=== PATIENT | male | born 1950 | race Caucasian/White ===

== ENCOUNTER 2017-03-21 07:56 | Outpatient (CLI) | payer MEDICARE ==
--- NOTE | 2017-03-21 09:34 | CT ---
CT THORAX WITH IV CONTRAST CT ABDOMEN AND PELVIS WITH IV CONTRAST: DATE: 03/21/17. HISTORY: Followup Hodgkin's lymphoma. The patient has had chemotherapy 26 years ago. COMPARISON: 02/28/16. FINDINGS: CT THORAX: Again noted is evidence of gynecomastia bilaterally. Dense vascular calcifications are seen in the coronary arteries and to a much lesser extent involving the thoracic aorta. There are calcified mediastinal and hilar lymph nodes with a few scattered calcified granulomata with in the lungs bilaterally. There are a few minimal pleural-based densities, some of which have a nodu lar appearance with associated calcifications and were also present on the prior study and are most c ompatible with chronic lung changes. No discrete noncalcified pulmonary nodular mass is seen and the re is no pleural effusion. There are no enlarged lymph nodes seen by CT size criteria and the mediastinal lymph nodes seen on e current study are stable from prior exam. CT ABDOMEN AND PELVIS: Again noted is evidence of cholelithiasis. A right renal cyst is again present. There is a subcentimeter too small to characterize hypodense le eli again present in the inferior pole left kidney. The liver, pancreas, and bilateral adrenal glands have a normal CT appearance. There are subcentimeter peripherally located low-density foci seen within the lateral aspect body of the spleen, and these low-density foci were also seen on prior study on 07/26/13 and are stable in size and appearance. No enlarged lymph nodes were seen by CT size criteria. There is stable haziness in the central mesen isaac, stable when compared to the recent study in 2016 as well as study in 2013. There is colonic diverticulosis. Opacified has a normal CT appearance. Surgical clips are seen near the cecal apex. Bilateral total hip prostheses are present. Degenerative changes are noted in the spine. IMPRESSION: 1. Stable mediastinal lymphadenopathy, the majority of which demonstrates calcifications likely attr ibutable to treated lymphoma or prior granulomatous disease. No new enlarged mediastinal or hilar ly mph nodes are seen. There is no evidence of lymphadenopathy within the abdomen or pelvis. 2. Stable pleural-based nodular densities and areas of pleural thickening with associated calcificat ion which were also present on the study of 2013 and are related to chronic findings. No new noncalc ified pulmonary nodule or mass is seen. 3. The remainder of incidental findings are as described above. POS: MASHA
== END 2017-03-21 07:57 | disposition home or self-care (01) ==
LOC: CT 07:56
PROVIDERS: ATTEND Internal Medicine Medical Oncology
DX: C81.92 Hodgkin lymphoma, unspecified, intrathoracic lymph nodes (principal); R59.0 Localized enlarged lymph nodes; J98.4 Other disorders of lung
CPT/HCPCS: 71260; 74177

== ENCOUNTER 2017-09-04 08:08 | Outpatient (CLI) | payer MEDICARE ==
[2017-09-04 08:56] LABS: Estimated GFR-MDRD - POC Greater than 90
[2017-09-04] MEDS ORDERED: ISOVUE-370 76%-LOCM 1 ML ONE (12:12)
== END 2017-09-04 08:09 | disposition home or self-care (01) ==
LOC: BICCT 08:08
PROVIDERS: ATTEND Internal Medicine Medical Oncology
DX: C81.90 Hodgkin lymphoma, unspecified, unspecified site (principal); M25.851 Other specified joint disorders, right hip; M25.852 Other specified joint disorders, left hip; Z96.643 Presence of artificial hip joint, bilateral
CPT/HCPCS: 71260; 74177; 82565

== ENCOUNTER 2019-01-19 11:17 | Outpatient (CLI) | payer MEDICARE ==
--- NOTE | 2019-01-19 11:30 | RAD ---
EXAM: 2 view chest: INDICATIONS: Chest pain. Lymphoma. COMPARISON: 12/12/2016 FINDINGS: Borderline cardiomegaly is stable. Vascular and interstitial markings upper normal and stab le. Scattered pulmonary nodular opacities are again seen and appear stable. No effusion. No infiltrate or acute interval change. Degenerative changes at both shoulders. IMPRESSION: Stable chest findings
== END 2019-01-19 11:18 | disposition home or self-care (01) ==
LOC: RAD-FRANK 11:17
PROVIDERS: ATTEND Nurse Practitioner Family
DX: C81.90 Hodgkin lymphoma, unspecified, unspecified site (principal); R07.89 Other chest pain; I25.10 Atherosclerotic heart disease of native coronary artery without angina pectoris
CPT/HCPCS: 71046

== ENCOUNTER 2019-09-10 20:10 | Inpatient (IN) | payer MEDICARE ==
[2019-09-11] MEDS ORDERED: traMADol HCl 50 MG TAB PO PRN ×2 (00:43→00:55)
--- NOTE | 2019-09-11 01:39 | CON ---
DATE OF CONSULTATION: 09/10/2019 REFERRING PHYSICIAN: Dr. Bhardwaj. REASON FOR CONSULTATION: Fever of unknown origin. This is a consult made via telemedicine with the assistance of the [facility] nurse, where Mr. Jacob is located. HISTORY OF PRESENT ILLNESS: Mr. Jacob is a 69-year-old gentleman who has a history of Hodgkin lymphoma treated in 1989, avascular necrosis, gout, hyperlipidemia, hypertension, and coronary artery disease with prior cardiac stents. On September 01, he was brought to the emergency room because he had been confused for about a week before September 01, had decreased oral intake and was lethargic, had not had any reported vomiting or dysuria. No respiratory symptoms reported either. Actually, he did have some dysuria reported by the ER physician. The initial findings included a BP 126/76, pulse 108, respirations 24, O2 saturation 94 on 2 L nasal cannula, his temp was 101.8. The exam in the emergency room showed the patient to be lethargic and the mucous membranes were dry and the lungs were sounded clear. The heart exam showed tachycardia, but no murmurs. The abdomen was soft and nontender. There was evidence of nonpitting edema in lower extremities. On neuro exam, he was oriented to person only. Talib scale was 15. He was given IV fluids and started on vancomycin and Zosyn. The impression was sepsis. He was admitted to [facility] and the patient had blood cultures which were negative and urine culture negative as well. The initial laboratory results showed white cell count of 6.1, hemoglobin of 9.2, MCV was 86, and platelets were 119. The neutrophil percentage was 81 and the chemistry demonstrated a sodium of 134, creatinine of 0.87, lactic acid was 2.4, uric acid was less than 2. The total bilirubin was 1.5, AST 31, ALT 18, and alkaline phosphatase 60. Troponin was 0.033, and albumin was 2.8. Vitamin B12 was not tested; the last one in June was within normal limits. Urinalysis demonstrated 0-3 wbc's, urobilinogen was 4, moderate blood, specific gravity 5.5. The patient had COVID rule-out test x2 and both times, 4 days apart were negative. Imaging studies on 09/01 was a chest x-ray, which showed borderline heart size, a few scattered nodular densities, focal pleural thickening along the right lateral hemithorax. He had a chest, abdomen, and pelvis CT the next day on 09/02, there were areas of pleural thickening in the lateral right hemithorax chest wall, subsegmental atelectasis within the lateral segment of the right middle lobe and areas of peribronchial ground-glass opacity seen peripherally within the anterior-posterior segments of the right upper lobe as well as within the apical posterior segment of left upper lobe. No madison airspace consolidation noted. There was a stable calcified granuloma in the right middle lobe, lingula. The lymph nodes in the mediastinum were stable if not slightly smaller. Abdomen and pelvis, there was motion artifact, which limited the specificity of the image and there were some layered gallstones within the gallbladder. No focal hepatic lesion. There was some mild amount of retained stool within the rectum. The visualized bladder was felt to be of normal appearance. The patient had bilateral total hip replacements, which appeared okay. Currently, the patient has developed the recurrence of the previously noted obtundation. He had been afebrile for a few days. Antimicrobials were stopped the day before yesterday and repeat blood work was fairly unremarkable. Now through the imaging in the video, he is apathetic and he only once answered yes to a question and his name , but then he stopped answering or following commands. He does not establish eye contact with the nurse or the examiner. The oral cavity was somewhat dry. He has not been drinking since breakfast this morning. He did drink a couple of Ensure after that though. His lungs were sounded clear according to the nurse. The heart exam was not particularly remarkable. Abdomen was felt soft. The bladder, postvoid residual was 200 mL. He did not have edema in lower extremities. He was not moving and had good muscle tone though. The latest lab values from 09/08 that was yesterday, WBC 4.7, hemoglobin 10.2, platelets 201 with 73% neutrophils, which is improved from previous. Chemistry with sodium 139, creatinine 0.74, glucose was 130, bilirubin normal, uric acid less than 2, it was not repeated. A C-reactive protein was elevated at 5.81; this is the first C-reactive protein. The last urinalysis was from 09/01. The chest x-ray showed improvement in the previously noted areas of atelectasis and there was one possible early infiltrate in the right middle lobe. ASSESSMENT: Hodgkin lymphoma, in remission, presumably since the . Hypertension. New onset of altered mental status associated with mild urinary retention and some nonspecific chest x-ray changes, now with improvement and then recrudescence of the same findings with fever and altered mental state. DISCUSSION: The differential diagnosis includes recurrence of lymphoma or an alternate type of malignancy associated with previous Hodgkin disease treatment, possible [employer] inflammatory process, for example, encephalitis. Aspiration is another possibility or recurrence due to urinary retention with bacteremia and early sepsis. We will go ahead and submit blood cultures and urine culture, urinalysis. Dr. Bhardwaj has ordered the other labs to be repeated today. We will restart Zosyn and I would advise transfer to the main hospital. He may need a fluoroscopy-guided CSF evaluation. I would probably consider a repeat CT scan of the abdomen and pelvis since the previous one was fraught with artifact from motion abnormalities. He did have a brain CT, so I do not think we need to repeat that, but an MRI might be necessary depending on the above evaluations. Job ID: [id number] [facility]ITALK[facility]n
[2019-09-11 04:28] LABS: ALT (SGPT) 31 U/L (8-55); AST (SGOT) 47 U/L (5-34); Albumin 3.1 g/dL (3.4-4.8); Alkaline Phosphatase 70 U/L (40-110); Anion Gap 13 mmol/L (10-20); BUN (Urea Nitrogen) 12 mg/dL (8.4-25.7); Bilirubin, Total 0.8 mg/dL (0.2-1.2); Calc. Creatinine Clearance 144 mL/min (70-130); Calcium 8.7 mg/dL (7.8-10.44); Carbon Dioxide 25 mmol/L (23-31); Chloride 96 mmol/L (98-107); Estimated GFR-MDRD Greater than 90; Globulin 4.9 g/dL (2.4-3.5); Glucose 118 mg/dL (83-110); Potassium 4.1 mmol/L (3.5-5.1); Sodium 130 mmol/L (136-145)
[2019-09-11] MEDS: Acetaminophen 650 MG Suppository PR PRN ×2 (05:23→16:33)
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
[2019-09-11] MEDS ORDERED: Allopurinol 300 MG TAB PO SCH (09:00)
[2019-09-11] MEDS ORDERED: Metoprolol Tartrate 25 MG TAB PO SCH (09:00)
[2019-09-11] MEDS ORDERED: Isosorbide Mononitrate (ER) 30 MG TAB PO SCH (09:00)
--- NOTE | 2019-09-11 10:09 | RAD ---
Lumbar puncture fluoroscopic guided HISTORY: Altered mental status. Fever. FINDINGS: After informed consent was obtained, the lower back was prepped and draped in usual sterile fashion. Sterile technique, buffered local anesthesia, fluoroscopic guidance, and a right posterolateral L2-3 approach were used to carefully advance the tip of a 20-gauge spinal needle into the thecal sac. Opening pressure was not elevated. A total of 7 cc clear CSF was collected and submitted to laborator y for analysis. Needle was removed. Patient tolerated the procedure well and was returned in unchanged condition. Fluoroscopy time 0.1 minutes. IMPRESSION : Technically successful fluoroscopic guided lumbar puncture.
[2019-09-11] MEDS: Folic Acid 1 MG TAB PO SCH (10:19)
[2019-09-11 10:34] LABS: Unspun CSF Color COLORLESS (Colorless)
[2019-09-11 10:35] LABS: Color Of CSF Supernatant COLORLESS (Colorless)
[2019-09-11 10:36] LABS: Tube # 1
[2019-09-11 10:54] LABS: CSF, Glucose 58 mg/dl (40-70); CSF, Protein 75 mg/dL (15-40)
[2019-09-11] MEDS: Lisinopril 5 MG TAB PO SCH (12:15)
[2019-09-11 12:57] LABS: CSF Source CSF; Clarity Clear (Clear); Tube # 4
--- NOTE | 2019-09-11 14:58 | PRG ---
DATE OF SERVICE: 09/11/2019 SUBJECTIVE: Mr. Jacob is apathetic. He does not establish eye contact. He will answer very briefly questions only upon insistence. He will say things such as "I'm here," but does not elaborate further. He does not follow commands. I spoke with his and she stated that his baseline basically he is able to do everything and drive and normal conversation. He has been retired for a while. They have cows , animals, dogs, and cats in the house. He does not calderón and no travel history. 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 The deterioration in his cognitive function was very mild and mostly some issues with recollection, but nothing that she stated that they would be concerned with, so the deterioration that were seen now is a more acute one, which started about 5 to 8 days before the admission in [facility] on 09/03. So, there was quite precipitous deterioration in his mental state. He started having fever. He was not eating. She did state that there were some issues with pain in the abdominal area, but that was quite mild and they were not very concerned with. She also stated that he could not hold his urine and he would always be incontinent over the past few weeks to months. He was supposed to be in remission from his Hodgkin's disease for many years now. OBJECTIVE: VITAL SIGNS: Here, his vital signs show a T-max of 100.3, now it is 98.4, blood pressure 122/62, pulse is 96 to 102, respiratory rate 22, O2 saturation 95% on 2 L nasal cannula. SKIN: Nothing in the skin exam of significance. He has a peripheral IV access. : Voiding with an indwelling Sepulveda catheter. HEENT: His ocular movements are conjugate. Sclerae white. No nystagmus. LUNGS: With diminished breath sounds at bases, but no obvious crackles or wheezing. HEART: S1, S2. Regular rate. No S3 or S4. No murmurs. ABDOMEN: Soft, nondistended. There is tenderness in the right upper quadrant. No bladder distention noted. EXTREMITIES: No joint inflammatory activity. He has hyporeflexia. Plantar responses are somewhat indifferent, but no clonus. NEUROLOGIC: His cognitive function again is really poor. He opens his eyes spontaneously, does not establish eye contact, does not follow commands. He will answer very briefly to certain questions, but most of them he does not say anything. LABORATORY DATA: Labs showed sodium 130, creatinine 0.74, bilirubin 0.8, AST 47 , albumin 3.1, LDH 286, and the most recent CBCs from yesterday with a white cell count 7.0, hemoglobin 10, MCV 88, platelets 159, 82% neutrophils, and 17% lymphocytes. Urinalysis from yesterday showed 0 to 3 WBCs, 100 protein, so urine culture was not submitted. He had a CSF evaluation today with the first tube showed 7 WBCs with 75 protein with mild elevation of protein. Microbiology thus far has negative blood cultures. Negative urine culture as well 12 hours. Previous blood and urine cultures have been negative as well. Respiratory virus PCR panel was negative on the . IMAGING STUDIES: A chest x-ray from the showed congestive changes with improvement. A brain CT with no significant changes. Abdominal ultrasound with contracted gallbladder with cholelithiasis. The wall measured 3 mm in thickness. No fluid was seen around the wall. The common bile duct was 5 mm. Visualized pancreas appeared normal. He was retaining some urine of about 200 mL when I checked yesterday when he was in [place]. He had an abdomen and pelvis CT with chest as well on 09/02 and there was respiratory motion artifacts, which limited somewhat image detail. There was scattered artifact from the patient's upper extremities adjacent to the torso. There was some suspected calcified lymph nodes in the subdiaphragmatic region. There were layered gallstones within the gallbladder. Liver was okay. Renal cyst and spleen within normal limits. Mild amount of retained stool, visualized bladder was not remarkable. Bilateral total hip replacements. Scattered degenerative changes. There were some peribronchial ground-glass opacities seen within both upper lobes. He has had 2 COVID tests, which were negative recently. ASSESSMENT: 1. History of Hodgkin's disease in remission, following treatment many years ago. 2. Hypertension and new onset of fever, low-grade with altered mental state, mild urinary retention, nonspecific chest x-ray changes, mild abnormalities on liver panel, and some mild tenderness in the right upper quadrant. DISCUSSION: The CSF evaluation was fairly benign except for mild elevation in the CSF protein. He did have 7 WBCs noted. The urinary retention issue was one of the concerns, but his urinalysis was unremarkable. Urine culture is pending. Previous urine culture was negative. So, the differential diagnosis includes an intraabdominal inflammatory process that the initial CT was not able to identify due to motion artifact. For example, acute cholecystitis, recurrence of lymphoma, either Hodgkin's, or a different sort of malignant process as a possibility. Bacteremia from not yet disclosed primary site is considered possible. In view of the fact that he is exposed to various animals in the property is a possibility, particularly Bartonella species infection. Viral encephalitis is not completely ruled out and we will go ahead and check West Nile, herpes simplex, PCR, and we will check Bartonella, IgG, and IgM. Job ID: [id number] [facility]
[2019-09-11] MEDS: Sodium Chloride 0.9% 1,000 ML IV SCH (15:11)
--- NOTE | 2019-09-11 15:57 | PDOC.HOSPP ---
- Subjective Encounter Date: 09/11/19 non-verbal - Objective Vital Signs & Weight: Vital Signs (12 hours) Temp Pulse Resp BP Pulse Ox 09/11/19 15:05 102.6 F H 103 H 20 132/60 94 L 09/11/19 11:53 98.4 F 102 H 22 H 122/62 95 09/11/19 07:45 100.2 F H 96 20 120/57 L 92 L Weight Weight 245 lb 6.4 oz I&O: 09/10/19 09/11/19 09/12/19 06:59 06:59 06:59 Output Total 450 Balance -450 Result Diagrams: 09/11/19 03:59 Hospitalist ROS - Medication Medications: Active Medications Generic Name Dose Route Start Last Admin Trade Name Freq PRN Reason Stop Dose Admin Acetaminophen 650 mg 09/11/19 04:49 09/11/19 05:23 Tylenol [place] 650 mg Q6H PRN Administration Headache/Fever or Pain Folic Acid 1 mg 09/11/19 09:00 09/11/19 10:19 Folvite PO Not Given DAILY [facility] Sodium Chloride 1,000 mls @ 75 mls/hr 09/11/19 14:15 09/11/19 15:11 Normal Saline 0.9% IV 1,000 mls .[id number] TRISTAN Administration Lisinopril 5 mg 09/11/19 09:00 09/11/19 12:15 Zestril PO Not Given DAILY TRISTAN Metoprolol Tartrate 25 mg 09/11/19 09:00 09/11/19 12:15 Lopressor PO Not Given BID TRISTAN Pantoprazole Sodium 40 mg 09/11/19 09:00 09/11/19 10:19 Protonix PO Not Given DAILY TRISTAN - Exam General Appearance: NAD General - other findings: Attempts to shake my hand. Does not speak or make eye contact. Stares Heart: RRR, no murmur, no gallops, no rubs, normal peripheral pulses Respiratory: CTAB, no wheezes, no rales, no ronchi, normal chest expansion, no tachypnea, normal percussion Gastrointestinal: soft, non-distended, normal bowel sounds, no palpable masses, no hepatomegaly, no splenomegaly, no bruit Extremities: no cyanosis, no clubbing, no edema Skin: normal turgor Musculoskeletal: generalized weakness Psychiatric - other findings: Non-verbal. Encephalopathic. Hosp A/P (1) Acute metabolic encephalopathy Code(s): G93.41 - METABOLIC ENCEPHALOPATHY Status: Acute (2) Fever Code(s): R50.9 - FEVER, UNSPECIFIED Status: Acute (3) HTN (hypertension) Code(s): I10 - ESSENTIAL (PRIMARY) HYPERTENSION Status: Chronic (4) Hyperlipidemia Code(s): E78.5 - HYPERLIPIDEMIA, UNSPECIFIED Status: Chronic - Plan This patient was transferred from [place] for fever of unknown origin. He was seen by infectious disease there and the recommendations was for transfer here. Patient continues to be febrile and continues to have encephalopathy. There is no specific source of the infection as yet identified. Lumbar puncture was performed. There was a slight elevation of the protein and relatively low glucose. CT abdomen and pelvis and further serologies are pending. Given the patient's encephalopathy he will remain n.p.o. We will convert his medicines to IV and topical as possible.
[2019-09-11] MEDS: Metoprolol Tartrate 5 MG/5 ML VIAL IVP SCH (16:42)
--- NOTE | 2019-09-11 17:21 | MRI ---
MRI OF BRAIN WITH AND WITHOUT CONTRAST: 09/11/19 HISTORY: Confusion and fever. COMPARISON: CT of the brain 09/04/19. MRI of the brain 06/17/16. FINDINGS: On the diffusion weighted imaging sequence, there are no abnormal foci of diffusion restriction. This is confirmed on the ADC map. On the susceptibility weighted imaging sequence there are senile calcifications of the basal ganglia. No acute hemorrhage. Moderate-high grade atrophy. Extensive periventricular and deep white matter microangiopathic changes . No midline shift. No mass effect. No abnormal intra-axial or extra-axial enhancement. The dural venous sinuses are patent. IMPRESSION: 1. No acute hemorrhage or infarct. 2. No abnormal enhancing intra-axial or extra-axial mass. 3. Extensive periventricular and deep white matter microangiopathic changes and moderate-high gr aldair atrophy. POS: HOME
--- NOTE | 2019-09-11 17:57 | CT ---
ABDOMEN AND PELVIC CT SCAN WITH IV CONTRAST: 09/11/19 HISTORY: Altered mental status, fever, abdominal pain. FINDINGS: Small to moderate right pleural effusion. Patchy parenchymal changes in bot lung bases, more marked i n the right lower lobe concerning for bibasilar pneumonia and/or partial atelectasis. Three vessel co ronary artery calcific disease. Multiple gallstones are noted within the gallbladder without overt ga llbladder wall thickening. The liver appears unremarkable. Pancreas appears unremarkable. There is se veral peripheral low density foci involving the spleen, nonspecific, possibly small splenic cysts or changes related to old injury. Adrenal glands are unremarkable. Bilateral renal cysts up to 5.8 cm on the right side. Abnormal fat stranding in the central mesentery with a pseudocapsule evidence for mesenteric panniculitis. No CT evidence for acute appendicitis. Moderate solid fecal material in the colon with a minimally dilated rectum, evidence for obstipation. Bilateral total hip replacement sexton ges. IMPRESSION: Small to moderate right pleural effusion and minimal left sided pleural thickening. Bibasilar parench ymal changes more marked in the left base, evidence for bibasilar pneumonia and/or partial atelectasi s. Cholelithiasis without gallbladder wall thickening or gallbladder distention. Fat stranding in the central mesentery with a pseudocapsule evidence for mesenteric panniculitis. Fecal material in the c olon with dilated rectum, evidence for obstipation. No abscess, abnormal fluid collection or other ac [place] process. POS: [facility]
[2019-09-11] MEDS: Nitroglycerin 2% Ointment 1 INCH/1 GM Packet TOP SCH (20:27)
[2019-09-12] MEDS: Acetaminophen 650 MG Suppository PR PRN ×3 (03:44→13:23)
[2019-09-12] MEDS: Metoprolol Tartrate 5 MG/5 ML VIAL IVP SCH ×2 (03:44→16:08)
[2019-09-12] MEDS: Sodium Chloride 0.9% 1,000 ML IV SCH ×2 (05:43→16:47)
[2019-09-12 06:47] LABS: #Eosinphils 0.1 thou/uL (0.0-0.7); #Lymphocytes 0.7 thou/uL (1.20-3.40); #Monocytes 0.4 thou/uL (0.11-0.59); #Neutrophils 7.8 thou/uL (1.40-6.50); %Basophils 0.1 % (0.0-1.0); %Eosinophils 0.9 % (0.0-10.0); %Monocytes 3.9 % (0.0-10.0); %Neutrophils 87.1 % (42.0-75.0); Hemoglobin 10.3 g/dL (14.0-18.0); Mean Corpuscular HGB CONC 32.3 g/dL (32.0-36.0); Mean Corpuscular Hemoglobin 28.7 pg (27.0-31.0); Mean Corpuscular Volume 88.9 fL (78.0-98.0); Mean Platelet Volume 9.4 fL (7.4-10.4); Platelet Count 213 thou/uL (130-400); RBC Distribution Width 17.7 % (11.5-14.5); Red Blood Cell (RBC) Count 3.59 mill/uL (4.70-6.10)
[2019-09-12] MEDS: Piperacillin/Tazobactam 3.375 GM in Sodium Chloride 0.9% 100 ML IVPB SCH ×4 (07:00→23:56)
[2019-09-12] MEDS: Nitroglycerin 2% Ointment 1 INCH/1 GM Packet TOP SCH ×2 (08:09→22:04)
[2019-09-12] MEDS ORDERED: Vancomycin HCl 1 GM in Sodium Chloride 0.9% 250 ML 250 ML IVPB SCH (09:00)
[2019-09-12 09:09] LABS: Actual Bicarbonate (HCO3a) 21.1 mEq/L (22-28); Base Excess (BEa) -1.5 mEq/L (-2.0 to +3.0); CO2 Tension 28.8 mmHg (35.0-45.0); Calcium, Ionized 1.16 mmol/L (1.12-1.30); Carboxyhemoglobin (COHb) 1.3 gm% (0.0-3.0); Hemoglobin (Hb) 11.5 g/dL (14.0-18.0); Potassium - ABG Lab 4.44 mmol/L (3.70-5.30); pH, Arterial 7.48 (7.35-7.45)
[2019-09-12 09:10] LABS: O2 Tension (PaO2), arterial 53.2 mmHg (> 70.0); Puncture Site LRA
[2019-09-12] MEDS: Lisinopril 5 MG TAB PO SCH (09:13)
[2019-09-12] MEDS: Folic Acid 1 MG TAB PO SCH (09:13)
--- NOTE | 2019-09-12 09:33 | RAD ---
Chest one view HISTORY: Fever. COMPARISON: 09/09/2019. FINDINGS: Cardiac silhouette is magnified and upper limits of normal in size. Pulmonary vasculature r emains engorged. Ill-defined parenchymal opacity at the right lower lobe has progressed since the previous exam. Possi ble parenchymal opacity at the left lung base also. Mediastinum is midline. No evidence of pneumothorax. hall monitor leads overlie the chest. IMPRESSION : Increasing bibasilar infiltrates. Cardiomegaly and borderline pulmonary vascular engorgement appear stable.
[2019-09-12] MEDS: Pantoprazole 40 MG VIAL IVP SCH (09:37)
--- NOTE | 2019-09-12 09:40 | PDOC.HOSPP ---
- Subjective Encounter Date: 09/12/19 Subjective: All boothe was called on this patient this morning. Nurses noted the patient had a temperature of 103.5. He was tachycardic with a heart rate up to 150. He was tachypneic. He was having some rigors. He did receive rectal Tylenol this morning. On assessment the patient was tachypneic and having visible Rigors. EKG showed sinus tachycardia with a rate in the 130s. He had a left bundle branch block which was old. He had his baseline encephalopathy. - Objective Vital Signs & Weight: Vital Signs (12 hours) Temp Pulse Resp BP BP Pulse Ox 09/12/19 09:13 91 09/12/19 09:12 94 L 09/12/19 08:50 103.1 F H 09/12/19 06:56 99.4 F 91 20 128/59 L 92 L 09/12/19 03:51 100.6 F H 99 23 H 121/61 93 L Weight Weight 237 lb 12.8 oz Most Recent Monitor Data Heart Rate from ECG 115 NIBP 105/91 NIBP BP-Mean 95 Respiration from ECG 33 SpO2 96 I&O: 09/11/19 09/12/19 09/13/19 06:59 06:59 06:59 Intake Total 845 500 Output Total 450 1500 350 Balance -450 -655 150 Result Diagrams: 09/12/19 06:37 09/11/19 03:59 Additional Labs: Accuchecks 09/12/19 08:34 POC Glucose 127 H Hospitalist ROS - Medication Medications: Active Medications Generic Name Dose Route Start Last Admin Trade Name Freq PRN Reason Stop Dose Admin Acetaminophen 650 mg 09/11/19 04:49 09/12/19 09:13 Tylenol SC 650 mg Q6H PRN Administration Headache/Fever or Pain Folic Acid 1 mg 09/11/19 09:00 09/12/19 09:13 Folvite PO Not Given DAILY TRISTAN Sodium Chloride 1,000 mls @ 75 mls/hr 09/11/19 14:15 09/12/19 05:43 Normal Saline 0.9% IV 1,000 mls .[id number] TRISTAN Administration Piperacillin Sod/Tazobactam 100 mls @ 200 mls/hr 09/12/19 06:00 09/12/19 07: 00 Sod 3.375 gm/ Sodium Chloride IVPB 100 mls Q6HR TRISTAN Administration Vancomycin HCl 2 gm/ Sodium 500 mls @ 250 mls/hr 09/12/19 06:45 09/12/19 08: 08 Chloride IVPB 09/12/19 10:00 500 mls NOW TRISTAN Administration Lisinopril 5 mg 09/11/19 09:00 09/12/19 09:13 Zestril PO Not Given DAILY TRISTAN Metoprolol Tartrate 5 mg 09/11/19 16:00 09/12/19 03:44 Lopressor IVP 5 mg 0400,1600 TRISTAN Administration Nitroglycerin 1 inch 09/11/19 21:00 09/12/19 08:09 Nitro-Bid 2% Ointment TOP 1 inch BID TRISTAN Administration Pantoprazole Sodium 40 mg 09/12/19 09:00 09/12/19 09:37 Protonix IVP 40 mg DAILY TRISTAN Administration - Exam Heart: RRR, no murmur Respiratory: rales, rhonchi Gastrointestinal: soft, non-distended, normal bowel sounds, no palpable masses Extremities: no cyanosis, no clubbing, no edema Skin: normal turgor Neurological - other findings: Encephalopathic Musculoskeletal: generalized weakness Psychiatric - other findings: Encephalopathy. He will answer a few simple questions. Hosp A/P (1) Acute metabolic encephalopathy Code(s): G93.41 - METABOLIC ENCEPHALOPATHY Status: Acute (2) Fever Code(s): R50.9 - FEVER, UNSPECIFIED Status: Acute (3) HTN (hypertension) Code(s): I10 - ESSENTIAL (PRIMARY) HYPERTENSION Status: Chronic (4) Hyperlipidemia Code(s): E78.5 - HYPERLIPIDEMIA, UNSPECIFIED Status: Chronic (5) Tachycardia Code(s): R00.0 - TACHYCARDIA, UNSPECIFIED Status: Acute (6) Acute respiratory failure with hypoxia Code(s): J96.01 - ACUTE RESPIRATORY FAILURE WITH HYPOXIA Status: Acute - Plan This patient was transferred from [place] for fever of unknown origin. He was seen by infectious disease there and the recommendations was for transfer here. Patient continues to be febrile and continues to have encephalopathy. There is no specific source of the infection as yet identified. Lumbar puncture was performed. There was a slight elevation of the protein and relatively low glucose. Serologies are pending. CT abdomen and pelvis did not show any specific acute infectious etiology. There was some evidence of panniculitis. He did have stool with dilated rectum. He appeared to have an episode of significant fever with chills this morning. With that he had tachycardia and tachypnea. His blood pressure remained stable. His oxygen saturation was only seen to go as low as 88% based on O2 sat monitor. ABG was obtained which showed some mild hypoxia with hyperventilation and slightly diminished CO2. pH was alkalotic. Patient was transferred to the ICU as an IMCU overflow. By the time the patient arrived there his heart rate was already down to 117. His respiratory rate had come back to normal. Blood pressure and sats were stable. Chest x-ray was ordered. It does appear to show some increasing bibasilar infiltrates. He remains on broad-spectrum antibiotics. ID following. Case was discussed with pulmonary critical care. Patient was placed on high flow nasal cannula. Given the patient's encephalopathy he will remain n.p.o. as he was not able to follow commands with the evaluation by speech therapy.
[2019-09-12] MEDS ORDERED: Ibuprofen 100 MG/5 ML UDCUP PO PRN (13:36)
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
--- NOTE | 2019-09-12 17:30 | PRG ---
DATE OF SERVICE: 09/12/2019 SUBJECTIVE: Mr. Jacob continued to have fevers. This morning I found out that somehow his Zosyn had been stopped or maybe dropped from the pharmacy list, that was resumed. Has been getting vancomycin and Zosyn since this morning. He was transferred to the ICU because of the worsening mental state and concern with possible need for intubation, but looks like he is going to avoid that for the time being. He is more alert, a bit more responsive than when I saw him yesterday. He establishes eye contact this time. He failed a swallow study. OBJECTIVE: VITAL SIGNS: Last temperature was 99.7, before that 101.5, and BP is kind of lowish 83s over 57, respiratory rate 20 to 27, O2 saturations are 96%. HEENT: His ocular movements are conjugate. LUNGS: With diminished breath sounds at bases. CARDIAC: S1, S2. ABDOMEN: Soft, not distended. EXTREMITIES: He is able to move extremities better than what he was doing before. LABORATORY DATA: His white cell count is 9.0, hemoglobin 10.3, platelets 213, with 87% neutrophils and glucose 127. Serum protein 8, albumin 3.1, LDH 286, AST 47. CSF, again we reviewed before. The assays for the different viruses is still pending. The MRI which was done yesterday with contrast study and showed no acute infarct, no abnormal mass, no enhancement. There was evidence of microangiopathic changes, moderate high-grade atrophy. Chest x-ray from this morning with bibasilar infiltrates, cardiomegaly. Dr. Marie has seen the patient. Dr. Dunn has evaluated the patient today. At this point, the patient presents with recurrent fevers, possible aspiration based on the CT findings. He did have some constipation, but he had a big bowel movement today and so he is not impacted right now. There is a little bit of mesenteric changes there, but there are mild. So probably he has some underlying cognitive issues with worsening due to aspiration and recurrent pneumonias. It does not appear to be secondary to a CVA, encephalitis work up is proceeding, if negative, will have to consider rapidly progressive neurodegerative processes. We will keep him on Zosyn and vancomycin and follow up the assays from the CSF. Job ID: [id number] [facility]
[2019-09-12] MEDS ORDERED: Vancomycin 1.5 GRAM/300 ML BAG 1.5 GM in Premix Bag 1 BAG IVPB SCH (18:00)
[2019-09-12] MEDS: Vancomycin 1.5 GRAM/300 ML BAG 1.5 GM in Premix Bag 1 BAG IVPB SCH (20:53)
[2019-09-13] MEDS: Acetaminophen 325 MG TAB PO PRN (01:27)
[2019-09-13] MEDS: Chloraseptic Spray 180 ml Bottle PO PRN (02:00)
[2019-09-13] MEDS: Metoprolol Tartrate 5 MG/5 ML VIAL IVP SCH ×2 (04:41→16:15)
[2019-09-13] MEDS: Piperacillin/Tazobactam 3.375 GM in Sodium Chloride 0.9% 100 ML IVPB SCH ×3 (06:07→19:18)
[2019-09-13 08:05] LABS: ALT (SGPT) 27 U/L (8-55); AST (SGOT) 41 U/L (5-34); Albumin 2.5 g/dL (3.4-4.8); Alkaline Phosphatase 60 U/L (40-110); Anion Gap 14 mmol/L (10-20); BUN (Urea Nitrogen) 21 mg/dL (8.4-25.7); Bilirubin, Total 0.6 mg/dL (0.2-1.2); Calc. Creatinine Clearance 134 mL/min (70-130); Calcium 8.3 mg/dL (7.8-10.44); Carbon Dioxide 23 mmol/L (23-31); Chloride 105 mmol/L (98-107); Estimated GFR-MDRD Greater than 90; Globulin 4.6 g/dL (2.4-3.5); Glucose 101 mg/dL (83-110); Potassium 4.2 mmol/L (3.5-5.1); Protein, Total 7.1 g/dL (5.8-8.1); Sodium 138 mmol/L (136-145)
[2019-09-13 09:12] LABS: Hemoglobin 9.7 g/dL (14.0-18.0); Mean Corpuscular HGB CONC 31.8 g/dL (32.0-36.0); Mean Corpuscular Hemoglobin 28.7 pg (27.0-31.0); Mean Corpuscular Volume 90.2 fL (78.0-98.0); Mean Platelet Volume 10.3 fL (7.4-10.4); Platelet Count 180 thou/uL (130-400); RBC Distribution Width 17.9 % (11.5-14.5); Red Blood Cell (RBC) Count 3.39 mill/uL (4.70-6.10); White Blood Cell (WBC) Count 5.8 thou/uL (4.8-10.8)
[2019-09-13] MEDS: Sodium Chloride 0.9% 1,000 ML IV SCH ×3 (09:40→21:30)
[2019-09-13] MEDS: Lisinopril 5 MG TAB PO SCH (09:44)
[2019-09-13] MEDS: Folic Acid 1 MG TAB PO SCH (09:44)
[2019-09-13] MEDS: Pantoprazole 40 MG VIAL IVP SCH (09:45)
[2019-09-13] MEDS: Vancomycin 1.5 GRAM/300 ML BAG 1.5 GM in Premix Bag 1 BAG IVPB SCH ×2 (09:45→21:20)
[2019-09-13] MEDS: Nitroglycerin 2% Ointment 1 INCH/1 GM Packet TOP SCH ×2 (09:45→21:20)
[2019-09-13 09:47] LABS: Band 32 % (5-11); Lymphocytes 2 % (21-51); MDiff Complete? YES; Monocytes 1 % (0-10); Neutrophil 64 % (42-75); Platelet Morphology Comment Appears Adequate; Polychromasia SLIGHT = 2-3 cells (100X) (0-2/hpf); Reactive Lymphocytes 1 % (0-10); Reflex for Review?? NO; Rouleaux Formation SLIGHT = 1-5 cells (100X) (None Seen)
--- NOTE | 2019-09-13 10:27 | PRG ---
DATE OF SERVICE: 09/13/2019 SUBJECTIVE: The patient looks like he feels better. He is alert, able to answer questions for orientation without difficulty. OBJECTIVE: VITAL SIGNS: His temperature 97.5, pulse 80, blood pressure 108/59, O2 saturation 98%. GENERAL: He is awake, alert, pleasant. HEENT: Unremarkable. NECK: No adenopathy or JVD. LUNGS: Clear. CARDIAC: S1 and S2. Regular. ABDOMEN: Soft. EXTREMITIES: No edema. NEUROLOGIC: Moves all 4 extremities without difficulty. LABORATORY DATA: White blood cell count 5.8, hematocrit 30, platelet count 180, 64% neutrophils, 32% bands. Sodium 130, potassium 4.2, BUN 21, creatinine 0.7, glucose 101. ASSESSMENT: This gentleman is presenting with a febrile illness with metabolic encephalopathy. his mental status is grossly improved today. I would recommend getting up in a chair. Discontinuing his restraints. Continue the antibiotics. Try him on clear liquids and see if he tolerates. Job ID: [id number]
--- NOTE | 2019-09-13 14:30 | PRG ---
DATE OF SERVICE: 09/13/2019 SUBJECTIVE: The patient is much more alert. He answered most of the questions I asked him. He is little bit disoriented, but he recognized once I said he was in [place] and [facility]. He denied any headaches. He has an NG tube for feeding because of his swallowing dysfunction. He is coughing intermittently, but no abdominal pain. He has a Sepulveda catheter. OBJECTIVE: VITAL SIGNS: He had a T-max of 101.5 yesterday at 12 and he has been afebrile since, BP 115/87, pulse 97, respiratory rate 29, O2 sats 98% with high-flow nasal cannula. GENERAL: He is more alert. He establishes eye contact and follows commands. He shook my hand. HEENT: His ocular movements conjugate. No nystagmus. Pupils are equal. LUNGS: There is coarse crackles particularly on the right side. HEART: S1, S2, regular rate. ABDOMEN: Soft, not distended. EXTREMITIES: He moves all extremities equally. His plantar response are flexor. No clonus. NEUROLOGIC: He knows his name and he thought he was in [facility]. When I corrected him, he realized he was in [place]. LABORATORY DATA: His white cell count is 5.8, hemoglobin 9.7, platelets 180, 64% neutrophils, 32% bands. Creatinine 0.78. AST 41, albumin 2.5. The assays in the CSF are pending for various viruses. ASSESSMENT AND DISCUSSION: History of Hodgkin disease, in remission after treatment in the 90s; hypertension; new onset of fever; altered mental state, felt to be due to toxic metabolic encephalopathy; swallowing dysfunction with aspiration pneumonia, recurrent. We are ruling out of viral encephalitis. MRI did not show an acute CVA. Consider Neurology consultation. If the viral panel is negative, then we will have to explain why he is having this decline in his swallowing function. Job ID: [id number]
--- NOTE | 2019-09-13 15:49 | PDOC.HOSPP ---
- Subjective Encounter Date: 09/13/19 Subjective: Much more interactive today. He denies any specific problems. He does admit to some mild shortness of breath. He also reports a modest cough. - Objective Vital Signs & Weight: Vital Signs (12 hours) Pulse BP Pulse Ox 09/13/19 09:44 91 104/53 L 09/13/19 08:00 99 Weight Weight 241 lb 2.971 oz Most Recent Monitor Data Heart Rate from ECG 97 NIBP 106/55 NIBP BP-Mean 72 Respiration from ECG 25 SpO2 98 I&O: 09/12/19 09/13/19 09/14/19 06:59 06:59 06:59 Intake Total 845 2262 Output Total 1500 1525 Balance -655 737 Result Diagrams: 09/13/19 07:30 09/13/19 07:30 Additional Labs: Accuchecks 09/13/19 09/13/19 09/12/19 05:06 03:45 19:52 POC Glucose 114 H 116 H 141 H Hospitalist ROS - Medication Medications: Active Medications Generic Name Dose Route Start Last Admin Trade Name Freq PRN Reason Stop Dose Admin Acetaminophen 650 mg 09/11/19 00:38 09/13/19 01:27 Tylenol PO 650 mg Q4H PRN Administration Headache/Fever/Mild Pain (1-3) Acetaminophen 650 mg 09/11/19 04:49 09/12/19 13:23 Tylenol HI 650 mg Q6H PRN Administration Headache/Fever or Pain Folic Acid 1 mg 09/11/19 09:00 09/13/19 09:44 Folvite PO 1 mg DAILY TRISTAN Administration Sodium Chloride 1,000 mls @ 75 mls/hr 09/11/19 14:15 09/13/19 09:40 Normal Saline 0.9% IV 1,000 mls .[id number] TRISTAN Administration Piperacillin Sod/Tazobactam 100 mls @ 200 mls/hr 09/12/19 06:00 09/13/19 13: 48 Sod 3.375 gm/ Sodium Chloride IVPB 100 mls Q6HR TRISTAN Administration Vancomycin HCl 1.5 gm/ Device 300 mls @ 200 mls/hr 09/12/19 21:00 09/13/19 09 :45 IVPB 300 mls Q12HR TRISTAN Administration Ibuprofen 400 mg 09/12/19 13:36 09/12/19 14:06 Motrin PO 400 mg Q8H PRN Administration Fever > 101 Lisinopril 5 mg 09/11/19 09:00 09/13/19 09:44 Zestril PO 5 mg DAILY TRISTAN Administration Metoprolol Tartrate 5 mg 09/11/19 16:00 09/13/19 04:41 Lopressor IVP Not Given 0400,1600 TRISTAN Nitroglycerin 1 inch 09/11/19 21:00 09/13/19 09:45 Nitro-Bid 2% Ointment TOP 1 inch BID TRISTAN Administration Pantoprazole Sodium 40 mg 09/12/19 09:00 09/13/19 09:45 Protonix IVP 40 mg DAILY TRISTAN Administration Phenol 0 ml 09/13/19 00:19 09/13/19 02:00 Chloraseptic [place] 180 Ml Bot PO 1 spray BIDPRN PRN Administration Sore Throat - Exam General Appearance: NAD, awake alert Heart: RRR, no murmur, no gallops, no rubs, normal peripheral pulses Respiratory: CTAB, no wheezes, no rales, no ronchi, normal chest expansion, no tachypnea, normal percussion Gastrointestinal: soft, non-tender, non-distended, normal bowel sounds, no palpable masses, no hepatomegaly, no splenomegaly, no bruit Extremities: no cyanosis, no clubbing, no edema Skin: normal turgor, no lesions, no rashes Neurological: no focal deficits Musculoskeletal: generalized weakness Psychiatric - other findings: Encephalopathy substantially improved. Patient conversant. Hosp A/P (1) Acute metabolic encephalopathy Code(s): G93.41 - METABOLIC ENCEPHALOPATHY Status: Acute (2) Fever Code(s): R50.9 - FEVER, UNSPECIFIED Status: Acute (3) HTN (hypertension) Code(s): I10 - ESSENTIAL (PRIMARY) HYPERTENSION Status: Chronic (4) Hyperlipidemia Code(s): E78.5 - HYPERLIPIDEMIA, UNSPECIFIED Status: Chronic (5) Tachycardia Code(s): R00.0 - TACHYCARDIA, UNSPECIFIED Status: Acute (6) Acute respiratory failure with hypoxia Code(s): J96.01 - ACUTE RESPIRATORY FAILURE WITH HYPOXIA Status: Acute - Plan Acute metabolic encephalopathy: This patient was transferred from [place] for fever of unknown origin. He was seen by infectious disease there and the recommendations was for transfer here. Patient continues to be febrile and continues to have encephalopathy. MRI of the brain was unrevealing. Viral encephalitis work-up still pending. Encephalopathy appears to be related to underlying infection of some sort. Much improved today. Dysphagia: Patient has some dysphasia and aspiration on swallow evaluation. It appears that he may have some aspiration pneumonitis resulting in the febrile illness. Speech therapy recommendations followed. Febrile illness: There is no specific source of the infection as yet identified. Lumbar puncture was performed. There was a slight elevation of the protein and relatively low glucose. Serologies are pending. CT abdomen and pelvis did not show any specific acute infectious etiology. There was some evidence of panniculitis. He did have stool with dilated rectum. Has subsequently had a large bowel movement. It appears as though he is having some aspiration pneumonitis. Infectious disease consult appreciated. Continue with broad- spectrum antibiotics. Viral encephalitis panel still pending. Fever appears to be improving. Acute hypoxic respiratory failure: Patient remains in the ICU. Continue with supplemental oxygen. This is secondary to pneumonitis likely from aspiration.
[2019-09-13 20:18] LABS: Vancomycin, Trough 20.4 ug/mL
[2019-09-14] MEDS: Piperacillin/Tazobactam 3.375 GM in Sodium Chloride 0.9% 100 ML IVPB SCH ×5 (00:28→23:36)
[2019-09-14] MEDS: Metoprolol Tartrate 5 MG/5 ML VIAL IVP SCH ×2 (04:19→16:33)
[2019-09-14 04:30] LABS: ALT (SGPT) 25 U/L (8-55); AST (SGOT) 48 U/L (5-34); Albumin 2.5 g/dL (3.4-4.8); Alkaline Phosphatase 63 U/L (40-110); Anion Gap 12 mmol/L (10-20); BUN (Urea Nitrogen) 16 mg/dL (8.4-25.7); Bilirubin, Total 0.5 mg/dL (0.2-1.2); Calc. Creatinine Clearance 148 mL/min (70-130); Calcium 8.2 mg/dL (7.8-10.44); Carbon Dioxide 21 mmol/L (23-31); Chloride 107 mmol/L (98-107); Estimated GFR-MDRD Greater than 90; Globulin 4.1 g/dL (2.4-3.5); Glucose 100 mg/dL (83-110); Potassium 3.6 mmol/L (3.5-5.1); Protein, Total 6.6 g/dL (5.8-8.1); Sodium 136 mmol/L (136-145)
[2019-09-14 04:57] LABS: Band 21 % (5-11); Eosinophils 8 % (0-10); Hemoglobin 9.3 g/dL (14.0-18.0); Lymphocytes 10 % (21-51); MDiff Complete? YES; Mean Corpuscular HGB CONC 31.5 g/dL (32.0-36.0); Mean Corpuscular Hemoglobin 28.4 pg (27.0-31.0); Mean Corpuscular Volume 90.1 fL (78.0-98.0); Mean Platelet Volume 10.2 fL (7.4-10.4); Monocytes 1 % (0-10); Neutrophil 60 % (42-75); Platelet Count 179 thou/uL (130-400); RBC Distribution Width 17.8 % (11.5-14.5); Red Blood Cell (RBC) Count 3.28 mill/uL (4.70-6.10); White Blood Cell (WBC) Count 4.4 thou/uL (4.8-10.8)
[2019-09-14] MEDS: Sodium Chloride 0.9% 1,000 ML IV SCH ×2 (08:48→23:36)
[2019-09-14] MEDS: Vancomycin 1.5 GRAM/300 ML BAG 1.5 GM in Premix Bag 1 BAG IVPB SCH ×2 (08:50→20:31)
[2019-09-14] MEDS: Folic Acid 1 MG TAB PO SCH (08:51)
[2019-09-14] MEDS: Pantoprazole 40 MG VIAL IVP SCH (08:51)
[2019-09-14] MEDS: Nitroglycerin 2% Ointment 1 INCH/1 GM Packet TOP SCH ×2 (08:52→20:31)
[2019-09-14] MEDS: Lisinopril 5 MG TAB PO SCH (08:52)
--- NOTE | 2019-09-14 12:29 | CON ---
DATE OF CONSULTATION: 09/14/2019 REASON FOR CONSULTATION: Altered mental status. HISTORY OF PRESENT ILLNESS: Mr. Jacob is a 69-year-old male, who was transferred from the [facility] because of altered mental status and weakness. History is taken from the patient's . According to him, he has been feeling extremely weak and was bedridden for about 2 to 3 weeks and then a week before he came to the emergency room, he became extremely unresponsive and confused, so she brought him to the [facility]. There, he was found to have fever and chills. He was diagnosed with sepsis and a chest x-ray was negative. Started on antibiotics. ID is on board right now. The patient is almost back to his baseline today per and he is alert and oriented x3. He was tested for COVID-19 twice and it was negative. The patient denies any nausea, vomiting, headache, chest pain, abdominal pain, focal weakness, focal paresthesias, dizziness, vertigo, loss of vision associated with other complaint. The patient and the also confirm that he reported increased generalized weakness and problems with swallowing, which have worsened over the last week. PAST MEDICAL HISTORY: Coronary artery disease, status post stents; Hodgkin's lymphoma; gout; avascular necrosis of the hip; hypercholesteremia; and hypertension. SOCIAL HISTORY: He chews tobacco. Drinks alcohol occasionally. , lives with his . FAMILY HISTORY: No family history of stroke. REVIEW OF SYSTEMS: All other systems were reviewed and were negative except pertinent positives and negatives mentioned in the HPI. ALLERGIES: CEPHALEXIN. bjective Vital Signs & Weight: Vital Signs (12 hours) Pulse BP Pulse Ox 09/13/19 09:44 91 104/53 L 09/13/19 08:00 99 Weight Weight 241 lb 2.971 oz Most Recent Monitor Data Heart Rate from ECG 97 NIBP 106/55 NIBP BP-Mean 72 Respiration from ECG 25 SpO2 98 I&O: 09/12/19 09/13/19 09/14/19 06:59 06:59 06:59 Intake Total 845 2262 Output Total 1500 1525 Balance -655 737 Result Diagrams: 09/13/19 07:30 09/13/19 07:30 Additional Labs: Accuchecks 09/13/19 09/13/19 09/12/19 05:06 03:45 19:52 POC Glucose 114 H 116 H 141 H Hospitalist ROS - Medication Medications: Active Medications Generic Name Dose Route Start Last Admin Trade Name Freq PRN Reason Stop Dose Admin Acetaminophen 650 mg 09/11/19 00:38 09/13/19 01:27 Tylenol PO 650 mg Q4H PRN Administration Headache/Fever/Mild Pain (1-3) Acetaminophen 650 mg 09/11/19 04:49 09/12/19 13:23 Tylenol [place] 650 mg Q6H PRN Administration Headache/Fever or Pain Folic Acid 1 mg 09/11/19 09:00 09/13/19 09:44 Folvite PO 1 mg DAILY TRISTAN Administration Sodium Chloride 1,000 mls @ 75 mls/hr 09/11/19 14:15 09/13/19 09:40 Normal Saline 0.9% IV 1,000 mls .[id number] TRISTAN Administration Piperacillin Sod/Tazobactam 100 mls @ 200 mls/hr 09/12/19 06:00 09/13/19 13: 48 Sod 3.375 gm/ Sodium Chloride IVPB 100 mls Q6HR TRISTAN Administration Vancomycin HCl 1.5 gm/ Device 300 mls @ 200 mls/hr 09/12/19 21:00 09/13/19 09 :45 IVPB 300 mls Q12HR TRISTAN Administration Ibuprofen 400 mg 09/12/19 13:36 09/12/19 14:06 Motrin PO 400 mg Q8H PRN Administration Fever > 101 Lisinopril 5 mg 09/11/19 09:00 09/13/19 09:44 Zestril PO 5 mg DAILY TRISTAN Administration Metoprolol Tartrate 5 mg 09/11/19 16:00 09/13/19 04:41 Lopressor IVP Not Given 0400,1600 TRISTAN Nitroglycerin 1 inch 09/11/19 21:00 09/13/19 09:45 Nitro-Bid 2% Ointment TOP 1 inch BID TRISTAN Administration Pantoprazole Sodium 40 mg 09/12/19 09:00 09/13/19 09:45 Protonix IVP 40 mg DAILY TRISTAN Administration Phenol 0 ml 09/13/19 00:19 09/13/19 02:00 Chloraseptic [place] 180 Ml Bot PO 1 spray BIDPRN PRN Administration Sore Throat - Exam General Appearance: NAD, awake alert Heart: RRR, no murmur, no gallops, no rubs, normal peripheral pulses Respiratory: CTAB, no wheezes, no rales, no ronchi, normal chest expansion, no tachypnea, normal percussion Gastrointestinal: soft, non-tender, non-distended, normal bowel sounds, no palpable masses, no hepatomegaly, no splenomegaly, no bruit Extremities: no cyanosis, no clubbing, no edema Skin: normal turgor, no lesions, no rashes . NEUROLOGICAL: Mental status; the patient is alert and oriented to person, place , and time. Speech is clear. Follows commands appropriately. Cranial nerves II through XII intact. Motor; muscle tone and bulk are normal. Moving all 4 extremities equally and symmetrically. Sensory; withdraws to nailbed pressure bilaterally. Reflexes; symmetric bilaterally. Gait not tested, but deferred because of patient's safety reasons. Cerebellar; intact. DATA REVIEWED: I reviewed the CT scan of the abdomen, chest, and pelvis, which shows peribronchial ground glass opacities in the both upper lobes. Blood work is essentially unremarkable. I reviewed MRI of the brain, which was negative for acute intracranial pathology. ASSESSMENT AND PLAN: Mr. Jacob is a 69-year-old male with 2 to 3 weeks history of falls, difficulty with ambulation, and generalized weakness. He does have fever and has been treated in the hospital with broad-spectrum antibiotics. He has been ruled out for COVID twice. He also had confusion. Recommend EEG to rule out underlying seizure activity. If EEG is negative, then most likely secondary to infectious etiology, MRI of the brain reviewed, which did not reveal any acute intracranial pathology. Continue home medications. Continue medical management per Primary Team. In regard to swallowing dysfunction, appreciate speech and swallow team recommendations. Neuro checks every 4 hours. Check CPK, CRP, and if the weakness persists, consider Neurology consult as outpatient to rule out neuromuscular cause and follow up EMG. We will follow up on the results of the EEG testing. Thank you for the consult. Job ID: [id number] [facility]
[2019-09-14 13:13] LABS: West Nile Virus IgG Ab - CSF Negative (Negative); West Nile Virus IgM Ab - CSF Negative (Negative)
--- NOTE | 2019-09-14 14:00 | PDOC.HOSPP ---
- Subjective Encounter Date: 09/14/19 Subjective: Much more awake and alert today. He reports he is hungry. Otherwise he does not have any specific complaints. - Objective Vital Signs & Weight: Vital Signs (12 hours) Temp Pulse Resp BP BP Pulse Ox 09/14/19 11:14 96.7 F L 09/14/19 08:52 72 103/58 L 09/14/19 08:00 98 09/14/19 07:19 98.3 F 09/14/19 06:00 99.0 F 72 20 107/56 L 96 09/14/19 03:41 99.8 F H Weight Weight 242 lb 14.4 oz Most Recent Monitor Data Heart Rate from ECG 78 NIBP 116/63 NIBP BP-Mean 80 Respiration from ECG 26 SpO2 97 I&O: 09/13/19 09/14/19 09/15/19 06:59 06:59 06:59 Intake Total 2262 2268 Output Total 1525 1650 Balance 737 618 Result Diagrams: 09/14/19 03:29 09/14/19 03:29 Additional Labs: Accuchecks 09/14/19 00:57 POC Glucose 108 Hospitalist ROS - Medication Medications: Active Medications Generic Name Dose Route Start Last Admin Trade Name Freq PRN Reason Stop Dose Admin Acetaminophen 650 mg 09/11/19 00:38 09/13/19 01:27 Tylenol PO 650 mg Q4H PRN Administration Headache/Fever/Mild Pain (1-3) Acetaminophen 650 mg 09/11/19 04:49 09/12/19 13:23 Tylenol [place] 650 mg Q6H PRN Administration Headache/Fever or Pain Folic Acid 1 mg 09/11/19 09:00 09/14/19 08:51 Folvite PO 1 mg DAILY TRISTAN Administration Sodium Chloride 1,000 mls @ 75 mls/hr 09/11/19 14:15 09/14/19 08:48 Normal Saline 0.9% IV 1,000 mls .[id number] TRISTAN Administration Piperacillin Sod/Tazobactam 100 mls @ 200 mls/hr 09/12/19 06:00 09/14/19 12: 03 Sod 3.375 gm/ Sodium Chloride IVPB 100 mls Q6HR TRISTAN Administration Vancomycin HCl 1.5 gm/ Device 300 mls @ 200 mls/hr 09/12/19 21:00 09/14/19 08 :50 IVPB 300 mls Q12HR TRISTAN Administration Ibuprofen 400 mg 09/12/19 13:36 09/12/19 14:06 Motrin PO 400 mg Q8H PRN Administration Fever > 101 Lisinopril 5 mg 09/11/19 09:00 09/14/19 08:52 Zestril PO Not Given DAILY [facility] Metoprolol Tartrate 5 mg 09/11/19 16:00 09/14/19 04:19 Lopressor IVP Not Given 0400,1600 [facility] Nitroglycerin 1 inch 09/11/19 21:00 09/14/19 08:52 Nitro-Bid 2% Ointment TOP Not Given BID [facility] Pantoprazole Sodium 40 mg 09/12/19 09:00 09/14/19 08:51 Protonix IVP 40 mg DAILY TRISTAN Administration Phenol 0 ml 09/13/19 00:19 09/13/19 02:00 Chloraseptic [place] 180 Ml Bot PO 1 spray BIDPRN PRN Administration Sore Throat - Exam General Appearance: NAD, awake alert Heart: RRR, no murmur, no gallops, no rubs, normal peripheral pulses Respiratory: CTAB, no wheezes, no rales, no ronchi, normal chest expansion, no tachypnea, normal percussion Gastrointestinal: soft, non-tender, non-distended, normal bowel sounds, no palpable masses, no hepatomegaly, no splenomegaly, no bruit Extremities: no cyanosis, no clubbing, no edema Skin: normal turgor Neurological: no focal deficits Musculoskeletal: generalized weakness Psychiatric: normal affect, normal behavior Hosp A/P (1) Acute metabolic encephalopathy Code(s): G93.41 - METABOLIC ENCEPHALOPATHY Status: Acute (2) Fever Code(s): R50.9 - FEVER, UNSPECIFIED Status: Acute (3) HTN (hypertension) Code(s): I10 - ESSENTIAL (PRIMARY) HYPERTENSION Status: Chronic (4) Hyperlipidemia Code(s): E78.5 - HYPERLIPIDEMIA, UNSPECIFIED Status: Chronic (5) Tachycardia Code(s): R00.0 - TACHYCARDIA, UNSPECIFIED Status: Acute (6) Acute respiratory failure with hypoxia Code(s): J96.01 - ACUTE RESPIRATORY FAILURE WITH HYPOXIA Status: Acute - Plan Acute metabolic encephalopathy: This patient was transferred from [place] for fever of unknown origin. He was seen by infectious disease there and the recommendations was for transfer here. Patient continues to be febrile and continues to have encephalopathy. MRI of the brain was unrevealing. Viral encephalitis work-up still pending. Encephalopathy appears to be related to underlying infection of some sort. Much improved today. Dysphagia: Patient has some dysphasia and aspiration on swallow evaluation. It appears that he may have some aspiration pneumonitis resulting in the febrile illness. Speech therapy recommendations followed. He will have a modified barium swallow today. Pending the results of that we either need to give him some p.o. nutrition or consider something through the NG tube. Unclear how much of this was simply related to the encephalopathy versus true neurologic dysfunction. Febrile illness: There is no specific source of the infection as yet identified. Lumbar puncture was performed. There was a slight elevation of the protein and relatively low glucose. Serologies are pending. CT abdomen and pelvis did not show any specific acute infectious etiology. There was some evidence of panniculitis. It appears as though he is having some aspiration pneumonitis. Infectious disease consult appreciated. Continue with broad-spectrum antibiotics with Vanc and Zosyn. Viral encephalitis panel still pending. Fever appears to be improving. Acute hypoxic respiratory failure: Patient remains in the IMCU. Continue with supplemental oxygen. This is secondary to pneumonitis likely from aspiration. Improving. Disposition: Patient is receiving PPI for PUD prophylaxis. He has SCDs in place. We will add Lovenox.
--- NOTE | 2019-09-14 14:11 | RAD ---
Modified barium swallow HISTORY: Dysphagia. Feeding difficulties. FINDINGS: Exam was performed in conjunction with speech pathology. Multiple liquid consistencies used . Video review is available and demonstrates very poor oral control delayed retropulsion. Early spill of contrast with deep penetration. Small amount of silent aspiration was seen with large amount of residue in the valleculae. Poor clearance upon secondary swallows. Esophagus below the level of the hypopharynx was not evaluated. No evidence of esophageal obstruction . Please see separate detailed report from speech pathology.
[2019-09-14] MEDS ORDERED: Enoxaparin Sodium 40 MG/0.4 ML SYRINGE SC SCH (14:15)
[2019-09-14] MEDS: Chloraseptic Spray 180 ml Bottle PO PRN (14:49)
--- NOTE | 2019-09-14 15:01 | EEG ---
Referring Physician: Darron CUADRA EEG # [id number] TEST TYPE: EXTENDED CONTINUOS VIDEO EEG REPORT: This EEG was performed using 24 channel uControl[employer]EC video digital EEG with 24 disc electrodes. This was an extended 2 hour 5 minutes of inpatient video EEG recording. Digital analysis of the EEG was done with spike and seizure detection which revealed no abnormalities BACKGROUND: Posterior background rhythm was not observed HYPERVENTILATION: Not perform PHOTIC STIMULATION: Not perform SLEEP: drowsiness and sleep are observed EEG DIAGNOSIS: 1) Intermittent irregular theta activity seen throughout the recording with superimposed beta 2) Absence of posterior background rhythm CLINICAL INTERPRETATION: THIS EEG IS CONSISTENT WITH MODERATE GENERALIZED NONSPECIFIC CEREBRAL DYSFUNCTION. NO ICTAL OR INTERICTAL EPILEPTIFORM ABNORMALITIES SEE DURING THE RECORDING. Mantel Craftsman: MANI [employer] Operations Agent: RICARDO DORMAN
--- NOTE | 2019-09-14 16:55 | PRG ---
DATE OF SERVICE: 09/14/2019 SUBJECTIVE: Mr. Jacob is oriented, much more alert, and answers questions. He is a little bit upset about the NG tube, and I explained that was because of his swallowing dysfunction. He seems to existed before. Denies any respiratory symptoms or abdominal pain. No diarrhea. No genitourinary symptoms. OBJECTIVE: VITAL SIGNS: T-max is 99.2 to 99.8 earlier today, respiratory rate 20, and blood pressure 103/56. GENERAL: NG tube in place, somewhat disheveled. Awake, alert. LUNGS: With crackles, particularly in the right base. HEART: S1 and S2, regular rate. ABDOMEN: Soft, not distended or tender. No ascites. No bladder distention. Sepulveda catheter in place. I's and O's have been negative and positive over the past 2 days. LABORATORY DATA: White blood cell count 4.4, hemoglobin 9.3, platelets 179, 60% neutrophils, 21% bands, 10% lymphocytes. PH of 7.48, pCO2 of 28, pO2 of 53. Creatinine 0.71, AST 48. The ammonia was normal at 25, and histoplasma antigen was less than 0.5. VZV DNA PCR was negative. ASSESSMENT AND PLAN: Dr. Chin evaluated the patient. EEG showed moderate generalized nonspecific dysfunction, but no epileptiform activity seen. Dr. Chin's impression was that probably the patient had toxic-metabolic encephalopathy in the face of the EEG results. Continue to treat pneumonia and then continue assessing the swallowing function to see if he can resume swallowing. Otherwise, he will need a G-tube. The reason for the swallowing dysfunction is not clear at this point in time. Myasthenia gravis is something to be concerned about, but he does not have other signs that would suggest that at this point in time. A CVA was not obvious in the MRI obtained. A few elements of his viral encephalitis workup are still pending at this point in time. Job ID: [id number] [facility]
--- NOTE | 2019-09-14 17:56 | PRG ---
DATE OF SERVICE: 09/14/2019 SUBJECTIVE: Mr. Jacob has no complaints. OBJECTIVE: VITAL SIGNS: He is afebrile. Blood pressure 120/55, heart rate is 78, respiratory rate is in the 20s. LUNGS: Clear. HEART: Regular rhythm. ABDOMEN: Soft. EXTREMITIES: Without edema. He appears to be more lucid. His last fever recorded was 09/11 at noon when he was 101.5. ASSESSMENT AND PLAN: The etiology of his febrile illness and encephalopathy has never been completely defined, although he did have an elevated CSF protein, leading me to believe that he may have had something inflammatory going on in his central nervous system. We will continue to follow. He appears to be stable at this time, if not significantly improved. Job ID: [id number]
--- NOTE | 2019-09-14 18:28 | PQF ---
DATE: 09-14-19 ATTN: DR. CECIL BENEDICT Please exercise your independent, professional judgment in responding to the clarification form. Clinical indicators are provided on the bottom of this form for your review Please check appropriate box(es): [ ] Sepsis present on admission [ ] Sepsis NOT present on admission [ ] Unable to determine [ ] Severe sepsis present on admission [ ] Severe Sepsis NOT present on admission [ ] Unable to determine with acute organ dysfunction of: [ ] Localized infection without sepsis [ ] Other diagnosis [ ] Unable to determine For continuity of documentation, please document condition throughout progress notes and discharge summary. Thank You. CLINICAL INDICATORS - SIGNS / SYMPTOMS / LABS / RESULTS AND LOCATION IN MR: H&P 09-11-19: DURING HIS STAY AT [facility], HE WAS FOUND TO HAVE FEVER AND CHILLS. HE WAS DIAGNOSED WITH SEPSIS OF UNKNOWN SOURCE. HE WAS EMPIRICALLY STARTED ON ZOSYN AND VANCOMYCIN. HE RECEIVED APPROX SEVEN DAYS OF THAT AND YESTERDAY, THE ANTIBIOTICS WERE STOPPED. TODAY, HIS FEVER RECURRED AND HE APPEARED TO BE MORE LETHARGIC AND DISORIENTED WITH SLIGHT HYPOXIA. HIS LACTIC ACID WAS INITIALLY 2.5 AND IMPROVED TO AROUND 2. H&P 09-11-19: PT REMAINS CONFUSED, FEVERS TEMP: 09-09-: 100, 20: 100.3, 102.6, 101.2 --: 103.1 PULSE: 09-09-: 101, 09-11-19: 102, 103 RISK FACTORS / RESULTS AND LOCATION IN MR: PN DR. BENEDICT 09-12-19: ACUTE METABOLIC ENCEPHALOPATHY, FEVER, TACHYCARDIA, ACUTE RESPIRATORY FAILURE WITH HYPOXIA, CHILLS PN DR. BENEDICT 09-13-19: PNEUMONITIS LIKELY FROM ASPIRATION TREATMENTS / RESULTS AND LOCATION IN MR: MAR: VANCOMYCIN IV, NS IVF, ZOSYN IV (This form is maintained as a part of the permanent medical record) 2014 [employer]. All Rights Reserved GURJIT [email or web address] Cell [facility]
[2019-09-15] MEDS: Metoprolol Tartrate 5 MG/5 ML VIAL IVP SCH ×2 (06:15→16:47)
[2019-09-15] MEDS: Piperacillin/Tazobactam 3.375 GM in Sodium Chloride 0.9% 100 ML IVPB SCH ×3 (06:15→17:54)
[2019-09-15 08:19] LABS: Vancomycin, Trough 15.3 ug/mL
[2019-09-15] MEDS: Nitroglycerin 2% Ointment 1 INCH/1 GM Packet TOP SCH ×2 (09:27→20:21)
[2019-09-15] MEDS: Enoxaparin Sodium 40 MG/0.4 ML SYRINGE SC SCH (09:27)
[2019-09-15] MEDS: Folic Acid 1 MG TAB PO SCH (09:28)
[2019-09-15] MEDS: Vancomycin 1.5 GRAM/300 ML BAG 1.5 GM in Premix Bag 1 BAG IVPB SCH (09:28)
[2019-09-15] MEDS: Lisinopril 5 MG TAB PO SCH (09:28)
[2019-09-15] MEDS: Pantoprazole 40 MG VIAL IVP SCH (09:28)
--- NOTE | 2019-09-15 09:56 | PDOC.HOSPP ---
- Subjective Encounter Date: 09/15/19 Subjective: Patient reports he is doing okay. He very much wants to eat. Specifically he would like a Dr. Chan. - Objective Vital Signs & Weight: Vital Signs (12 hours) Temp Pulse BP Pulse Ox 09/15/19 09:28 72 120/64 09/15/19 07:51 98 09/15/19 07:17 97.9 F 09/15/19 03:55 97.3 F L 09/14/19 23:15 97.6 F Weight Weight 243 lb 12.8 oz Most Recent Monitor Data Heart Rate from ECG 74 NIBP 128/78 NIBP BP-Mean 94 Respiration from ECG 22 SpO2 100 I&O: 09/14/19 09/15/19 09/16/19 06:59 06:59 06:59 Intake Total 2268 2200 Output Total 1650 1430 Balance 618 770 Result Diagrams: 09/14/19 03:29 09/14/19 03:29 Additional Labs: Accuchecks 09/14/19 23:50 POC Glucose 98 Hospitalist ROS - Medication Medications: Active Medications Generic Name Dose Route Start Last Admin Trade Name Freq PRN Reason Stop Dose Admin Acetaminophen 650 mg 09/11/19 00:38 09/13/19 01:27 Tylenol PO 650 mg Q4H PRN Administration Headache/Fever/Mild Pain (1-3) Acetaminophen 650 mg 09/11/19 04:49 09/12/19 13:23 Tylenol [place] 650 mg Q6H PRN Administration Headache/Fever or Pain Enoxaparin Sodium 40 mg 09/15/19 09:00 09/15/19 09:27 Lovenox [place] 40 mg 0900 TRISTAN Administration Folic Acid 1 mg 09/11/19 09:00 09/15/19 09:28 Folvite PO 1 mg DAILY TRISTAN Administration Sodium Chloride 1,000 mls @ 75 mls/hr 09/11/19 14:15 09/14/19 23:36 Normal Saline 0.9% IV 1,000 mls .[id number] TRISTAN Administration Piperacillin Sod/Tazobactam 100 mls @ 200 mls/hr 09/12/19 06:00 09/15/19 06: 15 Sod 3.375 gm/ Sodium Chloride IVPB 100 mls Q6HR TRISTAN Administration Vancomycin HCl 1.5 gm/ Device 300 mls @ 200 mls/hr 09/12/19 21:00 09/15/19 09 :28 IVPB 300 mls Q12HR TRISTAN Administration Ibuprofen 400 mg 09/12/19 13:36 09/12/19 14:06 Motrin PO 400 mg Q8H PRN Administration Fever > 101 Lisinopril 5 mg 09/11/19 09:00 09/15/19 09:28 Zestril PO 5 mg DAILY TRISTAN Administration Metoprolol Tartrate 5 mg 09/11/19 16:00 09/15/19 06:15 Lopressor IVP Not Given 0400,1600 [facility] Nitroglycerin 1 inch 09/11/19 21:00 09/15/19 09:27 Nitro-Bid 2% Ointment TOP 1 inch BID TRISTAN Administration Pantoprazole Sodium 40 mg 09/12/19 09:00 09/15/19 09:28 Protonix IVP 40 mg DAILY TRISTAN Administration Phenol 0 ml 09/13/19 00:19 09/14/19 14:49 Chloraseptic [place] 180 Ml Bot PO 1 spray BIDPRN PRN Administration Sore Throat - Exam General Appearance: NAD, awake alert Heart: RRR, no murmur, no gallops, no rubs, normal peripheral pulses Respiratory: CTAB, no wheezes, no ronchi, rales (Mild bibasilar.) Gastrointestinal: soft, non-tender, non-distended, normal bowel sounds, no palpable masses, no hepatomegaly, no splenomegaly, no bruit Extremities: no cyanosis, no clubbing, no edema Neurological: no focal deficits Musculoskeletal: generalized weakness Psychiatric: normal affect, normal behavior, A&O x 3 Hosp A/P (1) Acute metabolic encephalopathy Code(s): G93.41 - METABOLIC ENCEPHALOPATHY Status: Acute (2) Fever Code(s): R50.9 - FEVER, UNSPECIFIED Status: Acute (3) HTN (hypertension) Code(s): I10 - ESSENTIAL (PRIMARY) HYPERTENSION Status: Chronic (4) Hyperlipidemia Code(s): E78.5 - HYPERLIPIDEMIA, UNSPECIFIED Status: Chronic (5) Tachycardia Code(s): R00.0 - TACHYCARDIA, UNSPECIFIED Status: Acute (6) Acute respiratory failure with hypoxia Code(s): J96.01 - ACUTE RESPIRATORY FAILURE WITH HYPOXIA Status: Acute (7) Dysphagia Code(s): R13.10 - DYSPHAGIA, UNSPECIFIED Status: Acute (8) Aspiration pneumonitis Code(s): J69.0 - PNEUMONITIS DUE TO INHALATION OF FOOD AND VOMIT Status: Acute (9) Sepsis Code(s): A41.9 - SEPSIS, UNSPECIFIED ORGANISM Status: Acute - Plan Acute metabolic encephalopathy: This patient was transferred from [place] for fever of unknown origin. He was seen by infectious disease there and the recommendations was for transfer here. Patient continues to be febrile and continues to have encephalopathy. MRI of the brain was unrevealing. Viral encephalitis work-up negative. Encephalopathy appears to be related to underlying infection. Much improved today. Actually appears to be close to baseline. Sepsis/aspiration pneumonia: Present on admission. Patient has bibasilar infiltrates consistent with an aspiration pneumonia. He is getting better with broad-spectrum antibiotic coverage and cessation of p.o. intake. He is now afebrile. Encephalopathy resolved. Dysphagia: Patient has some dysphasia and aspiration on swallow evaluation. It appears that he may have some aspiration pneumonitis resulting in the febrile illness. He failed his modified barium swallow. And a long discussion with the patient and then again with his regarding the situation. His options are to have a PEG tube placed or to have oral intake with risk. His indicated that she would come see him tomorrow and they would make a decision about the next steps at that time. Patient currently is requesting some p.o.'s and understands that he may have some risk with taking that. Etiology of the dysphagia is not clear at this time. Neurology consult was obtained. So far work-up is negative. He may need outpatient follow-up for neuromuscular testing. Acute hypoxic respiratory failure: Patient remains in the IMCU. Continue with supplemental oxygen. This is secondary to pneumonitis likely from aspiration. Improving. Disposition: Patient is receiving PPI for PUD prophylaxis. He has SCDs in place. We will add Lovenox.
--- NOTE | 2019-09-15 12:00 | PDOC.HOSPP ---
- Subjective Encounter Date: 09/15/19 Subjective: NEUROLOGY PROGRESS NOTE Patient alert, awake and follows commands appropriately. - Objective Vital Signs & Weight: Vital Signs (12 hours) Temp Pulse BP Pulse Ox 09/15/19 09:28 72 120/64 09/15/19 07:51 98 09/15/19 07:17 97.9 F 09/15/19 03:55 97.3 F L Weight Weight 243 lb 12.8 oz Most Recent Monitor Data Heart Rate from ECG 72 NIBP 106/61 NIBP BP-Mean 76 Respiration from ECG 21 SpO2 100 I&O: 09/14/19 09/15/19 09/16/19 06:59 06:59 06:59 Intake Total 2268 2200 Output Total 1650 1430 Balance 618 770 Result Diagrams: 09/14/19 03:29 09/14/19 03:29 Additional Labs: Accuchecks 09/14/19 23:50 POC Glucose 98 Radiology Reviewed by me: Yes EKG Reviewed by me: Yes Hospitalist ROS - Review of Systems Constitutional: reports: fever, weakness. denies: chills, sweats, malaise, other Eyes: denies: pain, vision change, conjunctivae inflammation, eyelid inflammation, redness, other ENT: denies: ear pain, ear discharge, nose pain, nose discharge, nose congestion , mouth pain, mouth swelling, throat pain, throat swelling, other Respiratory: reports: cough, shortness of breath. denies: dry, hemoptysis, SOB with excertion, pleuritic pain, sputum, wheezing, other Cardiovascular: denies: chest pain, palpitations, orthopnea, paroxysmal noc. dyspnea, edema, light headedness, other Gastrointestinal: denies: nausea, vomiting, abdominal pain, diarrhea, constipation, melena, hematochezia, other Musculoskeletal: reports: back pain. denies: neck pain, shoulder pain, arm pain , hand pain, leg pain, foot pain, other Skin: denies: rash, lesions, mayra, bruising, other Other: generalized weakness - Medication Medications: Active Medications Generic Name Dose Route Start Last Admin Trade Name Freq PRN Reason Stop Dose Admin Acetaminophen 650 mg 09/11/19 00:38 09/13/19 01:27 Tylenol PO 650 mg Q4H PRN Administration Headache/Fever/Mild Pain (1-3) Acetaminophen 650 mg 09/11/19 04:49 09/12/19 13:23 Tylenol [place] 650 mg Q6H PRN Administration Headache/Fever or Pain Enoxaparin Sodium 40 mg 09/15/19 09:00 09/15/19 09:27 Lovenox SC 40 mg 0900 TRISTAN Administration Folic Acid 1 mg 09/11/19 09:00 09/15/19 09:28 Folvite PO 1 mg DAILY TRIST[facility] Administration Sodium Chloride 1,000 mls @ 75 mls/hr 09/11/19 14:15 09/14/19 23:36 Normal Saline 0.9% IV 1,000 mls .[id number] TRISTAN Administration Piperacillin Sod/Tazobactam 100 mls @ 200 mls/hr 09/12/19 06:00 09/15/19 06: 15 Sod 3.375 gm/ Sodium Chloride IVPB 100 mls Q6HR [facility]STAN Administration Vancomycin HCl 1.5 gm/ Device 300 mls @ 200 mls/hr 09/12/19 21:00 09/15/19 09 :28 IVPB 300 mls Q12HR [facility]STAN Administration Ibuprofen 400 mg 09/12/19 13:36 09/12/19 14:06 Motrin PO 400 mg Q8H PRN Administration Fever > 101 Lisinopril 5 mg 09/11/19 09:00 09/15/19 09:28 Zestril PO 5 mg DAILY [facility] Administration Metoprolol Tartrate 5 mg 09/11/19 16:00 09/15/19 06:15 Lopressor IVP Not Given 0400,1600 [facility] Nitroglycerin 1 inch 09/11/19 21:00 09/15/19 09:27 Nitro-Bid 2% Ointment TOP 1 inch BID [facility] Administration Pantoprazole Sodium 40 mg 09/12/19 09:00 09/15/19 09:28 Protonix IVP 40 mg DAILY [facility] Administration Phenol 0 ml 09/13/19 00:19 09/14/19 14:49 Chloraseptic [place] 180 Ml Bot PO 1 spray BIDPRN PRN Administration Sore Throat - Exam General Appearance: awake alert Eye: PERRL, anicteric sclera ENT: normocephalic atraumatic Neck: supple Heart: RRR Respiratory: CTAB Gastrointestinal: soft Extremities: no cyanosis, no clubbing, no edema Skin: normal turgor, no lesions, no rashes Neurological: cranial nerve grossly intact, normal sensation to touch, no weakness, no focal deficits, no new deficit Musculoskeletal: normal tone Musculoskeletal - other findings: Moving all 4 extemities equally and symmetrically Psychiatric: normal affect, normal behavior, oriented to person, oriented to place Hosp A/P (1) Altered mental status Code(s): R41.82 - ALTERED MENTAL STATUS, UNSPECIFIED Status: Acute (2) Acute metabolic encephalopathy Code(s): G93.41 - METABOLIC ENCEPHALOPATHY Status: Acute (3) Acute respiratory failure with hypoxia Code(s): J96.01 - ACUTE RESPIRATORY FAILURE WITH HYPOXIA Status: Acute (4) Dysphagia Code(s): R13.10 - DYSPHAGIA, UNSPECIFIED Status: Acute (5) Fever Code(s): R50.9 - FEVER, UNSPECIFIED Status: Acute - Plan PT/OT, speech therapy 69 year old consulted for altered mental status and dysphagia. Altered mental status seemed to be multifactorial related to metabolic and infectious etiologies Intracranial etiology less likely in the setting of nefgative imaging and EEG. MRI brain reviewed which was negative for acute process. EEG reviewed which was negative for seizure activity. No clinical sigms evident on exam gor myasthenia and from history . Recommend outpatient neuromuscular work up once acute issues are resolved. Plan and results of the testing discussed with the patient and the nursing staff.
[2019-09-15 12:14] LABS: Bartonella henselae IgG Negative titer (Neg:<1:320); Bartonella henselae IgM Negative titer (Neg:<1:100); Bartonella quintana IgG Negative titer (Neg:<1:320); Bartonella quintana IgM Negative titer (Neg:<1:100)
[2019-09-15] MEDS: Sodium Chloride 0.9% 1,000 ML IV SCH (12:21)
--- NOTE | 2019-09-15 16:42 | PRG ---
DATE OF SERVICE: 09/15/2019 SUBJECTIVE: About the same as yesterday. He is alert and was able to answer questions. He knew he was in the hospital and his name and the year. Still upset about having the nasal tube in. No chest pain. No abdominal pain. No diarrhea. OBJECTIVE: VITAL SIGNS: He has been afebrile and BP 130/60, heart rate 69, and O2 saturations are 98 with 2 L NG tube. LUNGS: Symmetric air entry. Crackles on the right side, particularly at the bases. CARDIAC: S1 and S2, regular rate. ABDOMEN: Soft. Not distended. EXTREMITIES: Moves extremities equally. LABORATORY DATA: White cell count 4.4, hemoglobin 9.3, and platelets 179. Creatinine was 0.71 and albumin 2.5. The Bartonella, herpes simplex DNA PCR negative. Plasma antigen negative and West Nile was pending. The neurologist's opinion is the fact that probable multifactorial altered mental status changes and so I guess he will have a repeat swallowing study down the road and to see if we can remove this tube, in the meantime, continue antimicrobial therapy. I think we can discontinue the vancomycin since the blood cultures have returned negative. Job ID: [id number]
[2019-09-16] MEDS: Sodium Chloride 0.9% 1,000 ML IV SCH (01:10)
[2019-09-16] MEDS: Piperacillin/Tazobactam 3.375 GM in Sodium Chloride 0.9% 100 ML IVPB SCH ×5 (01:12→23:43)
[2019-09-16] MEDS: Metoprolol Tartrate 5 MG/5 ML VIAL IVP SCH ×2 (05:34→15:19)
[2019-09-16] MEDS ORDERED: Dextrose 5 % And 0.9 % NaCl 1,000 ML IV SCH (08:00)
[2019-09-16 09:11] LABS: #Eosinphils 0.1 thou/uL (0.0-0.7); #Lymphocytes 0.6 thou/uL (1.20-3.40); #Monocytes 0.2 thou/uL (0.11-0.59); %Basophils 0.6 % (0.0-1.0); %Eosinophils 3.7 % (0.0-10.0); %Lymphocytes 19.6 % (21.0-51.0); %Monocytes 6.8 % (0.0-10.0); %Neutrophils 69.2 % (42.0-75.0); Hemoglobin 9.8 g/dL (14.0-18.0); Mean Corpuscular HGB CONC 31.3 g/dL (32.0-36.0); Mean Corpuscular Hemoglobin 28.1 pg (27.0-31.0); Mean Corpuscular Volume 89.8 fL (78.0-98.0); Mean Platelet Volume 9.9 fL (7.4-10.4); Platelet Count 147 thou/uL (130-400); RBC Distribution Width 17.9 % (11.5-14.5); Red Blood Cell (RBC) Count 3.48 mill/uL (4.70-6.10); White Blood Cell (WBC) Count 2.8 thou/uL (4.8-10.8)
[2019-09-16 09:17] LABS: INR-International Normal Ratio 1.9; Prothrombin Time 21.9 sec (12.0-14.7)
[2019-09-16] MEDS: Nitroglycerin 2% Ointment 1 INCH/1 GM Packet TOP SCH ×2 (09:30→21:36)
[2019-09-16] MEDS: Pantoprazole 40 MG VIAL IVP SCH (09:30)
[2019-09-16] MEDS: Enoxaparin Sodium 40 MG/0.4 ML SYRINGE SC SCH (09:30)
[2019-09-16] MEDS: Folic Acid 1 MG TAB PO SCH (09:31)
[2019-09-16] MEDS: Lisinopril 5 MG TAB PO SCH (09:31)
[2019-09-16 09:43] LABS: Anion Gap 11 mmol/L (10-20); BUN (Urea Nitrogen) 11 mg/dL (8.4-25.7); Calc. Creatinine Clearance 173 mL/min (70-130); Calcium 8.3 mg/dL (7.8-10.44); Carbon Dioxide 23 mmol/L (23-31); Chloride 105 mmol/L (98-107); Estimated GFR-MDRD Greater than 90; Glucose 90 mg/dL (83-110); Potassium 3.5 mmol/L (3.5-5.1); Sodium 135 mmol/L (136-145)
[2019-09-16] MEDS ORDERED: Phytonadione 10 MG/ML AMP PO SCH (10:45)
--- NOTE | 2019-09-16 11:03 | PDOC.HOSPP ---
- Subjective Encounter Date: 09/16/19 Subjective: Patient reports he is doing mediocre today. He is unable to give me any specific problems. Says he is generally fatigued. - Objective Vital Signs & Weight: Vital Signs (12 hours) Temp Pulse BP 09/16/19 09:31 72 138/77 09/16/19 07:20 97.4 F L 09/16/19 03:39 99.2 F 09/15/19 23:21 97.1 F L Weight Admit Weight 245 lb 6.4 oz Weight 243 lb Most Recent Monitor Data Heart Rate from ECG 93 NIBP 142/73 NIBP BP-Mean 96 Respiration from ECG 27 SpO2 95 I&O: 09/15/19 09/16/19 09/17/19 06:59 06:59 06:59 Intake Total 2200 290 Output Total 1430 900 850 Balance 770 -900 -560 Result Diagrams: 09/16/19 09:02 09/16/19 09:02 Hospitalist ROS - Medication Medications: Active Medications Generic Name Dose Route Start Last Admin Trade Name Freq PRN Reason Stop Dose Admin Acetaminophen 650 mg 09/11/19 00:38 09/13/19 01:27 Tylenol PO 650 mg Q4H PRN Administration Headache/Fever/Mild Pain (1-3) Acetaminophen 650 mg 09/11/19 04:49 09/12/19 13:23 Tylenol [place] 650 mg Q6H PRN Administration Headache/Fever or Pain Folic Acid 1 mg 09/11/19 09:00 09/16/19 09:31 Folvite PO 1 mg DAILY [facility] Administration Piperacillin Sod/Tazobactam 100 mls @ 200 mls/hr 09/12/19 06:00 09/16/19 06: 45 Sod 3.375 gm/ Sodium Chloride IVPB 100 mls Q6HR [facility] Administration Dextrose/Sodium Chloride 1,000 mls @ 75 mls/hr 09/16/19 08:00 09/16/19 09:26 D5 0.9% Ns IV 1,000 mls .[id number] [facility]STAN Administration Lisinopril 5 mg 09/11/19 09:00 09/16/19 09:31 Zestril PO 5 mg DAILY [facility] Administration Metoprolol Tartrate 5 mg 09/11/19 16:00 09/16/19 05:34 Lopressor IVP Not Given 0400,1600 [facility] Nitroglycerin 1 inch 09/11/19 21:00 09/16/19 09:30 Nitro-Bid 2% Ointment TOP 1 inch BID [facility] Administration Pantoprazole Sodium 40 mg 09/12/19 09:00 09/16/19 09:30 Protonix IVP 40 mg DAILY [facility] Administration Phenol 0 ml 09/13/19 00:19 09/14/19 14:49 Chloraseptic [place] 180 Ml Bot PO 1 spray BIDPRN PRN Administration Sore Throat - Exam General Appearance: NAD, awake alert Heart: RRR, no murmur, no gallops, no rubs, normal peripheral pulses Respiratory: CTAB, no wheezes, no rales, no ronchi, normal chest expansion, no tachypnea, normal percussion Gastrointestinal: soft, non-tender, non-distended, normal bowel sounds, no palpable masses, no hepatomegaly, no splenomegaly, no bruit Extremities: no cyanosis, no clubbing, no edema Skin: normal turgor Musculoskeletal: generalized weakness Psychiatric: normal affect, normal behavior Hosp A/P (1) Acute metabolic encephalopathy Code(s): G93.41 - METABOLIC ENCEPHALOPATHY Status: Acute (2) Fever Code(s): R50.9 - FEVER, UNSPECIFIED Status: Acute (3) HTN (hypertension) Code(s): I10 - ESSENTIAL (PRIMARY) HYPERTENSION Status: Chronic (4) Hyperlipidemia Code(s): E78.5 - HYPERLIPIDEMIA, UNSPECIFIED Status: Chronic (5) Tachycardia Code(s): R00.0 - TACHYCARDIA, UNSPECIFIED Status: Acute (6) Acute respiratory failure with hypoxia Code(s): J96.01 - ACUTE RESPIRATORY FAILURE WITH HYPOXIA Status: Acute (7) Dysphagia Code(s): R13.10 - DYSPHAGIA, UNSPECIFIED Status: Acute (8) Aspiration pneumonitis Code(s): J69.0 - PNEUMONITIS DUE TO INHALATION OF FOOD AND VOMIT Status: Acute (9) Sepsis Code(s): A41.9 - SEPSIS, UNSPECIFIED ORGANISM Status: Acute (10) Pancytopenia Code(s): D61.818 - OTHER PANCYTOPENIA Status: Acute (11) Coagulopathy Status: Acute - Plan Acute metabolic encephalopathy: Likely multifactorial. Largely due to some underlying infection. Appears to be substantially better at this time. Sepsis/aspiration pneumonia: Present on admission. Patient has bibasilar infiltrates consistent with an aspiration pneumonia. He is getting better with broad-spectrum antibiotic coverage and cessation of p.o. intake. He is now afebrile. Antibiotic choices are being weaned. He is now currently on Zosyn. Dysphagia: Etiology unclear. Long discussion with the patient and his today. Ultimately he prefers not to have a PEG. He is preferring to have clear liquids with risk. We will also feed him through his NG tube for a couple of days and see if his strength will improve and his swallow may improve. If not we will readdress the situation at that time. I have asked the dietitians to help with a feeding regimen through the NG tube for now. Acute hypoxic respiratory failure: Patient remains in the IMCU. Continue with supplemental oxygen. This is secondary to pneumonitis likely from aspiration. Improving. Pancytopenia: Etiology of this is unclear as well. At this time it looks like it may be related to profound illness or antibiotics. Antibiotics are being weaned. We will continue to closely monitor. Coagulopathy: Etiology of this is not known at the moment. Does not appear to have significant liver disease. We will give him some vitamin K and monitor this along with the additional nutrition to see if it improves. Will be meaningful if the patient does go forward with a PEG placement. Hypertension: Patient is currently receiving IV beta-blockers. Seems to be working well. Will not make any changes. Could potentially switch him over to enteral meds through the NG tube. Disposition: Patient is receiving PPI for PUD prophylaxis. He has SCDs in place. We will add Lovenox.
[2019-09-16] MEDS: Acetaminophen 325 MG TAB PO PRN (23:51)
[2019-09-17 03:29] LABS: #Eosinphils 0.1 thou/uL (0.0-0.7); #Lymphocytes 0.5 thou/uL (1.20-3.40); #Monocytes 0.2 thou/uL (0.11-0.59); #Neutrophils 1.8 thou/uL (1.40-6.50); %Basophils 1.5 % (0.0-1.0); %Eosinophils 5.1 % (0.0-10.0); %Lymphocytes 17.9 % (21.0-51.0); %Monocytes 5.8 % (0.0-10.0); %Neutrophils 69.7 % (42.0-75.0); Hemoglobin 9.7 g/dL (14.0-18.0); Mean Corpuscular HGB CONC 30.6 g/dL (32.0-36.0); Mean Corpuscular Hemoglobin 27.1 pg (27.0-31.0); Mean Corpuscular Volume 88.8 fL (78.0-98.0); Mean Platelet Volume 10.2 fL (7.4-10.4); Platelet Count 140 thou/uL (130-400); RBC Distribution Width 17.8 % (11.5-14.5); Red Blood Cell (RBC) Count 3.56 mill/uL (4.70-6.10); White Blood Cell (WBC) Count 2.6 thou/uL (4.8-10.8)
[2019-09-17 03:49] LABS: Anion Gap 10 mmol/L (10-20); BUN (Urea Nitrogen) 11 mg/dL (8.4-25.7); Calc. Creatinine Clearance 170 mL/min (70-130); Calcium 7.9 mg/dL (7.8-10.44); Carbon Dioxide 24 mmol/L (23-31); Chloride 105 mmol/L (98-107); Estimated GFR-MDRD Greater than 90; Glucose 136 mg/dL (83-110); Potassium 3.2 mmol/L (3.5-5.1); Sodium 136 mmol/L (136-145)
[2019-09-17] MEDS: Metoprolol Tartrate 5 MG/5 ML VIAL IVP SCH ×2 (04:42→17:54)
[2019-09-17] MEDS: Piperacillin/Tazobactam 3.375 GM in Sodium Chloride 0.9% 100 ML IVPB SCH ×4 (06:32→23:37)
[2019-09-17] MEDS ORDERED: Potassium Chloride 20 MEQ TAB PER TUBE SCH (07:15)
[2019-09-17 08:39] LABS: INR-International Normal Ratio 1.3; PTT 31.3 sec (22.9-36.1); Prothrombin Time 15.8 sec (12.0-14.7)
[2019-09-17] MEDS: Lisinopril 5 MG TAB PO SCH (10:26)
[2019-09-17] MEDS: Folic Acid 1 MG TAB PO SCH (10:26)
[2019-09-17] MEDS: Pantoprazole 40 MG VIAL IVP SCH (10:26)
[2019-09-17] MEDS: Nitroglycerin 2% Ointment 1 INCH/1 GM Packet TOP SCH ×2 (10:26→21:19)
--- NOTE | 2019-09-17 11:58 | PDOC.HOSPP ---
- Subjective Encounter Date: 09/17/19 Subjective: Doing ok. Has tried taking in thin liquids with risk, but it has not gone well. Coughing routinely with attempts. Tolerating feeds. - Objective Vital Signs & Weight: Vital Signs (12 hours) Temp Pulse Resp BP Pulse Ox 09/17/19 11:12 98.5 F 09/17/19 10:26 72 09/17/19 07:24 97.7 F 09/17/19 06:00 98.4 F 09/17/19 04:00 98.8 F 72 16 106/60 97 Weight Admit Weight 245 lb 6.4 oz Weight 247 lb 1.6 oz Most Recent Monitor Data Heart Rate from ECG 84 NIBP 130/75 NIBP BP-Mean 93 Respiration from ECG 30 SpO2 94 I&O: 09/16/19 09/17/19 09/18/19 06:59 06:59 06:59 Intake Total 2534 Output Total 900 1750 Balance -900 784 Result Diagrams: 09/17/19 03:10 09/17/19 03:10 Hospitalist ROS - Medication Medications: Active Medications Generic Name Dose Route Start Last Admin Trade Name Freq PRN Reason Stop Dose Admin Acetaminophen 650 mg 09/11/19 00:38 09/16/19 23:51 Tylenol PO 650 mg Q4H PRN Administration Headache/Fever/Mild Pain (1-3) Acetaminophen 650 mg 09/11/19 04:49 09/12/19 13:23 Tylenol [place] 650 mg Q6H PRN Administration Headache/Fever or Pain Folic Acid 1 mg 09/11/19 09:00 09/17/19 10:26 Folvite PO 1 mg DAILY [facility] Administration Piperacillin Sod/Tazobactam 100 mls @ 200 mls/hr 09/12/19 06:00 09/17/19 06: 32 Sod 3.375 gm/ Sodium Chloride IVPB 100 mls Q6HR [facility]ST[facility] Administration Lisinopril 5 mg 09/11/19 09:00 09/17/19 10:26 Zestril PO 5 mg DAILY [facility] Administration Metoprolol Tartrate 5 mg 09/11/19 16:00 09/17/19 04:42 Lopressor IVP Not Given 0400,1600 [facility] Nitroglycerin 1 inch 09/11/19 21:00 09/17/19 10:26 Nitro-Bid 2% Ointment TOP 1 inch BID [facility]ST[facility] Administration Pantoprazole Sodium 40 mg 09/12/19 09:00 09/17/19 10:26 Protonix IVP 40 mg DAILY [facility] Administration Phenol 0 ml 09/13/19 00:19 09/14/19 14:49 Chloraseptic [place] 180 Ml Bot PO 1 spray BIDPRN PRN Administration Sore Throat - Exam General Appearance: NAD, awake alert Heart: RRR, no gallops, no rubs, normal peripheral pulses, murmur present Respiratory: CTAB, no wheezes, no rales, no ronchi, normal chest expansion, no tachypnea, normal percussion Respiratory - other findings: Diminished at bases. Gastrointestinal: soft, non-tender, non-distended, normal bowel sounds, no palpable masses, no hepatomegaly, no splenomegaly, no bruit Extremities: no cyanosis, no clubbing, no edema Skin: normal turgor Neurological: no focal deficits Musculoskeletal: generalized weakness Psychiatric: normal affect, normal behavior, A&O x 3 Hosp A/P (1) Acute metabolic encephalopathy Code(s): G93.41 - METABOLIC ENCEPHALOPATHY Status: Resolved (2) Fever Code(s): R50.9 - FEVER, UNSPECIFIED Status: Acute (3) HTN (hypertension) Code(s): I10 - ESSENTIAL (PRIMARY) HYPERTENSION Status: Chronic (4) Hyperlipidemia Code(s): E78.5 - HYPERLIPIDEMIA, UNSPECIFIED Status: Chronic (5) Tachycardia Code(s): R00.0 - TACHYCARDIA, UNSPECIFIED Status: Resolved (6) Acute respiratory failure with hypoxia Code(s): J96.01 - ACUTE RESPIRATORY FAILURE WITH HYPOXIA Status: Acute (7) Dysphagia Code(s): R13.10 - DYSPHAGIA, UNSPECIFIED Status: Acute (8) Aspiration pneumonitis Code(s): J69.0 - PNEUMONITIS DUE TO INHALATION OF FOOD AND VOMIT Status: Acute (9) Sepsis Code(s): A41.9 - SEPSIS, UNSPECIFIED ORGANISM Status: Resolved (10) Pancytopenia Code(s): D61.818 - OTHER PANCYTOPENIA Status: Acute (11) Coagulopathy Status: Acute (12) Hypokalemia Code(s): E87.6 - HYPOKALEMIA Status: Acute - Plan Acute metabolic encephalopathy: Likely multifactorial. Resolved. Sepsis/aspiration pneumonia: Improved, but he continues to attempt intake and aspirating. Continue IV abx. ID following. Dysphagia: Etiology unclear. Ultimately he prefers not to have a PEG, but seems more open to it today. He is preferring to have clear liquids with risk. We will also feed him through his NG tube for a couple of days and see if his strength will improve and his swallow may improve. If not we will readdress the situation at that time. Appreciate karate instructor recs. Tolerating feeds well. Acute hypoxic respiratory failure: Patient remains in the IMCU. Continue with supplemental oxygen. This is secondary to pneumonitis likely from aspiration. Improving. Pancytopenia: Etiology of this is unclear as well. At this time it looks like it may be marrow suppression related to profound illness or antibiotics. Antibiotics are being weaned. We will continue to closely monitor. If not improving with nutrition, may need Heme/Onc input. Coagulopathy: Etiology of this is not known at the moment. Does not appear to have significant liver disease. Improved with vit K. INR down to 1.3 today. Hypertension: Patient is currently receiving IV beta-blockers. Seems to be working well. Will not make any changes. Could potentially switch him over to enteral meds through the NG tube. Hypokalemia: Repletion. Disposition: Patient is receiving PPI for PUD prophylaxis. He has SCDs in place. Had lovenox held due to coagulopathy. Will resume it now.
--- NOTE | 2019-09-17 18:33 | PRG ---
DATE OF SERVICE: 09/17/2019 SUBJECTIVE: The patient is feeling about the same. Upset about the NG tube. No headaches. The patient had failed attempt at swallowing and he denies any abdominal pain, and indwelling Sepulveda catheter is still there. His I's and O's are variable, negative and positive, 900 and 700. OBJECTIVE: VITAL SIGNS: He has been afebrile for the past 24 hours, he was 100.8 on the 28th. BP 120/68, pulse 86, O2 saturations 91 to 96. GENERAL: NG tube in place. He is oriented. HEENT: Ocular movements are conjugate. LUNGS: With few crackles at the base, particularly in the right side. HEART: S1 and S2, regular rate. ABDOMEN: Soft. Not distended. EXTREMITIES: Moves extremities equally, except for the right hand, it is quite painful and maybe related to an IV access in the hand, ulnar aspect right side. LABORATORY DATA: His white cell count is 2.6, hemoglobin 9.7, and platelets 140 , with 69% neutrophils, 17% lymphocytes. Sodium 136, creatinine 0.62. He is currently receiving Zosyn. ASSESSMENT AND DISCUSSION: History of Hodgkin disease, in remission; hypertension; toxic metabolic encephalopathy associated with aspiration pneumonia. No evidence of viral encephalitis. MRI did not show acute cerebrovascular accident, but there were some chronic changes. The reason for the marked impairment of swallowing is not clear at this point in time. Previous studies have demonstrated that diffusion weighted MRI did not identify a relevant ischemic lesion in about 1/3 of patients with a nondisabling stroke, so I still think the more likely scenario is that he had a stroke without diffusion abnormalities on an MRI and that is the reason for the swallowing dysfunction. Most likely this occurred in the brainstem. Hopefully , he will have improvement in swallowing function going forward with speech therapy training. Job ID: [id number] MTDD
--- NOTE | 2019-09-17 23:31 | EKG ---
Test Reason : CODE GREEN Blood Pressure : / mmHG Vent. Rate : 136 BPM Atrial Rate : 136 BPM P-R Int : 000 ms QRS Dur : 144 ms QT Int : 308 ms P-R-T Axes : 000 -60 088 degrees QTc Int : 463 ms Sinus tachycardia Left axis deviation Left bundle branch block Abnormal ECG When compared with ECG of 25-APR-2011 12:28, Vent. rate has increased BY 74 BPM Confirmed by Greer ESQUIVEL ([id number]) on 09/17/2019 11:30:30 PM Referred By: RA Confirmed By:Greer ESQUIVEL
[2019-09-18 03:30] LABS: Anion Gap 12 mmol/L (10-20); BUN (Urea Nitrogen) 9 mg/dL (8.4-25.7); Calc. Creatinine Clearance 170 mL/min (70-130); Carbon Dioxide 24 mmol/L (23-31); Chloride 103 mmol/L (98-107); Estimated GFR-MDRD Greater than 90; Glucose 140 mg/dL (83-110); Potassium 3.7 mmol/L (3.5-5.1); Sodium 135 mmol/L (136-145)
[2019-09-18] MEDS: Metoprolol Tartrate 5 MG/5 ML VIAL IVP SCH ×2 (04:25→17:07)
[2019-09-18] MEDS: Piperacillin/Tazobactam 3.375 GM in Sodium Chloride 0.9% 100 ML IVPB SCH ×3 (05:33→18:35)
[2019-09-18] MEDS: Enoxaparin Sodium 40 MG/0.4 ML SYRINGE SC SCH (10:19)
[2019-09-18] MEDS: Lisinopril 5 MG TAB PO SCH (10:20)
[2019-09-18] MEDS: Pantoprazole 40 MG VIAL IVP SCH (10:20)
[2019-09-18] MEDS: Folic Acid 1 MG TAB PO SCH (10:20)
[2019-09-18] MEDS: Nitroglycerin 2% Ointment 1 INCH/1 GM Packet TOP SCH ×2 (10:20→20:07)
[2019-09-18] MEDS: Furosemide 20 MG TAB PO SCH (13:39)
--- NOTE | 2019-09-18 17:11 | PDOC.HOSPP ---
- Subjective Subjective: Seen and examined. Patient sleeping comfortably and resting this a.m. He has an NG tube in place for which he has been receiving nutrition and medications. Patient has been reluctant for PEG tube placement, he is hoping that he is able to swallow with time. Breathing well on room air, will downgrade to medical floor. - Objective Vital Signs & Weight: Vital Signs (12 hours) Temp Pulse Pulse Ox 09/18/19 15:38 98.4 F 09/18/19 11:13 97.0 F L 09/18/19 10:20 93 09/18/19 08:00 98 09/18/19 07:00 97.9 F Weight Admit Weight 245 lb 6.4 oz Weight 247 lb 14.4 oz Most Recent Monitor Data Heart Rate from ECG 93 NIBP 131/65 NIBP BP-Mean 87 Respiration from ECG 29 SpO2 97 I&O: 09/17/19 09/18/19 09/19/19 06:59 06:59 06:59 Intake Total 2534 1635 320 Output Total 2100 650 Balance 434 985 320 Result Diagrams: 09/17/19 03:10 09/18/19 02:52 Radiology Reviewed by me: Yes Hospitalist ROS - Review of Systems All other systems reviewed; all pertinent +/- noted in HPI/Subj - Medication Medications: Active Medications Generic Name Dose Route Start Last Admin Trade Name Freq PRN Reason Stop Dose Admin Acetaminophen 650 mg 09/11/19 00:38 09/16/19 23:51 Tylenol PO 650 mg Q4H PRN Administration Headache/Fever/Mild Pain (1-3) Acetaminophen 650 mg 09/11/19 04:49 09/12/19 13:[address] 650 mg Q6H PRN Administration Headache/Fever or Pain Enoxaparin Sodium 40 mg 09/18/19 09:00 09/18/19 10:19 Lovenox SC 40 mg 0900 TRISTAN Administration Folic Acid 1 mg 09/11/19 09:00 09/18/19 10:20 Folvite PO 1 mg DAILY [facility] Administration Furosemide 20 mg 09/18/19 14:00 09/18/19 13:39 Lasix PO 20 mg 0900,1400 [facility] Administration Piperacillin Sod/Tazobactam 100 mls @ 200 mls/hr 09/12/19 06:00 09/18/19 12: 39 Sod 3.375 gm/ Sodium Chloride IVPB 100 mls Q6HR [facility] Administration Lisinopril 5 mg 09/11/19 09:00 09/18/19 10:20 Zestril PO 5 mg DAILY [facility] Administration Metoprolol Tartrate 5 mg 09/11/19 16:00 09/18/19 17:07 Lopressor IVP Not Given 0400,1600 [facility] Nitroglycerin 1 inch 09/11/19 21:00 09/18/19 10:20 Nitro-Bid 2% Ointment TOP 1 inch BID [facility] Administration Pantoprazole Sodium 40 mg 09/12/19 09:00 09/18/19 10:20 Protonix IVP 40 mg DAILY [facility] Administration Phenol 0 ml 09/13/19 00:19 09/14/19 14:49 Chloraseptic [place] 180 Ml Bot PO 1 spray BIDPRN PRN Administration Sore Throat - Exam General Appearance: NAD, awake alert Eye: PERRL ENT: normocephalic atraumatic, moist mucosa Neck: supple, symmetric, no lymphadenopathy Heart: no murmur, no gallops, no rubs Respiratory: CTAB, no wheezes, no rales, no ronchi, normal chest expansion, no tachypnea Gastrointestinal: soft, non-tender, non-distended, no guarding, no rigidity Extremities: 1+ LE edema Skin: no lesions, no rashes Neurological: cranial nerve grossly intact, no focal deficits Musculoskeletal: generalized weakness Psychiatric: flat affect, somnolent Hosp A/P (1) Acute respiratory failure with hypoxia Code(s): J96.01 - ACUTE RESPIRATORY FAILURE WITH HYPOXIA Status: Acute (2) Aspiration pneumonitis Code(s): J69.0 - PNEUMONITIS DUE TO INHALATION OF FOOD AND VOMIT Status: Acute (3) Coagulopathy Status: Acute (4) Dysphagia Code(s): R13.10 - DYSPHAGIA, UNSPECIFIED Status: Acute (5) Fever Code(s): R50.9 - FEVER, UNSPECIFIED Status: Acute (6) Pancytopenia Code(s): D61.818 - OTHER PANCYTOPENIA Status: Acute (7) Acute metabolic encephalopathy Code(s): G93.41 - METABOLIC ENCEPHALOPATHY Status: Resolved (8) Tachycardia Code(s): R00.0 - TACHYCARDIA, UNSPECIFIED Status: Resolved (9) Altered mental status Code(s): R41.82 - ALTERED MENTAL STATUS, UNSPECIFIED Status: Acute (10) Hypoxia Code(s): R09.02 - HYPOXEMIA Status: Acute (11) Gout Code(s): M10.9 - GOUT, UNSPECIFIED Status: Chronic (12) HTN (hypertension) Code(s): I10 - ESSENTIAL (PRIMARY) HYPERTENSION Status: Chronic (13) Hyperlipidemia Code(s): E78.5 - HYPERLIPIDEMIA, UNSPECIFIED Status: Chronic (14) Obesity Code(s): E66.9 - OBESITY, UNSPECIFIED Status: Chronic (15) CVA (cerebral vascular accident) Code(s): I63.9 - CEREBRAL INFARCTION, UNSPECIFIED Status: Resolved (16) Sepsis Code(s): A41.9 - SEPSIS, UNSPECIFIED ORGANISM Status: Resolved - Plan Plan: intermediate medical care for, stable for downgraded to the medical unit infectious disease consultation, recommendations appreciated pulmonology consultation, recommendations appreciated gastroenterology consultation, recommendations appreciated patient with persistent dysphasia, he has been recommended a feeding tube for definitive management to avoid aspiration, he is currently thinking about this option and has an NG tube in place speech therapy eval and treat, recommendations appreciated patient with MRI the brain that did not demonstrate any obvious CVA, though CVA may be missed in a certain percentage of individuals altered mental status does not have a clear-cut etiology at this time, viral process versus metabolic process are possible continue other home medications is able blood pressure control blood sugar control G.I. prophylaxis DVT prophylaxis disposition: the patient has a do not resuscitate and do not intubate in place, we will honor patient's/ family's wishes.
[2019-09-18] MEDS: Acetaminophen 325 MG TAB PO PRN (20:06)
[2019-09-19] MEDS: Piperacillin/Tazobactam 3.375 GM in Sodium Chloride 0.9% 100 ML IVPB SCH ×5 (00:19→23:27)
[2019-09-19] MEDS: Metoprolol Tartrate 5 MG/5 ML VIAL IVP SCH ×3 (04:46→16:13)
[2019-09-19] MEDS: Lisinopril 5 MG TAB PO SCH (09:02)
[2019-09-19] MEDS: Folic Acid 1 MG TAB PO SCH (09:02)
[2019-09-19] MEDS: Furosemide 20 MG TAB PO SCH ×2 (09:02→15:59)
[2019-09-19] MEDS: Enoxaparin Sodium 40 MG/0.4 ML SYRINGE SC SCH (09:02)
[2019-09-19] MEDS: Nitroglycerin 2% Ointment 1 INCH/1 GM Packet TOP SCH ×2 (09:02→20:11)
[2019-09-19] MEDS: Pantoprazole 40 MG VIAL IVP SCH (09:02)
--- NOTE | 2019-09-19 14:23 | PDOC.HOSPP ---
- Subjective Subjective: Seen and examined. Breathing comfortably on room air. Has NG tube for feeding and medications. Patient states that he has not worked with speech therapy yet today. He has not made any decisions on if he is interested in feeding tube. He is stable for the medical floor and planning to get a room today, I ordered downgrade yesterday afternoon. - Objective Vital Signs & Weight: Vital Signs (12 hours) Temp Pulse Resp BP Pulse Ox 09/19/19 11:50 97.9 F 95 18 121/80 95 09/19/19 11:22 98.7 F 09/19/19 09:02 93 09/19/19 08:00 98 09/19/19 07:00 98.6 F 09/19/19 03:42 98.6 F Weight Admit Weight 245 lb 6.4 oz Weight 245 lb 15.163 oz Most Recent Monitor Data Heart Rate from ECG 93 NIBP 134/72 NIBP BP-Mean 92 Respiration from ECG 26 SpO2 99 I&O: 09/18/19 09/19/19 09/20/19 06:59 06:59 06:59 Intake Total 1635 1480 160 Output Total 650 1000 Balance 985 480 160 Result Diagrams: 09/17/19 03:10 09/18/19 02:52 Radiology Reviewed by me: Yes Hospitalist ROS - Review of Systems All other systems reviewed; all pertinent +/- noted in HPI/Subj - Medication Medications: Active Medications Generic Name Dose Route Start Last Admin Trade Name Freq PRN Reason Stop Dose Admin Acetaminophen 650 mg 09/11/19 00:38 09/18/19 20:06 Tylenol PO 650 mg Q4H PRN Administration Headache/Fever/Mild Pain (1-3) Acetaminophen 650 mg 09/11/19 04:49 09/12/19 13:23 Tylenol [place] 650 mg Q6H PRN Administration Headache/Fever or Pain Enoxaparin Sodium 40 mg 09/18/19 09:00 09/19/19 09:02 Lovenox SC 40 mg 0900 TRISTAN Administration Folic Acid 1 mg 09/11/19 09:00 09/19/19 09:02 Folvite PO 1 mg DAILY TRISTAN Administration Furosemide 20 mg 09/18/19 14:00 09/19/19 09:02 Lasix PO 20 mg 0900,1400 TRISTAN Administration Piperacillin Sod/Tazobactam 100 mls @ 200 mls/hr 09/12/19 06:00 09/19/19 12: 40 Sod 3.375 gm/ Sodium Chloride IVPB 100 mls Q6HR TRISTAN Administration Lisinopril 5 mg 09/11/19 09:00 09/19/19 09:02 Zestril PO 5 mg DAILY TRISTAN Administration Metoprolol Tartrate 5 mg 09/11/19 16:00 09/19/19 04:46 Lopressor IVP Not Given 0400,1600 [facility] Nitroglycerin 1 inch 09/11/19 21:00 09/19/19 09:02 Nitro-Bid 2% Ointment TOP 1 inch BID TRISTAN Administration Pantoprazole Sodium 40 mg 09/12/19 09:00 09/19/19 09:02 Protonix IVP 40 mg DAILY TRISTAN Administration Phenol 0 ml 09/13/19 00:19 09/14/19 14:49 Chloraseptic [place] 180 Ml Bot PO 1 spray BIDPRN PRN Administration Sore Throat - Exam General Appearance: NAD Eye: PERRL, anicteric sclera ENT: normocephalic atraumatic, moist mucosa ENT - other findings: NG tube in position Neck: supple, symmetric, no JVD Heart: no murmur, no gallops, no rubs Respiratory: CTAB, no wheezes, no rales, no ronchi, normal chest expansion, no tachypnea Gastrointestinal: soft, non-tender, no guarding, no rigidity Extremities: no clubbing, no edema Skin: no rashes Neurological: cranial nerve grossly intact, no focal deficits Musculoskeletal: generalized weakness Psychiatric: flat affect, somnolent Hosp A/P (1) Acute respiratory failure with hypoxia Code(s): J96.01 - ACUTE RESPIRATORY FAILURE WITH HYPOXIA Status: Acute (2) Aspiration pneumonitis Code(s): J69.0 - PNEUMONITIS DUE TO INHALATION OF FOOD AND VOMIT Status: Acute (3) Coagulopathy Status: Acute (4) Dysphagia Code(s): R13.10 - DYSPHAGIA, UNSPECIFIED Status: Acute (5) Fever Code(s): R50.9 - FEVER, UNSPECIFIED Status: Acute (6) Pancytopenia Code(s): D61.818 - OTHER PANCYTOPENIA Status: Acute (7) Acute metabolic encephalopathy Code(s): G93.41 - METABOLIC ENCEPHALOPATHY Status: Resolved (8) Tachycardia Code(s): R00.0 - TACHYCARDIA, UNSPECIFIED Status: Resolved (9) Altered mental status Code(s): R41.82 - ALTERED MENTAL STATUS, UNSPECIFIED Status: Acute (10) Hypoxia Code(s): R09.02 - HYPOXEMIA Status: Acute (11) Gout Code(s): M10.9 - GOUT, UNSPECIFIED Status: Chronic (12) HTN (hypertension) Code(s): I10 - ESSENTIAL (PRIMARY) HYPERTENSION Status: Chronic (13) Hyperlipidemia Code(s): E78.5 - HYPERLIPIDEMIA, UNSPECIFIED Status: Chronic (14) Obesity Code(s): E66.9 - OBESITY, UNSPECIFIED Status: Chronic (15) CVA (cerebral vascular accident) Code(s): I63.9 - CEREBRAL INFARCTION, UNSPECIFIED Status: Resolved (16) Sepsis Code(s): A41.9 - SEPSIS, UNSPECIFIED ORGANISM Status: Resolved - Plan Plan: intermediate medical care for, stable for downgraded to the medical unit infectious disease consultation, recommendations appreciated pulmonology consultation, recommendations appreciated gastroenterology consultation, recommendations appreciated patient with persistent dysphasia, he has been recommended a feeding tube for definitive management to avoid aspiration, he is currently thinking about this option and has an NG tube in place speech therapy eval and treat, recommendations appreciated patient with MRI the brain that did not demonstrate any obvious CVA, though CVA may be missed in a certain percentage of individuals altered mental status does not have a clear-cut etiology at this time, viral process versus metabolic process are possible continue other home medications is able blood pressure control blood sugar control G.I. prophylaxis DVT prophylaxis disposition: the patient has a do not resuscitate and do not intubate in place, we will honor patient's/ family's wishes.
[2019-09-20] MEDS: Metoprolol Tartrate 5 MG/5 ML VIAL IVP SCH (04:03)
[2019-09-20] MEDS: Piperacillin/Tazobactam 3.375 GM in Sodium Chloride 0.9% 100 ML IVPB SCH ×4 (05:41→23:51)
[2019-09-20 06:06] LABS: Anion Gap 12 mmol/L (10-20); BUN (Urea Nitrogen) 13 mg/dL (8.4-25.7); Calc. Creatinine Clearance 161 mL/min (70-130); Calcium 8.4 mg/dL (7.8-10.44); Carbon Dioxide 26 mmol/L (23-31); Chloride 97 mmol/L (98-107); Estimated GFR-MDRD Greater than 90; Glucose 129 mg/dL (83-110); Potassium 4.1 mmol/L (3.5-5.1); Sodium 131 mmol/L (136-145)
[2019-09-20] MEDS: Nitroglycerin 2% Ointment 1 INCH/1 GM Packet TOP SCH ×2 (08:03→20:21)
[2019-09-20] MEDS: Pantoprazole 40 MG VIAL IVP SCH (08:03)
[2019-09-20] MEDS: Folic Acid 1 MG TAB PO SCH (08:04)
[2019-09-20] MEDS: Enoxaparin Sodium 40 MG/0.4 ML SYRINGE SC SCH (08:04)
[2019-09-20] MEDS: Furosemide 20 MG TAB PO SCH ×2 (08:04→13:34)
[2019-09-20] MEDS: Lisinopril 5 MG TAB PO SCH (08:04)
[2019-09-20 12:13] LABS: A/G Ratio 0.5 (0.7-1.7); Alpha 1 0.3 g/dL (0.0-0.4); Alpha 2 1.2 g/dL (0.4-1.0); Beta 0.9 g/dL (0.7-1.3); Gamma 1.7 g/dL (0.4-1.8); Globulin, Total 4.1 g/dL (2.2-3.9); M-Spike Not Observed g/dL (Not Observed)
--- NOTE | 2019-09-20 15:02 | PDOC.HOSPP ---
- Subjective Encounter Date: 09/20/19 Encounter Time: 08:30 Subjective: no sob has weakness of right extremities - Objective Vital Signs & Weight: Vital Signs (12 hours) Temp Pulse Resp BP BP Pulse Ox 09/20/19 11:12 98.6 F 95 20 103/70 97 09/20/19 08:04 92 09/20/19 08:00 93 L 09/20/19 07:37 98.2 F 92 22 H 118/69 93 L Weight Admit Weight 245 lb 6.4 oz Weight 248 lb 10.903 oz Most Recent Monitor Data Heart Rate from ECG 93 NIBP 134/72 NIBP BP-Mean 92 Respiration from ECG 26 SpO2 99 I&O: 09/19/19 09/20/19 09/21/19 06:59 06:59 06:59 Intake Total 1480 1700 160 Output Total 1000 2450 Balance 480 -750 160 Result Diagrams: 09/17/19 03:10 09/20/19 05:19 Hospitalist ROS - Medication Medications: Active Medications Generic Name Dose Route Start Last Admin Trade Name Freq PRN Reason Stop Dose Admin Acetaminophen 650 mg 09/11/19 00:38 09/18/19 20:06 Tylenol PO 650 mg Q4H PRN Administration Headache/Fever/Mild Pain (1-3) Acetaminophen 650 mg 09/11/19 04:49 09/12/19 13:23 Tylenol [place] 650 mg Q6H PRN Administration Headache/Fever or Pain Enoxaparin Sodium 40 mg 09/18/19 09:00 09/20/19 08:04 Lovenox SC 40 mg 0900 TRISTAN Administration Folic Acid 1 mg 09/11/19 09:00 09/20/19 08:04 Folvite PO 1 mg DAILY TRISTAN Administration Furosemide 20 mg 09/18/19 14:00 09/20/19 13:34 Lasix PO 20 mg 0900,1400 TRISTAN Administration Piperacillin Sod/Tazobactam 100 mls @ 200 mls/hr 09/12/19 06:00 09/20/19 11: 40 Sod 3.375 gm/ Sodium Chloride IVPB 100 mls Q6HR TRISTAN Administration Lisinopril 5 mg 09/11/19 09:00 09/20/19 08:04 Zestril PO 5 mg DAILY TRISTAN Administration Nitroglycerin 1 inch 09/11/19 21:00 09/20/19 08:03 Nitro-Bid 2% Ointment TOP 1 inch BID TRISTAN Administration Pantoprazole Sodium 40 mg 09/12/19 09:00 09/20/19 08:03 Protonix IVP 40 mg DAILY TRISTAN Administration Phenol 0 ml 09/13/19 00:19 09/14/19 14:49 Chloraseptic [place] 180 Ml Bot PO 1 spray BIDPRN PRN Administration Sore Throat - Exam General Appearance: awake alert, ill appearing Eye: PERRL, anicteric sclera ENT: no oropharyngeal lesions, dry oral mucosa ENT - other findings: ng tube+ Neck: supple, no JVD Heart: RRR, no murmur Respiratory: no wheezes, no rales Gastrointestinal: soft, non-tender, non-distended, normal bowel sounds Extremities: no cyanosis, 1+ LE edema Neurological: cranial nerve grossly intact Neurological - other findings: right sided hemiparesis 3/5 strength? Hosp A/P (1) Aspiration pneumonitis Code(s): J69.0 - PNEUMONITIS DUE TO INHALATION OF FOOD AND VOMIT Status: Acute (2) Dysphagia Code(s): R13.10 - DYSPHAGIA, UNSPECIFIED Status: Acute Qualifiers: Dysphagia type: unspecified Qualified Code(s): R13.10 - Dysphagia, unspecified (3) Acute metabolic encephalopathy Code(s): G93.41 - METABOLIC ENCEPHALOPATHY Status: Resolved (4) Gout Code(s): M10.9 - GOUT, UNSPECIFIED Status: Chronic (5) HTN (hypertension) Code(s): I10 - ESSENTIAL (PRIMARY) HYPERTENSION Status: Chronic Qualifiers: Hypertension type: essential hypertension Qualified Code(s): I10 - Essential (primary) hypertension (6) Hyperlipidemia Code(s): E78.5 - HYPERLIPIDEMIA, UNSPECIFIED Status: Chronic (7) Obesity Code(s): E66.9 - OBESITY, UNSPECIFIED Status: Chronic (8) CVA (cerebral vascular accident) Code(s): I63.9 - CEREBRAL INFARCTION, UNSPECIFIED Status: Suspected - Plan repeat MRI to confirm if he has left sided cva/brainstem infarct is on lisinopril, lasix, nitropaste and protonix Is getting ng feeding, likely will need peg for dc plan if cant swallow hemostable has right UE edema
--- NOTE | 2019-09-20 16:39 | MRI ---
MRI brain noncontrast HISTORY: CVA. COMPARISON: 09/11/2019. FINDINGS: There is no evidence of acute intracranial hemorrhage or infarct. Diffuse cortical atrophy and chronic ischemic small vessel disease are again demonstrated. There is no mass effect or shift of midline structures. Mild mucosal thickening within the right maxillary sinus. IMPRESSION : No acute intracranial abnormalities are demonstrated. Chronic-type findings are stable
[2019-09-20 17:37] LABS: Albumin-Ur 28.7 % (.); Alpha 2 - Ur 12.9 % (.); Beta-Ur 17.4 % (.); M-Spike,% Not Observed % (Not Observed); Protein, Urine 85.3 mg/dL (Not Estab.)
[2019-09-20] MEDS: Acetaminophen 325 MG TAB PO PRN (20:22)
[2019-09-21] MEDS: Piperacillin/Tazobactam 3.375 GM in Sodium Chloride 0.9% 100 ML IVPB SCH ×4 (06:20→23:18)
[2019-09-21] MEDS: Enoxaparin Sodium 40 MG/0.4 ML SYRINGE SC SCH (08:23)
[2019-09-21] MEDS: Nitroglycerin 2% Ointment 1 INCH/1 GM Packet TOP SCH ×2 (08:23→21:00)
[2019-09-21] MEDS: Lisinopril 5 MG TAB PO SCH (08:24)
[2019-09-21] MEDS: Furosemide 20 MG TAB PO SCH ×2 (08:24→14:47)
[2019-09-21] MEDS: Folic Acid 1 MG TAB PO SCH (08:24)
[2019-09-21] MEDS: Pantoprazole 40 MG VIAL IVP SCH (08:24)
[2019-09-21] MEDS: Chloraseptic Spray 180 ml Bottle PO PRN ×2 (08:25→21:04)
--- NOTE | 2019-09-21 12:53 | PDOC.HOSPP ---
- Subjective Encounter Date: 09/21/19 Encounter Time: 08:25 Subjective: no new complaints brother at bedside - Objective Vital Signs & Weight: Vital Signs (12 hours) Temp Pulse Resp BP Pulse Ox 09/21/19 11:16 97.7 F 99 20 126/79 92 L 09/21/19 08:24 80 09/21/19 08:21 80 09/21/19 07:25 98.6 F 101 H 20 107/72 96 Weight Admit Weight 245 lb 6.4 oz Weight 248 lb 10.903 oz Most Recent Monitor Data Heart Rate from ECG 93 NIBP 134/72 NIBP BP-Mean 92 Respiration from ECG 26 SpO2 99 I&O: 09/20/19 09/21/19 09/22/19 06:59 06:59 06:59 Intake Total 1700 560 160 Output Total 2450 400 Balance -750 160 160 Result Diagrams: 09/17/19 03:10 09/20/19 05:19 Additional Labs: Accuchecks 09/20/19 16:44 POC Glucose 125 H Hospitalist ROS - Medication Medications: Active Medications Generic Name Dose Route Start Last Admin Trade Name Freq PRN Reason Stop Dose Admin Acetaminophen 650 mg 09/11/19 00:38 09/20/19 20:22 Tylenol PO 650 mg Q4H PRN Administration Headache/Fever/Mild Pain (1-3) Acetaminophen 650 mg 09/11/19 04:49 09/12/19 13:23 Tylenol [place] 650 mg Q6H PRN Administration Headache/Fever or Pain Enoxaparin Sodium 40 mg 09/18/19 09:00 09/21/19 08:23 Lovenox SC 40 mg 0900 TRISTAN Administration Folic Acid 1 mg 09/11/19 09:00 09/21/19 08:24 Folvite PO 1 mg DAILY TRISTAN Administration Furosemide 20 mg 09/18/19 14:00 09/21/19 08:24 Lasix PO 20 mg 0900,1400 TRISTAN Administration Piperacillin Sod/Tazobactam 100 mls @ 200 mls/hr 09/12/19 06:00 09/21/19 11: 23 Sod 3.375 gm/ Sodium Chloride IVPB 100 mls Q6HR TRISTAN Administration Lisinopril 5 mg 09/11/19 09:00 09/21/19 08:24 Zestril PO 5 mg DAILY TRISTAN Administration Nitroglycerin 1 inch 05/23/20 21:00 09/21/19 08:23 Nitro-Bid 2% Ointment TOP 1 inch BID TRISTAN Administration Pantoprazole Sodium 40 mg 09/12/19 09:00 09/21/19 08:24 Protonix IVP 40 mg DAILY TRISTAN Administration Phenol 0 ml 09/13/19 00:19 09/21/19 08:25 Chloraseptic [place] 180 Ml Bot PO 1 spray BIDPRN PRN Administration Sore Throat - Exam General Appearance: awake alert Eye: PERRL, anicteric sclera ENT: no oropharyngeal lesions, dry oral mucosa Neck: supple, no JVD Heart: RRR, no murmur Respiratory: no wheezes, no rales Gastrointestinal: soft, non-tender, non-distended, normal bowel sounds Extremities: no cyanosis, 1+ LE edema Neurological: cranial nerve grossly intact, no focal deficits Hosp A/P (1) Aspiration pneumonitis Code(s): J69.0 - PNEUMONITIS DUE TO INHALATION OF FOOD AND VOMIT Status: Acute (2) Dysphagia Code(s): R13.10 - DYSPHAGIA, UNSPECIFIED Status: Acute Qualifiers: Dysphagia type: unspecified Qualified Code(s): R13.10 - Dysphagia, unspecified (3) Acute metabolic encephalopathy Code(s): G93.41 - METABOLIC ENCEPHALOPATHY Status: Resolved (4) Gout Code(s): M10.9 - GOUT, UNSPECIFIED Status: Chronic (5) HTN (hypertension) Code(s): I10 - ESSENTIAL (PRIMARY) HYPERTENSION Status: Chronic Qualifiers: Hypertension type: essential hypertension Qualified Code(s): I10 - Essential (primary) hypertension (6) Hyperlipidemia Code(s): E78.5 - HYPERLIPIDEMIA, UNSPECIFIED Status: Chronic (7) Obesity Code(s): E66.9 - OBESITY, UNSPECIFIED Status: Chronic - Plan repeat MRI shows no evidence of cva dysphagia sec to severe deconditioning d/w patient, and brother regarding need for peg, they are all in agreement for the same, GI consult. is on lisinopril, lasix, nitropaste and protonix speech eval-ongoing hemostable has right UE edema
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
[2019-09-22] MEDS: Piperacillin/Tazobactam 3.375 GM in Sodium Chloride 0.9% 100 ML IVPB SCH ×2 (05:25→13:45)
[2019-09-22] MEDS: Nitroglycerin 2% Ointment 1 INCH/1 GM Packet TOP SCH ×2 (06:30→21:40)
--- NOTE | 2019-09-22 13:05 | PDOC.HOSPP ---
- Subjective Encounter Date: 09/22/19 Encounter Time: 11:00 Subjective: no sob or abd pain or nausea sister at bedside - Objective Vital Signs & Weight: Vital Signs (12 hours) Temp Pulse Resp BP Pulse Ox 09/22/19 06:30 98.1 F 88 16 141/89 H 94 L Weight Admit Weight 245 lb 6.4 oz Weight 245 lb 9.519 oz Most Recent Monitor Data Heart Rate from ECG 93 NIBP 134/72 NIBP BP-Mean 92 Respiration from ECG 26 SpO2 99 I&O: 09/21/19 09/22/19 09/23/19 06:59 06:59 06:59 Intake Total 560 1105 Output Total 400 1025 Balance 160 80 Result Diagrams: 09/17/19 03:10 09/20/19 05:19 Hospitalist ROS - Medication Medications: Active Medications Generic Name Dose Route Start Last Admin Trade Name Freq PRN Reason Stop Dose Admin Acetaminophen 650 mg 09/11/19 00:38 09/20/19 20:22 Tylenol PO 650 mg Q4H PRN Administration Headache/Fever/Mild Pain (1-3) Acetaminophen 650 mg 09/11/19 04:49 09/12/19 13:23 Tylenol [place] 650 mg Q6H PRN Administration Headache/Fever or Pain Enoxaparin Sodium 40 mg 09/18/19 09:00 09/21/19 08:23 Lovenox SC 40 mg 0900 TRISTAN Administration Folic Acid 1 mg 09/11/19 09:00 09/21/19 08:24 Folvite PO 1 mg DAILY TRISTAN Administration Furosemide 20 mg 09/18/19 14:00 09/21/19 14:47 Lasix PO 20 mg 0900,1400 TRISTAN Administration Piperacillin Sod/Tazobactam 100 mls @ 200 mls/hr 09/12/19 06:00 09/22/19 05: 25 Sod 3.375 gm/ Sodium Chloride IVPB 100 mls Q6HR TRISTAN Administration Lisinopril 5 mg 09/11/19 09:00 09/21/19 08:24 Zestril PO 5 mg DAILY TRISTAN Administration Nitroglycerin 1 inch 09/11/19 21:00 09/22/19 06:30 Nitro-Bid 2% Ointment TOP 1 inch BID TRISTAN Administration Pantoprazole Sodium 40 mg 09/12/19 09:00 09/21/19 08:24 Protonix IVP 40 mg DAILY TRISTAN Administration Phenol 0 ml 09/13/19 00:19 09/21/19 21:04 Chloraseptic [place] 180 Ml Bot PO 1 spray BIDPRN PRN Administration Sore Throat - Exam General Appearance: awake alert Eye: PERRL, anicteric sclera ENT: no oropharyngeal lesions, moist mucosa Neck: supple, no JVD Heart: RRR, no murmur Respiratory: no wheezes, no rales Gastrointestinal: soft, non-tender, non-distended, normal bowel sounds Extremities: no cyanosis, 1+ LE edema Neurological: cranial nerve grossly intact, no focal deficits Hosp A/P (1) Aspiration pneumonitis Code(s): J69.0 - PNEUMONITIS DUE TO INHALATION OF FOOD AND VOMIT Status: Acute (2) Dysphagia Code(s): R13.10 - DYSPHAGIA, UNSPECIFIED Status: Acute Qualifiers: Dysphagia type: unspecified Qualified Code(s): R13.10 - Dysphagia, unspecified (3) Acute metabolic encephalopathy Code(s): G93.41 - METABOLIC ENCEPHALOPATHY Status: Resolved (4) Gout Code(s): M10.9 - GOUT, UNSPECIFIED Status: Chronic (5) HTN (hypertension) Code(s): I10 - ESSENTIAL (PRIMARY) HYPERTENSION Status: Chronic Qualifiers: Hypertension type: essential hypertension Qualified Code(s): I10 - Essential (primary) hypertension (6) Hyperlipidemia Code(s): E78.5 - HYPERLIPIDEMIA, UNSPECIFIED Status: Chronic (7) Obesity Code(s): E66.9 - OBESITY, UNSPECIFIED Status: Chronic - Plan repeat MRI shows no evidence of cva dysphagia sec to severe deconditioning d/w patient, and brother regarding need for peg, they are all in agreement for the same in am on 09/21/2019 but then later in the evening wanted to have a face to face conversation with to decide on it, she plans on coming tomorrow per staff?. is on lisinopril, lasix, nitropaste and protonix speech eval-ongoing hemostable has right UE edema If patient declines peg, his options will be to go on Hospice to a facility or home with aspiration risk and oral intake
[2019-09-22] MEDS: Enoxaparin Sodium 40 MG/0.4 ML SYRINGE SC SCH (13:46)
[2019-09-22] MEDS: Pantoprazole 40 MG VIAL IVP SCH (13:47)
[2019-09-22] MEDS: Furosemide 20 MG TAB PO SCH ×2 (13:47→13:49)
[2019-09-22] MEDS: Folic Acid 1 MG TAB PO SCH (13:47)
[2019-09-22] MEDS: Lisinopril 5 MG TAB PO SCH (13:48)
--- NOTE | 2019-09-22 21:33 | PRG ---
DATE OF SERVICE: 09/22/2019 SUBJECTIVE: Mr. Jacob is much more alert. He is able to answer questions and ask questions. He denies any headaches. No cough. No chest pain or shortness of breath. No abdominal pain. OBJECTIVE: VITAL SIGNS: T-max 99.8 and about 2 days ago at 7 p.m. there was 100.6 on 09/17. BP 126/80, pulse is 81, respirations 16, and O2 saturation were 91 and now they are up to 94. LUNGS: Diminished breath sounds at bases, but no crackles. HEART: S1 and S2. Regular rate. ABDOMEN: Soft, not distended, not tender. There is an NG tube in place and has an indwelling Sepulveda catheter. EXTREMITIES: He is able to move all extremities. The right hand is moving better after the IV access was removed. LABORATORY DATA: The white cell count is at 2.6, hemoglobin 9.7, and platelets 140 with 69% neutrophils. INR 1.3. Creatinine is 0.67 and sodium 131. Microbiology not remarkable. Repeated brain MRI did not show any major changes. The patient is going to have a percutaneous endoscopic gastrostomy tube placed by Dr. Sebastian tomorrow. ASSESSMENT AND DISCUSSION: Hodgkin disease history in remission, hypertension, toxic metabolic encephalopathy or CVA associated with aspiration pneumonia. May have had a CVA that did not show in MRI. Viral encephalitis has been ruled out. Thus far, he has received more than a week of IV antimicrobial therapy. We will go ahead and discontinue them and then see if he remains in remission from his inflammatory process. Job ID: [id number]
[2019-09-23] MEDS: Enoxaparin Sodium 40 MG/0.4 ML SYRINGE SC SCH (08:25)
[2019-09-23] MEDS: Furosemide 20 MG TAB PO SCH ×2 (08:25→13:55)
[2019-09-23] MEDS: Lisinopril 5 MG TAB PO SCH (08:25)
[2019-09-23] MEDS: Folic Acid 1 MG TAB PO SCH (08:25)
[2019-09-23] MEDS: Nitroglycerin 2% Ointment 1 INCH/1 GM Packet TOP SCH (08:25)
[2019-09-23] MEDS: Pantoprazole 40 MG VIAL IVP SCH (08:25)
[2019-09-23 14:42] VITALS: BMI 38.0
--- NOTE | 2019-09-23 15:51 | PDOC.HOSPP ---
- Subjective Encounter Date: 09/23/19 Encounter Time: 07:15 Subjective: no sob, feels better is able to move all extremities - Objective Vital Signs & Weight: Vital Signs (12 hours) Temp Pulse Resp BP Pulse Ox 09/23/19 08:25 84 09/23/19 08:00 93 L 09/23/19 07:31 98.7 F 84 16 147/97 H 93 L Weight Admit Weight 245 lb 6.4 oz Weight 249 lb 12.54 oz Most Recent Monitor Data Heart Rate from ECG 93 NIBP 134/72 NIBP BP-Mean 92 Respiration from ECG 26 SpO2 99 I&O: 09/22/19 09/23/19 09/24/19 06:59 06:59 06:59 Intake Total 1105 400 120 Output Total 1025 Balance 80 400 120 Result Diagrams: 09/17/19 03:10 09/20/19 05:19 Hospitalist ROS - Medication Medications: Active Medications Generic Name Dose Route Start Last Admin Trade Name Freq PRN Reason Stop Dose Admin Acetaminophen 650 mg 09/11/19 00:38 09/20/19 20:22 Tylenol PO 650 mg Q4H PRN Administration Headache/Fever/Mild Pain (1-3) Acetaminophen 650 mg 09/11/19 04:49 09/12/19 13:23 Tylenol MA 650 mg Q6H PRN Administration Headache/Fever or Pain Enoxaparin Sodium 40 mg 09/18/19 09:00 09/23/19 08:25 Lovenox SC 40 mg 0900 TRISTAN Administration Folic Acid 1 mg 09/11/19 09:00 09/23/19 08:25 Folvite PO 1 mg DAILY TRISTAN Administration Furosemide 20 mg 09/18/19 14:00 09/23/19 13:55 Lasix PO 20 mg 0900,1400 TRISTAN Administration Lisinopril 5 mg 09/11/19 09:00 09/23/19 08:25 Zestril PO 5 mg DAILY TRISTAN Administration Nitroglycerin 1 inch 09/11/19 21:00 09/23/19 08:25 Nitro-Bid 2% Ointment TOP 1 inch BID TRISTAN Administration Phenol 0 ml 09/13/19 00:19 09/21/19 21:04 Chloraseptic Coello 180 Ml Bot PO 1 spray BIDPRN PRN Administration Sore Throat - Exam General Appearance: awake alert Eye: PERRL, anicteric sclera ENT: no oropharyngeal lesions, dry oral mucosa Neck: supple, no JVD Heart: RRR, no murmur Respiratory: no wheezes, no rales, rhonchi Gastrointestinal: soft, non-tender, non-distended, normal bowel sounds Extremities: no cyanosis, 1+ LE edema Neurological: cranial nerve grossly intact, no focal deficits Psychiatric: A&O x 3 Hosp A/P (1) Aspiration pneumonitis Code(s): J69.0 - PNEUMONITIS DUE TO INHALATION OF FOOD AND VOMIT Status: Acute (2) Dysphagia Code(s): R13.10 - DYSPHAGIA, UNSPECIFIED Status: Acute Qualifiers: Dysphagia type: unspecified Qualified Code(s): R13.10 - Dysphagia, unspecified (3) Acute metabolic encephalopathy Code(s): G93.41 - METABOLIC ENCEPHALOPATHY Status: Resolved (4) Gout Code(s): M10.9 - GOUT, UNSPECIFIED Status: Chronic (5) HTN (hypertension) Code(s): I10 - ESSENTIAL (PRIMARY) HYPERTENSION Status: Chronic Qualifiers: Hypertension type: essential hypertension Qualified Code(s): I10 - Essential (primary) hypertension (6) Hyperlipidemia Code(s): E78.5 - HYPERLIPIDEMIA, UNSPECIFIED Status: Chronic (7) Obesity Code(s): E66.9 - OBESITY, UNSPECIFIED Status: Chronic Qualifiers: Obesity classification: adult class 2 (BMI 35 - 39.9) Body mass index: BMI 38.0-38.9 - Plan repeat MRI shows no evidence of cva dysphagia sec to severe deconditioning/occult cva not seen on MRI. d/w patient and at bedside, has cleared swallow eval this am, is on thickened liq, agrees if he chokes they will get a peg. is on lisinopril, lasix and protonix speech eval-ongoing hemostable has right UE edema which is resolving well now dc plan to rehab if accepted needs to be upright while and after eating for an hour atleast to prevent aspiration, has weak cough but good throat reflexes now.
[2019-09-23 20:01] VITALS: BP 120/73; TEMP 98
[2019-09-23] MEDS ORDERED: Metoprolol Tartrate 25 MG TAB PO SCH (21:00)
[2019-09-24] MEDS ORDERED: Aspirin Chewable 81 MG TAB PO SCH (09:00)
--- NOTE | 2019-09-24 09:04 | DIS ---
DATE OF ADMISSION: 09/10/2019 DATE OF DISCHARGE: 09/23/2019 DISCHARGE DISPOSITION: To inpatient rehab. PRIMARY DISCHARGE DIAGNOSES: Severe deconditioning, dysphagia, likely multifactorial including severe deconditioning and possible occult cerebrovascular accident, which is not manifesting on MRI, aspiration pneumonia, gout, hypertension, dyslipidemia, and obesity. PROCEDURES DONE DURING HOSPITALIZATION: MRI brain done on 09/11/2019 showed no acute hemorrhage or infarct. No mass. There is extensive periventricular and deep white matter microangiopathic changes and moderate high-grade atrophy. This MRI was done with and without contrast. CT of the abdomen and pelvis done on 09/11/2019 showed small to moderate right pleural effusion with bibasilar pneumonia, cholelithiasis without gallbladder wall thickening or gallbladder distention. There is fecal material in the colon with dilated rectum. No abscess or abnormal fluid collection or other acute process was seen. He has had fluoroscopic lumbar puncture done on 09/11/2019 by Interventional Radiology. Opening pressure was not elevated. A total of 7 mL of clear CSF was collected for analysis. Modified barium swallow done on 09/14/2019 showed very poor oral control and delayed retropulsion, early spill of contrast with deep penetration was seen. Small amount of silent aspiration was seen with large amount of residue in the vallecula. Poor clearance upon secondary swallows. No evidence of esophageal obstruction was seen. EEG done on 09/14/2019 showed findings consistent with moderate generalized nonspecific cerebral dysfunction. No ictal or interictal epileptiform focus was seen. He has had a 2nd MRI done on 09/20/2019 of the brain without contrast which showed no acute intracranial abnormalities. Blood cultures x2, no growth. Spinal fluid cryptococcal antigen was negative. Urine culture, no growth. The patient has had a respiratory panel PCR done on 09/02/2019, which was negative. Discharge white count of 2.6, H and H 10 and 31, platelet count is 140, MCV is 88. Discharge BUN and creatinine are 13 and 0.6. Serum protein electrophoresis done showed no M spike. BNP 167 on the 01 of September. CRP was 5.81 on 09/09/2019. LDH was 286 on 2019. Urine protein electrophoresis done showed no M spike. CSF tube #4 was colorless and clear with 24 RBCs. Tube #1 showed 58 mg/dL of glucose and 75 mg/dL of total protein. CSF West Nile IgG and IgM antibodies were negative. CSF VDRL was negative. Serology for Bartonella henselae IgG, IgM were negative. Bartonella cruz IgG, IgM were negative. COVID-19 PCR was negative on 09/06/2019. HSV1 DNA PCR and 2 were negative. Urine histoplasma antigen was less than 0.5. VZV DNA PCR was negative. INPATIENT CONSULT: Dr. Stephens for Infectious Disease Dr. Chin for Neurology, Dr. Martin for Pulmonology. DISCHARGE MEDICATIONS: 1. Protonix 40 mg p.o. daily. 2. Lopressor 25 mg twice daily. 3. Lisinopril 5 mg p.o. daily. 4. Lasix 20 mg twice daily. 5. Folic acid 0.8 mg p.o. daily. 6. Aspirin 81 mg p.o. daily. 7. Allopurinol 300 mg p.o. daily. ALLERGIES: KEFLEX. DISCHARGE PLAN: The patient to follow up with his primary care physician in 1 week, Ms. Emy Bowers. BRIEF COURSE DURING HOSPITALIZATION: The patient initially got admitted on the 10 of September after he was transferred from [facility] swing bed for increasing weakness and confusion. He has been completely bedridden and was unresponsive. He has had mild temperature of 99 degrees. His initial septic workup was negative. He was empirically on vancomycin and Zosyn for most of his stay which was discontinued later on. He has had multiple workups done as mentioned above. The patient had aspiration pneumonia with dysphagia as well with severe deconditioning. He has had two MRIs for the brain, one was with and without contrast on admission, which was negative. A subsequent MRI also did not reveal any acute infarct. Per Dr. Stephens, the patient might have had occult CVA, which is not manifesting on MRI. Multiple infectious workup including virus PCR as mentioned above were negative. He was initially admitted to [facility] and later downgraded to medical floor. At the time of discharge, the patient is awake, oriented and moves all his extremities on bed with no focal deficits. He has also cleared speech evaluation for thickened liquids at the time of discharge. In view of severe deconditioning, he is being discharged to inpatient rehab for further recuperation. If were to develop symptoms of aspiration again he will need peg tube and I have discussed extensively with patient and about this. A total of 35 minutes was spent on discharge plan. Please see a [id number] documentation for the day of discharge on [employer]. Job ID: [id number] [facility]
== END 2019-09-23 20:30 | DRG 871 ==
LOC: 2NO 20:21 → CCU 09-12 08:42 → IMCU/EMU 09-13 20:07 → T4-B 09-19 12:15
PROVIDERS: ADMIT Internal Medicine; ATTEND Internal Medicine
PROC: 009U3ZX Drainage of Spinal Canal, Percutaneous Approach, Diagnostic (ICD-10-PCS; principal; 2019-09-11)
PROC: B01BYZZ Fluoroscopy of Spinal Cord using Other Contrast (ICD-10-PCS; 2019-09-11)
DX: A41.9 Sepsis, unspecified organism (principal); J69.0 Pneumonitis due to inhalation of food and vomit; G93.41 Metabolic encephalopathy; J96.01 Acute respiratory failure with hypoxia; I63.9 Cerebral infarction, unspecified; K81.0 Acute cholecystitis; D61.818 Other pancytopenia; D68.9 Coagulation defect, unspecified; J90 Pleural effusion, not elsewhere classified; Z96.643 Presence of artificial hip joint, bilateral; I25.10 Atherosclerotic heart disease of native coronary artery without angina pectoris; M10.9 Gout, unspecified; I10 Essential (primary) hypertension; E78.5 Hyperlipidemia, unspecified; R33.9 Retention of urine, unspecified; F17.220 Nicotine dependence, chewing tobacco, uncomplicated; M79.3 Panniculitis, unspecified; K59.00 Constipation, unspecified; E66.9 Obesity, unspecified; R60.0 Localized edema; R53.81 Other malaise; R13.12 Dysphagia, oropharyngeal phase; E87.6 Hypokalemia; Z85.71 Personal history of Hodgkin lymphoma; Z95.5 Presence of coronary angioplasty implant and graft; Z88.1 Allergy status to other antibiotic agents; Z68.38 Body mass index [BMI] 38.0-38.9, adult
CPT/HCPCS: 36415; 36416; 36600; 62270; 70551; 70553; 71045; 74177; 74230; 80048; 80053; 80202; 82140; 82805; 82945; 83615; 84157; 84165; 84166; 85025; 85610; 85730; 86592; 86611; 86788; 86789; 87040; 87255; 87385; 87529; 87798; 87899; 89051; 93005; 93010; 95712; 95816; 95819; 95957; C9113; J1650; J2543; J3370; J3430; J3490; J7030

== ENCOUNTER 2019-10-22 17:37 | Inpatient (IN) | payer MEDICARE, OTHER ==
[~2019-10-22 17:37] MED LIST: Heparin 1,000 UNITS/ML VIAL ONE; Iopamidol-370 76% 500 ML 1 ML ONE
[2019-10-22] MEDS ORDERED: EPINEPHrine 1 MG/10 ML Abboject SYRINGE ONE (17:41)
[2019-10-22] MEDS ORDERED: Norepinephrine 8 MG/0.9% NS 250 ML ONE (17:44)
[2019-10-22] MEDS ORDERED: Acetaminophen 650 MG Suppository ONE (17:56)
--- NOTE | 2019-10-22 18:17 | RAD ---
PORTABLE CHEST: 10/22/19 PROVIDED CLINICAL HISTORY: Unresponsive. FINDINGS: Comparison 09/28/19. The cardiac and mediastinal silhouette is unchanged in appearance. Prominence of the pulmonary vascul ature and pulmonary interstitium is redemonstrated. No pleural fluid or pneumothorax apparent. IMPRESSION: Persistent bilateral interstitial opacities. POS: ALICIA
[2019-10-22] MEDS ORDERED: cefTRIAXone\\ROCEPHIN 2 GM VIAL ONE (18:40)
[2019-10-22 18:51] LABS: #Lymphocytes 0.4 thou/uL (1.20-3.40); #Monocytes 0.1 thou/uL (0.11-0.59); #Neutrophils 3.3 thou/uL (1.40-6.50); %Basophils 0.5 % (0.0-1.0); %Eosinophils 0.2 % (0.0-10.0); %Lymphocytes 9.9 % (21.0-51.0); %Monocytes 1.5 % (0.0-10.0); Hemoglobin 11.1 g/dL (14.0-18.0); Mean Corpuscular HGB CONC 31.8 g/dL (32.0-36.0); Mean Platelet Volume 10.6 fL (7.4-10.4); Platelet Count 121 thou/uL (130-400); RBC Distribution Width 19.5 % (11.5-14.5); Red Blood Cell (RBC) Count 3.99 mill/uL (4.70-6.10); White Blood Cell (WBC) Count 3.8 thou/uL (4.8-10.8)
--- NOTE | 2019-10-22 18:52 | RAD ---
EXAM: CHEST ONE VIEW HISTORY: Central line placement. COMPARISON: 10/22/2019 at 1728 hours. FINDINGS: There has been interval placement of a right sided vascular catheter with tip overlying the expected location of the distal SVC. Cardiac silhouette and pulmonary vasculature are magnified by projection. The pulmonary vasculature does appear mildly increased. Mild perihilar interstitial opaci ties are present with patchy parenchymal densities at each lung base. Calcified granulomata lateral aspect right lung base and left midlung zone are again seen. Bilateral glenohumeral osteoarthropathy is again present. IMPRESSION: 1. Interval placement right-sided vascular catheter without evidence of pneumothorax. 2. Increased perihilar interstitial and patchy parenchymal densities which could be related to infect ious process delayed versus asymmetric pulmonary edema. Follow-up to resolution is recommended.
[2019-10-22] MEDS ORDERED: Vancomycin 1.5 GRAM/300 ML BAG 1.5 GM in Premix Bag 1 BAG IVPB SCH (19:00)
[2019-10-22 19:14] LABS: ALT (SGPT) 135 U/L (8-55); AST (SGOT) 220 U/L (5-34); Alkaline Phosphatase 373 U/L (40-110); Anion Gap 20 mmol/L (10-20); BUN (Urea Nitrogen) 19 mg/dL (8.4-25.7); Bilirubin, Total 1.8 mg/dL (0.2-1.2); Calc. Creatinine Clearance 0 mL/min (70-130); Calcium 8.3 mg/dL (7.8-10.44); Carbon Dioxide 17 mmol/L (23-31); Chloride 103 mmol/L (98-107); Estimated GFR-MDRD 60; Globulin 4.3 g/dL (2.4-3.5); Glucose 123 mg/dL (83-110); Magnesium 1.3 mg/dL (1.6-2.6); Potassium 3.7 mmol/L (3.5-5.1); Protein, Total 7.3 g/dL (5.8-8.1); Sodium 136 mmol/L (136-145)
[2019-10-22] MEDS ORDERED: Magnesium 2 GM/50 ML BAG (IN WATER) ONE (19:17)
[2019-10-22] MEDS ORDERED: Azithromycin 500 MG VIAL ONE (19:17)
[2019-10-22] MEDS ORDERED: Ketorolac Tromethamine 30 MG/ML VIAL ONE ×2 (19:18→19:28)
--- NOTE | 2019-10-22 19:27 | CT ---
CT HEAD WITHOUT IV CONTRAST COMPARISON: 09/04/2019 HISTORY: Altered mental status. TECHNIQUE: Axial CT imaging at 5 mm intervals from vertex through skull base without contrast FINDINGS: There is decreased attenuation in the periventricular white matter which is nonspecific but likely re flective of chronic small vessel ischemic changes which have not progressed when compared to prior exam.. There is mild cerebral volume loss. The ventricular system is normal in size, shape, and position for the degree of sulcal atrophy. There is no evidence of an acute infarction, hemorrhage, mass effect, or midline shift. Visualized paranasal sinuses are clear. Osseous structures appear intact. IMPRESSION: 1. No acute intracranial abnormality demonstrated. 2. Chronic small vessel ischemic changes and cerebral volume loss. CT of the head is stable compared to prior exam.
[2019-10-22 19:28] LABS: Lipase 2923 U/L (8-78)
[2019-10-22] MEDS ORDERED: Aspirin 300 MG Suppository ONE (19:28)
[2019-10-22 19:36] LABS: CKMB 1.3 ng/mL (0-6.6)
--- NOTE | 2019-10-22 19:39 | CT ---
CT ANGIOGRAM THORAX WITH IV CONTRAST AND 3-D RECONSTRUCTIONS CLINICAL INDICATION: Unresponsive. COMPARISON: None FINDINGS: Pulmonary arteries: There is significant respiratory motion artifact which limits adequate evaluation of the pulmonary arteries. There is a suggested filling defect within a left lower lobe subsegmental pulmonary artery which is worrisome for a filling defect related to pulmonary embolus, b ut sensitivity for evaluation of pulmonary emboli are limited due to motion artifact on this exam. No definitive additional findings are seen within the central or segmental pulmonary arteries. Aorta: Vascular calcifications are seen in the thoracic aorta. The thoracic aorta is normal in calibe r without evidence of an aortic dissection. Prominent vascular calcifications are seen in the coronary arteries. Lungs: Mild patchy densities are seen at medial aspect of each lung base which may be related to atel ectasis. Focal areas of pneumonitis cannot entirely excluded. Pulmonary vasculature is mildly prominent. There is linear area of increased density seen in the right middle lobe with associated ca lcifications likely due to an area of scarring. Calcified granuloma is present in the right middle lobe. Minimal calcified pleural-based plaques are seen in the lateral aspect left midlung zone. Mediastinum: There is increased number and mild enlargement of mediastinal lymph nodes. There is a le ft paratracheal lymph node seen measuring 1.5 cm in short axis dimension with an enlarged AP window lymph node seen measuring 1.6 cm in short axis dimension. Large subcarinal lymph node is seen with di fficult to delineate from the esophagus. Surgical clips are seen in the posterior lower mediastinum. Small amount of fluid is seen within the esophagus which could be related to gastroesoph ageal reflux. Thyroid gland: Questionable small subcentimeter hypodense nodule right lobe of thyroid gland Osseous structures: Multilevel degenerative changes are seen in the thoracic spine. Severe bilateral glenohumeral osteoarthropathy is present with suspicion of intra-articular loose bodies involving the right glenohumeral joint. There are remote anterior left-sided upper rib fractures present. Chest wall: A right internal jugular vein central venous catheter is noted in place with the tip in t he distal SVC. Upper abdomen: The gallbladder is incompletely imaged but does appear distended. Gallbladder calculi are visualized. IMPRESSION: 1. Suboptimal evaluation for pulmonary embolus due to significant respiratory motion artifact. There is a questionable filling defect involving a subsegmental left lower lobe pulmonary artery, and small pulmonary embolus left lower lobe subsegmental pulmonary artery is a possibility. 2. Linear patchy parenchymal densities medial aspect each lower lobe which could be related to atelec tasis, but areas of pneumonitis is a possibility. 3. Mediastinal lymphadenopathy which may be reactive in origin. 4. Gallbladder is incompletely imaged on this exam but does appear mildly distended when compared to a CT abdomen on 09/11/2019. Gallbladder calculi are visualized. If there is concern for gallbladder pathology, right upper quadrant ultrasound examination is recommended. 5. Suggestion of mild pulmonary vascular congestion. 6. Question of a subcentimeter hypodense nodule right lobe of the thyroid gland. Nonemergent thyroid ultrasound may be helpful for further evaluation.
[2019-10-22 20:09] LABS: Bilirubin 1+ (Negative); Blood, Urine 1+ (Negative); Clarity Turbid (Clear); Glucose, Urine (Dipstick) Normal (Negative); Ketone, Urine Negative (Negative); Leukocyte 75 Leu/uL (Negative); Nitrite Negative (Negative); Protein, Urine (Dipstick) 300 mg/dL (Neg-Trace); Specific Gravity, Urine 1.033 (1.002-1.036); Squamous Epithelial None Seen HPF (0-3); Urobilinogen Normal mg/dL (Less than 2); WBC/HPF 21-50 HPF (0-3)
[2019-10-22] MEDS ORDERED: Ondansetron ODT 4 MG TAB PO PRN (20:09)
[2019-10-22] MEDS ORDERED: Acetaminophen 650 MG Suppository PR PRN (20:09)
[2019-10-22 20:10] LABS: Bacteria/HPF 2+ HPF (None Seen)
[2019-10-22] MEDS ORDERED: Heparin 25,000 units/D5W 500 ML ONE (20:13)
[2019-10-22] MEDS ORDERED: metroNIDAZOLE 500 MG/100 ML BAG ONE ×2 (20:13→20:19)
--- NOTE | 2019-10-22 20:23 | PDOC.HHP ---
Hospitalist HPI - History of Present Illness brought unresponsive by ems History of Present Illness: most of the history was obtained from ems and emr records. patient arrived unresponsive, during my evaluation had improved but was still disoriented but could follow simple commands and was able to orient to person Case of an 69y/o male long-term resident with a pmhx of hodgkin lympohma, gout, hyperlipidemia hypertension and cad who was brought by ems due to fever and altered mental state. apparently patient was on his usual state until today when he started with sudden onset of fever and unresponsiveness was fernando to hospital for evaluation. patient was dx with severe sepsis pe and pancreatitis for which hospitalist was called for further evaluation and management. even though patient is generally disoriented did refered to me that yesterday he had some abdominal pain which was diffuse and that is not present today. was called at the ED states she spoke with patient yesterday and everything seemed to be fine. does states patient had a stroke abount 2monsht ago complicated with pneumonia and patient has been declining ever since. does states that patient has advance directives and is DNR DNI Hospitalist ROS - Review of Systems ROS unobtainable: due to mental status Hospitalist History - Past Medical History Source: patient, family, long-term record, old records Cardiac: reports: CAD, HTN Heme/Onc: reports: Cancer - Past Surgical History Other Surgical History: unable to asses due to pt mental status - Family History Other Family History: unable to asses due to patient mental stauts - Social History Living Situation: Longterm - Exam General Appearance: ill appearing Eye: PERRL, anicteric sclera ENT: normocephalic atraumatic, no oropharyngeal lesions Neck: supple, symmetric, no JVD, no thyromegaly Heart: no murmur, no gallops, no rubs Heart - other findings: tachycardic Respiratory: no wheezes, normal chest expansion, rhonchi Gastrointestinal: soft, non-distended, normal bowel sounds, tender to palpation Extremities: no cyanosis, no clubbing, 1+ LE edema Skin: normal turgor, no lesions, no rashes Neurological: cranial nerve grossly intact, normal sensation to touch, no focal deficits Musculoskeletal: normal tone, normal strength Psychiatric: oriented to person, not oriented, lethargic Hospitalist Results - Labs Result Diagrams: 10/22/19 20:30 10/22/19 18:03 Lab results: WBC 3.8 thou/uL (4.8-10.8) L 10/22/19 18:03 Hgb 11.1 g/dL (14.0-18.0) L 10/22/19 18:03 Hct 35.1 % (42.0-52.0) L 10/22/19 18:03 MCV 88.0 fL (78.0-98.0) 10/22/19 18:03 Plt Count 121 thou/uL (130-400) L 10/22/19 18:03 Neutrophils % 88.0 % (42.0-75.0) H 10/22/19 18:03 Sodium 136 mmol/L (136-145) 10/22/19 18:03 Potassium 3.7 mmol/L (3.5-5.1) 10/22/19 18:03 Chloride 103 mmol/L (98-107) 10/22/19 18:03 Carbon Dioxide 17 mmol/L (23-31) L 10/22/19 18:03 BUN 19 mg/dL (8.4-25.7) 10/22/19 18:03 Creatinine 1.19 mg/dL (0.7-1.3) 10/22/19 18:03 Glucose 123 mg/dL (83-110) H 10/22/19 18:03 Lactic Acid 6.2 mmol/L (0.5-2.2) H* 10/22/19 18:03 Calcium 8.3 mg/dL (7.8-10.44) 10/22/19 18:03 Total Bilirubin 1.8 mg/dL (0.2-1.2) H 10/22/19 18:03 AST 220 U/L (5-34) H 10/22/19 18:03 ALT 135 U/L (8-55) H 10/22/19 18:03 Alkaline Phosphatase 373 U/L (40-110) H 10/22/19 18:03 CK-MB (CK-2) 1.3 ng/mL (0-6.6) 10/22/19 18:03 Troponin I 0.333 ng/mL (< 0.028) H* 10/22/19 18:03 B-Natriuretic Peptide 222.0 pg/mL (0-100) H 10/22/19 18:03 Serum Total Protein 7.3 g/dL (5.8-8.1) 10/22/19 18:03 Albumin 3.0 g/dL (3.4-4.8) L 10/22/19 18:03 Lipase 2923 U/L (8-78) H 10/22/19 18:03 Urine Ketones Negative mg/dL (Negative) 10/22/19 19:58 Urine Blood 1+ (Negative) A 10/22/19 19:58 Urine Nitrite Negative (Negative) 10/22/19 19:58 Ur Leukocyte Esterase 75 Truong/uL (Negative) A 10/22/19 19:58 Urine RBC 4-6 HPF (0-3) A 10/22/19 19:58 Urine WBC 21-50 HPF (0-3) A 10/22/19 19:58 Ur Squamous Epith Cells None Seen HPF (0-3) 10/22/19 19:58 Urine Bacteria 2+ HPF (None Seen) A 10/22/19 19:58 - EKG Interpretation EKG: LBBB present in previous ekgs - Radiology Interpretation CT scan - chest Additional Comment: 1. Suboptimal evaluation for pulmonary embolus due to significant respiratory motion artifact. There is a questionable filling defect involving a subsegmental left lower lobe pulmonary artery, and small pulmonary embolus left lower lobe subsegmental pulmonary artery is a possibility. 2. Linear patchy parenchymal densities medial aspect each lower lobe which could be related to atelec tasis, but areas of pneumonitis is a possibility. 3. Mediastinal lymphadenopathy which may be reactive in origin. 4. Gallbladder is incompletely imaged on this exam but does appear mildly distended when compared to a CT abdomen on 09/11/2019. Gallbladder calculi are visualized. If there is concern for gallbladder pathology, right upper quadrant ultrasound examination is recommended. 5. Suggestion of mild pulmonary vascular congestion. 6. Question of a subcentimeter hypodense nodule right lobe of the thyroid gland. Nonemergent thyroid ultrasound may be helpful for further evaluation. Other Additional Comment: IMPRESSION: 1. No acute intracranial abnormality demonstrated. 2. Chronic small vessel ischemic changes and cerebral volume loss. CT of the head is stable compared to prior exam. Hospitalist H&P A/P - Problem (1) Septic shock Code(s): A41.9 - SEPSIS, UNSPECIFIED ORGANISM; R65.21 - SEVERE SEPSIS WITH SEPTIC SHOCK Status: Acute (2) Pneumonia Code(s): J18.9 - PNEUMONIA, UNSPECIFIED ORGANISM Status: Acute (3) Pulmonary emboli Code(s): I26.99 - OTHER PULMONARY EMBOLISM WITHOUT ACUTE COR PULMONALE Status : Acute (4) Pancreatitis Code(s): K85.90 - ACUTE PANCREATITIS WITHOUT NECROSIS OR INFECTION, UNSP Status: Acute (5) Pancytopenia Code(s): D61.818 - OTHER PANCYTOPENIA Status: Acute (6) Gout Code(s): M10.9 - GOUT, UNSPECIFIED Status: Chronic (7) HTN (hypertension) Code(s): I10 - ESSENTIAL (PRIMARY) HYPERTENSION Status: Chronic Qualifiers: Hypertension type: essential hypertension Qualified Code(s): I10 - Essential (primary) hypertension (8) Hodgkin lymphoma Code(s): C81.90 - HODGKIN LYMPHOMA, UNSPECIFIED, UNSPECIFIED SITE Status: Acute (9) Complicated UTI (urinary tract infection) Code(s): N39.0 - URINARY TRACT INFECTION, SITE NOT SPECIFIED Status: Acute (10) Elevated troponin Code(s): R79.89 - OTHER SPECIFIED ABNORMAL FINDINGS OF BLOOD CHEMISTRY Status : Acute - Plan Plan: septic shock / pneumonia / c uti - patient hypotensive, sepsis bundles started. patient did not improve, started on levophed - fever tachycardia cxr suggestive of pneumonia - LA 6.2 - starting merrem and vanc. allergic to cephalexin - icu admission -elevated procalcitonin - pulmo / crit consulted - 02 supplementaion - covid negative -f/u blood , sputum and urine cultures -contiue w sepsis bundles - u/a consistent with infection - previous admission with urine culture positive with e.coli and MRSA as well a few colonies of amadou. by bacterial sensitivity pt should be covered w current tx. PE - CTA subobtimal for PE evaluation but still suggestive of PE - will start heparin drip - pancytopenic will check hg every 8 hrs pancreatitis - lipase in the 2ks - pain management - ivfs - f/u us - elevated bili and lfts - consult surgery - ct with gallbladder inflammation, no duct dilatation -consult surgery elevated troponins - likely nonstemi type 2 in the setting of septic shock - sending serial troponins follow trend - no chest pain htn -holding medication in setting of septic shock
[2019-10-22] MEDS ORDERED: Sodium Chloride 0.9% 1,000 ML IV SCH (20:30)
[2019-10-22] MEDS ORDERED: Heparin 25,000 units/D5W 500 ML IVPB SCH (20:30)
[2019-10-22] MEDS ORDERED: Heparin 10,000 UNITS/ 10 ML VIAL SLOW IVP SCH (20:30)
[2019-10-22 20:34] LABS: INR-International Normal Ratio 1.4; PTT 29.7 sec (22.9-36.1)
[2019-10-22 20:42] LABS: Hemoglobin 10.7 g/dL (14.0-18.0); Platelet Count 150 thou/uL (130-400)
[2019-10-22 21:12] LABS: Troponin I 0.717 ng/mL (< 0.028)
--- NOTE | 2019-10-22 21:24 | CT ---
EXAM: CT Abdomen Pelvis WO Con PROVIDED CLINICAL HISTORY: Patient unresponsive. COMPARISON: 09/11/2019 FINDINGS: There is mild linear and patchy densities at each lung base which could be related to bibasilar atele ctasis, but pneumonitis at either lung base cannot be excluded. Calcified granulomata are seen at the right lung base. Surgical clips are seen in the most inferior posterior mediastinum. Small hiatal hernia is seen. Prominent vascular calcifications are seen in the coronary arteries with vascular calcifications in t he abdominal aorta and iliac arteries. Lack of intravenous contrast does limit sensitivity for evaluation of the parenchymal organs. There is residual contrast seen in the renal collecting systems bilaterally as well as in the urinary bladder related to a recent contrasted study. Again noted is a large exophytic right renal cyst again measuring approximately 5.7 cm. There is suggestion of a subtle subcentimeter hypodense lesion posterior aspect inferior pole left kidney. Hypodense lesion was also seen in the region on prior exam. This cannot be characterized as a simple cyst based on this exam. Nonspecific bilateral perinep hric stranding is seen. This was also present on the prior study but has increased. There is suggestion of slight thickening of the left renal pelvis which is nonspecific. Infection on the left could not be entirely excluded. A Sepulveda catheter is present in the urinary bladder. Increased density areas are seen within the gallbladder lumen. There were multiple gallbladder calcul i seen layering dependently within the gallbladder on prior CT exam, and these increased density foci are again likely due to multiple gallbladder calculi. There is suggestion of minimal perinephric inflammatory stranding on this examination. Cholecystitis in the correct clinical scenario is a possibility. Moderate to large amount retained fecal material is seen in the rectum. Small amount retained fecal m aterial seen throughout the remainder of the colon. Loops of small bowel are normal in caliber. Degenerative changes are again seen in the spine. Slight wedge-shaped deformities involving the T8 an d T9 vertebra based may related to minimal wedge-shaped compression fractures. This is stable compared to prior exam. Liver demonstrates diminished attenuation relative to the spleen suggesting fatty infiltration. The l iver is enlarged in craniocaudal dimensions measuring 20 cm. The spleen, pancreas, and bilateral adrenal glands demonstrate a grossly normal nonenhanced CT appear ance. Bilateral total hip prostheses are present resulting in artifact through the pelvis limiting evaluati on. IMPRESSION: 1. Linear and patchy parenchymal densities at each lung base which could be related to volume loss. H owever, pneumonitis cannot be excluded. 2. Cholelithiasis with suggestion of minimal adjacent pericholecystic inflammatory changes. Cholecyst itis is a possibility. 3. Right renal cyst with difficult to characterize subtle hypodense lesion in the inferior pole left kidney. This lesion cannot be accurately characterized. 4. Slight thickening of the mendez of the left renal pelvis. Infection on the left could not be exclud ed. 5. Fatty infiltration of the liver with enlargement of the liver in craniocaudal dimensions. 6. Evaluation of the parenchymal organs is limited due to the lack of intravenous contrast. Residual contrast in the renal collecting systems is related to a prior contrasted study. 8. Large amount retained fecal material in the rectum.
[2019-10-22] MEDS: Sodium Chloride 0.9% 1,000 ML IV SCH (21:30)
[2019-10-22] MEDS ORDERED: Meropenem 1 GM in Sodium Chloride 0.9% 100 ML IVPB SCH (22:00)
[2019-10-22 22:01] LABS: Hemoglobin 10.9 g/dL (14.0-18.0); Mean Corpuscular HGB CONC 30.4 g/dL (32.0-36.0); Mean Corpuscular Hemoglobin 26.7 pg (27.0-31.0); Mean Corpuscular Volume 87.7 fL (78.0-98.0); Mean Platelet Volume 10.7 fL (7.4-10.4); Platelet Count 159 thou/uL (130-400); RBC Distribution Width 19.5 % (11.5-14.5); Red Blood Cell (RBC) Count 4.09 mill/uL (4.70-6.10); White Blood Cell (WBC) Count 9.3 thou/uL (4.8-10.8)
[2019-10-22 22:18] LABS: Lactic Acid 4.7 mmol/L (0.5-2.2)
[2019-10-22] MEDS: Famotidine/PF 20 mg/2ml Vial SLOW IVP SCH (22:52)
[2019-10-22] MEDS: MEROPENEM 1 GM/50 ML 1 GM in Premix Bag 1 BAG IVPB SCH (22:52)
[2019-10-22] MEDS ORDERED: Sodium Chloride 0.9% 500 ML IV SCH (23:00)
[2019-10-22 23:58] LABS: Troponin I 0.815 ng/mL (< 0.028)
[2019-10-23] MEDS: Norepinephrine 8 MG/0.9% NS 250 ML IVPB SCH ×3 (00:04→21:46)
[2019-10-23 02:59] LABS: Band 45 % (5-11); Lymphocytes 8 % (21-51); MDiff Complete? YES; Mean Corpuscular HGB CONC 32.4 g/dL (32.0-36.0); Mean Corpuscular Hemoglobin 28.1 pg (27.0-31.0); Mean Corpuscular Volume 86.8 fL (78.0-98.0); Mean Platelet Volume 10.3 fL (7.4-10.4); Monocytes 3 % (0-10); Neutrophil 44 % (42-75); Platelet Count 155 thou/uL (130-400); Platelet Morphology Comment Appears Adequate; RBC Distribution Width 19.2 % (11.5-14.5); Red Blood Cell (RBC) Count 3.92 mill/uL (4.70-6.10); White Blood Cell (WBC) Count 12.5 thou/uL (4.8-10.8)
[2019-10-23 03:27] LABS: PTT Greater than 250.0 sec (22.9-36.1)
[2019-10-23 03:28] LABS: ALT (SGPT) 165 U/L (8-55); AST (SGOT) 194 U/L (5-34); Albumin 2.8 g/dL (3.4-4.8); Alkaline Phosphatase 342 U/L (40-110); Anion Gap 14 mmol/L (10-20); BUN (Urea Nitrogen) 21 mg/dL (8.4-25.7); Bilirubin, Total 2.9 mg/dL (0.2-1.2); Calc. Creatinine Clearance 90 mL/min (70-130); Carbon Dioxide 20 mmol/L (23-31); Chloride 104 mmol/L (98-107); Estimated GFR-MDRD 70; Glucose 196 mg/dL (83-110); Potassium 3.4 mmol/L (3.5-5.1); Protein, Total 6.8 g/dL (5.8-8.1); Sodium 135 mmol/L (136-145)
[2019-10-23] MEDS: MEROPENEM 1 GM/50 ML 1 GM in Premix Bag 1 BAG IVPB SCH ×3 (05:31→23:36)
[2019-10-23 05:59] LABS: PTT 146.6 sec (22.9-36.1)
[2019-10-23] MEDS: Sodium Chloride 0.9% 1,000 ML IV SCH (06:19)
[2019-10-23] MEDS ORDERED: Vancomycin 1 GM in Premix Bag 1 BAG IVPB SCH (09:00)
[2019-10-23] MEDS: Famotidine/PF 20 mg/2ml Vial SLOW IVP SCH ×2 (09:34→21:01)
[2019-10-23] MEDS: Vancomycin 1.5 GRAM/300 ML BAG 1.5 GM in Premix Bag 1 BAG IVPB SCH ×2 (09:35→20:27)
--- NOTE | 2019-10-23 10:04 | ULT ---
RIGHT UPPER QUADRANT ULTRASOUND: DTAE: 10/23/2019. PROVIDED CLINICAL HISTORY: Right upper quadrant pain. FINDINGS: The visualized pancreas and IVC appear normal. The liver appears echogenicity without evidence for m ass or intrahepatic biliary ductal dilatation. The common duct is not dilated. There are foci of increased echogenicity with shadowing involving the gallbladder wall, some of which involving the nondependent portions of the gallbladder wall. The gallbladder wall appears thickened , measuring about 5 mm. There is no pericholecystic fluid evident. The right kidney demonstrates no hydronephrosis or solid mass. There is a simple-appearing cyst delfino uring about 5.7 cm. IMPRESSION: 1. Gallbladder calcification which appears nonmobile and nondependent, which may reflect porcelain g allbladder. Adherent gallstones are felt less likely. Gallbladder wall thickening is demonstrated. 2. Fatty infiltration of the liver. POS: ALICIA
--- NOTE | 2019-10-23 10:37 | PDOC.HOSPP ---
- Subjective Encounter Date: 10/23/19 Encounter Time: 10:35 Subjective: Mr. Jacob was seen today in follow-up of sepsis, and acute pacreatitis.He believes he is in [place], he knows it is October. He is able to answer a few more questions, but is a bit confused. He complains of abdominal pain. - Objective Vital Signs & Weight: Vital Signs (12 hours) Temp Pulse Ox 10/23/19 08:00 99 10/23/19 07:00 97.6 F 10/23/19 04:00 97.9 F 10/23/19 01:57 93 L 10/23/19 00:00 98.3 F Weight Weight 217 lb 2.485 oz Most Recent Monitor Data Heart Rate from ECG 78 NIBP 126/77 NIBP BP-Mean 93 Respiration from ECG 21 SpO2 95 I&O: 10/22/19 10/23/19 10/24/19 06:59 06:59 06:59 Intake Total 2299 Output Total 610 180 Balance 1689 -180 Result Diagrams: 10/23/19 02:35 10/23/19 02:35 Additional Labs: Accuchecks 10/23/19 10/22/19 10/22/19 04:27 21:56 17:47 POC Glucose 175 H 129 H 162 H Hospitalist ROS - Medication Medications: Active Medications Generic Name Dose Route Start Last Admin Trade Name Freq PRN Reason Stop Dose Admin Famotidine 20 mg 10/22/19 21:00 10/23/19 09:34 Pepcid SLOW IVP 20 mg Q12HR TRISTAN Administration Norepinephrine Bitartrate 250 mls @ 0 mls/hr 10/22/19 20:15 10/23/19 04:45 Levophed IVPB 250 mls INF TRISTAN Administration Protocol Titrate Sodium Chloride 1,000 mls @ 100 mls/hr 10/22/19 20:15 10/23/19 06:19 Normal Saline 0.9% IV Not Given .Q10H TRISTAN Meropenem 1 gm/ Device 50 mls @ 100 mls/hr 10/22/19 22:00 10/23/19 05:31 IVPB 50 mls Q8HR TRISTAN Administration Vancomycin HCl 1.5 gm/ Device 300 mls @ 200 mls/hr 10/23/19 09:00 10/23/19 09 :35 IVPB 300 mls Q12HR TRISTAN Administration - Exam Eye: PERRL Heart: RRR, no gallops, no rubs, normal peripheral pulses, II/IV Respiratory: CTAB, no wheezes, no rales, no ronchi, normal chest expansion Gastrointestinal: soft (+ diffuse abdominal tenderness and + RUQ tenderness + Lindo's sign), no palpable masses, no hepatomegaly, no splenomegaly Extremities: no cyanosis, no edema Hosp A/P (1) Acute pancreatitis Code(s): K85.90 - ACUTE PANCREATITIS WITHOUT NECROSIS OR INFECTION, UNSP Status: Acute (2) Acute pulmonary embolus Code(s): I26.99 - OTHER PULMONARY EMBOLISM WITHOUT ACUTE COR PULMONALE Status : Acute (3) Septic shock Code(s): A41.9 - SEPSIS, UNSPECIFIED ORGANISM; R65.21 - SEVERE SEPSIS WITH SEPTIC SHOCK Status: Acute (4) Acute metabolic encephalopathy Code(s): G93.41 - METABOLIC ENCEPHALOPATHY Status: Resolved - Plan * Acute Gallstone pancreatitis- with impending ascending cholangitis with septic shock.- Continue Empiric antibiotics. Blood pressure support with pressors. * He is NPO, and IV fluids and transition to LR * General Surgery and GI have been consulted * Acute PE- continue Heparin drip
[2019-10-23] MEDS: Lactated Ringer's 1,000 ML IV SCH ×2 (11:03→21:45)
[2019-10-23] MEDS ORDERED: Protamine Sulfate 50 MG/5 ML VIAL SLOW IVP SCH (11:30)
--- NOTE | 2019-10-23 13:12 | ULT ---
BILATERAL LOWER EXTREMITY VENOUS DOPPLER: DATE: 10/23/2019. PROVIDED CLINICAL HISTORY: Possible pulmonary embolus. FINDINGS: Nowak scale and color Doppler sonography with spectral analysis was performed of the bilateral common femoral, femoral, popliteal, posterior tibial, greater saphenous, and profunda femoral veins. The di stal left femoral vein demonstrates noncompressibility. Flow is documented in this region. The kris melba of the interrogated deep venous structures of each lower extremity demonstrate a normal sonogra phic appearance. IMPRESSION: Findings compatible with nonocclusive thrombus formation within the left distal femoral vein. POS: ALICIA
[2019-10-23] MEDS ORDERED: Ondansetron PF 4 MG/2 ML Vial ONE (13:39)
[2019-10-23] MEDS ORDERED: Lidocaine 1% PF 5 ML VIAL ONE (13:39)
[2019-10-23] MEDS ORDERED: Rocuronium Bromide 10 MG/ML (10ML VIAL) ONE (13:39)
[2019-10-23 15:40] LABS: INR-International Normal Ratio 1.6; PTT 42.8 sec (22.9-36.1); Prothrombin Time 19.2 sec (12.0-14.7)
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
--- NOTE | 2019-10-23 21:25 | CON ---
DATE OF CONSULTATION: 10/23/2019 REQUESTING PHYSICIAN: Ismael Chen MD HISTORY OF PRESENT ILLNESS: This is a 69-year-old man, a resident of an extended care facility, who was admitted yesterday reportedly with altered mental status as well as fever and abdominal pain. According to the report, the patient was in his usual state of health 24 hours prior to presentation. Workup yesterday was significant for elevated LFTs and lipase. CT scan of the chest was obtained and did reveal a possible small left lower lobe pulmonary arterial embolus. Abdominal ultrasound obtained this morning is remarkable for cholelithiasis and possible porcelain gallbladder. Gallbladder wall is thickened at 4.8 mm. Common bile duct is normal in diameter for the patient's age at 5.6 mm in diameter. I was asked to evaluate the patient for surgical intervention. At the time of my evaluation, the patient is somewhat confused, but moves all extremities and occasionally follows commands. He otherwise appears to be in no acute distress at the time of my evaluation. PAST MEDICAL HISTORY: Pertinent for coronary artery disease, essential hypertension, avascular necrosis of the hip. Other pertinent medical history includes lymphoma. PAST SURGICAL HISTORY: Includes bilateral total hip arthroplasties. FAMILY HISTORY: Noncontributory for this patient's age. MEDICATIONS: Current medication includes heparin infusion, PE protocol. Pre-hospital medications include: 1. Atorvastatin 40 mg p.o. at bedtime. 2. Aspirin 81 mg p.o. daily. 3. Allopurinol 300 mg p.o. daily. 4. Acetaminophen 500 mg p.o. p.r.n. 5. Clonidine 0.1 mg p.o. q.6 hours p.r.n. 6. Lisinopril 5 mg p.o. daily. 7. Metoprolol 25 mg p.o. daily. 8. Pantoprazole 40 mg p.o. daily. ALLERGIES: TO CEPHALEXIN. REVIEW OF SYSTEMS: Could not be obtained due to patient's depressed mental status. PHYSICAL EXAMINATION: GENERAL: Reveals a 69-year-old man who is otherwise in no acute distress at the time of my evaluation. VITAL SIGNS: Today include blood pressure 121/65, pulse 74, respiratory rate is 25, maximum temperature in last 24 hours is 98.9 degrees Fahrenheit, oxygen saturation is 92% on room air. HEENT: Reveals normocephalic and atraumatic. The pupils are equal, round, reactive to light and accommodation. There is no scleral icterus present. HEART: Reveals regular rate and rhythm. The patient has a loud systolic murmur auscultated in the left sternal border. LUNGS: Clear to auscultation bilaterally. Breathing, regular and nonlabored. ABDOMEN: Soft, moderately distended with epigastric right upper quadrant tenderness to palpation. Liver and spleen otherwise nonpalpable below costal margin. LABORATORY FINDINGS AND DIAGNOSTIC IMAGING STUDIES: Include a CBC with 12,500 white blood cells. Hemoglobin and hematocrit 11.0 and 34.0 respectively. Platelet count is 155,000. Differential counts as follows: 44 segmented neutrophils, 45 bands, 8 lymphocytes, and 3 monocytes. Metabolic profile: Sodium 135, potassium 3.4, chloride is 104, bicarb is 20, BUN is 21, creatinine is 1.05, glucose is 196, total bilirubin is 2.9. AST and ALT are 194 and 165 respectively. Alkaline phosphatase is 342. Serum lipase is 411. These laboratory findings are in contrast to LFTs yesterday: Total bilirubin 1.8. AST and ALT 220 and 135 respectively. Alkaline phosphatase is 373. Serum lipase at the time was 2923. It must be noted that the troponin-I has been steadily rising at 0.3 to 0.7 to 0.8. Transthoracic echocardiogram which was obtained today reveals moderately dilated left atrium, mildly enlarged right ventricle, moderate to severe aortic stenosis with left ventricular ejection fraction estimated at 20% to 25%. IMPRESSIONS: 1. Acute cholecystitis with cholelithiasis and acute cholangitis. 2. Resolving gallstone pancreatitis. 3. Small inferior left lower lobe pulmonary embolus. 4. Probable vum-PV-beirlul elevation myocardial infarction. PLAN: 1. Gastroenterology evaluating the patient for possible emergent ERCP, which is warranted in the face of cholecystitis with cholangitis. 2. Post ERCP laparoscopic cholecystectomy is recommended. 3. I will discuss the patient's cardiac risk profile with Cardiology given the chronic systolic and diastolic cardiomyopathy established on the basis of the 2D echocardiogram. 4. Above findings and recommendations will be discussed with the patient's . Thank you for allowing me the opportunity to participate in the care of this patient. Job ID: [id number]
[2019-10-23] MEDS ORDERED: Iopamidol 20 ML ONE (21:50)
[2019-10-23] MEDS ORDERED: Indomethacin 50 MG SUPP ONE (22:14)
[2019-10-23] MEDS ORDERED: Phenylephrine 10 MG/ML VIAL ONE (22:29)
[2019-10-23] MEDS ORDERED: Ketamine 50 MG/ML (10ML VIAL) ONE (22:29)
[2019-10-23] MEDS ORDERED: Midazolam HCl 2 mg/2 ml Vial ONE (22:37)
[2019-10-23] MEDS ORDERED: SUGAMMADEX SODIUM 200 MG/2 ML VIAL ONE ×2 (23:04→23:06)
--- NOTE | 2019-10-23 23:31 | RAD ---
EXAM: XR ERCP PROVIDED CLINICAL HISTORY: Gallbladder ultrasound demonstrating nonmobile calcifications along the gallbladder wall. COMPARISON: None FINDINGS\IMPRESSION: 8 intraoperative fluoroscopic images from an ERCP are submitted for interpretation. Guidewire is seen within the common duct and overlying the right upper quadrant with opacification of the common duct as well as most proximal intrahepatic ducts. Subsequent imaging demonstrates a balloon catheter in the common duct. Images demonstrating free spill of contrast into the duodenum are not provided. Correlation with intraoperative findings is recommended.
[2019-10-23] MEDS ORDERED: Enoxaparin Sodium 40 MG/0.4 ML SYRINGE SC SCH (23:45)
--- NOTE | 2019-10-24 01:10 | OP ---
DATE OF PROCEDURE: 10/23/2019 PREPROCEDURE DIAGNOSES: 1. Sepsis. 2. Deep venous thrombosis with pulmonary embolus. 3. Fever, altered mental status, elevated LFTs and gallstones, all concerning for ascending cholangitis. 4. Gallstone pancreatitis, resolving. ANESTHESIA: General endotracheal anesthesia. Anesthesiology monitored pressors, antibiotics, and fluids. He was also given Indocin two suppositories 50 mg for post ERCP pancreatitis prophylaxis. POSTPROCEDURE DIAGNOSES: 1. Periampullary diverticula with small amount of cloudy bile emanating from the ampulla. 2. 7 mm common bile duct with no overt filling defects. 3. After sphincterotomy and sweeping the duct, cloudy bile was removed as was flecks of stone debris. No large stones were removed. 4. At the conclusion of the procedure, there was good filling of the intra and extrahepatic ducts documented endoscopically and fluoroscopically. RECOMMENDATIONS: 1. Resume care in the ICU for sepsis. 2. Continue broad spectrum antibiotics as cultures were not drawn on admission. 3. Would defer cholecystectomy until sepsis resolves. 4. We will resume anticoagulation as talked with Dr. Marie about this earlier today, in light of the positive findings on the Doppler ultrasound of the leg and the CT angiogram last night on admission. DESCRIPTION OF PROCEDURE: After the patient's was informed risks, benefits, and possible complications of endoscopy including perforation, risk of medication, and aspiration, informed consent was obtained. We discussed the risk of worsening of his pancreatitis, perforation, and bleeding. I also discussed the concern for ascending cholangitis and the likelihood of worsening sepsis and possible with only antibiotic treatment if he has an occluding stone or occluded bile duct. His agreed to proceed with an ERCP any code event will be treated only with chemicals and not CPR. She was okay with intubation for the procedure. The patient was brought to the fluoroscopy suite, where he was intubated by Anesthesia, placed in a prone position on fluoroscopy table blood pressure and respirations. Solids Control Technician films were obtained and the side-viewing duodenoscope was advanced through the bite block into the esophagus, stomach, and second and third portion of duodenum and the ampulla was brought into view. The ampulla rested inside of a periampullary diverticula on saddle. Cannulation was obtained with the guidewire. Guidewire was placed in the pancreatic duct twice, but no injections were performed there. We were ultimately able to cannulate with a guidewire into the common bile duct. Occlusion cholangiogram revealed no overt large stones and about a 7 mm duct and normal intrahepatic ducts with slight paucity. The sphincterotomy was performed over a guidewire with good hemostasis. Exchange was made over the guidewire for a 9 mm balloon. The duct was swept three times with slightly cloudy wisps of purulent bile with small stone fragments and sludge, but no overt large stones. The duct was swept three times, which was completely clear. Final occlusion cholangiogram was performed, which showed no filling defects. When the balloon was brought out through the ampulla, there was spontaneous contrast documented both fluoroscopically and radiographically very quickly. Bile was then noted to be free flowing as well. The stomach and duodenum were desufflated and the scope was carefully removed. The patient was extubated, brought back to the ICU in stable condition. There was no change in his pressors or change in his IV fluid rate given during the procedure. Job ID: [id number]
[2019-10-24 04:29] LABS: INR-International Normal Ratio 1.6; Prothrombin Time 19.1 sec (12.0-14.7)
[2019-10-24 04:46] LABS: ALT (SGPT) 94 U/L (8-55); AST (SGOT) 59 U/L (5-34); Albumin 2.6 g/dL (3.4-4.8); Alkaline Phosphatase 249 U/L (40-110); Anion Gap 11 mmol/L (10-20); BUN (Urea Nitrogen) 16 mg/dL (8.4-25.7); Bilirubin, Total 1.6 mg/dL (0.2-1.2); Calc. Creatinine Clearance 121 mL/min (70-130); Calcium 7.9 mg/dL (7.8-10.44); Carbon Dioxide 22 mmol/L (23-31); Chloride 107 mmol/L (98-107); Estimated GFR-MDRD Greater than 90; Globulin 3.8 g/dL (2.4-3.5); Glucose 130 mg/dL (83-110); Lipase 73 U/L (8-78); Magnesium 1.8 mg/dL (1.6-2.6); Phosphorus 2.2 mg/dL (2.3-4.7); Potassium 3.3 mmol/L (3.5-5.1); Protein, Total 6.4 g/dL (5.8-8.1); Sodium 137 mmol/L (136-145)
[2019-10-24 05:07] LABS: #Eosinphils 0.1 thou/uL (0.0-0.7); #Lymphocytes 0.9 thou/uL (1.20-3.40); #Monocytes 0.4 thou/uL (0.11-0.59); #Neutrophils 5.2 thou/uL (1.40-6.50); %Basophils 0.2 % (0.0-1.0); %Eosinophils 1.9 % (0.0-10.0); %Lymphocytes 13.1 % (21.0-51.0); %Monocytes 6.1 % (0.0-10.0); %Neutrophils 78.6 % (42.0-75.0); Anisocytosis SLIGHT = 6-15 cells (100X) (0-5/hpf); Burr Cells SLIGHT = 2-5 cells (100X) (0-1/hpf); Elliptocytes SLIGHT = 2-5 cells (100X) (0-1/hpf); Hemoglobin 9.6 g/dL (14.0-18.0); MDiff Complete? YES; Mean Corpuscular HGB CONC 31.9 g/dL (32.0-36.0); Mean Corpuscular Volume 87.7 fL (78.0-98.0); Mean Platelet Volume 10.7 fL (7.4-10.4); Platelet Count 115 thou/uL (130-400); Platelet Morphology Comment Appears Decreased; Poikilocytosis SLIGHT = 6-15 cells (100X) (0-5/hpf); Polychromasia SLIGHT = 2-3 cells (100X) (0-2/hpf); RBC Distribution Width 19.2 % (11.5-14.5); Red Blood Cell (RBC) Count 3.42 mill/uL (4.70-6.10); White Blood Cell (WBC) Count 6.6 thou/uL (4.8-10.8)
[2019-10-24] MEDS: MEROPENEM 1 GM/50 ML 1 GM in Premix Bag 1 BAG IVPB SCH ×3 (05:55→22:47)
[2019-10-24] MEDS: Lactated Ringer's 1,000 ML IV SCH ×3 (05:56→19:57)
[2019-10-24] MEDS ORDERED: Electrolyte Replacement Protoc 1 EACH EACH FS SCH (08:00)
--- NOTE | 2019-10-24 08:41 | PDOC.HOSPP ---
- Subjective Encounter Date: 10/24/19 Encounter Time: 08:37 Subjective: Ms. Jacob was seen today in follow-up of gallstone pancreatitis, and cholangitis. He is confused. He denies abdominal pain. He denies chest pain. - Objective Vital Signs & Weight: Vital Signs (12 hours) Temp Pulse Ox 10/24/19 04:00 97.8 F 10/24/19 00:21 94 L 10/24/19 00:00 98.0 F 95 Weight Admit Weight 217 lb Weight 220 lb 10.923 oz Most Recent Monitor Data Heart Rate from ECG 54 NIBP 124/74 NIBP BP-Mean 90 Respiration from ECG 18 SpO2 97 I&O: 10/23/19 10/24/19 10/25/19 06:59 06:59 06:59 Intake Total 2299 4142.4 Output Total 610 1765 Balance 1689 2377.4 Result Diagrams: 10/24/19 04:10 10/24/19 04:10 Additional Labs: Accuchecks 10/24/19 10/23/19 10/23/19 04:10 23:36 16:20 POC Glucose 127 H 109 126 H 10/23/19 10:39 POC Glucose 135 H Hospitalist ROS - Medication Medications: Active Medications Generic Name Dose Route Start Last Admin Trade Name Freq PRN Reason Stop Dose Admin Norepinephrine Bitartrate 250 mls @ 0 mls/hr 10/22/19 20:15 10/23/19 21:46 Levophed IVPB 250 mls INF TRISTAN Administration Protocol Titrate Meropenem 1 gm/ Device 50 mls @ 100 mls/hr 10/22/19 22:00 10/24/19 05:55 IVPB 50 mls Q8HR TRISTAN Administration Vancomycin HCl 1.5 gm/ Device 300 mls @ 200 mls/hr 10/23/19 09:00 10/23/19 20 :27 IVPB 300 mls Q12HR TRISTAN Administration Lactated Ringer's 1,000 mls @ 125 mls/hr 10/23/19 10:45 10/24/19 05:56 Lactated Ringer's IV 1,000 mls .Q8H TRISTAN Administration Sodium Chloride 10 ml 10/23/19 21:00 10/23/19 20:33 Flush - Normal Saline IVF 10 ml Q12HR TRISTAN Administration - Exam Eye: PERRL, anicteric sclera Heart: RRR, no murmur, no gallops, no rubs, normal peripheral pulses Respiratory: CTAB, no wheezes, no rales, no ronchi, normal chest expansion Gastrointestinal: soft (+ RUQ tenderness, no rebound or guarding), tender to palpation Extremities: no cyanosis, no edema Hosp A/P (1) Acute pancreatitis Code(s): K85.90 - ACUTE PANCREATITIS WITHOUT NECROSIS OR INFECTION, UNSP Status: Acute (2) Acute pulmonary embolus Code(s): I26.99 - OTHER PULMONARY EMBOLISM WITHOUT ACUTE COR PULMONALE Status : Acute (3) Septic shock Code(s): A41.9 - SEPSIS, UNSPECIFIED ORGANISM; R65.21 - SEVERE SEPSIS WITH SEPTIC SHOCK Status: Acute (4) Acute metabolic encephalopathy Code(s): G93.41 - METABOLIC ENCEPHALOPATHY Status: Resolved (5) Combined systolic and diastolic heart failure Code(s): I50.40 - UNSP COMBINED SYSTOLIC AND DIASTOLIC (CONGESTIVE) HRT FAIL Status: Chronic (6) Hodgkin lymphoma Code(s): C81.90 - HODGKIN LYMPHOMA, UNSPECIFIED, UNSPECIFIED SITE Status: Chronic - Plan * Acute Gallstone pancreatitis with cholangitis- he is s/p ERCP and Sphincterotomy. * Continue bowel rest, and fluid resuscitation * Continue IV antibiotics * Plan is for Cholecystectomy once he is more clinically stable * Sepsis- continue Antibiotics, and he continues to require pressor support * Acute PE- continue Heparin drip * Acute vs. Chronic systolic and diastolic heart failure- will consult Cardiology * Elevated troponin- likely demand ischemia - from sepsis- will defer to Cardiology * Confusion- ? baseline dementia - will monitor
[2019-10-24] MEDS ORDERED: Potassium Chloride 40 MEQ in Sodium Chloride 0.9% 250 ML 250 ML IVPB SCH (08:45)
[2019-10-24] MEDS ORDERED: Magnesium 2 GM/50 ML 2 GM in Premix Bag 1 BAG IVPB SCH (08:45)
[2019-10-24] MEDS: Enoxaparin Sodium 40 MG/0.4 ML SYRINGE SC SCH ×2 (10:09→19:58)
[2019-10-24] MEDS: Pantoprazole 40 MG VIAL IVP SCH (10:10)
[2019-10-24 11:00] LABS: Vancomycin, Trough 15.7 ug/mL
--- NOTE | 2019-10-24 11:01 | CON ---
DATE OF CONSULTATION: 10/23/2019 HISTORY OF PRESENT ILLNESS: Mr. Jacob is a 69-year-old. Dr. Mac has been consulted for possible cholangitis. He is tentatively on the schedule for an ERCP today. Because of a CT angiogram, questionable subsegmental filling . Recommended reversal of his anticoagulants until the procedure was complete. Since we reversed him, there has been some delay in going to the OR. His Doppler showed partially occlusive femoral vein clot out of his ERCP procedure. His INR yesterday was 1.4. He was on . PAST MEDICAL HISTORY: Remarkable for; 1. CVA with a pneumonia. 2. History of cholelithiasis. 3. History of fatty liver. 4. History of nodule. 5. . PHYSICAL EXAMINATION: LUNGS: Clear. HEART: Regular rhythm. anticoagulants were restarted. I will be happy to follow the other physicians caring for him. A 70-minute consult, 50% of the time was spent in coordinating care. Job ID: [id number] MTDD
[2019-10-24] MEDS: Vancomycin 1.5 GRAM/300 ML BAG 1.5 GM in Premix Bag 1 BAG IVPB SCH ×2 (11:28→19:59)
--- NOTE | 2019-10-24 14:29 | PRG ---
DATE OF SERVICE: 10/24/2019 SUBJECTIVE: Mr. Jacob is still encephalopathic. His hemodynamics are still requiring low-dose pressors. OBJECTIVE: LUNGS: Clear anteriorly. HEART: Regular rhythm. ABDOMEN: Tender in his right upper quadrant. He grimaces a little bit with deep palpation. LABORATORY DATA: White count 6.6, hemoglobin 9.6, platelets 115. Sodium 137, potassium 3.3, chloride 107, bicarb 22, BUN 16, creatinine 0.78. IMPRESSION: Cholangitis. No obstructing stones are identified, but he has Klebsiella growing out of his blood. Also has a gram-negative growing out of his urine. Surgeries on hold for now. Thromboembolic disease. We will continue to be treated with Lovenox. This can be held and partially reversed if surgery is needed, but for now we will treat him with Lovenox. Overall, he appears to be hemodynamically stable. Pressors weaning may be facilitated by giving him salt-poor albumin. We will continue to follow the other physicians caring for him. Obviously, he needs to remain in the critical care unit for now. Job ID: [id number]
[2019-10-24] MEDS: Albumin 25% 25 GM/100 ML BOT IVPB SCH ×2 (14:49→19:57)
--- NOTE | 2019-10-24 15:07 | CON ---
DATE OF CONSULTATION: HISTORY OF PRESENT ILLNESS: This is a 69-year-old gentleman, who presented several days ago with abdominal discomfort. The patient has a long history of coronary artery disease in 2009. He underwent PTCA and stent placement. The patient then underwent a followup catheterization in 2012, which revealed a patent stent and no evidence of significant progression of his coronary artery disease. The patient was apparently in his usual state of health when he presented with fever , abdominal discomfort, and altered mental status. The patient denies having any chest discomfort or dyspnea. The patient unable to give a coherent history. PAST MEDICAL HISTORY: 1. Coronary artery disease. 2. Cirrhosis. 3. Hypertension. PAST SURGICAL HISTORY: Hip surgery. MEDICATIONS: See nursing list. ALLERGIES: KEFLEX. PHYSICAL EXAMINATION: GENERAL: This is an ill-appearing gentleman, who is pale. VITAL SIGNS: Blood pressure 106/66, on Levophed. NECK: Full. LUNGS: Clear to auscultation. HEART: Regular rate and rhythm. Normal S1 and S2 with 2/6 systolic murmur. ABDOMEN: Distended. EXTREMITIES: Showed trace edema. VASCULAR: Radial pulses are 2+. LABORATORY RESULTS: Sodium 137, potassium 3.3, chloride 107, bicarbonate 22, BUN 16, creatinine 0.73, and glucose is 130. His white blood cell count is 6.6, hemoglobin 9.6, hematocrit 30.0, and his platelets are 115. Troponin of 0.81. IMAGING DATA: EKG normal sinus tachycardia with a left bundle-branch block. IMPRESSION: 1. Septic shock. 2. Pancreatitis. 3. Non-ST elevation myocardial infarction. 4. Aortic stenosis. 5. Cardiomyopathy. 6. Bradycardia. 7. Cirrhosis. PLAN: This unfortunate gentleman presents with sepsis. He has severe aortic stenosis as well as a marked decreased left ventricular systolic function. The patient's blood pressure has stabilized on Levophed. His prognosis is extremely guarded with severe aortic stenosis. We will follow this patient with you through his hospitalization. Critical care note,time 30 minutes. Job ID: [id number] [facility]
[2019-10-24 15:41] LABS: Potassium 3.7 mmol/L (3.5-5.1)
--- NOTE | 2019-10-24 17:54 | PRG ---
DATE OF SERVICE: 10/24/2019 SUBJECTIVE: Mr. Jacob is a 69-year-old man, admitted with multiple organ failure syndrome. Recently diagnosed with acute cholecystitis, cholelithiasis, and possible choledocholithiasis. The patient underwent an uneventful ERCP yesterday with common bile duct stone extraction. He was also recently diagnosed with left lower lobe pulmonary embolism and lower extremity DVT. He was initially to undergo post ERCP, laparoscopic cholecystectomy, however, became hemodynamically unstable with heart rate occasionally in the bradycardic range. The patient was returned to the intensive care unit and continued on anticoagulation. This morning, he remains on mechanical ventilator support. Overnight, heart rate has been quite unstable. Occasionally, the patient's heart rate is in the upper 30s. His blood pressure, however, has been essentially stable. Urinary output seems adequate. He has been afebrile over the last 48 hours. Abdomen is soft, nontender, nondistended. LABORATORY FINDINGS: Today include a CBC with 6600 white blood cells, hemoglobin and hematocrit 9.6 and 30.0 respectively. Platelet count is 115,000. Metabolic profile; sodium 137, potassium 3.3, chloride is 107, bicarb is 22, BUN 16, creatinine 0.78, glucose 130, total bilirubin is 1.6 down from 1.9 yesterday. AST and ALT are 59 and 94 respectively down from 194 and 165 yesterday. Alkaline phosphatase today is 249, down from 342. IMPRESSIONS: 1. Acute cholecystitis with cholelithiasis, status post endoscopic retrograde cholangiopancreatography and common bile duct stone extraction. 2. Resolving transaminitis. RECOMMENDATIONS: Continue current critical care management and conservative management for the patient's biliary disease. His significant comorbidities with respect to his cardiac function dictates that least invasive procedures be undertaken at this time. It is noteworthy that his physiology is improving. Therefore, it is prudent to defer laparoscopic cholecystectomy to a later date and when the patient is more stable with better risk profile for laparoscopic cholecystectomy on another general anesthesia. Cholecystectomy would certainly be considered if the patient's physiology worsens especially with recent Klebsiella pneumoniae bacteremia. We will definitely consider cholecystectomy if there is any recurrence physiologic derangement like fever, worsening LFTs, acute kidney injury, or any evidence of sepsis, which might indicate the presence of a gangrenous gallbladder. Above findings was discussed with Dr. Marie, the waste/materials exchange specialist on this case and he agrees with this recommendation. I will discuss the same with the patient's . Job ID: [id number]
[2019-10-24 20:25] LABS: Hemoglobin 8.4 g/dL (14.0-18.0); Platelet Count 96 thou/uL (130-400)
[2019-10-25] MEDS: Lactated Ringer's 1,000 ML IV SCH ×2 (03:21→10:04)
[2019-10-25] MEDS: Albumin 25% 25 GM/100 ML BOT IVPB SCH ×3 (03:21→15:03)
[2019-10-25 04:37] LABS: INR-International Normal Ratio 1.5; Prothrombin Time 18.1 sec (12.0-14.7)
[2019-10-25 05:02] LABS: #Eosinphils 0.2 thou/uL (0.0-0.7); #Lymphocytes 0.6 thou/uL (1.20-3.40); #Monocytes 0.2 thou/uL (0.11-0.59); #Neutrophils 1.6 thou/uL (1.40-6.50); %Basophils 1.4 % (0.0-1.0); %Eosinophils 6.9 % (0.0-10.0); %Neutrophils 61.7 % (42.0-75.0); Hemoglobin 7.8 g/dL (14.0-18.0); Mean Corpuscular HGB CONC 32.4 g/dL (32.0-36.0); Mean Corpuscular Hemoglobin 28.6 pg (27.0-31.0); Mean Corpuscular Volume 88.1 fL (78.0-98.0); Mean Platelet Volume 10.1 fL (7.4-10.4); Platelet Count 83 thou/uL (130-400); Red Blood Cell (RBC) Count 2.73 mill/uL (4.70-6.10); White Blood Cell (WBC) Count 2.6 thou/uL (4.8-10.8)
[2019-10-25 05:14] LABS: ALT (SGPT) 54 U/L (8-55); AST (SGOT) 26 U/L (5-34); Albumin 3.1 g/dL (3.4-4.8); Alkaline Phosphatase 179 U/L (40-110); Anion Gap 10 mmol/L (10-20); BUN (Urea Nitrogen) 14 mg/dL (8.4-25.7); Bilirubin, Total 0.8 mg/dL (0.2-1.2); Calc. Creatinine Clearance 145 mL/min (70-130); Calcium 8.1 mg/dL (7.8-10.44); Carbon Dioxide 23 mmol/L (23-31); Chloride 109 mmol/L (98-107); Estimated GFR-MDRD Greater than 90; Globulin 3.1 g/dL (2.4-3.5); Glucose 90 mg/dL (83-110); Lipase 56 U/L (8-78); Phosphorus 1.4 mg/dL (2.3-4.7); Potassium 3.6 mmol/L (3.5-5.1); Protein, Total 6.2 g/dL (5.8-8.1); Sodium 138 mmol/L (136-145)
[2019-10-25] MEDS: MEROPENEM 1 GM/50 ML 1 GM in Premix Bag 1 BAG IVPB SCH ×3 (05:45→22:24)
[2019-10-25] MEDS ORDERED: Magnesium 2 GM/50 ML 2 GM in Premix Bag 1 BAG IVPB SCH (06:45)
[2019-10-25] MEDS ORDERED: Potassium Phosphate 22 MMOL in Sodium Chloride 0.9% 250 ML 250 ML IVPB SCH (06:45)
[2019-10-25] MEDS: Pantoprazole 40 MG VIAL IVP SCH (08:27)
[2019-10-25] MEDS: Vancomycin 1.5 GRAM/300 ML BAG 1.5 GM in Premix Bag 1 BAG IVPB SCH ×2 (08:27→20:38)
--- NOTE | 2019-10-25 08:32 | PDOC.CPN ---
- Subjective Date: 10/25/19 Time: 17:00 Interval history: Pt doing fairrly well. nO current complaints. Still somewhat confused. NO pressors - Objective Allergies/Adverse Reactions: Allergies Allergy/AdvReac Type Severity Reaction Status Date / Time cephalexin monohydrate Allergy Hives Verified 09/10/19 22:23 [From Keflex] Visit Medications: Current Medications Acetaminophen (Tylenol) 650 mg PO Q4H PRN PRN Reason: Headache/Fever/Mild Pain (1-3) Acetaminophen (Tylenol) 650 mg MO Q4H PRN PRN Reason: Headache/Fever/Mild Pain (1-3) Albumin Human (Albumin 25%) 25 gm IVPB Q6H TRISTAN Stop: 10/25/19 14:01 Last Admin: 10/25/19 03:21 Dose: 25 gm Enoxaparin Sodium (Lovenox) 40 mg SC 0900,2100 [facility] Last Admin: 10/24/19 19:58 Dose: 40 mg Norepinephrine Bitartrate (Levophed) 250 mls @ 0 mls/hr IVPB INF TRISTAN; Protocol Last Admin: 10/23/19 21:46 Dose: 250 mls Meropenem 1 gm/ Device 50 mls @ 100 mls/hr IVPB Q8HR [facility] Last Admin: 10/25/19 05:45 Dose: 50 mls Vancomycin HCl 1.5 gm/ Device 300 mls @ 200 mls/hr IVPB Q12HR [facility] Last Admin: 10/24/19 19:59 Dose: 300 mls Lactated Ringer's (Lactated Ringer's) 1,000 mls @ 125 mls/hr IV .Q8H [facility] Last Admin: 10/25/19 03:21 Dose: 1,000 mls Magnesium Sulfate 2 gm/ Device 50 mls @ 50 mls/hr IVPB NOW TRISTAN Stop: 10/25/19 10:00 Potassium Phosphate 22 mmol/ (Sodium Chloride) 257.3333 mls @ 64.333 mls/hr IVPB NOW TRISTAN Stop: 10/25/19 12:00 Miscellaneous Medication (Pharmacy To Dose) 1 each IVPB PRN PRN PRN Reason: Pharmacy to dose Miscellaneous Medication (Electrolyte Replacement Protocol) 1 each FS ASDIR TRISTAN Ondansetron HCl (Zofran Odt) 4 mg PO Q6H PRN PRN Reason: Nausea/Vomiting Ondansetron HCl (Zofran) 4 mg IVP Q6H PRN PRN Reason: Nausea/Vomiting Pantoprazole Sodium (Protonix) 40 mg IVP DAILY [facility] Last Admin: 10/24/19 10:10 Dose: 40 mg Sodium Chloride (Flush - Normal Saline) 10 ml IVF Q12HR [facility] Last Admin: 10/24/19 19:59 Dose: 10 ml Sodium Chloride (Flush - Normal Saline) 10 ml IVF PRN PRN PRN Reason: Saline Flush Sodium Chloride (Flush - Normal Saline) 10 ml IVF PRN PRN PRN Reason: Saline Flush Vital Signs & Weight: Vital Signs Temp 10/25/19 03:00 98.4 F 10/24/19 23:00 98.4 F Admit Weight 217 lb Weight 220 lb 0.341 oz - Physical Exam General: no apparent distress Neck: no JVD/HJR, no masses, no bruit Cardiac: regular rate, regular rhythm Lungs: normal exam, no wheezes, no rales Neuro: grossly intact - Labs Result Diagrams: 10/26/19 04:23 10/26/19 04:23 Troponin/CKMB CK-MB (CK-2) 1.3 ng/mL (0-6.6) 10/22/19 18:03 Troponin I 0.815 ng/mL (< 0.028) H* 10/22/19 23:20 - Assessment/Plan Assessment/Plan: Sepsis Aortic stenosis Chronic LBBB CAD s/p stent REC 10/24 Pt off pressors Reviewed echo EF is decreased from previous echo in [facility] in 2018. AV also appears stenosed but difficult to assess. Continue with conservative treatment Given he is stable, surgery has opted for conservative treatment given no recurrent fever Ok to transfer to tele
--- NOTE | 2019-10-25 09:23 | PDOC.HOSPP ---
- Subjective Encounter Date: 10/25/19 Encounter Time: 09:22 Subjective: Mr. Jacob was seen today in follow-up of acute gallstone pancreatitis. He notes continued right upper abdominal pain. He denies chest pain or shortness of breath. - Objective Vital Signs & Weight: Vital Signs (12 hours) Temp 10/25/19 03:00 98.4 F 10/24/19 23:00 98.4 F Weight Admit Weight 217 lb Weight 220 lb 0.341 oz Most Recent Monitor Data Heart Rate from ECG 78 NIBP 115/72 NIBP BP-Mean 86 Respiration from ECG 28 SpO2 92 I&O: 10/24/19 10/25/19 10/26/19 06:59 06:59 06:59 Intake Total 4142.4 4030 Output Total 1765 1023 165 Balance 2377.4 3007 -165 Result Diagrams: 10/25/19 04:05 10/25/19 04:05 Additional Labs: Accuchecks 10/24/19 22:54 POC Glucose 108 Hospitalist ROS - Medication Medications: Active Medications Generic Name Dose Route Start Last Admin Trade Name Freq PRN Reason Stop Dose Admin Albumin Human 25 gm 10/24/19 14:00 10/25/19 08:27 Albumin 25% IVPB 10/25/19 14:01 25 gm Q6H TRISTAN Administration Enoxaparin Sodium 40 mg 10/24/19 09:00 10/24/19 19:58 Lovenox SC 40 mg 0900,2100 TRISTAN Administration Norepinephrine Bitartrate 250 mls @ 0 mls/hr 10/22/19 20:15 10/23/19 21:46 Levophed IVPB 250 mls INF TRISTAN Administration Protocol Titrate Meropenem 1 gm/ Device 50 mls @ 100 mls/hr 10/22/19 22:00 10/25/19 05:45 IVPB 50 mls Q8HR TRISTAN Administration Vancomycin HCl 1.5 gm/ Device 300 mls @ 200 mls/hr 10/23/19 09:00 10/25/19 08 :27 IVPB 300 mls Q12HR TRISTAN Administration Magnesium Sulfate 2 gm/ Device 50 mls @ 50 mls/hr 10/25/19 06:45 10/25/19 08: 25 IVPB 10/25/19 10:00 50 mls NOW TRISTAN Administration Potassium Phosphate 22 mmol/ 257.3333 mls @ 64.333 mls/hr 10/25/19 06:45 10/08 08:26 Sodium Chloride IVPB 10/25/19 12:00 257.3333 mls NOW TRISTAN Administration Pantoprazole Sodium 40 mg 10/24/19 09:00 10/25/19 08:27 Protonix IVP 40 mg DAILY TRISTAN Administration Sodium Chloride 10 ml 10/23/19 21:00 10/25/19 08:27 Flush - Normal Saline IVF Not Given Q12HR TRISTAN - Exam Eye: PERRL Heart: RRR, murmur present, II/IV Respiratory: rales (+ rales bilaterally, and occasional wheeze) Gastrointestinal: soft (+ RUQ tenderness, no rebound or guarding), normal bowel sounds, no rigidity Extremities: no cyanosis, 1+ LE edema Hosp A/P (1) Acute pancreatitis Code(s): K85.90 - ACUTE PANCREATITIS WITHOUT NECROSIS OR INFECTION, UNSP Status: Acute (2) Acute pulmonary embolus Code(s): I26.99 - OTHER PULMONARY EMBOLISM WITHOUT ACUTE COR PULMONALE Status : Acute (3) Septic shock Code(s): A41.9 - SEPSIS, UNSPECIFIED ORGANISM; R65.21 - SEVERE SEPSIS WITH SEPTIC SHOCK Status: Acute (4) Acute metabolic encephalopathy Code(s): G93.41 - METABOLIC ENCEPHALOPATHY Status: Resolved (5) Combined systolic and diastolic heart failure Code(s): I50.40 - UNSP COMBINED SYSTOLIC AND DIASTOLIC (CONGESTIVE) HRT FAIL Status: Chronic (6) Hodgkin lymphoma Code(s): C81.90 - HODGKIN LYMPHOMA, UNSPECIFIED, UNSPECIFIED SITE Status: Chronic - Plan * Acute Gallstone pancreatitis with cholangitis- he is s/p ERCP and Sphincterotomy. * Continue bowel rest, - will decrease his IV fluid rate to hopefully avoid volume overload * Continue IV antibiotics * Plan is for Cholecystectomy once he is more clinically stable * Sepsis- continue Antibiotics, he is now off Levophed * Acute PE- continue Heparin drip * Acute vs. Chronic systolic and diastolic heart failure-will reduce IV fluid rate * Elevated troponin- likely demand ischemia - * Nutritional support- ? if he is not going for surgery consider J-tube feeding - will defer to Surgery
--- NOTE | 2019-10-25 09:38 | PRG ---
DATE OF SERVICE: 10/24/2019 SUBJECTIVE: Mr. Jacob is a little more alert today. He denies pain. OBJECTIVE: His T-max is 97.9, blood pressure 130/70, pulse is 57. In's and out's 4142 and 1765. Levophed is down to 6. ABDOMEN: Soft and nontender, slightly protuberant. LABORATORY DATA: White count is down from 12 to 6.6, hemoglobin is 9.6, platelet count 115. INR 1.6, phosphorus 2.2, replaced. Bilirubin down from 2.9 to 1.6, AST from 220 on admission to 59, ALT from 135 to 94, blood cultures, Klebsiella pneumoniae, urine gram-negative rods. ASSESSMENT: 1. Ascending cholangitis status post endoscopic retrograde cholangiopancreatography last night with clearance of the bile duct. Minimal pus and debris present. 2. Gallstones present with inflamed gallbladder. 3. Gallstone pancreatitis, resolved. 4. Pulmonary embolus, equivocal DVT though present. 5. Moderate to severe aortic stenosis, cardiomyopathy, non-STEMI. RECOMMENDATION: 1. Continue broad spectrum antibiotics. Continue IV fluids. 2. Continue anticoagulation. 3. Hopefully, if he improves, we can get his gallbladder out at a later date. If not, he has had a sphincterotomy so he shouldn't get pancreatitis again, but he does have about a 20% to 30% chance of relapsing cholecystitis. We will follow from a distance at this point. If I can be of any further assistance in his care, please do not hesitate to contact me. Job ID: [id number]
[2019-10-25] MEDS: Enoxaparin Sodium 40 MG/0.4 ML SYRINGE SC SCH ×2 (10:05→20:39)
--- NOTE | 2019-10-25 12:09 | PRG ---
DATE OF SERVICE: 10/25/2019 SUBJECTIVE: Evelia Jacob is less encephalopathic. He knows he is in [place]. He knew he is in the hospital. OBJECTIVE: VITAL SIGNS: Heart rates in the 60s, blood pressure 100/66, respiratory rates in the teens. LUNGS: Clear. HEART: Regular rhythm. ABDOMEN: Minimally tender in his right upper quadrant. LABORATORY DATA: White count dropped to 2.6, hemoglobin 7.8, and platelets are 83,000. I suspect his fall in platelets is inflammatory process. Sodium 138, potassium 3.6, chloride 109, bicarb 23, BUN 14, and creatinine 0.66. IMPRESSION: 1. Cholangitis, improving. 2. Encephalopathy, improving. 3. Deep venous thrombosis with pulmonary embolism. 4. Aortic stenosis. 5. Coronary artery disease. Overall, he is stable. He could probably move out of Critical Care Unit. Job ID: [id number]
--- NOTE | 2019-10-25 12:32 | PQF ---
GALEN HENRY TONI MD [id number] CLINICAL DOCUMENTATION IMPROVEMENT CLARIFICATION FORM: ICD-10 Updated PLEASE DO AN ADDENDUM TO THE PROGRESS NOTE WITH ANY DOCUMENTATION UPDATES OR ADDITIONS AND CARRY THROUGH TO DC SUMMARY. THANK YOU. DATE: 10/25/2019 ,10/26/2019 ATTN: DR. Panda CORONA Please exercise your independent, professional judgment in responding to the clarification form. Clinical indicators are provided on the bottom of this form for your review. Please check appropriate box(s): [ X ] Acute Respiratory Failure: [ X ] with Hypoxia[ ] with Hypercapnia [ ] Acute On Chronic Respiratory Failure: [ ] with Hypoxia [ ] with Hypercapnia [ ] Acute Respiratory Failure due to: (etiology) [ ] Chronic Respiratory Failure only [ ] with Hypoxia [ ] with Hypercapnia [ ] Other diagnosis [ ] Unable to determine In addition, please specify: Present on Admission (POA): [ X ] Yes [ ] No [ ] Unable to determine For continuity of documentation, please document condition throughout progress notes and discharge summary. Thank You. CLINICAL INDICATORS - SIGNS / SYMPTOMS / LABS / RESULTS AND LOCATION IN MR 10/21 ED REPORT: RESP 32, PULSE 156, TEMP 1.2.4, 85% O2 SAT IN TRIAGE > 99% 2L/ NC//PT PRESENTS UNRESPONSIVE TO ED, REPORTED TO HAVE A SUDDEN ONSET OF AMS BY . HAD A HX OF PRIOR PNEUMONIA AND FEVER X 1 MONTH PRIOR. ED FINAL DX: SEVERE SEPSIS W SEPTIC SHOCK, PNA, PULMONARY EMBOLISM 10/21 H&P ( [facility]) STATES PATIENT HAD A STROKE ABOUT 2 MONTHS AGO COMPLICATED WITH PNEUMONIA AND PATIENT HAS BEEN DECLINING EVER SINCE. 10/23 PN (OHAJU) THIS MORNING , HE REMAIN ON MECHANICAL VENTILATOR SUPPORT RISK: SEPTIC SHOCK, PNEUMONIA ,PULMONARY EMBOLI ADVANCED AGE (69) ( H&P/CHANCE MEDINA) NSTEMI TYPE 2 (SCWARTZ /CONSULT) 10/23 TREATMENTS: PULMONOLOGY CONSULT (10/22/DONOVAN) SUPPLEMENTAL OXYGEN 10/23 Acute Respiratory Failure: ABG pH < 7.35 or > 7.45; Decreased oxygen saturation (<90% room air or < 95% on oxygen); PCO2 > 50 mm Hg; PO2 < 60 mm Hg; Labored or rapid respirations ARDS: Dx Criteria [[place] ARDS]: Respiratory symptoms within one week of a known clinical insult (e.g. shock, infection, surgery, trauma) Bilateral opacities in CXR/Chest CT not due to CHF or fluid THANK YOU! JOSE (This form is maintained as a part of the permanent medical record) 2014 [employer]. All Rights Reserved [email or web address]
--- NOTE | 2019-10-25 13:18 | PRG ---
DATE OF SERVICE: 10/25/2019 SUBJECTIVE: Mr. Jacob is much better today. OBJECTIVE: VITAL SIGNS: His pulse is 68, he is afebrile, his blood pressure is 115/48. GENERAL: He is alert and oriented to person, place, and time. He is afebrile. He is off pressors. ABDOMEN: Soft and nontender. LABORATORY DATA: White count 2.6, hemoglobin 7.8, and platelet count 83,000. INR 1.5. Sodium 138, potassium 3.6, BUN and creatinine 14 and 0.6, bilirubin is down to 1.4. AST and ALT are 26 and 54, alkaline phosphatase of 179. Lipase is . COVID was negative. Microbiology positive for Klebsiella, urine and blood. ASSESSMENT: 1. Septic shock, resolved. 2. Ascending cholangitis, resolved. 3. Gram-negative bacteremia, on antibiotics. We would adjust antibiotics based on sensitivities when available. We would defer that to Internal Medicine. 4. Aortic stenosis. He has low ejection fraction and he has possible pulmonary embolism, although the CT scan is equivocal, but he does have a deep venous thrombosis on ultrasound. RECOMMENDATIONS: Await Cardiology's input. This patient is recurrently coming back to the hospital with altered mental status and sepsis of unclear etiology, it is his gallbladder, I think we have figured that out this admission. Although he has had a sphincterotomy and his risks of cholangitis and pancreatitis have gone to zero, he has about a 30% to 40% risk of coming back in the next 9 months with infected gallbladder, if it is not removed this admission. My feeling is that if Cardiology thinks he is adequate risk, then it should happen this admission. He did fine during an ERCP with general anesthetic while laying on his stomach, while on pressors. I think that now he is off pressors and the sepsis is over, he probably would do okay with laparoscopic cholecystectomy. We will wait for Cardiology's opinion. We will discuss with General Surgery once that is back. Job ID: [id number]
--- NOTE | 2019-10-25 15:45 | PRG ---
DATE OF SERVICE: 10/25/2019 SUBJECTIVE: Mr. Jacob is a 69-year-old man with recent gallstone pancreatitis, status post ERCP with common bile duct stone extraction. The patient is more awake and alert today. He has significant comorbidities, although his hemodynamics have been stable. He is tolerating wean from a vasopressor support. Urinary output is adequate for the patient's age and weight. OBJECTIVE: VITAL SIGNS: Today included blood pressure of 115/72, pulse 78, respiratory rate is 28, maximum temperature in the last 24 hours is 98.6 degrees Fahrenheit, oxygen saturation is 92% on room air. HEENT: He has no scleral icterus present. NECK: There is no jugular venous distention noted. ABDOMEN: Soft with mild right upper quadrant tenderness to palpation. He has negative Lindo sign. Liver and spleen are otherwise nonpalpable below the costal margin clearly. No overt peritoneal signs on examination. NEUROLOGIC: Reveals no focal deficits present. LABORATORY FINDINGS: Today include a CBC with 2600 white blood cells, hemoglobin and hematocrit are 7.8 and 24.1 respectively. Platelet count is 83,000. Metabolic profile; sodium 138, potassium 3.6, chloride is 109, bicarb is 23, BUN is 14, creatinine 0.66, glucose is 90. AST and ALT are 26 and 54 respectively. Alkaline phosphatase is 179. Total bilirubin which was as high as 2.9 on 10/23/2019, is normal now at 0.8 mg/dL. Serum lipase which was as high as 2923 on 10/22/2019, is normal today at 56. IMPRESSION: 1. Gallstone pancreatitis, resolved. 2. Acute cholecystitis with cholelithiasis, improving. 3. Acute hypokalemia. 4. Acute blood loss anemia. 5. Severe cardiomyopathy. 6. Small left lower lobe pulmonary embolism. 7. Lower extremity deep venous thrombosis, currently on anticoagulation. PLAN: 1. Considering the patient is improving physiologically, continue with current medical management. Anticoagulation will need to be continued. 2. Given the patient's previous multiple ER visits for altered mental status associated with fever, it was recommended laparoscopic cholecystectomy when the patient is hemodynamically stable and able to tolerate not been anticoagulated at least for a few days postoperatively. 3. Above findings and plan discussed with the patient. I am not sure as to how much he understood. I did however discuss with the patient's on the telephone two days ago as far as the reason to pursue conservative management at this time. 4. I will lean on Cardiology input with regard to timing of the laparoscopic cholecystectomy. Job ID: [id number]
[2019-10-26 04:48] LABS: INR-International Normal Ratio 1.5; Prothrombin Time 17.6 sec (12.0-14.7)
[2019-10-26 05:06] LABS: #Eosinphils 0.2 thou/uL (0.0-0.7); #Lymphocytes 0.8 thou/uL (1.20-3.40); #Monocytes 0.2 thou/uL (0.11-0.59); #Neutrophils 1.4 thou/uL (1.40-6.50); %Basophils 0.3 % (0.0-1.0); %Eosinophils 5.9 % (0.0-10.0); %Lymphocytes 31.2 % (21.0-51.0); %Neutrophils 55.6 % (42.0-75.0); Hemoglobin 8.4 g/dL (14.0-18.0); Mean Corpuscular HGB CONC 31.6 g/dL (32.0-36.0); Mean Corpuscular Hemoglobin 27.9 pg (27.0-31.0); Mean Corpuscular Volume 88.3 fL (78.0-98.0); Platelet Count 95 thou/uL (130-400); RBC Distribution Width 19.2 % (11.5-14.5); White Blood Cell (WBC) Count 2.6 thou/uL (4.8-10.8)
[2019-10-26 05:14] LABS: ALT (SGPT) 39 U/L (8-55); AST (SGOT) 25 U/L (5-34); Albumin 3.3 g/dL (3.4-4.8); Alkaline Phosphatase 175 U/L (40-110); Anion Gap 12 mmol/L (10-20); BUN (Urea Nitrogen) 13 mg/dL (8.4-25.7); Bilirubin, Total 0.8 mg/dL (0.2-1.2); Calc. Creatinine Clearance 164 mL/min (70-130); Calcium 8.3 mg/dL (7.8-10.44); Carbon Dioxide 21 mmol/L (23-31); Chloride 110 mmol/L (98-107); Estimated GFR-MDRD Greater than 90; Globulin 3.2 g/dL (2.4-3.5); Glucose 75 mg/dL (83-110); Lipase 58 U/L (8-78); Potassium 3.8 mmol/L (3.5-5.1); Protein, Total 6.5 g/dL (5.8-8.1); Sodium 139 mmol/L (136-145)
[2019-10-26] MEDS: MEROPENEM 1 GM/50 ML 1 GM in Premix Bag 1 BAG IVPB SCH ×2 (06:07→13:16)
[2019-10-26] MEDS ORDERED: Magnesium 2 GM/50 ML 2 GM in Premix Bag 1 BAG IVPB SCH (06:30)
[2019-10-26] MEDS ORDERED: Potassium Phosphate 15 MMOL in Sodium Chloride 0.9% 100 ML IVPB SCH (06:45)
--- NOTE | 2019-10-26 07:19 | PDOC.CPN ---
- Subjective Date: 10/26/19 Time: 08:54 Interval history: Mainly complaining of SOB No other complaints - Objective Allergies/Adverse Reactions: Allergies Allergy/AdvReac Type Severity Reaction Status Date / Time cephalexin monohydrate Allergy Hives Verified 09/10/19 22:23 [From Keflex] Visit Medications: Current Medications Acetaminophen (Tylenol) 650 mg PO Q4H PRN PRN Reason: Headache/Fever/Mild Pain (1-3) Acetaminophen (Tylenol) 650 mg SC Q4H PRN PRN Reason: Headache/Fever/Mild Pain (1-3) Enoxaparin Sodium (Lovenox) 40 mg SC 0900,2100 [facility] Last Admin: 10/25/19 20:39 Dose: 40 mg Norepinephrine Bitartrate (Levophed) 250 mls @ 0 mls/hr IVPB INF [facility]; Protocol Last Admin: 10/23/19 21:46 Dose: 250 mls Meropenem 1 gm/ Device 50 mls @ 100 mls/hr IVPB Q8HR [facility] Last Admin: 10/26/19 06:07 Dose: 50 mls Vancomycin HCl 1.5 gm/ Device 300 mls @ 200 mls/hr IVPB Q12HR [facility] Last Admin: 10/25/19 20:38 Dose: 300 mls Lactated Ringer's (Lactated Ringer's) 1,000 mls @ 50 mls/hr IV .Q20H [facility] Last Admin: 10/25/19 10:04 Dose: Not Given Magnesium Sulfate 2 gm/ Device 50 mls @ 50 mls/hr IVPB NOW [facility] Stop: 10/26/19 10:00 Last Admin: 10/26/19 06:42 Dose: 50 mls Potassium Phosphate 15 mmol/ (Sodium Chloride) 105 mls @ 26.25 mls/hr IVPB NOW [facility] Stop: 10/26/19 12:00 Last Admin: 10/26/19 07:16 Dose: 105 mls Miscellaneous Medication (Pharmacy To Dose) 1 each IVPB PRN PRN PRN Reason: Pharmacy to dose Miscellaneous Medication (Electrolyte Replacement Protocol) 1 each FS ASDIR [facility] Ondansetron HCl (Zofran Odt) 4 mg PO Q6H PRN PRN Reason: Nausea/Vomiting Ondansetron HCl (Zofran) 4 mg IVP Q6H PRN PRN Reason: Nausea/Vomiting Pantoprazole Sodium (Protonix) 40 mg IVP DAILY [facility] Last Admin: 10/25/19 08:27 Dose: 40 mg Sodium Chloride (Flush - Normal Saline) 10 ml IVF Q12HR [facility] Last Admin: 10/25/19 20:40 Dose: 10 ml Sodium Chloride (Flush - Normal Saline) 10 ml IVF PRN PRN PRN Reason: Saline Flush Sodium Chloride (Flush - Normal Saline) 10 ml IVF PRN PRN PRN Reason: Saline Flush Vital Signs & Weight: Vital Signs Temp Pulse Resp BP Pulse Ox 10/26/19 03:39 97.5 F L 67 20 152/84 H 96 10/25/19 23:31 97.7 F 66 20 142/73 H 97 10/25/19 20:40 93 L 10/25/19 19:35 97.7 F 69 16 130/75 93 L Admit Weight 217 lb Weight 223 lb - Physical Exam General: appears well Neck: no masses Cardiac: no murmur, regular rate, regular rhythm Lungs: decreased breath sounds Neuro: grossly intact - Labs Result Diagrams: 10/26/19 04:23 10/26/19 04:23 Troponin/CKMB CK-MB (CK-2) 1.3 ng/mL (0-6.6) 10/22/19 18:03 Troponin I 0.815 ng/mL (< 0.028) H* 10/22/19 23:20 - Assessment/Plan Assessment/Plan: Sepsis Aortic stenosis Chronic LBBB CAD s/p stent DVT/PE Lymphoma Pancreatitis REC 10/25 Continue with ACT Guiac all stools (Hb dropped fro 10 to 8) All low dose lasix times one Switch to NOAC when ready for DC Check CXR REC 7 Pt off pressors [facility] AV also appears stenosed but difficult to assess. Continue with conservative treatment Given he is stable, surgery has opted for conservative treatment given no recurrent fever Ok to transfer to tele
--- NOTE | 2019-10-26 07:26 | PDOC.HOSPP ---
- Subjective Encounter Date: 10/26/19 Encounter Time: 08:24 Subjective: Mr. Jacob complains of shortness of breath, dyspnea, and cough productive of white phlegm since being moved into his new room last night. He reports some chest pain associated with deep breathing. He denies any hemopytsis, nausea, vomiting, diarrhea, abdominal pain, fever, or chills. - Objective Vital Signs & Weight: Vital Signs (12 hours) Temp Pulse Resp BP Pulse Ox 10/26/19 03:39 97.5 F L 67 20 152/84 H 96 10/25/19 23:31 97.7 F 66 20 142/73 H 97 10/25/19 20:40 93 L 10/25/19 19:35 97.7 F 69 16 130/75 93 L Weight Admit Weight 217 lb Weight 223 lb Most Recent Monitor Data Heart Rate from ECG 65 NIBP 105/66 NIBP BP-Mean 79 Respiration from ECG 20 SpO2 95 I&O: 10/25/19 10/26/19 10/27/19 06:59 06:59 06:59 Intake Total 4030 1556 Output Total 1023 1150 Balance 3007 406 Result Diagrams: 10/26/19 04:23 10/26/19 04:23 Additional Labs: Accuchecks 10/26/19 10/25/19 10/25/19 05:36 19:44 17:10 POC Glucose 84 84 84 Hospitalist ROS - Medication Medications: Active Medications Generic Name Dose Route Start Last Admin Trade Name Freq PRN Reason Stop Dose Admin Enoxaparin Sodium 40 mg 10/24/19 09:00 10/25/19 20:39 Lovenox SC 40 mg 0900,2100 [facility] Administration Norepinephrine Bitartrate 250 mls @ 0 mls/hr 10/22/19 20:15 10/23/19 21:46 Levophed IVPB 250 mls INF [facility] Administration Protocol Titrate Meropenem 1 gm/ Device 50 mls @ 100 mls/hr 10/22/19 22:00 10/26/19 06:07 IVPB 50 mls Q8HR [facility] Administration Vancomycin HCl 1.5 gm/ Device 300 mls @ 200 mls/hr 10/23/19 09:00 10/25/19 20 :38 IVPB 300 mls Q12HR [facility] Administration Lactated Ringer's 1,000 mls @ 50 mls/hr 10/25/19 09:22 10/25/19 10:04 Lactated Ringer's IV Not Given .Q20H [facility] Magnesium Sulfate 2 gm/ Device 50 mls @ 50 mls/hr 10/26/19 06:30 10/26/19 06: 42 IVPB 10/26/19 10:00 50 mls NOW [facility] Administration Potassium Phosphate 15 mmol/ 105 mls @ 26.25 mls/hr 10/26/19 06:45 10/26/19 07:16 Sodium Chloride IVPB 10/26/19 12:00 105 mls NOW [facility] Administration Pantoprazole Sodium 40 mg 10/24/19 09:00 10/25/19 08:27 Protonix IVP 40 mg DAILY [facility] Administration Sodium Chloride 10 ml 10/23/19 21:00 10/25/19 20:40 Flush - Normal Saline IVF 10 ml Q12HR [facility] Administration - Exam General Appearance: NAD, awake alert Eye: PERRL ENT: normocephalic atraumatic Neck: supple Heart: RRR, murmur present, II/IV Respiratory: rales (bilateral at the lung bases), wheezes (bilateral, but louder on the right) Gastrointestinal: soft (+ RUQ tenderness to palpation), normal bowel sounds, no guarding, no rigidity Extremities: no cyanosis, 1+ LE edema Psychiatric: normal affect, normal behavior Hosp A/P (1) Acute pancreatitis Code(s): K85.90 - ACUTE PANCREATITIS WITHOUT NECROSIS OR INFECTION, UNSP Status: Acute (2) Acute pulmonary embolus Code(s): I26.99 - OTHER PULMONARY EMBOLISM WITHOUT ACUTE COR PULMONALE Status : Acute (3) Septic shock Code(s): A41.9 - SEPSIS, UNSPECIFIED ORGANISM; R65.21 - SEVERE SEPSIS WITH SEPTIC SHOCK Status: Acute (4) Combined systolic and diastolic heart failure Code(s): I50.40 - UNSP COMBINED SYSTOLIC AND DIASTOLIC (CONGESTIVE) HRT FAIL Status: Chronic (5) Hodgkin lymphoma Code(s): C81.90 - HODGKIN LYMPHOMA, UNSPECIFIED, UNSPECIFIED SITE Status: Chronic - Plan * Acute Gallstone pancreatitis with cholangitis- he is s/p ERCP and Sphincterotomy. * Continue bowel rest, - will decrease his IV fluid rate to hopefully avoid volume overload * Continue IV antibiotics * Plan is for Cholecystectomy once he is more clinically stable * Sepsis- continue Antibiotics, he is now off Levophed * Acute PE- continue Heparin drip * Acute vs. Chronic systolic and diastolic heart failure-will reduce IV fluid rate * Elevated troponin- likely demand ischemia - * Nutritional support- ? if he is not going for surgery consider J-tube feeding - will defer to Surgery * * Mr. Jacob was seen and examined and discussed with Ms. Maria E Jerez MS -3, and agree with her assessment. Patient notes some continued right upper quandrant pain. He had some dyspnea earlier, but has improved after Lasix. On exam he continues to have a few rales, but the wheezing has resolved. He is hemodynamically stable. Will continue empiric antibiotic for resolving sepsis. His liver function tests have improved, and he is being managed medically for now. He was a bit volume overloaded, and agree with IV Lasix. Continue lovenox for PE
[2019-10-26] MEDS: Vancomycin 1.5 GRAM/300 ML BAG 1.5 GM in Premix Bag 1 BAG IVPB SCH ×2 (08:35→21:22)
[2019-10-26] MEDS: Pantoprazole 40 MG VIAL IVP SCH (08:40)
[2019-10-26] MEDS: Enoxaparin Sodium 40 MG/0.4 ML SYRINGE SC SCH (08:40)
[2019-10-26] MEDS ORDERED: Furosemide 40 MG/4 ML VIAL IVP SCH (09:00)
[2019-10-26] MEDS: Lactated Ringer's 1,000 ML IV SCH (13:15)
--- NOTE | 2019-10-26 15:41 | PRG ---
DATE OF SERVICE: 10/26/2019 SUBJECTIVE: Mr. Jacob is still little bit encephalopathic. OBJECTIVE: VITAL SIGNS: He is afebrile. Heart rates in the 60s, respiratory rates in the teens, oximetry is 98% on room air, blood pressure 139/79. LUNGS: Clear. HEART: Regular rhythm. ABDOMEN: Soft. IMPRESSION: 1. Cholangitis, clinically improving. 2. Bacteremia with cholangitis. 3. Aortic stenosis. 4. History of coronary artery disease. 5. Pulmonary embolism and deep vein thrombosis this admission. PLAN: Continue anticoagulation. We will discuss the timing of surgery with Dr. Mac. He is on adjusted dose of Lovenox at this point in time. His hemoglobin is stable. His creatinine is normal. Job ID: [id number] MTDD
[2019-10-26] MEDS: Ondansetron PF 4 MG/2 ML Vial IVP PRN (17:44)
[2019-10-26 20:51] LABS: Hemoglobin 9.2 g/dL (14.0-18.0); Platelet Count 98 thou/uL (130-400)
[2019-10-26] MEDS: Apixaban 5 MG TAB PO SCH (21:22)
[2019-10-27] MEDS: MEROPENEM 1 GM/50 ML 1 GM in Premix Bag 1 BAG IVPB SCH ×2 (00:22→05:23)
--- NOTE | 2019-10-27 07:17 | PDOC.HOSPP ---
- Subjective Encounter Date: 10/27/19 Encounter Time: 08:34 Subjective: Mr. Jacob is seen today for follow-up of acute cholangitis, pancreatitis, sepsis, and pulmonary embolism. He still complains of ongoing RUQ abdominal pain. Denies any nausea, vomiting, diarrhea. He is able to eat his food, although he complains that he is very tired of hospital food. He reports that his breathing is improved since yesterday. He still has a mild occasional cough , but denies any shortness of breath or dyspnea. He has not been able to get out of bed. - Objective Vital Signs & Weight: Vital Signs (12 hours) Temp Pulse Resp BP Pulse Ox 10/27/19 05:15 99.0 F 71 21 H 137/76 94 L 10/27/19 00:30 94 L 10/26/19 21:22 98 10/26/19 19:36 97.5 F L 63 18 122/74 98 Weight Admit Weight 217 lb Weight 218 lb Most Recent Monitor Data Heart Rate from ECG 65 NIBP 105/66 NIBP BP-Mean 79 Respiration from ECG 20 SpO2 95 I&O: 10/26/19 10/27/19 10/28/19 06:59 06:59 06:59 Intake Total 1556 1230 Output Total 1150 Balance 406 1230 Result Diagrams: 10/27/19 08:11 10/26/19 04:23 Additional Labs: Accuchecks 10/27/19 10/27/19 10/26/19 05:26 00:33 17:03 POC Glucose 100 90 111 H 10/26/19 11:01 POC Glucose 84 Hospitalist ROS - Medication Medications: Active Medications Generic Name Dose Route Start Last Admin Trade Name Freq PRN Reason Stop Dose Admin Apixaban 5 mg 10/26/19 21:00 10/26/19 21:22 Eliquis PO 5 mg BID [facility] Administration Norepinephrine Bitartrate 250 mls @ 0 mls/hr 10/22/19 20:15 10/23/19 21:46 Levophed IVPB 250 mls INF [facility] Administration Protocol Titrate Meropenem 1 gm/ Device 50 mls @ 100 mls/hr 10/22/19 22:00 10/27/19 05:23 IVPB 50 mls Q8HR [facility] Administration Vancomycin HCl 1.5 gm/ Device 300 mls @ 200 mls/hr 10/23/19 09:00 10/26/19 21 :22 IVPB 300 mls Q12HR [facility] Administration Ondansetron HCl 4 mg 10/22/19 20:09 10/26/19 17:44 Zofran IVP 4 mg Q6H PRN Administration Nausea/Vomiting Pantoprazole Sodium 40 mg 10/24/19 09:00 10/26/19 08:40 Protonix IVP 40 mg DAILY [facility] Administration Sodium Chloride 10 ml 10/23/19 21:00 10/26/19 21:22 Flush - Normal Saline IVF 10 ml Q12HR [facility] Administration Sodium Chloride 10 ml 10/23/19 10:50 10/27/19 05:23 Flush - Normal Saline IVF 10 ml PRN PRN Administration Saline Flush - Exam General Appearance: NAD, awake alert Eye: PERRL, anicteric sclera ENT: normocephalic atraumatic Neck: supple, symmetric Heart: RRR, murmur present, II/IV Respiratory: no wheezes, rales Gastrointestinal: soft, non-distended, normal bowel sounds, tender to palpation (RUQ) Extremities: no cyanosis, 1+ LE edema Hosp A/P (1) Acute pancreatitis Code(s): K85.90 - ACUTE PANCREATITIS WITHOUT NECROSIS OR INFECTION, UNSP Status: Acute (2) Acute pulmonary embolus Code(s): I26.99 - OTHER PULMONARY EMBOLISM WITHOUT ACUTE COR PULMONALE Status : Acute (3) Septic shock Code(s): A41.9 - SEPSIS, UNSPECIFIED ORGANISM; R65.21 - SEVERE SEPSIS WITH SEPTIC SHOCK Status: Acute (4) Combined systolic and diastolic heart failure Code(s): I50.40 - UNSP COMBINED SYSTOLIC AND DIASTOLIC (CONGESTIVE) HRT FAIL Status: Chronic (5) Hodgkin lymphoma Code(s): C81.90 - HODGKIN LYMPHOMA, UNSPECIFIED, UNSPECIFIED SITE Status: Chronic - Plan * Acute Gallstone pancreatitis with cholangitis- he is s/p ERCP and Sphincterotomy. Continue with bowel rest and soft food diet. * Continue IV antibiotics * Plan is for Cholecystectomy once he is more clinically stable * Sepsis- continue Antibiotics, he is now off Levophed * Acute PE- continue Heparin drip * Acute vs. Chronic systolic and diastolic heart failure- IV fluids have been discontinued. Per cardiology, patient will receive a life vest due to his reduced EF. * Elevated troponin- likely demand ischemia - * Nutritional support- ? if he is not going for surgery consider J-tube feeding - will defer to Surgery * Anemia- H&H improved from yesterday
--- NOTE | 2019-10-27 08:24 | PDOC.CPN ---
- Subjective Date: 10/27/19 Time: 08:22 Interval history: Doing much better Would like to have GB removed No speciifc complaints - Objective Allergies/Adverse Reactions: Allergies Allergy/AdvReac Type Severity Reaction Status Date / Time cephalexin monohydrate Allergy Hives Verified 09/10/19 22:23 [From Keflex] Visit Medications: Current Medications Acetaminophen (Tylenol) 650 mg PO Q4H PRN PRN Reason: Headache/Fever/Mild Pain (1-3) Acetaminophen (Tylenol) 650 mg CA Q4H PRN PRN Reason: Headache/Fever/Mild Pain (1-3) Apixaban (Eliquis) 5 mg PO BID [facility] Last Admin: 10/26/19 21:22 Dose: 5 mg Carvedilol (Coreg) 3.125 mg PO BID [facility] Meropenem 1 gm/ Device 50 mls @ 100 mls/hr IVPB Q8HR [facility] Last Admin: 10/27/19 05:23 Dose: 50 mls Vancomycin HCl 1.5 gm/ Device 300 mls @ 200 mls/hr IVPB Q12HR [facility] Last Admin: 10/26/19 21:22 Dose: 300 mls Miscellaneous Medication (Pharmacy To Dose) 1 each IVPB PRN PRN PRN Reason: Pharmacy to dose Miscellaneous Medication (Electrolyte Replacement Protocol) 1 each FS [facility] Ondansetron HCl (Zofran Odt) 4 mg PO Q6H PRN PRN Reason: Nausea/Vomiting Ondansetron HCl (Zofran) 4 mg IVP Q6H PRN PRN Reason: Nausea/Vomiting Last Admin: 10/26/19 17:44 Dose: 4 mg Pantoprazole Sodium (Protonix) 40 mg IVP DAILY [facility] Last Admin: 10/26/19 08:40 Dose: 40 mg Sodium Chloride (Flush - Normal Saline) 10 ml IVF Q12HR [facility] Last Admin: 10/26/19 21:22 Dose: 10 ml Sodium Chloride (Flush - Normal Saline) 10 ml IVF PRN PRN PRN Reason: Saline Flush Last Admin: 10/27/19 05:23 Dose: 10 ml Sodium Chloride (Flush - Normal Saline) 10 ml IVF PRN PRN PRN Reason: Saline Flush Vital Signs & Weight: Vital Signs Temp Pulse Resp BP Pulse Ox 10/27/19 07:24 97.4 F L 79 20 111/62 94 L 10/27/19 05:15 99.0 F 71 21 H 137/76 94 L 10/27/19 00:30 94 L 10/26/19 21:22 98 Admit Weight 217 lb Weight 218 lb - Physical Exam General: appears well, no apparent distress Neck: no masses, no bruit Cardiac: no murmur, regular rate, regular rhythm Lungs: normal exam, no wheeze, rales, rhonchi, no wheezes Neuro: grossly intact - Labs Result Diagrams: 10/26/19 20:43 10/26/19 04:23 Troponin/CKMB CK-MB (CK-2) 1.3 ng/mL (0-6.6) 10/22/19 18:03 Troponin I 0.815 ng/mL (< 0.028) H* 10/22/19 23:20 - Assessment/Plan Assessment/Plan: Sepsis Aortic stenosis Chronic LBBB CAD s/p stent DVT/PE Lymphoma Pancreatitis REC 10/26 Doing better Add BB Agree with NOAC given recent DVT Add ACEI as OP Add zoll lifevest today given EF of 20-25% No further recommendations Ok to be DC from CV standpoint once he receives lifevest and fu in office in 1- 2 weeks REC 10/25 Continue with ACT Guiac all stools (Hb dropped fro 10 to 8) All low dose lasix times one Switch to NOAC when ready for DC Check CXR REC 7 Pt off pressors Reviewed echo EF is decreased from [facility]. AV also appears stenosed but difficult to assess. Continue with conservative treatment Given he is stable, surgery has opted for conservative treatment given no recurrent fever Ok to transfer to tele
[2019-10-27 08:31] LABS: #Eosinphils 0.1 thou/uL (0.0-0.7); #Lymphocytes 0.8 thou/uL (1.20-3.40); #Monocytes 0.3 thou/uL (0.11-0.59); #Neutrophils 2.1 thou/uL (1.40-6.50); %Basophils 1.3 % (0.0-1.0); %Eosinophils 4.4 % (0.0-10.0); %Lymphocytes 24.2 % (21.0-51.0); %Monocytes 7.9 % (0.0-10.0); %Neutrophils 62.2 % (42.0-75.0); Hemoglobin 9.8 g/dL (14.0-18.0); Mean Corpuscular HGB CONC 32.2 g/dL (32.0-36.0); Mean Corpuscular Hemoglobin 28.1 pg (27.0-31.0); Mean Corpuscular Volume 87.4 fL (78.0-98.0); Platelet Count 96 thou/uL (130-400); RBC Distribution Width 19.4 % (11.5-14.5); Red Blood Cell (RBC) Count 3.48 mill/uL (4.70-6.10); White Blood Cell (WBC) Count 3.3 thou/uL (4.8-10.8)
[2019-10-27 08:39] LABS: Vancomycin, Trough 26.9 ug/mL
[2019-10-27 08:43] LABS: ALT (SGPT) 33 U/L (8-55); AST (SGOT) 27 U/L (5-34); Albumin 3.3 g/dL (3.4-4.8); Alkaline Phosphatase 166 U/L (40-110); Anion Gap 11 mmol/L (10-20); BUN (Urea Nitrogen) 10 mg/dL (8.4-25.7); Bilirubin, Total 0.8 mg/dL (0.2-1.2); Calc. Creatinine Clearance 150 mL/min (70-130); Calcium 8.5 mg/dL (7.8-10.44); Carbon Dioxide 25 mmol/L (23-31); Chloride 106 mmol/L (98-107); Estimated GFR-MDRD Greater than 90; Globulin 3.8 g/dL (2.4-3.5); Glucose 109 mg/dL (83-110); Potassium 3.5 mmol/L (3.5-5.1); Protein, Total 7.1 g/dL (5.8-8.1); Sodium 138 mmol/L (136-145)
[2019-10-27] MEDS ORDERED: Carvedilol 6.25 MG TAB PO SCH (09:00)
[2019-10-27] MEDS: Carvedilol 3.125 MG TAB PO SCH ×2 (09:02→21:33)
[2019-10-27] MEDS: Apixaban 5 MG TAB PO SCH ×2 (09:02→21:27)
[2019-10-27] MEDS: Pantoprazole 40 MG VIAL IVP SCH (09:02)
[2019-10-27] MEDS: Acetaminophen 325 MG TAB PO PRN ×2 (09:17→21:44)
[2019-10-27] MEDS ORDERED: Potassium Chloride 20 MEQ TAB PO SCH (11:00)
--- NOTE | 2019-10-27 12:33 | PDOC.HOSPP ---
- Subjective Encounter Date: 10/27/19 Encounter Time: 12:31 Subjective: Mr. Jacob was seen today in follow-up of gallstone pancreatitis, with cholangitis. He says he is so-so. No new complaints. - Objective Vital Signs & Weight: Vital Signs (12 hours) Temp Pulse Resp BP Pulse Ox 10/27/19 11:45 98.6 F 60 20 128/67 94 L 10/27/19 07:24 97.4 F L 79 20 111/62 94 L 10/27/19 05:15 99.0 F 71 21 H 137/76 94 L Weight Admit Weight 217 lb Weight 218 lb Most Recent Monitor Data Heart Rate from ECG 65 NIBP 105/66 NIBP BP-Mean 79 Respiration from ECG 20 SpO2 95 I&O: 10/26/19 10/27/19 10/28/19 06:59 06:59 06:59 Intake Total 1556 1230 Output Total 1150 Balance 406 1230 Result Diagrams: 10/27/19 08:11 10/27/19 08:11 Additional Labs: Accuchecks 10/27/19 10/27/19 10/27/19 10:42 05:26 00:33 POC Glucose 113 H 100 90 10/26/19 17:03 POC Glucose 111 H Hospitalist ROS - Medication Medications: Active Medications Generic Name Dose Route Start Last Admin Trade Name Freq PRN Reason Stop Dose Admin Acetaminophen 650 mg 10/22/19 20:09 10/27/19 09:17 Tylenol PO 650 mg Q4H PRN Administration Headache/Fever/Mild Pain (1-3) Apixaban 5 mg 10/26/19 21:00 10/27/19 09:02 Eliquis PO 5 mg BID [facility] Administration Carvedilol 3.125 mg 10/27/19 09:00 10/27/19 09:02 Coreg PO 3.125 mg BID [facility] Administration Meropenem 1 gm/ Device 50 mls @ 100 mls/hr 10/22/19 22:00 10/27/19 05:23 IVPB 50 mls Q8HR [facility] Administration Ondansetron HCl 4 mg 10/22/19 20:09 10/26/19 17:44 Zofran IVP 4 mg Q6H PRN Administration Nausea/Vomiting Pantoprazole Sodium 40 mg 10/24/19 09:00 10/27/19 09:02 Protonix IVP 40 mg DAILY [facility] Administration Potassium Chloride 40 meq 10/27/19 11:00 10/27/19 11:30 K-Dur PO 10/27/19 14:00 40 meq NOW [facility] Administration Sodium Chloride 10 ml 10/23/19 21:00 10/27/19 09:02 Flush - Normal Saline IVF 10 ml Q12HR [facility] Administration Sodium Chloride 10 ml 10/23/19 10:50 10/27/19 05:23 Flush - Normal Saline IVF 10 ml PRN PRN Administration Saline Flush - Exam Eye: PERRL, anicteric sclera Heart: RRR, no murmur, no gallops Respiratory: CTAB, no wheezes, no rales, no ronchi, normal chest expansion Gastrointestinal: soft (less abdominal tenderness), non-distended, normal bowel sounds Extremities: no cyanosis, 1+ LE edema Hosp A/P (1) Acute pancreatitis Code(s): K85.90 - ACUTE PANCREATITIS WITHOUT NECROSIS OR INFECTION, UNSP Status: Acute (2) Acute pulmonary embolus Code(s): I26.99 - OTHER PULMONARY EMBOLISM WITHOUT ACUTE COR PULMONALE Status : Acute (3) Septic shock Code(s): A41.9 - SEPSIS, UNSPECIFIED ORGANISM; R65.21 - SEVERE SEPSIS WITH SEPTIC SHOCK Status: Acute (4) Combined systolic and diastolic heart failure Code(s): I50.40 - UNSP COMBINED SYSTOLIC AND DIASTOLIC (CONGESTIVE) HRT FAIL Status: Chronic (5) Hodgkin lymphoma Code(s): C81.90 - HODGKIN LYMPHOMA, UNSPECIFIED, UNSPECIFIED SITE Status: Chronic - Plan * Acute Gallstone pancreatitis with cholangitis- he is s/p ERCP and Sphincterotomy. * Sepsis has resolved- will change his antibiotics to oral- Cipro and Flagyl * Discussed with Dr. Marino- will continue conservative treatment. He may need cholecystectomy at a later date * Advance diet as tolerated * Continue IV antibiotics * Timing of Cholecystectomy will depend on Cardiology and Surgery * Acute PE-he has been transitioned to Eliquis * Acute vs. Chronic systolic and diastolic heart failure-compensated * Life vest has been ordered, and he can possibly be discharged once he has received the life vest
[2019-10-27] MEDS ORDERED: Vancomycin 1 GM in Premix Bag 1 BAG IVPB SCH (15:00)
[2019-10-27] MEDS: metroNIDAZOLE 500 MG TAB PO SCH ×2 (16:38→21:27)
[2019-10-27] MEDS: Cipro 250 MG TAB PO SCH (21:27)
[2019-10-28] MEDS: Cipro 250 MG TAB PO SCH ×2 (05:31→20:51)
--- NOTE | 2019-10-28 09:06 | PRG ---
DATE OF SERVICE: 10/28/2019 SUBJECTIVE: Mr. Jacob states he is weak. No specific complaints noted. LifeVest has been ordered. OBJECTIVE: GENERAL: Patient is a pleasant male, who is in no acute distress. The patient appears their stated age. VITAL SIGNS: Blood pressure 142/85, pulse 71, temperature 97.7. Current weight 210, down from 220. NEUROLOGIC: The patient is alert and oriented x3 with no focal neurologic deficits. HEENT: Sclerae without icterus. Mouth has moist mucous membranes with normal pallor. NECK: No JVD. Carotid upstroke brisk. No bruits bilaterally. LUNGS: Clear to auscultation with unlabored respirations. BACK: No scoliosis or kyphosis. CARDIAC: Regular rate and rhythm with normal S1 and S2. No S3 or S4 noted. No significant rubs, murmurs, thrills, or gallops noted throughout the precordium. PMI is not displaced. There is no parasternal heave. ABDOMEN: Soft, nontender, nondistended. No peritoneal signs present. No hepatosplenomegaly. No abnormal striae. EXTREMITIES: 2+ femoral and 2+ dorsalis pedis pulses. No cyanosis, clubbing, or edema. SKIN: No gross abnormalities. CURRENT LABS: Hemoglobin 9.8, white blood cell count 3.3. Creatinine 0.63. IMPRESSION: 1. New onset cardiomyopathy. 2. Severe aortic stenosis. 3. Cholecystitis. 4. Coronary artery disease. 5. Status post stent. RECOMMENDATIONS: Mr. Jacob from a CV standpoint appears stable. LifeVest has been ordered and pending today. He also has had a recent diagnosis of DVT and was placed on Eliquis. We will continue Eliquis in addition to carvedilol. We would recommend adding low-dose Lasix at 20 mg p.o. q.a.m. in addition to losartan 25 mg one p.o. q.a.m. From my standpoint, once he receives his LifeVest, it will be okay from my standpoint to discharge home with close outpatient followup. We will follow peripherally. Job ID: [id number]
[2019-10-28] MEDS: Pantoprazole 40 MG VIAL IVP SCH (09:52)
[2019-10-28] MEDS: Apixaban 5 MG TAB PO SCH (09:54)
[2019-10-28] MEDS: Furosemide 20 MG TAB PO SCH (09:54)
[2019-10-28] MEDS: Carvedilol 3.125 MG TAB PO SCH ×2 (09:54→20:52)
[2019-10-28] MEDS: metroNIDAZOLE 500 MG TAB PO SCH ×3 (09:55→20:52)
[2019-10-28] MEDS: Losartan 25 MG TAB PO SCH (09:55)
--- NOTE | 2019-10-28 11:19 | PDOC.HOSPP ---
- Subjective Encounter Date: 10/28/19 Encounter Time: 10:30 Subjective: " I still don't feel good and want to stay here." He is seen as follow up for gallstone pancreatitis and cholangitis. No acute distress. - Objective Vital Signs & Weight: Vital Signs (12 hours) Temp Pulse Resp BP Pulse Ox 10/28/19 07:02 97.7 F 71 20 142/85 H 95 10/28/19 03:29 97.4 F L 68 20 115/59 L 95 10/28/19 00:08 98.2 F 56 L 128/58 L 93 L Weight Admit Weight 217 lb Weight 210 lb 8 oz Most Recent Monitor Data Heart Rate from ECG 65 NIBP 105/66 NIBP BP-Mean 79 Respiration from ECG 20 SpO2 95 I&O: 10/27/19 10/28/19 10/29/19 06:59 06:59 06:59 Intake Total 1230 820 300 Balance 1230 820 300 Result Diagrams: 11/06/19 04:43 11/06/19 04:43 Additional Labs: Accuchecks 10/28/19 10/28/19 10/27/19 10:40 05:35 21:37 POC Glucose 107 107 111 H 10/27/19 16:32 POC Glucose 118 H EKG Reviewed by me: Yes Hospitalist ROS - Review of Systems Constitutional: reports: malaise Eyes: denies: pain, vision change, conjunctivae inflammation, eyelid inflammation, redness, other ENT: denies: ear pain, ear discharge, nose pain, nose discharge, nose congestion , mouth pain, mouth swelling, throat pain, throat swelling, other Respiratory: denies: cough, dry, shortness of breath, hemoptysis, SOB with excertion, pleuritic pain, sputum, wheezing, other Cardiovascular: denies: chest pain, palpitations, orthopnea, paroxysmal noc. dyspnea, edema, light headedness, other Gastrointestinal: reports: vomiting, abdominal pain Genitourinary: denies: dysuria, frequency, incontinence, hematuria, retention, other Musculoskeletal: denies: neck pain, shoulder pain, arm pain, back pain, hand pain, leg pain, foot pain, other Skin: denies: rash, lesions, mayra, bruising, other Neurological: reports: weakness All other systems reviewed; all pertinent +/- noted in HPI/Subj - Medication Medications: Active Medications Generic Name Dose Route Start Last Admin Trade Name Freq PRN Reason Stop Dose Admin Acetaminophen 650 mg 10/22/19 20:09 10/27/19 21:44 Tylenol PO 650 mg Q4H PRN Administration Headache/Fever/Mild Pain (1-3) Apixaban 5 mg 10/26/19 21:00 10/28/19 09:54 Eliquis PO 5 mg BID TRISTAN Administration Carvedilol 3.125 mg 10/27/19 09:00 10/28/19 09:54 Coreg PO 3.125 mg BID TRISTAN Administration Ciprofloxacin 500 mg 10/27/19 20:00 10/28/19 05:31 Cipro PO 500 mg 0600,2000 TRISTAN Administration Furosemide 20 mg 10/28/19 09:00 10/28/19 09:54 Lasix PO 20 mg DAILY TRISTAN Administration Losartan Potassium 25 mg 10/28/19 09:00 10/28/19 09:55 Cozaar PO 25 mg DAILY TRISTAN Administration Metronidazole 500 mg 10/27/19 15:00 10/28/19 09:55 Flagyl PO 500 mg TID TRISTAN Administration Ondansetron HCl 4 mg 10/22/19 20:09 10/26/19 17:44 Zofran IVP 4 mg Q6H PRN Administration Nausea/Vomiting Pantoprazole Sodium 40 mg 10/24/19 09:00 10/28/19 09:52 Protonix IVP 40 mg DAILY TRISTAN Administration Sodium Chloride 10 ml 10/23/19 21:00 10/28/19 09:52 Flush - Normal Saline IVF 10 ml Q12HR TRISTAN Administration Sodium Chloride 10 ml 10/23/19 10:50 10/27/19 05:23 Flush - Normal Saline IVF 10 ml PRN PRN Administration Saline Flush - Exam General Appearance: NAD, awake alert Eye: PERRL ENT: normocephalic atraumatic Neck: no lymphadenopathy Heart: no murmur, no gallops, no rubs Respiratory: CTAB, no wheezes, no rales, no ronchi Gastrointestinal: soft, non-distended, normal bowel sounds, tender to palpation Extremities: 1+ LE edema Musculoskeletal: generalized weakness Hosp A/P (1) Acute pancreatitis Code(s): K85.90 - ACUTE PANCREATITIS WITHOUT NECROSIS OR INFECTION, UNSP Status: Acute (2) Acute pulmonary embolus Code(s): I26.99 - OTHER PULMONARY EMBOLISM WITHOUT ACUTE COR PULMONALE Status : Chronic Qualifiers: Pulmonary embolism type: unspecified Acute cor pulmonale presence: without acute cor pulmonale Qualified Code(s): I26.99 - Other pulmonary embolism without acute cor pulmonale (3) Septic shock Code(s): A41.9 - SEPSIS, UNSPECIFIED ORGANISM; R65.21 - SEVERE SEPSIS WITH SEPTIC SHOCK Status: Acute (4) Combined systolic and diastolic heart failure Code(s): I50.40 - UNSP COMBINED SYSTOLIC AND DIASTOLIC (CONGESTIVE) HRT FAIL Status: Acute (5) Hodgkin lymphoma Code(s): C81.90 - HODGKIN LYMPHOMA, UNSPECIFIED, UNSPECIFIED SITE Status: Chronic - Plan Acute gallstone pancreatitis with cholangitis- s/p ERCP and Sphincterotomy Sepsis resolved- oral Cipro and Flagyl Still with abdominal pain, Dr Marino possibly to do surgery while inpatient Timing for possible marty will be determined between cardiology and surgery Acute PE- transitioned to Eliquis Life vest has been ordered, will be placed prior to discharge
--- NOTE | 2019-10-28 13:54 | PRG ---
DATE OF SERVICE: 10/28/2019 SUBJECTIVE: Mr. Jacob is a 69-year-old man, history of chronic cardiomyopathy, who is postoperative day #5, status post ERCP with common bile duct stone extraction and sphincterotomy for ascending cholangitis. Although, physiologically, the patient appears to be improving; however, he continues with epigastric abdominal pain and intolerance to oral intake. He has had two bouts of low-grade fever within the last 48 hours despite being on antibiotics since admission. OBJECTIVE: VITAL SIGNS: Current vital signs include blood pressure 130/75, pulse 74, respiratory rate is 22, temperature 97.9 degrees Fahrenheit, and oxygen saturation is 94% on room air. ABDOMEN: Soft with epigastric tenderness to palpation. He has a positive Lindo sign. Liver and spleen otherwise nonpalpable below costal margin. LABORATORY FINDINGS: Today include a CBC with 3300 white blood cells, hemoglobin and hematocrit are stable at 9.8 and 30.4 respectively. Platelet count is 96,000. Metabolic profile was not obtained today. IMPRESSION: 1. Acute cholecystitis with cholelithiasis, status post endoscopic retrograde cholangiopancreatography and common bile duct stone extraction. 2. Resolved ascending cholangitis. RECOMMENDATIONS: Laparoscopic cholecystectomy as I am concerned that this patient's intolerance to oral intake is likely related to infected gallbladder. I have discussed the above with Dr. Hawk, the patient's primary national accounts sales. He plans on preoperative cardiac catheterization to better define this patient's risks. We will plan on laparoscopic cholecystectomy in 48 hours if the cardiac catheterization indicates an acceptable risk. The patient indicates understanding of the information provided him today in the presence of his nurse. I have answered his questions. Job ID: [id number]
[2019-10-28] MEDS ORDERED: Communication Order-Pharmacy FS SCH (15:30)
[2019-10-28 20:26] LABS: Hemoglobin 9.4 g/dL (14.0-18.0); Platelet Count 118 thou/uL (130-400)
[2019-10-28] MEDS: Acetaminophen 325 MG TAB PO PRN (20:51)
[2019-10-28] MEDS: Atorvastatin Calcium 40 MG TAB PO SCH (20:52)
[2019-10-29] MEDS: Sodium Chloride 0.9% 1,000 ML IV SCH ×2 (05:40→20:39)
[2019-10-29] MEDS: Cipro 250 MG TAB PO SCH ×2 (05:40→23:43)
[2019-10-29] MEDS ORDERED: Nitroglycerin 100MG/250ML BOT 250 ML ONE (08:00)
[2019-10-29] MEDS ORDERED: Heparin 10,000 UNITS/1 ML VIAL ONE (08:00)
[2019-10-29] MEDS ORDERED: Verapamil 5 MG/2 ML VIAL ONE (08:00)
[2019-10-29] MEDS ORDERED: Nitroglycerin 0.4 MG TAB (25 Tab Bottle) SL PRN (08:59)
[2019-10-29] MEDS ORDERED: Sodium Chloride 0.9% 200 ML IV PRN (08:59)
[2019-10-29] MEDS ORDERED: Sodium Chloride 0.9% 1,000 ML IV SCH (09:00)
[2019-10-29] MEDS: Furosemide 20 MG TAB PO SCH (10:10)
[2019-10-29] MEDS: metroNIDAZOLE 500 MG TAB PO SCH ×3 (10:10→23:43)
[2019-10-29] MEDS: Losartan 25 MG TAB PO SCH (10:10)
[2019-10-29] MEDS: Carvedilol 3.125 MG TAB PO SCH ×2 (10:10→22:13)
[2019-10-29] MEDS: Pantoprazole 40 MG VIAL IVP SCH ×2 (10:56→20:39)
--- NOTE | 2019-10-29 11:57 | PDOC.HOSPP ---
- Subjective Encounter Date: 10/29/19 Encounter Time: 10:00 Subjective: he had cath this am no abd pain an hour after cath he had 2 episodes of coughing up or throwing up 2 large blood clots per staff vitals are stable now - Objective Vital Signs & Weight: Vital Signs (12 hours) Temp Pulse Resp BP BP Pulse Ox 10/29/19 11:45 99.6 F 101 H 20 94/54 L 94 L 10/29/19 04:00 98.9 F 91 14 115/60 95 10/29/19 00:00 99.0 F 100 18 120/66 95 Weight Admit Weight 217 lb Weight 213 lb Most Recent Monitor Data Heart Rate from ECG 65 NIBP 105/66 NIBP BP-Mean 79 Respiration from ECG 20 SpO2 95 I&O: 10/28/19 10/29/19 10/30/19 06:59 06:59 06:59 Intake Total 820 400 Balance 820 400 Result Diagrams: 10/28/19 20:16 10/27/19 08:11 Additional Labs: Accuchecks 10/29/19 10/28/19 10/28/19 10:44 20:30 16:43 POC Glucose 130 H 125 H 117 H Hospitalist ROS - Medication Medications: Active Medications Generic Name Dose Route Start Last Admin Trade Name Freq PRN Reason Stop Dose Admin Acetaminophen 650 mg 10/22/19 20:09 10/28/19 20:51 Tylenol PO 650 mg Q4H PRN Administration Headache/Fever/Mild Pain (1-3) Atorvastatin Calcium 40 mg 10/28/19 21:00 10/28/19 20:52 Lipitor PO 40 mg HS TRISTAN Administration Carvedilol 3.125 mg 10/27/19 09:00 10/29/19 10:10 Coreg PO Not Given BID TRISTAN Ciprofloxacin 500 mg 10/27/19 20:00 10/29/19 05:40 Cipro PO Not Given TRISTAN Furosemide 20 mg 10/28/19 09:00 10/29/19 10:10 Lasix PO Not Given DAILY TRISTAN Sodium Chloride 1,000 mls @ 100 mls/hr 10/29/19 06:00 10/29/19 05:40 Normal Saline 0.9% IV 1,000 mls .Q10H TRISTAN Administration Sodium Chloride 1,000 mls @ 125 mls/hr 10/29/19 09:00 10/29/19 10:55 Normal Saline 0.9% IV 10/29/19 15:01 1,000 mls .Q8H TRISTAN Administration Losartan Potassium 25 mg 10/28/19 09:00 10/29/19 10:10 Cozaar PO Not Given DAILY TRISTAN Metronidazole 500 mg 10/27/19 15:00 10/29/19 10:10 Flagyl PO Not Given TID TRISTAN Ondansetron HCl 4 mg 10/22/19 20:09 10/26/19 17:44 Zofran IVP 4 mg Q6H PRN Administration Nausea/Vomiting Sodium Chloride 10 ml 10/23/19 21:00 10/29/19 10:56 Flush - Normal Saline IVF 10 ml Q12HR TRISTAN Administration - Exam General Appearance: awake alert Eye: PERRL, anicteric sclera ENT: no oropharyngeal lesions, dry oral mucosa Neck: supple, no JVD Heart: RRR, no murmur Respiratory: no wheezes, no rales Gastrointestinal: soft, non-tender, non-distended, normal bowel sounds, no guarding, no rigidity Extremities: no cyanosis, 2+ LE edema Neurological: no focal deficits Hosp A/P (1) Ascending cholangitis Code(s): K83.09 - OTHER CHOLANGITIS Status: Acute (2) Choledocholithiasis with acute cholecystitis Code(s): K80.42 - CALCULUS OF BILE DUCT W ACUTE CHOLECYSTITIS W/O OBSTRUCTION Status: Acute (3) Severe aortic stenosis Code(s): I35.0 - NONRHEUMATIC AORTIC (VALVE) STENOSIS Status: Chronic (4) Cardiomyopathy Code(s): I42.9 - CARDIOMYOPATHY, UNSPECIFIED Status: Chronic Qualifiers: Cardiomyopathy type: unspecified Qualified Code(s): I42.9 - Cardiomyopathy , unspecified (5) Acute pulmonary embolus Code(s): I26.99 - OTHER PULMONARY EMBOLISM WITHOUT ACUTE COR PULMONALE Status : Chronic (6) Gout Code(s): M10.9 - GOUT, UNSPECIFIED Status: Chronic Qualifiers: Gout site: unspecified site Gout etiology: unspecified cause Chronicity: chronic Presence of tophus: without tophus Qualified Code(s): M1A.9XX0 - Chronic gout, unspecified, without tophus (tophi) (7) HTN (hypertension) Code(s): I10 - ESSENTIAL (PRIMARY) HYPERTENSION Status: Chronic Qualifiers: Hypertension type: essential hypertension Qualified Code(s): I10 - Essential (primary) hypertension (8) Hyperlipidemia Code(s): E78.5 - HYPERLIPIDEMIA, UNSPECIFIED Status: Chronic (9) Obesity Code(s): E66.9 - OBESITY, UNSPECIFIED Status: Chronic Qualifiers: Obesity classification: adult class 2 (BMI 35 - 39.9) Body mass index: BMI 38.0-38.9 (10) Acute metabolic encephalopathy Code(s): G93.41 - METABOLIC ENCEPHALOPATHY Status: Acute (11) Sepsis Code(s): A41.9 - SEPSIS, UNSPECIFIED ORGANISM Status: Resolved Qualifiers: Sepsis type: sepsis due to unspecified organism Sepsis acute organ dysfunction status: without acute organ dysfunction Qualified Code(s): A41.9 - Sepsis, unspecified organism - Plan is on cipro, flagyl, coreg, cozaar, iv fluids npo, serial H/H off eliquis due to ?hematemesis or hemoptysis had cath this am had ercp with extraction of cbd sludge and sphinterotomy on 10/23/19 cholecystectomy per gen surg adv if h/h remains stable, may initiate liq diet if ok with other specialists mobilize as tolerated, has deconditioning
[2019-10-29 11:59] LABS: Hemoglobin 9.6 g/dL (14.0-18.0)
[2019-10-29 15:34] LABS: Hemoglobin 8.3 g/dL (14.0-18.0)
--- NOTE | 2019-10-29 20:20 | PRG ---
DATE OF SERVICE: 10/29/2019 SUBJECTIVE: Mr. Jacob remains in telemedicine. The patient is currently stable. Dr. Hawk plans to proceed for woodworking shop laborer to evaluation of cardiac risk preop for the patient tomorrow. After woodworking shop laborer, Dr. Marino plans to have laparoscopy cholecystectomy, if poultry debeaker Dr. Hawk is okay. The patient reports no chest pain. Vital signs have been stable. He developed no fever or shortness of breath. He tolerated with the diet, and his urine is adequate. OBJECTIVE: GENERAL: Currently, the patient is lying on bed comfortable with no acute respiratory distress. VITAL SIGNS: Temperature 98.9, heart rate 91, respiratory rate 14, O2 saturation 95% on 1 L, and blood pressure 111/60. LUNGS: Clear bilaterally. HEART: Regular rate and rhythm. ABDOMEN: Soft, nondistended. EXTREMITIES: Neurovascularly intact x4. NEUROLOGIC: No focal neurology deficits. ASSESSMENT: 1. Acute cholecystitis, status post endoscopic retrograde cholangiopancreatography with common bile duct stone extraction. 2. Coronary artery disease. PLAN: Continue supportive care. Continue pain control. On surgical standpoint, await for Cardiology on cholecystectomy operation. No risk factor for surgery tomorrow. Job ID: [id number]
--- NOTE | 2019-10-29 21:47 | CON ---
DATE OF CONSULTATION: HISTORY OF PRESENT ILLNESS: I was asked to evaluate, Mr. Jacob by Dr. Hawk today. He is a patient who is DNR status. He is in the hospital with sepsis. He has grown Enterobacter from his urine and Klebsiella from 2 separate blood cultures. He has presumed ascending cholangitis and needs his gallbladder removed. In addition, he has aortic stenosis and coronary artery disease. He has a previous LAD stent. He has undergone cardiac catheterization, which has shown recurrent LAD stenosis just distal to the stent and also right coronary artery stenosis. His he has a DVT in the left distal femoral vein. On echocardiogram, ejection fraction is 20% to 25%. The aortic valve peak velocity is 313 cm/second. The peak gradient is 39 with a mean of 20.17. Aortic valve has 3 leaflets. Aortic valve area is not recorded. He has been on antibiotics since admission on 10/21. The patient is fairly confused and is really not in any shape to give any sort of history. He has a history of cerebrovascular accident, but I am not sure as to his mental status. There is no family available in the hospital today. PAST MEDICAL HISTORY: 1. Cerebrovascular accident. 2. Coronary artery disease. 3. Aortic stenosis. 4. Hypertension. 5. Hodgkin lymphoma. 6. Gout. 7. Dyslipidemia. 8. Cholecystitis with ascending cholangitis. PAST SURGICAL HISTORY: 1. Bilateral hip replacement. 2. Left arm surgery. 3. Coronary LAD stent. CURRENT MEDICATIONS: Noted. ALLERGIES: CEPHALEXIN. PHYSICAL EXAMINATION: GENERAL: This is an elderly gentleman, resting comfortably. VITAL SIGNS: T-max over the last 24 hours is 100.7, heart rate is 100, blood pressure is 87/51. NECK: Supple. He has no adenopathy. CHEST: Clear. He has a very faint systolic ejection murmur. ABDOMEN: Soft and tender. EXTREMITIES: There is 2+ edema throughout. LABORATORY DATA: Of note, his white blood cell count is 3.3, most recently with a hemoglobin of 8.3. Accu-Cheks have ranged from 107-125 today. Most recent creatinine is 0.63 with a potassium of 3.5. ASSESSMENT AND PLAN: This is an unfortunate 69-year-old gentleman with sepsis, ascending cholangitis, cholecystitis, aortic stenosis, and coronary artery disease. Currently, I would not consider him for any sort of aortic valve replacement be that open or with transcatheter aortic valve replacement due to his infective situation. He needs his gallbladder removed and we will see how his mental status does post cholecystectomy. With his current status as DNR, I am not sure how appropriate it would be to put him through an aortic valve replacement. This would have to be a discussion to be undertaken with whoever his power of criminal attorney is as I do not feel he is able to make any sort of decisions on his own currently. If he gets his gallbladder removed and is able to recover to a point where we can have a serious discussion regarding his aortic valve, we can do that in the future. Job ID: [id number]
[2019-10-29] MEDS: Atorvastatin Calcium 40 MG TAB PO SCH (22:13)
[2019-10-29] MEDS ORDERED: Hydrocortisone Sod Succ/PF 100 mg/2 ml Vial IVP SCH (22:45)
[2019-10-30 00:28] LABS: #Eosinphils 0.1 thou/uL (0.0-0.7); #Lymphocytes 1.2 thou/uL (1.20-3.40); #Monocytes 0.4 thou/uL (0.11-0.59); #Neutrophils 2.2 thou/uL (1.40-6.50); %Basophils 0.7 % (0.0-1.0); %Eosinophils 1.6 % (0.0-10.0); %Monocytes 9.4 % (0.0-10.0); %Neutrophils 57.3 % (42.0-75.0); Hemoglobin 7.8 g/dL (14.0-18.0); Mean Corpuscular HGB CONC 32.8 g/dL (32.0-36.0); Mean Corpuscular Hemoglobin 28.4 pg (27.0-31.0); Mean Corpuscular Volume 86.7 fL (78.0-98.0); Mean Platelet Volume 10.4 fL (7.4-10.4); Platelet Count 118 thou/uL (130-400); RBC Distribution Width 18.9 % (11.5-14.5); Red Blood Cell (RBC) Count 2.76 mill/uL (4.70-6.10); White Blood Cell (WBC) Count 3.9 thou/uL (4.8-10.8)
[2019-10-30 00:44] LABS: Lactic Acid 0.8 mmol/L (0.5-2.2)
[2019-10-30 00:46] LABS: Anion Gap 12 mmol/L (10-20); BUN (Urea Nitrogen) 14 mg/dL (8.4-25.7); Calc. Creatinine Clearance 154 mL/min (70-130); Calcium 7.9 mg/dL (7.8-10.44); Carbon Dioxide 24 mmol/L (23-31); Chloride 106 mmol/L (98-107); Estimated GFR-MDRD Greater than 90; Glucose 106 mg/dL (83-110); Potassium 3.7 mmol/L (3.5-5.1); Sodium 138 mmol/L (136-145)
[2019-10-30 05:25] LABS: Hemoglobin 7.5 g/dL (14.0-18.0)
[2019-10-30 05:31] LABS: INR-International Normal Ratio 1.8; PTT 47.7 sec (22.9-36.1); Prothrombin Time 20.5 sec (12.0-14.7)
[2019-10-30 05:44] LABS: ALT (SGPT) 13 U/L (8-55); AST (SGOT) 11 U/L (5-34); Albumin 2.8 g/dL (3.4-4.8); Alkaline Phosphatase 93 U/L (40-110); Bilirubin, Direct 0.5 mg/dL (0.1-0.3); Bilirubin, Total 0.7 mg/dL (0.2-1.2)
[2019-10-30] MEDS: Sodium Chloride 0.9% 1,000 ML IV SCH ×3 (05:47→22:49)
[2019-10-30] MEDS: Cipro 250 MG TAB PO SCH (05:48)
[2019-10-30] MEDS: Hydrocortisone Sod Succ/PF 100 mg/2 ml Vial IVP SCH ×3 (06:17→22:51)
[2019-10-30] MEDS ORDERED: Fentanyl 100 MCG/2 ML VIAL ONE ×2 (07:43→11:32)
[2019-10-30] MEDS ORDERED: Midazolam HCl 2 mg/2 ml Vial ONE (07:43)
[2019-10-30] MEDS ORDERED: Bupivacaine 0.25% HCL 30 ML VIAL ONE (07:57)
[2019-10-30] MEDS ORDERED: Lidocaine 1% w/Epinephrine 1:100K 20 ML VIAL ONE (07:57)
--- NOTE | 2019-10-30 08:16 | PRG ---
DATE OF SERVICE: 10/29/2019 Mr. Jacob recently underwent a coronary angiography. He was found to have severe aortic stenosis with aortic valve area of 0.56 in addition to his severe stenosis of the right coronary artery and LAD just past the previously stented region. There was difficulty on placement and removal of the sheath of the right radial artery. It was heavily calcified. After the case, there was no bleeding noted. There was no pulse noted proximal to the incision site, but good dopplerable pulse noted distally. I did check on Mr. Jacob at the end of the day and he had a good pulse noted proximal and distal to the incision site. Initially, it likely represented spasm. I have asked Dr. Shawn Moise to consult with Mr. Jacob. As suspected, Mr. Jacob is not felt to be an appropriate AVR candidate. Given his recent infection and low-grade fevers, would be concerning for infecting a bioprosthetic valve whether it is SAVR or TAVR. At this point, given the findings on his cholecystitis and ascending cholangitis that continues despite antibiotic therapy, he will likely need to have it removed unless there are other options presented by Dr. Marino. Mr. Jacob is considered at high risk for complications and will have to weigh the risk to benefit ratio on proceeding with surgery. If there are no other viable options to laparoscopic cholecystectomy would then have to accept a high risk for complications. I did discuss this with Mr. Jacob. I also discussed this with his . Conservative therapy with antibiotic treatment has been tried and has failed. Another option could be Hospice. If Mr. Jacob is successful in the postoperative period from his cholecystectomy, we will then consider later to proceed with stent implantation to the right coronary and LAD with possible TAVR, but his overall status would have to improve. I did discuss this at length with his over the phone on 10/29/2019, and she understands the risks on proceeding with cholecystectomy. Job ID: [id number]
[2019-10-30] MEDS ORDERED: Ketamine 50 MG/ML (10ML VIAL) ONE (08:36)
[2019-10-30] MEDS ORDERED: Albumin 5% 0 ML ONE (08:37)
[2019-10-30] MEDS ORDERED: Phenylephrine 10 MG/ML VIAL ONE (08:37)
--- NOTE | 2019-10-30 08:38 | PRG ---
DATE OF SERVICE: 10/30/2019 SUBJECTIVE: Mr. Jacob is a 69-year-old man, who was recently admitted with ascending cholangitis with Klebsiella pneumoniae bacteremia. The patient is post procedure day #7 status post ERCP with common bile duct stone extraction. He continues to run fevers intermittently despite being on antibiotics. He has intolerance to oral intake. He recently underwent a cardiac catheterization, which establishes severe aortic stenosis and some two-vessel coronary artery disease. I have conferenced with the patient's exercise physiologist certified and cardiovascular surgeon with regard to plans for future care. All have agreed that the source of infection namely the gallbladder needs to be treated prior to any further intervention with regard to his valvular disease. I have discussed the same with the patient and his . We will proceed in this morning for laparoscopic cholecystectomy. I have advised the patient of the risks and benefits of the proposed surgery to include, but not limited to bleeding, infection, injury to bile duct or surrounding structures. Additionally, he faces the risk of perioperative respiratory failure or myocardial infarction or even . The patient and his both indicated understanding of the information I provided him today. I did answer their questions. Job ID: [id number]
[2019-10-30] MEDS ORDERED: SUGAMMADEX SODIUM 500 MG/5 ML VIAL ONE (08:39)
[2019-10-30] MEDS ORDERED: Ondansetron HCl/PF 4 MG/2 ML Vial IVP PRN (10:55)
[2019-10-30] MEDS ORDERED: Ondansetron PF 4 MG/2 ML Vial ONE (11:30)
[2019-10-30] MEDS ORDERED: PHENYLEPHRINE-NS 100 MCG/ML 10 ML SYRINGE ONE (11:30)
[2019-10-30] MEDS ORDERED: Dexamethasone 20 MG/5 ML VIAL ONE (11:30)
[2019-10-30] MEDS ORDERED: Rocuronium Bromide 10 MG/ML (10ML VIAL) ONE (11:30)
[2019-10-30] MEDS ORDERED: diphenhydrAMINE 50 MG/ML VIAL ONE (11:30)
[2019-10-30] MEDS ORDERED: Succinylcholine Chloride 20 MG/ML 10 ml SYRINGE FS ONE (11:30)
[2019-10-30] MEDS ORDERED: Sodium Chloride 0.9% 20 ML ONE (11:32)
--- NOTE | 2019-10-30 12:26 | OP ---
DATE OF PROCEDURE: 10/30/2019 PREOPERATIVE DIAGNOSES: 1. Acute cholecystitis and cholelithiasis. 2. Resolving acute ascending cholangitis status post endoscopic retrograde cholangiopancreatography, postprocedure day #7. 3. Severe aortic stenosis. 4. Coronary artery disease. POSTOPERATIVE DIAGNOSES: 1. Acute cholecystitis and cholelithiasis. 2. Resolving acute ascending cholangitis, status post endoscopic retrograde cholangiopancreatography, postprocedure day #7. 3. Severe aortic stenosis. 4. Coronary artery disease. PROCEDURE PERFORMED: Laparoscopic cholecystectomy. ANESTHESIA: General endotracheal. ESTIMATED BLOOD LOSS: 50 mL. FLUIDS GIVEN: 300 mL crystalloids, 1 unit packed red blood cells, and 1 unit fresh frozen plasma. COUNTS: Sponge and instrument counts were verified as correct x2. COMPLICATIONS: None apparent at the time of operation. INDICATIONS FOR PROCEDURE: A 69-year-old man, who presented with recurrent altered mental status this time with fever, elevated LFTs, and abdominal pain. Ascending cholangitis was diagnosed, for which, the patient underwent ERCP with evacuation of common bile duct stone and pus. He had Klebsiella bacteremia and has been on antibiotic therapy. Due to significant comorbidities, surgery was delayed to allow the patient to improve hemodynamically. The patient, however, remains with intermittent episodes of fever despite being on antibiotics. Cardiac catheterization was performed yesterday, which revealed severe aortic stenosis as well as 2-vessel coronary artery disease. Discussion with all team members led to a conclusion that the gallbladder needs to be removed in order to allow the patient to recover to the point of undergoing valvular replacement. Based on this premise, the patient was brought to the operating room today for laparoscopic cholecystectomy. Findings are consistent with gangrenous gallbladder in the usual anatomic location completely encased by omental adhesions. DESCRIPTION OF PROCEDURE: Informed consent was obtained from the patient's power of erisa attorney and , following which, the patient was brought to the operating room and placed in supine position. Following general anesthesia, abdomen was sterilely prepped and draped in usual fashion. The skin below the umbilicus was infiltrated with 0.25% Marcaine with epinephrine. A small curvilinear infraumbilical incision was made using an 11 scalpel. Umbilical stalk was grasped with Bonilla and elevated. A Veress needle was inserted through the incision and placed in the peritoneal cavity, through which the abdomen was insufflated with 3.5 L of CO2 gas. Intra-abdominal pressure was noted at 2 mmHg. Following abdominal insufflation, the Veress needle was removed, and a 5 mm trocar was introduced using a Visiport under laparoscopy. Laparoscopy confirmed proper placement of the port. No injuries to underlying structures. Additional laparoscopy revealed the right upper quadrant completely encased by omental adhesions obscuring the liver. Under direct laparoscopy, 12 mm epigastric and two 5 mm right lateral subcostal ports were placed after the overlying skin was infiltrated with 0.25% Marcaine with epinephrine and appropriate incision was made. The patient was placed in a reverse Trendelenburg position and rotated to his left. I then introduced a [place] dissector with cautery using this to take down omental adhesions to expose the fundus of the gallbladder. A Prestige grasper was introduced through the right lateral subcostal port grasping the fundus of the gallbladder which was elevated cephalad. Omental adhesions were then taken down from the remainder of the gallbladder. A second Prestige grasper was introduced through the right medial subcostal port grasping the infundibulum of the gallbladder. There were significant amount of fibrotic adhesions involving the liver and the gallbladder infundibulum. I was able to bluntly open the peritoneum off the gallbladder at the infundibulum, and the cystic duct and artery were bluntly dissected free from surrounding structures obtaining critical view. The cystic artery was divided between clips high at the gallbladder level applying 2 clips proximally and 1 clip at the junction of the cystic artery and gallbladder. The cystic duct was also divided between clips in a similar fashion. The gallbladder itself was removed from the liver bed and delivered off the abdominal cavity using an Endo Catch. The gallbladder fossa was oozy of venous blood. We were able to achieve hemostasis using cautery and Arixtra. Finding no other pathology, laparoscopy was terminated. A #19 Mikal drain was introduced into the subhepatic space and allowed to exit the abdominal cavity through the right lateral subcostal port. The drain was secured to anterior abdominal wall using 2-0 silk suture. Fascia of the epigastric port was closed using 0 Vicryl suture and Endo Close device on the laparoscopy. The abdomen was desufflated. All ports and instruments were removed and accounted for. Skin incisions were closed using 4-0 Monocryl suture in subcuticular fashion. Dermabond was applied over incisional closure. The patient tolerated the operation without any apparent complication and was returned to recovery room in satisfactory condition. Job ID: [id number]
[2019-10-30] MEDS: Losartan 25 MG TAB PO SCH (12:49)
[2019-10-30] MEDS: Furosemide 20 MG TAB PO SCH (12:49)
[2019-10-30] MEDS: Carvedilol 3.125 MG TAB PO SCH ×2 (12:49→21:50)
[2019-10-30] MEDS: metroNIDAZOLE 500 MG TAB PO SCH (12:50)
[2019-10-30] MEDS: Pantoprazole 40 MG VIAL IVP SCH ×2 (13:11→21:53)
[2019-10-30] MEDS: Acetaminophen 325 MG TAB PO SCH ×3 (13:11→23:18)
[2019-10-30] MEDS: metroNIDAZOLE 500 MG in Premix Bag 1 BAG IVPB SCH ×2 (13:17→22:48)
--- NOTE | 2019-10-30 15:12 | PRG ---
DATE OF SERVICE: 10/30/2019 REASON FOR CONSULTATION: Anemia, melena. SUBJECTIVE: Yesterday, after the patient underwent cardiac catheterization, he was brought back up to his room and exhibited a small amount of hematemesis that was noted by nursing staff, but repeat H and H later that day did not show any significant change. However, overnight, the patient continued to have more dark black liquid-type stool, that was associated with a decrease in his H and H this morning. Given his complicated medical status and continued infection with cholecystitis contributing to bacteremia and sepsis in addition to critical aortic stenosis, further complicating issues, Dr. Marino took him for cholecystectomy earlier today with successful. At the time of my interview, he was waking up from sedation approximately 3 to 4 hours after the cholecystectomy. He states that he has right upper quadrant abdominal pain, that was not present there this morning, but is currently controlled with pain medications. Otherwise, he states that he is little sleepy/tired. Currently, he denies any nausea, vomiting, fever, or chills. However, per nursing staff, he did have like I said melenic stool early this morning, but has not had any since the surgery this morning. I talked to the patient's (Vanna Jacob) about the patient's current clinical situation and about the possibility of bleeding within the GI tract. At this time, she feels that she would like to monitor the patient rather than sending him for an additional procedure at this time. OBJECTIVE: VITAL SIGNS: Temperature 97.7, pulse 74, blood pressure 105/58, respiratory rate 16, saturating 96% on 2 L nasal cannula. GENERAL: The patient was lying in bed, in no acute distress. Alert and oriented x2. CARDIOVASCULAR: Regular rate and rhythm. A 3/6 systolic murmur was best heard at the right upper sternal border (albeit faint). RESPIRATORY: Clear to auscultation bilaterally, although with poor inspiratory effort. ABDOMEN: Normoactive bowel sounds. Soft, nondistended. Tenderness to palpation in the right upper quadrant and periumbilical regions (overlying incision/trocar sites). EXTREMITIES: No cyanosis or clubbing. Mild nonpitting edema was noted in the bilateral feet. LABORATORY DATA: CBC with a hemoglobin of 7.5, hematocrit of 23.9. INR 1.8. Chemistry with a sodium of 138, potassium 3.7, chloride 106, CO2 of 24, BUN 14, creatinine 0.6, glucose 106, AST 11, ALT 13, alkaline phosphatase 93, total bilirubin 0.7. IMAGING DATA: No current GI imaging is available for review. ASSESSMENT AND PLAN: The patient is a 69-year-old male with past medical history of non-Hodgkin's lymphoma, gout, hyperlipidemia, hypertension, coronary artery disease, history of avascular necrosis, possible occult cerebrovascular accident with dysphagia, and more recently critical aortic stenosis, initially presenting to the hospital with ascending cholangitis secondary to choledocholithiasis, now status post ERCP, but observed to have septic shock due to gram-negative bacteremia secondary to cholecystitis, now with decreasing H and H and black stools concerning for melena. 1. Anemia/melena. The patient initially presented to the hospital with altered mental status, elevated LFTs, and concerning for choledocholithiasis on imaging. He subsequently underwent ERCP on October 23, 2019, with the extraction of biliary sludge and minimal debris, but no overt stones. Small wisps of purulent material were also withdrawn during the procedure consistent with ascending cholangitis. In the meantime, the patient with his gram-negative bacteremia and septic shock had not been responding well to antibiotic administration, and in the meantime, was noted to have critical aortic stenosis on cardiac catheterization, but given his other concurrent medical problems, was not deemed to be a great surgical candidate for aortic valve replacement. However, over the last 24 hours, the patient has had an increasing amount of melenic type stools in addition to an episode of hematemesis after the cardiac catheterization yesterday. At this time, it is unclear as to the etiology for this GI bleed as there was no mention of any ulcerations or GI bleeding source during the EGD portion of the ERCP. Current differential could include esophagitis, gastritis, duodenitis, peptic ulcer disease, arteriovenous malformation, Dieulafoy lesion, and/or GI neoplasm (much less likely given the ERCP findings from the other day). Given his critical aortic stenosis, the GI tract is prone to forming AVMs within the stomach and duodenum, which could be contributing to what is going on as well. Upon conferring with the patient's about the current clinical options for his anemia/melena, she has opted more for watchful waiting and trending his blood counts over the next 24 to 48 hours and proceeding with EGD at that time if indicated. Recommendations;. a. Would continue to trend his H and H, and transfuse as necessary to maintain an H and H of 11/08. b. Continue to monitor clinically for signs of active GI bleeding. c. Would attempt to minimize any anticoagulation for the time being in light of GI bleeding. d. Would keep the patient on pantoprazole 40 mg IV b.i.d. e. We will hold on upper endoscopy for now per the patient's medical power of divorce attorney wishes, but if the patient continues to have a decreasing H and H, would reconsider upper endoscopy at that time. We will continue to follow. Please call with any questions. Job ID: [id number]
--- NOTE | 2019-10-30 16:18 | PDOC.CPN ---
- Subjective Date: 10/30/19 Time: 16:30 Interval history: The pt seen and examined. No overnight events. No cardiac complaints. However , he is still confused. - Objective Allergies/Adverse Reactions: Allergies Allergy/AdvReac Type Severity Reaction Status Date / Time cephalexin monohydrate Allergy Hives Verified 09/10/19 22:23 [From Keflex] Visit Medications: Current Medications Acetaminophen (Tylenol) 650 mg LA Q4H PRN PRN Reason: Headache/Fever/Mild Pain (1-3) Acetaminophen (Tylenol) 650 mg PO Q6HR [facility] Last Admin: 10/30/19 13:11 Dose: 650 mg Acetaminophen/Codeine Phosphate (Tylenol #3) 1 tab PO Q4H PRN PRN Reason: Mild Pain (1-3) Acetaminophen/Codeine Phosphate (Tylenol #3) 2 tab PO Q4H PRN PRN Reason: Moderate Pain (4-6) Atorvastatin Calcium (Lipitor) 40 mg PO HS [facility] Last Admin: 10/29/19 22:13 Dose: Not Given Carvedilol (Coreg) 3.125 mg PO BID [facility] Last Admin: 10/30/19 12:49 Dose: Not Given Furosemide (Lasix) 20 mg PO DAILY [facility] Last Admin: 10/30/19 12:49 Dose: Not Given Hydrocortisone Sodium Succinate (Solu-Cortef) 25 mg IVP Q8HR [facility] Last Admin: 10/30/19 13:17 Dose: 25 mg Sodium Chloride (Normal Saline 0.9%) 1,000 mls @ 100 mls/hr IV .Q10H [facility] Last Admin: 10/30/19 13:11 Dose: 1,000 mls Ciprofloxacin/Dextrose 400 mg/ (Device) 200 mls @ 200 mls/hr IVPB 1100,2300 [facility] Last Admin: 10/30/19 12:26 Dose: Not Given Metronidazole 500 mg/ Device 100 mls @ 100 mls/hr IVPB Q8HR [facility] Last Admin: 10/30/19 13:17 Dose: 100 mls Losartan Potassium (Cozaar) 25 mg PO DAILY [facility] Last Admin: 10/30/19 12:49 Dose: Not Given Miscellaneous Medication (Electrolyte Replacement Protocol) 1 each FS ASDIR [facility] Nitroglycerin (Nitrostat) 0.4 mg SL Q5MIN PRN PRN Reason: Chest Pain Ondansetron HCl (Zofran Odt) 4 mg PO Q6H PRN PRN Reason: Nausea/Vomiting Ondansetron HCl (Zofran) 4 mg IVP Q6H PRN PRN Reason: Nausea/Vomiting Last Admin: 10/26/19 17:44 Dose: 4 mg Pantoprazole Sodium (Protonix) 40 mg IVP Q12HR [facility] Last Admin: 10/30/19 13:11 Dose: 40 mg Sodium Chloride (Flush - Normal Saline) 10 ml IVF Q12HR [facility] Last Admin: 10/30/19 13:11 Dose: 10 ml Sodium Chloride (Flush - Normal Saline) 10 ml IVF PRN PRN PRN Reason: Saline Flush Vital Signs & Weight: Vital Signs Temp Pulse Resp BP BP Pulse Ox 10/30/19 15:16 98.2 F 71 17 130/62 95 10/30/19 12:25 97.4 F L 70 16 117/63 117/63 93 L 10/30/19 07:35 96 10/30/19 07:25 97.7 F 74 16 105/58 L 96 10/30/19 05:30 97.5 F L 76 22 H 113/58 L 98 10/30/19 04:24 94 L Admit Weight 217 lb Weight 215 lb 6.4 oz - Physical Exam General: other (confused) Neck: supple neck Cardiac: regular rate and rhythm, S1/S2 Lungs: decreased breath sounds Extremities: no edema - Labs Result Diagrams: 10/30/19 04:56 10/30/19 00:08 Troponin/CKMB CK-MB (CK-2) 1.3 ng/mL (0-6.6) 10/22/19 18:03 Troponin I 0.815 ng/mL (< 0.028) H* 10/22/19 23:20 - Telemetry Sinus rhythms and dysrhythmias: sinus rhythm - Assessment/Plan Assessment/Plan: 1. Septic shock 2/2 cholantitis - on ABX IV 2. Acute pancreatitis with s/p cholecystectomy on 10/30/2019 3. Aortic stenosis - already consult by Dr Moise. Waiting for his infection will be cleared and how the pt's mental status will change after cholecystectomy. 4. 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 s/p PE 6. CAD with hx of stent placement in 2010 - holding ASA or Plavix due to anemia 7. HTN - stable 8. chronic LBBB 9. Hodgkin lymphoma 10. Hx of CVA 11. Anemia MAR reviewed * Dr Hawk' pt Pt. seen and eval. by me. I agree with the A/P by the HUMAN CAPITAL MANAGER.She has converted to what appears to be an atrial tachycardia with a BBB. Chest clear. murmur.
[2019-10-30] MEDS ORDERED: Ibuprofen 100 MG/5 ML UDCUP PO PRN (17:09)
[2019-10-30] MEDS: Acetaminophen/Codeine 30-300mg Tablet PO PRN ×2 (18:10→23:02)
[2019-10-30] MEDS: Atorvastatin Calcium 40 MG TAB PO SCH (21:50)
--- NOTE | 2019-10-31 02:07 | PRG ---
DATE OF SERVICE: SUBJECTIVE: The patient is a 69-year-old man we are seeing in consultation as he was originally admitted for sepsis due to ascending cholangitis with Klebsiella pneumoniae bacteremia. It was discussed on that he was stable enough to undergo procedure and it was scheduled for this morning. He underwent his laparoscopic cholecystectomy, which he tolerated. Postoperatively, the nurses report no issues. He has resumed his diet. His pain is controlled. PHYSICAL EXAMINATION: VITAL SIGNS: Stable. The patient is afebrile. GENERAL: The patient is resting comfortably in bed. He was asleep at the time of my visit, I did not awaken him. He appeared comfortable in no distress. ABDOMEN: Nondistended. ASSESSMENT: Status post laparoscopic cholecystectomy. PLAN: Will be to review his labs in the morning and continue to follow regarding his laparoscopic cholecystectomy. The remainder of his care will be per the primary team. Job ID: [id number]
[2019-10-31 05:02] LABS: #Lymphocytes 0.6 thou/uL (1.20-3.40); #Monocytes 0.2 thou/uL (0.11-0.59); #Neutrophils 3.6 thou/uL (1.40-6.50); %Basophils 0.1 % (0.0-1.0); %Eosinophils 0.2 % (0.0-10.0); %Lymphocytes 14.2 % (21.0-51.0); %Monocytes 4.5 % (0.0-10.0); %Neutrophils 81.1 % (42.0-75.0); Hemoglobin 6.8 g/dL (14.0-18.0); Mean Corpuscular Hemoglobin 29.2 pg (27.0-31.0); Mean Corpuscular Volume 88.3 fL (78.0-98.0); Mean Platelet Volume 10.3 fL (7.4-10.4); Platelet Count 102 thou/uL (130-400); RBC Distribution Width 18.2 % (11.5-14.5); Red Blood Cell (RBC) Count 2.32 mill/uL (4.70-6.10); White Blood Cell (WBC) Count 4.4 thou/uL (4.8-10.8)
[2019-10-31 05:22] LABS: ALT (SGPT) 15 U/L (8-55); AST (SGOT) 21 U/L (5-34); Albumin 2.7 g/dL (3.4-4.8); Alkaline Phosphatase 81 U/L (40-110); Anion Gap 9 mmol/L (10-20); BUN (Urea Nitrogen) 15 mg/dL (8.4-25.7); Bilirubin, Direct 0.4 mg/dL (0.1-0.3); Bilirubin, Total 0.5 mg/dL (0.2-1.2); Calc. Creatinine Clearance 167 mL/min (70-130); Calcium 7.6 mg/dL (7.8-10.44); Carbon Dioxide 24 mmol/L (23-31); Chloride 110 mmol/L (98-107); Estimated GFR-MDRD Greater than 90; Glucose 134 mg/dL (83-110); Magnesium 1.6 mg/dL (1.6-2.6); Potassium 3.5 mmol/L (3.5-5.1); Protein, Total 5.8 g/dL (5.8-8.1); Sodium 139 mmol/L (136-145)
[2019-10-31] MEDS ORDERED: Magnesium 2 GM/50 ML 2 GM in Premix Bag 1 BAG IVPB SCH (06:15)
[2019-10-31] MEDS: metroNIDAZOLE 500 MG in Premix Bag 1 BAG IVPB SCH ×3 (06:16→21:52)
[2019-10-31] MEDS: Hydrocortisone Sod Succ/PF 100 mg/2 ml Vial IVP SCH ×3 (06:17→21:40)
[2019-10-31] MEDS: Acetaminophen 325 MG TAB PO SCH ×4 (06:17→23:30)
[2019-10-31] MEDS ORDERED: Potassium Chloride 20 MEQ TAB PO SCH (06:30)
[2019-10-31] MEDS: Acetaminophen/Codeine 30-300mg Tablet PO PRN ×2 (06:35→10:13)
[2019-10-31] MEDS: Ondansetron PF 4 MG/2 ML Vial IVP PRN (06:44)
[2019-10-31] MEDS: Sodium Chloride 0.9% 1,000 ML IV SCH ×2 (10:14→21:42)
[2019-10-31] MEDS: Furosemide 20 MG TAB PO SCH (10:14)
[2019-10-31] MEDS: Carvedilol 3.125 MG TAB PO SCH ×2 (10:14→21:59)
[2019-10-31] MEDS: Pantoprazole 40 MG VIAL IVP SCH ×2 (10:15→21:46)
[2019-10-31] MEDS: Losartan 25 MG TAB PO SCH (10:28)
--- NOTE | 2019-10-31 11:26 | PRG ---
DATE OF SERVICE: 10/31/2019 REASON FOR CONSULTATION: Anemia, melena, choledocholithiasis, status post ERCP. SUBJECTIVE: The patient underwent laparoscopic cholecystectomy that per the operative note was fairly uneventful with successful extraction of the gallbladder. The patient complaining of increased right upper quadrant abdominal pain today, but it is currently controlled with pain medications. Otherwise, he denies any nausea, vomiting, fevers, chills, hematemesis, melena, or hematochezia. I conferred with nursing staff. The patient has not had a bowel movement within the last 24 hours, melena, or otherwise. OBJECTIVE: VITAL SIGNS: Temperature 97.4, pulse 64, blood pressure 120/72, respiratory rate 20, saturating 94% on 2 L nasal cannula. GENERAL: The patient was lying in bed, in no acute distress. Alert and oriented x2. CARDIOVASCULAR: Regular rate and rhythm with a 3/6 systolic murmur best heard at the right upper sternal border. RESPIRATORY: Clear to auscultation bilaterally, although with poor inspiratory effort. ABDOMEN: Normoactive bowel sounds. Soft, nondistended. Tenderness to palpation in the right upper quadrant. EXTREMITIES: No cyanosis or clubbing. Mild nonpitting pedal edema was noted in the bilateral feet. LABORATORY DATA: CBC with a white blood cell count of 4.4, hemoglobin 6.8, hematocrit 20.5, platelets 102. Chemistry with a sodium of 139, potassium 3.5, chloride 110, CO2 of 24, BUN 15, creatinine 0.56, glucose 134. IMAGING DATA: No current GI imaging is available for review. ASSESSMENT AND PLAN: The patient is a 69-year-old male with past medical history of non-Hodgkin lymphoma, gout, hyperlipidemia, hypertension, coronary artery disease, history of avascular necrosis, possible occult cerebrovascular accident with dysphagia, and more recently diagnosed with critical aortic stenosis, who initially presented to the hospital with ascending cholangitis secondary to choledocholithiasis, now status post ERCP, but with septic shock and gram-negative bacteremia secondary to cholecystitis/choledocholithiasis, now with decreasing hemoglobin and hematocrit and black stools concerning for melena/GI bleeding. Anemia/melena: The patient initially presented to the hospital with septic shock, gram-negative bacteremia, altered mental status, elevated LFTs with imaging consistent with choledocholithiasis. He subsequently underwent ERCP on October 23, 2019 with extraction of biliary sludge and minimal debris with no overt stones. He was subsequently placed on antibiotic therapy for his cholecystitis given the fact that the patient was a poor surgical candidate with his other medical comorbidities, but after not responding to this particular regimen, ultimately underwent laparoscopic cholecystectomy on October 30, 2019. Immediately prior to the cholecystectomy, the patient began having a decrease in his hemoglobin and hematocrit as well as dark black/melenic type stools concerning for GI bleeding. Over the last 24 hours, he has had resolution of his melenic type stools, but continues to have a decrease in his hemoglobin and hematocrit despite the administration of PRBCs. At this time, the etiology for his GI bleed is unclear, but most likely seems to be upper GI in origin given his episode of hematemesis after the cardiac cath the other day. Differential could include esophagitis, gastritis, duodenitis, peptic ulcer disease, arteriovenous malformation, Dieulafoy lesion, use of anticoagulation medications and/or GI neoplasm (much less likely given the ERCP findings from October 22). Upon conferring with the patient's about the current clinical options for his anemia/melena, she has opted for more watchful waiting rather than endoscopic evaluation; however, I informed her that if his blood counts continue to drop, I would highly recommend this particular modality. Recommendations: 1. a. We will continue to trend his hemoglobin and hematocrit and transfuse as necessary to maintain hemoglobin and hematocrit of 7/21. b. Continue to monitor clinically for signs of active GI bleeding. c. Would attempt to stop or minimize any anticoagulation in light of GI bleeding. d. Continue the patient on pantoprazole 40 mg IV b.i.d. e. We would hold on upper endoscopy for now, however, if the patient does have a further decrease in his hemoglobin and hematocrit and/or reappearance of melenic stools, I would highly recommend upper endoscopy at that time. We will continue to follow. Please call with any questions. Job ID: [id number]
--- NOTE | 2019-10-31 13:12 | PDOC.HOSPP ---
- Subjective Encounter Date: 10/31/19 Encounter Time: 09:00 Subjective: awake, responds well to verbal stimuli has pain at operated site no sob or [place] bleeding - Objective Vital Signs & Weight: Vital Signs (12 hours) Temp Pulse Pulse Resp BP BP BP 10/31/19 12:15 97.6 F 64 16 117/56 L 10/31/19 11:05 97.4 F L 64 20 111/60 10/31/19 07:36 97.4 F L 64 20 120/72 10/31/19 03:57 10/31/19 03:30 97.5 F L 66 20 122/61 Pulse Ox 10/31/19 12:15 95 10/31/19 11:05 95 10/31/19 07:36 94 L 10/31/19 03:57 95 10/31/19 03:30 95 Weight Admit Weight 217 lb Weight 225 lb 3.2 oz Most Recent Monitor Data Heart Rate from ECG 65 NIBP 105/66 NIBP BP-Mean 79 Respiration from ECG 20 SpO2 95 I&O: 10/30/19 10/31/19 11/01/19 06:59 06:59 06:59 Intake Total 350 700 0 Output Total 120 Balance 350 580 0 Result Diagrams: 10/31/19 04:38 10/31/19 04:38 Additional Labs: Accuchecks 10/31/19 10/31/19 10/30/19 10:45 06:15 20:15 POC Glucose 136 H 145 H 170 H 10/30/19 16:57 POC Glucose 139 H Hospitalist ROS - Medication Medications: Active Medications Generic Name Dose Route Start Last Admin Trade Name Francoisq PRN Reason Stop Dose Admin Acetaminophen 650 mg 10/30/19 12:00 10/31/19 12:23 Tylenol PO Not Given Q6HR TRISTAN Acetaminophen/Codeine Phosphate 2 tab 10/29/19 08:59 10/31/19 10:13 Tylenol #3 PO 2 tab Q4H PRN Administration Moderate Pain (4-6) Atorvastatin Calcium 40 mg 10/28/19 21:00 10/30/19 21:50 Lipitor PO 40 mg HS TRISTAN Administration Carvedilol 3.125 mg 10/27/19 09:00 10/31/19 10:14 Coreg PO 3.125 mg BID TRISTAN Administration Furosemide 20 mg 10/28/19 09:00 10/31/19 10:14 Lasix PO 20 mg DAILY TRISTAN Administration Hydrocortisone Sodium Succinate 25 mg 10/30/19 06:00 10/31/19 06:17 Solu-Cortef IVP 25 mg Q8HR TRISTAN Administration Sodium Chloride 1,000 mls @ 100 mls/hr 10/29/19 06:00 10/31/19 10:14 Normal Saline 0.9% IV 1,000 mls .Q10H TRISTAN Administration Ciprofloxacin/Dextrose 400 mg/ 200 mls @ 200 mls/hr 10/30/19 11:00 10/31/19 12:03 Device IVPB 200 mls 1100,2300 TRISTAN Administration Metronidazole 500 mg/ Device 100 mls @ 100 mls/hr 10/30/19 14:00 10/31/19 06: 16 IVPB 100 mls Q8HR TRISTAN Administration Ibuprofen 400 mg 10/30/19 17:09 10/31/19 12:33 Motrin PO 400 mg Q8H PRN Administration Pain Losartan Potassium 25 mg 10/28/19 09:00 10/31/19 10:28 Cozaar PO 25 mg DAILY RTISTAN Administration Ondansetron HCl 4 mg 10/22/19 20:09 10/31/19 06:44 Zofran IVP 4 mg Q6H PRN Administration Nausea/Vomiting Pantoprazole Sodium 40 mg 10/29/19 21:00 10/31/19 10:15 Protonix IVP 40 mg Q12HR TRISTAN Administration Sodium Chloride 10 ml 10/23/19 21:00 10/31/19 10:15 Flush - Normal Saline IVF 10 ml Q12HR TRISTAN Administration - Exam General Appearance: awake alert, ill appearing Eye: PERRL, anicteric sclera ENT: no oropharyngeal lesions, moist mucosa Neck: supple, no JVD Heart: RRR, no murmur Respiratory: no wheezes, no rales Gastrointestinal: soft, non-distended, normal bowel sounds, no guarding, no rigidity Extremities: no cyanosis, 2+ LE edema Neurological: cranial nerve grossly intact, no focal deficits Hosp A/P (1) Ascending cholangitis Code(s): K83.09 - OTHER CHOLANGITIS Status: Acute (2) Choledocholithiasis with acute cholecystitis Code(s): K80.42 - CALCULUS OF BILE DUCT W ACUTE CHOLECYSTITIS W/O OBSTRUCTION Status: Acute (3) Severe aortic stenosis Code(s): I35.0 - NONRHEUMATIC AORTIC (VALVE) STENOSIS Status: Chronic (4) Cardiomyopathy Code(s): I42.9 - CARDIOMYOPATHY, UNSPECIFIED Status: Chronic Qualifiers: Cardiomyopathy type: unspecified Qualified Code(s): I42.9 - Cardiomyopathy , unspecified (5) Acute pulmonary embolus Code(s): I26.99 - OTHER PULMONARY EMBOLISM WITHOUT ACUTE COR PULMONALE Status : Chronic (6) Gout Code(s): M10.9 - GOUT, UNSPECIFIED Status: Chronic Qualifiers: Gout site: unspecified site Gout etiology: unspecified cause Chronicity: chronic Presence of tophus: without tophus Qualified Code(s): M1A.9XX0 - Chronic gout, unspecified, without tophus (tophi) (7) HTN (hypertension) Code(s): I10 - ESSENTIAL (PRIMARY) HYPERTENSION Status: Chronic Qualifiers: Hypertension type: essential hypertension Qualified Code(s): I10 - Essential (primary) hypertension (8) Hyperlipidemia Code(s): E78.5 - HYPERLIPIDEMIA, UNSPECIFIED Status: Chronic (9) Obesity Code(s): E66.9 - OBESITY, UNSPECIFIED Status: Chronic Qualifiers: Obesity classification: adult class 2 (BMI 35 - 39.9) Body mass index: BMI 38.0-38.9 (10) Acute metabolic encephalopathy Code(s): G93.41 - METABOLIC ENCEPHALOPATHY Status: Acute (11) Sepsis Code(s): A41.9 - SEPSIS, UNSPECIFIED ORGANISM Status: Resolved Qualifiers: Sepsis type: sepsis due to unspecified organism Sepsis acute organ dysfunction status: without acute organ dysfunction Qualified Code(s): A41.9 - Sepsis, unspecified organism (12) Physical deconditioning Code(s): R53.81 - OTHER MALAISE Status: Acute - Plan is on cipro, flagyl, coreg, cozaar, iv fluids npo, serial H/H, transfuse 1 u prbc today. off eliquis due to ?hematemesis or hemoptysis s/p lap cholecystectomy 10/30/2019 had ercp with extraction of cbd sludge and sphinterotomy on 10/23/19 had cath on 10/28/2019, shows cad with severe oral diet per surg adv mobilize as tolerated, has deconditioning will need placement
--- NOTE | 2019-10-31 15:16 | PDOC.CPN ---
- Subjective Date: 10/31/19 Time: 15:16 Interval history: The pt seen and examined. No overnight events. No cardiac complaints. - Objective Allergies/Adverse Reactions: Allergies Allergy/AdvReac Type Severity Reaction Status Date / Time cephalexin monohydrate Allergy Hives Verified 09/10/19 22:23 [From Keflex] Visit Medications: Current Medications Acetaminophen (Tylenol) 650 mg TN Q4H PRN PRN Reason: Headache/Fever/Mild Pain (1-3) Acetaminophen (Tylenol) 650 mg PO Q6HR [facility] Last Admin: 10/31/19 12:23 Dose: Not Given Acetaminophen/Codeine Phosphate (Tylenol #3) 1 tab PO Q4H PRN PRN Reason: Mild Pain (1-3) Acetaminophen/Codeine Phosphate (Tylenol #3) 2 tab PO Q4H PRN PRN Reason: Moderate Pain (4-6) Last Admin: 10/31/19 10:13 Dose: 2 tab Atorvastatin Calcium (Lipitor) 40 mg PO HS [facility] Last Admin: 10/30/19 21:50 Dose: 40 mg Carvedilol (Coreg) 3.125 mg PO BID [facility] Last Admin: 10/31/19 10:14 Dose: 3.125 mg Furosemide (Lasix) 20 mg PO DAILY [facility] Last Admin: 10/31/19 10:14 Dose: 20 mg Hydrocortisone Sodium Succinate (Solu-Cortef) 25 mg IVP Q8HR [facility] Last Admin: 10/31/19 14:58 Dose: 25 mg Sodium Chloride (Normal Saline 0.9%) 1,000 mls @ 100 mls/hr IV .Q10H [facility] Last Admin: 10/31/19 10:14 Dose: 1,000 mls Ciprofloxacin/Dextrose 400 mg/ (Device) 200 mls @ 200 mls/hr IVPB 1100,2300 TRISTAN Last Admin: 10/31/19 12:03 Dose: 200 mls Metronidazole 500 mg/ Device 100 mls @ 100 mls/hr IVPB Q8HR [facility] Last Admin: 10/31/19 14:57 Dose: 100 mls Ibuprofen (Motrin) 400 mg PO Q8H PRN PRN Reason: Pain Last Admin: 10/31/19 12:33 Dose: 400 mg Losartan Potassium (Cozaar) 25 mg PO DAILY [facility] Last Admin: 10/31/19 10:28 Dose: 25 mg Miscellaneous Medication (Electrolyte Replacement Protocol) 1 each FS ASDIR TRISTAN Nitroglycerin (Nitrostat) 0.4 mg SL Q5MIN PRN PRN Reason: Chest Pain Ondansetron HCl (Zofran Odt) 4 mg PO Q6H PRN PRN Reason: Nausea/Vomiting Ondansetron HCl (Zofran) 4 mg IVP Q6H PRN PRN Reason: Nausea/Vomiting Last Admin: 10/31/19 06:44 Dose: 4 mg Pantoprazole Sodium (Protonix) 40 mg IVP Q12HR TRISTAN Last Admin: 10/31/19 10:15 Dose: 40 mg Sodium Chloride (Flush - Normal Saline) 10 ml IVF Q12HR TRISTAN Last Admin: 10/31/19 10:15 Dose: 10 ml Sodium Chloride (Flush - Normal Saline) 10 ml IVF PRN PRN PRN Reason: Saline Flush Vital Signs & Weight: Vital Signs Temp Pulse Pulse Resp BP BP BP 10/31/19 12:15 97.6 F 64 16 117/56 L 10/31/19 11:05 97.4 F L 64 20 111/60 10/31/19 08:55 10/31/19 07:36 97.4 F L 64 20 120/72 10/31/19 03:57 10/31/19 03:30 97.5 F L 66 20 122/61 Pulse Ox 10/31/19 12:15 95 10/31/19 11:05 95 10/31/19 08:55 94 L 10/31/19 07:36 94 L 10/31/19 03:57 95 10/31/19 03:30 95 Admit Weight 217 lb Weight 225 lb 3.2 oz - Physical Exam General: other (self only; however, his coginitive is more clar than yesterday) Cardiac: regular rate and rhythm, S1/S2 Lungs: decreased breath sounds Extremities: other: (generalized edema; non-pitting edema to RUE (possible IV filtration?)) - Labs Result Diagrams: 10/31/19 20:13 10/31/19 04:38 Troponin/CKMB CK-MB (CK-2) 1.3 ng/mL (0-6.6) 10/22/19 18:03 Troponin I 0.815 ng/mL (< 0.028) H* 10/22/19 23:20 - Telemetry Sinus rhythms and dysrhythmias: sinus rhythm - Assessment/Plan Assessment/Plan: 1. Septic shock 2/2 cholantitis - on ABX IV 2. Acute pancreatitis with s/p cholecystectomy on 10/30/2019 3. Aortic stenosis - already consult by Dr Moise. Waiting for his infection will be cleared and how the pt's mental status will change after cholecystectomy. 4. 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 s/p PE - Eliquis is on hold due to anemia 6. CAD with hx of stent placement in 2009 - holding ASA or Plavix due to anemia 7. HTN - stable 8. chronic LBBB 9. Hodgkin lymphoma 10. Hx of CVA 11. Anemia - possible EGD? MAR reviewed * Dr Hawk' pt Pt. seen and eval. by me. I agree with the A/P by the [facility] [employer]. RRR, chest clear. gjm
--- NOTE | 2019-10-31 15:44 | PDOC.HOSPP ---
- Subjective Encounter Date: 10/30/19 Encounter Time: 14:00 Subjective: is post op lap marty a bit lethargic, not in distress - Objective Vital Signs & Weight: Vital Signs (12 hours) Temp Pulse Pulse Resp BP BP BP 10/31/19 12:15 97.6 F 64 16 117/56 L 10/31/19 11:05 97.4 F L 64 20 111/60 10/31/19 08:55 10/31/19 07:36 97.4 F L 64 20 120/72 10/31/19 03:57 Pulse Ox 10/31/19 12:15 95 10/31/19 11:05 95 10/31/19 08:55 94 L 10/31/19 07:36 94 L 10/31/19 03:57 95 Weight Admit Weight 217 lb Weight 225 lb 3.2 oz Most Recent Monitor Data Heart Rate from ECG 65 NIBP 105/66 NIBP BP-Mean 79 Respiration from ECG 20 SpO2 95 I&O: 10/30/19 10/31/19 11/01/19 06:59 06:59 06:59 Intake Total 350 700 0 Output Total 120 Balance 350 580 0 Result Diagrams: 10/31/19 04:38 10/31/19 04:38 Additional Labs: Accuchecks 10/31/19 10/31/19 10/30/19 10:45 06:15 20:15 POC Glucose 136 H 145 H 170 H 10/30/19 16:57 POC Glucose 139 H Hospitalist ROS - Medication Medications: Active Medications Generic Name Dose Route Start Last Admin Trade Name Freq PRN Reason Stop Dose Admin Acetaminophen 650 mg 10/30/19 12:00 10/31/19 12:23 Tylenol PO Not Given Q6HR [facility] Acetaminophen/Codeine Phosphate 2 tab 10/29/19 08:59 10/31/19 10:13 Tylenol #3 PO 2 tab Q4H PRN Administration Moderate Pain (4-6) Atorvastatin Calcium 40 mg 10/28/19 21:00 10/30/19 21:50 Lipitor PO 40 mg HS TRISTAN Administration Carvedilol 3.125 mg 10/27/19 09:00 10/31/19 10:14 Coreg PO 3.125 mg BID TRISTAN Administration Furosemide 20 mg 10/28/19 09:00 10/31/19 10:14 Lasix PO 20 mg DAILY TRISTAN Administration Hydrocortisone Sodium Succinate 25 mg 10/30/19 06:00 10/31/19 14:58 Solu-Cortef IVP 25 mg Q8HR TRISTAN Administration Sodium Chloride 1,000 mls @ 100 mls/hr 10/29/19 06:00 10/31/19 10:14 Normal Saline 0.9% IV 1,000 mls .Q10H TRISTAN Administration Ciprofloxacin/Dextrose 400 mg/ 200 mls @ 200 mls/hr 10/30/19 11:00 10/31/19 12:03 Device IVPB 200 mls 1100,2300 TRISTAN Administration Metronidazole 500 mg/ Device 100 mls @ 100 mls/hr 10/30/19 14:00 10/31/19 14: 57 IVPB 100 mls Q8HR TRISTAN Administration Ibuprofen 400 mg 10/30/19 17:09 10/31/19 12:33 Motrin PO 400 mg Q8H PRN Administration Pain Losartan Potassium 25 mg 10/28/19 09:00 10/31/19 10:28 Cozaar PO 25 mg DAILY TRISTAN Administration Ondansetron HCl 4 mg 10/22/19 20:09 10/31/19 06:44 Zofran IVP 4 mg Q6H PRN Administration Nausea/Vomiting Pantoprazole Sodium 40 mg 10/29/19 21:00 10/31/19 10:15 Protonix IVP 40 mg Q12HR TRISTAN Administration Sodium Chloride 10 ml 10/23/19 21:00 10/31/19 10:15 Flush - Normal Saline IVF 10 ml Q12HR TRISTAN Administration - Exam General Appearance: ill appearing Eye: PERRL, anicteric sclera ENT: no oropharyngeal lesions, dry oral mucosa Neck: supple, no JVD Heart: RRR, no murmur Respiratory: no wheezes, no rales, rhonchi Gastrointestinal: soft, normal bowel sounds, no guarding, no rigidity Extremities: no cyanosis, 2+ LE edema Neurological: cranial nerve grossly intact, no focal deficits Hosp A/P (1) Ascending cholangitis Code(s): K83.09 - OTHER CHOLANGITIS Status: Acute (2) Choledocholithiasis with acute cholecystitis Code(s): K80.42 - CALCULUS OF BILE DUCT W ACUTE CHOLECYSTITIS W/O OBSTRUCTION Status: Acute (3) Severe aortic stenosis Code(s): I35.0 - NONRHEUMATIC AORTIC (VALVE) STENOSIS Status: Chronic (4) Cardiomyopathy Code(s): I42.9 - CARDIOMYOPATHY, UNSPECIFIED Status: Chronic Qualifiers: Cardiomyopathy type: unspecified Qualified Code(s): I42.9 - Cardiomyopathy , unspecified (5) Acute pulmonary embolus Code(s): I26.99 - OTHER PULMONARY EMBOLISM WITHOUT ACUTE COR PULMONALE Status : Chronic (6) Gout Code(s): M10.9 - GOUT, UNSPECIFIED Status: Chronic Qualifiers: Gout site: unspecified site Gout etiology: unspecified cause Chronicity: chronic Presence of tophus: without tophus Qualified Code(s): M1A.9XX0 - Chronic gout, unspecified, without tophus (tophi) (7) HTN (hypertension) Code(s): I10 - ESSENTIAL (PRIMARY) HYPERTENSION Status: Chronic Qualifiers: Hypertension type: essential hypertension Qualified Code(s): I10 - Essential (primary) hypertension (8) Hyperlipidemia Code(s): E78.5 - HYPERLIPIDEMIA, UNSPECIFIED Status: Chronic (9) Obesity Code(s): E66.9 - OBESITY, UNSPECIFIED Status: Chronic Qualifiers: Obesity classification: adult class 2 (BMI 35 - 39.9) Body mass index: BMI 38.0-38.9 (10) Acute metabolic encephalopathy Code(s): G93.41 - METABOLIC ENCEPHALOPATHY Status: Acute (11) Sepsis Code(s): A41.9 - SEPSIS, UNSPECIFIED ORGANISM Status: Resolved Qualifiers: Sepsis type: sepsis due to unspecified organism Sepsis acute organ dysfunction status: without acute organ dysfunction Qualified Code(s): A41.9 - Sepsis, unspecified organism (12) Physical deconditioning Code(s): R53.81 - OTHER MALAISE Status: Acute - Plan is on cipro, flagyl, coreg, cozaar, iv fluids oral diet per gen surg off eliquis due to ?hematemesis or hemoptysis s/p lap cholecystectomy 10/30/2019 had ercp with extraction of cbd sludge and sphinterotomy on 10/23/19 had cath on 10/28/2019, shows cad with severe mobilize as tolerated, has deconditioning will need placement
--- NOTE | 2019-10-31 18:49 | PRG ---
DATE OF SERVICE: 10/31/2019 SUBJECTIVE: Mr. Jacob is a 69-year-old male, who came in for septic shock and multiple organ failure, later to find out he also suffered from PE, coronary artery disease, status post warehouse general laborer, severe aortic stenosis, severe coronary artery disease, heart failure with EF 20%, cholecystitis, status post cholecystectomy, postop day #1 today. The patient reports pain from the incision site. He developed no fever or shortness of breath. His urine is adequate. His vital signs have been stable; however, his hemoglobin this morning is 7.5, dropped to 6.8, in which he was transfused with 1 unit of blood. OBJECTIVE: GENERAL: Currently, the patient is lying in bed, comfortable with no acute respiratory distress. VITAL SIGNS: Blood pressure 120 systolic, heart rate 64, respiratory rate 18, O2 saturation 98% on room air. LUNGS: Clear bilaterally. HEART: Regular rate and rhythm. ABDOMEN: Soft, expected pain with palpation from the incision site. Incision site is clean and dry. Drainage is limited amount, mild sanguineous color. EXTREMITIES: No pitting edema. Neurovascularly intact x4. NEUROLOGY: No focal neurology deficits. LABORATORY DATA: Potassium 3.5, magnesium 1.6. Hemoglobin 6.8. ASSESSMENT: 1. Status post cholecystectomy postop day #1. 2. Sepsis. 3. PE. 4. Severe coronary artery disease. 5. Heart failure. 6. Severe aortic stenosis. 7. History of [place] 8. Electrolyte abnormality. 9. Hypokalemia. 10. Hypomagnesemia. 11. Acute blood loss anemia on chronic anemia. PLAN: Replace electrolytes. Continue to transfuse 1 unit of blood. We will monitor hemoglobin this afternoon. Adjust pain medication. Continue supportive care. Continue working with physical therapy and occupational therapy. Dr. Moise will talk to the patient. Discuss with the patient on possibility of aortic valve replacement and Cardiology might discuss on stenting for severe coronary artery disease. Job ID: [id number] [facility]
[2019-10-31 20:18] LABS: Hemoglobin 8.5 g/dL (14.0-18.0)
[2019-10-31] MEDS: Atorvastatin Calcium 40 MG TAB PO SCH (21:59)
--- NOTE | 2019-11-01 00:34 | PRG ---
DATE OF SERVICE: 10/31/2019 SUBJECTIVE: Patient was seen this evening during rounds. He was lying in bed with no signs of acute distress. He reported he was having abdominal pain, but did not want any additional pain medication. The pain is postoperative and he reports it is not worsening. Denies nausea, vomiting. Reports he has not eaten today as he did not have an appetite. He also has not gotten up out of bed. He has not worked with physical therapy. OBJECTIVE: VITAL SIGNS: Temperature 97.5, pulse 62, respirations 18, oxygen saturation 98% on 2 L nasal cannula, blood pressure 122/60. GENERAL: Well-appearing elderly male, sitting up in bed with no signs of acute distress. PULMONARY: Equal chest rise and fall. No signs of acute respiratory distress. CARDIAC: Regular rate and rhythm. LABORATORY FINDINGS: Hemoglobin 8.5, from 6.8; hematocrit 25.8, from 20.5. DIAGNOSTIC FINDINGS: There are no new diagnostic findings to report. ASSESSMENT: 1. Postop day #1 status post laparoscopic cholecystectomy for pancreatitis due to cholelithiasis with associated cholangitis, status post endoscopic retrograde cholangiopancreatography. 2. Urinary tract infection. 3. Bacteremia. 4. Pulmonary embolism. 5. Melena with possible gastrointestinal bleed. 6. History of Hodgkin's lymphoma, gout, hyperlipidemia, hypertension, coronary artery disease, pneumonia, CVA, aortic stenosis. PLAN: Continue current diet and pain regimen. Start physical and occupational therapy tomorrow. Encourage p.o. intake. Monitor for signs of melena or continued bleeding. I believe GI may complete a tagged red blood cell study if there is concern the patient still has a GI bleed. Repeat blood work in the morning. Job ID: [id number]
[2019-11-01 06:25] LABS: #Lymphocytes 0.9 thou/uL (1.20-3.40); #Monocytes 0.2 thou/uL (0.11-0.59); #Neutrophils 3.4 thou/uL (1.40-6.50); %Basophils 0.4 % (0.0-1.0); %Eosinophils 0.7 % (0.0-10.0); %Lymphocytes 19.3 % (21.0-51.0); %Monocytes 4.3 % (0.0-10.0); %Neutrophils 75.3 % (42.0-75.0); Hemoglobin 8.3 g/dL (14.0-18.0); Mean Corpuscular HGB CONC 32.5 g/dL (32.0-36.0); Mean Corpuscular Hemoglobin 28.9 pg (27.0-31.0); Mean Corpuscular Volume 89.2 fL (78.0-98.0); Mean Platelet Volume 10.5 fL (7.4-10.4); Platelet Count 112 thou/uL (130-400); RBC Distribution Width 17.6 % (11.5-14.5); Red Blood Cell (RBC) Count 2.87 mill/uL (4.70-6.10); White Blood Cell (WBC) Count 4.5 thou/uL (4.8-10.8)
[2019-11-01] MEDS: Acetaminophen 325 MG TAB PO SCH ×3 (06:33→18:21)
[2019-11-01 06:43] LABS: Anion Gap 8 mmol/L (10-20); BUN (Urea Nitrogen) 16 mg/dL (8.4-25.7); Calc. Creatinine Clearance 181 mL/min (70-130); Calcium 7.9 mg/dL (7.8-10.44); Carbon Dioxide 23 mmol/L (23-31); Chloride 111 mmol/L (98-107); Estimated GFR-MDRD Greater than 90; Glucose 116 mg/dL (83-110); Magnesium 1.9 mg/dL (1.6-2.6); Phosphorus 2.4 mg/dL (2.3-4.7); Potassium 3.9 mmol/L (3.5-5.1); Sodium 138 mmol/L (136-145)
[2019-11-01] MEDS ORDERED: Magnesium 2 GM/50 ML 2 GM in Premix Bag 1 BAG IVPB SCH (07:00)
[2019-11-01] MEDS ORDERED: Benzocaine 20% Spray 60 ML CAN ONE ×2 (07:36→10:22)
[2019-11-01] MEDS ORDERED: metroNIDAZOLE 500 MG/100 ML BAG ONE (07:41)
[2019-11-01] MEDS ORDERED: Midazolam HCl 2 mg/2 ml Vial ONE (07:44)
[2019-11-01] MEDS ORDERED: Promethazine HCl 25 MG/ML VIAL SLOW IVP PRN (08:29)
[2019-11-01] MEDS ORDERED: Promethazine HCl 25 MG/ML VIAL IM PRN (08:29)
[2019-11-01] MEDS ORDERED: Ondansetron HCl/PF 4 MG/2 ML Vial IVP PRN (08:29)
--- NOTE | 2019-11-01 08:37 | PDOC.HOSPP ---
- Subjective Encounter Date: 11/01/19 Encounter Time: 10:40 Subjective: Patient reports moderate abdominal tenderness without N/V. No other complaints. - Objective Vital Signs & Weight: Vital Signs (12 hours) Temp Pulse Resp BP Pulse Ox 11/01/19 03:36 97 11/01/19 03:19 98.6 F 57 L 18 123/65 97 10/31/19 22:58 97.4 F L 56 L 18 125/63 97 Weight Admit Weight 217 lb Weight 225 lb 3.2 oz Most Recent Monitor Data Heart Rate from ECG 65 NIBP 105/66 NIBP BP-Mean 79 Respiration from ECG 20 SpO2 95 I&O: 10/31/19 11/01/19 11/02/19 06:59 06:59 06:59 Intake Total 700 790 Output Total 120 100 Balance 580 690 Result Diagrams: 11/01/19 06:15 11/01/19 06:15 Additional Labs: Accuchecks 11/01/19 10/31/19 10/31/19 05:38 20:54 16:58 POC Glucose 136 H 144 H 144 H 10/31/19 10:45 POC Glucose 136 H Hospitalist ROS - Review of Systems Constitutional: denies: fever, chills Respiratory: denies: cough, shortness of breath Cardiovascular: denies: chest pain, palpitations Gastrointestinal: reports: abdominal pain. denies: nausea, vomiting, diarrhea, constipation Genitourinary: denies: dysuria, frequency - Medication Medications: Active Medications Generic Name Dose Route Start Last Admin Trade Name Freq PRN Reason Stop Dose Admin Acetaminophen/Codeine Phosphate 2 tab 10/29/19 08:59 10/31/19 10:13 Tylenol #3 PO 2 tab Q4H PRN Administration Moderate Pain (4-6) Atorvastatin Calcium 40 mg 10/28/19 21:00 10/31/19 21:59 Lipitor PO 40 mg HS TRISTAN Administration Furosemide 20 mg 10/28/19 09:00 10/31/19 10:14 Lasix PO 20 mg DAILY TRISTAN Administration Hydrocortisone Sodium Succinate 25 mg 10/30/19 06:00 10/31/19 21:40 Solu-Cortef IVP 25 mg Q8HR TRISTAN Administration Sodium Chloride 1,000 mls @ 100 mls/hr 10/29/19 06:00 10/31/19 21:42 Normal Saline 0.9% IV 1,000 mls .Q10H TRISTAN Administration Ciprofloxacin/Dextrose 400 mg/ 200 mls @ 200 mls/hr 10/30/19 11:00 10/31/19 23:31 Device IVPB 200 mls 1100,2300 TRISTAN Administration Metronidazole 500 mg/ Device 100 mls @ 100 mls/hr 10/30/19 14:00 10/31/19 21: 52 IVPB 100 mls Q8HR TRISTAN Administration Ibuprofen 400 mg 10/30/19 17:09 10/31/19 12:33 Motrin PO 400 mg Q8H PRN Administration Pain Losartan Potassium 25 mg 10/28/19 09:00 10/31/19 10:28 Cozaar PO 25 mg DAILY TRISTAN Administration Ondansetron HCl 4 mg 10/22/19 20:09 10/31/19 06:44 Zofran IVP 4 mg Q6H PRN Administration Nausea/Vomiting Pantoprazole Sodium 40 mg 10/29/19 21:00 10/31/19 21:46 Protonix IVP 40 mg Q12HR TRISTAN Administration Sodium Chloride 10 ml 10/23/19 21:00 10/31/19 21:52 Flush - Normal Saline IVF 10 ml Q12HR TRISTAN Administration - Exam General Appearance: NAD, awake alert ENT: moist mucosa Heart: RRR, no murmur, no gallops, no rubs Respiratory: CTAB, no wheezes, no rales, no ronchi Gastrointestinal: soft, non-distended, normal bowel sounds Gastrointestinal - other findings: normal postop TTP especially in RUQ Psychiatric: normal affect, normal behavior Hosp A/P (1) Bacteremia due to Klebsiella pneumoniae Code(s): R78.81 - BACTEREMIA; B96.1 - KLEBSIELLA PNEUMONIAE THE CAUSE OF DISEASES CLASSD ELSWHR Status: Acute (2) Ascending cholangitis Code(s): K83.09 - OTHER CHOLANGITIS Status: Acute (3) Choledocholithiasis with acute cholecystitis Code(s): K80.42 - CALCULUS OF BILE DUCT W ACUTE CHOLECYSTITIS W/O OBSTRUCTION Status: Acute (4) Combined systolic and diastolic heart failure Code(s): I50.40 - UNSP COMBINED SYSTOLIC AND DIASTOLIC (CONGESTIVE) HRT FAIL Status: Acute (5) Severe aortic stenosis Code(s): I35.0 - NONRHEUMATIC AORTIC (VALVE) STENOSIS Status: Chronic (6) CAD (coronary artery disease) Code(s): I25.10 - ATHSCL HEART DISEASE OF [place] CORONARY ARTERY W/O ANG PCTRS Status: Acute (7) Acute pulmonary embolus Code(s): I26.99 - OTHER PULMONARY EMBOLISM WITHOUT ACUTE COR PULMONALE Status : Chronic (8) Dysphagia Code(s): R13.10 - DYSPHAGIA, UNSPECIFIED Status: Acute Qualifiers: Dysphagia type: unspecified Qualified Code(s): R13.10 - Dysphagia, unspecified (9) Gout Code(s): M10.9 - GOUT, UNSPECIFIED Status: Chronic Qualifiers: Gout site: unspecified site Gout etiology: unspecified cause Chronicity: chronic Presence of tophus: without tophus Qualified Code(s): M1A.9XX0 - Chronic gout, unspecified, without tophus (tophi) (10) HTN (hypertension) Code(s): I10 - ESSENTIAL (PRIMARY) HYPERTENSION Status: Chronic Qualifiers: Hypertension type: essential hypertension Qualified Code(s): I10 - Essential (primary) hypertension (11) Hyperlipidemia Code(s): E78.5 - HYPERLIPIDEMIA, UNSPECIFIED Status: Chronic (12) UTI (urinary tract infection) Status: Acute (13) Anemia due to acute blood loss Code(s): D62 - ACUTE POSTHEMORRHAGIC ANEMIA Status: Acute (14) GI bleeding Code(s): K92.2 - GASTROINTESTINAL HEMORRHAGE, UNSPECIFIED Status: Acute - Plan is on cipro, flagyl, coreg, cozaar, iv fluids serial H/H, transfused 1 u prbc yesterday and H/H stable since then. off eliquis due to hematemesis or hemoptysis/ melena s/p lap cholecystectomy 10/30/2019 had ercp with extraction of cbd sludge and sphinterotomy on 10/23/19 had cath on 10/28/2019, shows cad with severe mobilize as tolerated, has deconditioning EGD this AM without obvious source of blood loss, GI recommending tagged RBC scan to make sure no active bleeding will need placement eventually
--- NOTE | 2019-11-01 09:08 | OP ---
DATE OF PROCEDURE: 11/01/2019 PROCEDURE PERFORMED: Esophagogastroduodenoscopy with control of hemorrhage. INDICATIONS FOR PROCEDURE: Anemia, melena. DESCRIPTION OF PROCEDURE: After the risks and benefits of the procedure were explained to the patient including risks of bleeding, infection, perforation, reactions to anesthesia, aspiration and/or pain, informed consent was obtained. The patient was then taken to the endoscopy suite, where he was maneuvered into the left lateral decubitus position, followed by deep sedation via propofol/ketamine via Anesthesia support. Once adequate sedation was achieved, the therapeutic gastroscope was introduced into the mouth with intubation of the esophagus, stomach, and the proximal small intestines with the findings listed below. The patient tolerated the procedure well with no immediate perioperative complications. On conclusion of the procedure, all equipment was removed from the patient and he was transferred to PACU in satisfactory condition. FINDINGS: Esophagus: Normal-appearing mucosa was seen in the proximal and mid esophagus. At the junction between the mid and distal esophagus, there were 2 small (1-2 mm) clean based lesions what appeared to be ulcerations, but there was no evidence or high-risk stigmata of active or recent bleeding. These were not intervened upon during this examination. Otherwise, normal-appearing mucosa was seen in the distal esophagus. The diaphragmatic pinch was well seen at 45 cm past the incisors while the gastroesophageal junction was seen at 43 cm indicating a 2 cm hiatal hernia. There was no evidence of Mike erosions or ulcerations with this particular finding. There was no evidence of erosions, mass lesions, or active/recent bleeding during this portion of the exam. Stomach: Normal-appearing mucosa was seen in the gastric cardia, fundus, proximal body, antrum, and incisura. However, there was one small focal area of submucosal hemorrhage seen at the junction between the body and the antrum that did not display any evidence of recent bleeding. However, given his recent melena and anemia, there was some concern that this may be a possible bleeding source, so was intervened upon with argon plasma coagulation with good hemostasis achieved and no bleeding seen at the end of the maneuver. Otherwise, there was no evidence of erosions, ulcerations, mass lesions, or active/recent bleeding. Duodenum: Normal-appearing mucosa was seen in both the duodenal bulb and second portion of the duodenum. There was no evidence of erosions, ulcerations, mass lesions, or active/recent bleeding. IMPRESSION: 1. A 2-3 mm submucosal hemorrhage between the junction of the body and the antrum seen in the stomach without evidence of recent or active bleeding, status post argon plasma coagulation with good hemostasis achieved. 2. A 2 cm hiatal hernia. 3. A possible small nonbleeding ulcer seen in the esophagus, but not intervened upon given its low risk of bleeding. RECOMMENDATIONS: 1. Would continue to trend his H and H and transfuse as necessary to maintain an H and H of 7/21. 2. Continue to monitor clinically for signs of active GI bleeding. 3. Would recommend a tagged red cell scan for further localization of any possible bleeding source given the minimal findings seen on upper endoscopy today. 4. Would continue the patient on pantoprazole IV b.i.d. 5. We will continue to hold any anticoagulation until the results of the tagged red cell scan is known. 6. Treatment of sepsis/bacteremia per antibiotics. We will continue to follow. Please call with any questions. Job ID: [id number]
[2019-11-01] MEDS: Hydrocortisone Sod Succ/PF 100 mg/2 ml Vial IVP SCH ×3 (09:16→22:37)
[2019-11-01] MEDS: metroNIDAZOLE 500 MG in Premix Bag 1 BAG IVPB SCH ×2 (09:17→09:52)
[2019-11-01] MEDS: Pantoprazole 40 MG VIAL IVP SCH ×2 (09:17→22:37)
[2019-11-01] MEDS: Carvedilol 3.125 MG TAB PO SCH ×2 (09:18→22:36)
[2019-11-01] MEDS: Losartan 25 MG TAB PO SCH (09:18)
[2019-11-01] MEDS: Furosemide 20 MG TAB PO SCH (09:18)
[2019-11-01] MEDS: Sodium Chloride 0.9% 1,000 ML IV SCH (10:00)
[2019-11-01] MEDS ORDERED: Ciprofloxacin 500 MG TAB PO SCH (10:00)
--- NOTE | 2019-11-01 10:27 | PRG ---
DATE OF SERVICE: 11/01/2019 SUBJECTIVE: Mr. Jacob is a 69-year-old man, postoperative day #2, status post laparoscopic cholecystectomy for acute cholecystitis with cholelithiasis. The patient is awake and alert this morning. He reports adequate pain control. He denies any nausea or vomiting. OBJECTIVE: VITAL SIGNS: This morning include blood pressure 122/65, pulse 57, respiratory rate is 18, temperature is 98.6 degrees Fahrenheit. The patient has been afebrile since surgery. Oxygen saturation is 97% on 2 L by nasal cannula oxygen. ABDOMEN: Soft, nontender, and nondistended. All incisions are intact, clean, dry. Tal-Ferreira drain returns serous fluid. Drain was removed without incident. LABORATORY FINDINGS: Today include a CBC with 4500 white blood cells, hemoglobin and hematocrit are stable at 8.3 and 25.6 respectively. Platelet count is also stable at 112,000. Metabolic profile; sodium 138, potassium 3.9, chloride is 111, bicarb is 23, BUN is 16, creatinine is 0.54, glucose is 116, magnesium 1.9, and phosphorus 2.4. IMPRESSION: 1. Postoperative day #2, status post laparoscopic cholecystectomy. 2. Klebsiella bacteremia, currently afebrile since surgery. PLAN: 1. Increase activity per Physical and Occupational Therapy. 2. Increase diet as the patient tolerates. 3. We will convert antibiotics to p.o., and if tolerating, consideration will be given to discontinuing the previous central venous catheter. Job ID: [id number]
[2019-11-01] MEDS ORDERED: Lidocaine 1% PF 5 ML VIAL ONE (11:26)
[2019-11-01] MEDS: metroNIDAZOLE 500 MG TAB PO SCH ×2 (15:00→22:36)
--- NOTE | 2019-11-01 15:44 | NM ---
Nuclear medicine GI bleeding scan: 11/01/2019 HISTORY: 69-year-old male with anemia and melena, on anticoagulation medication. TECHNIQUE: 26.1 mCi technetium 99m tagged erythrocytes injected IV. Anterior view abdominal dynamic scintigraphy for a total of 91 minutes, reviewed on cine. FINDINGS: There is no evidence of active GI bleeding. IMPRESSION: Negative
[2019-11-01] MEDS: Atorvastatin Calcium 40 MG TAB PO SCH (22:36)
[2019-11-01] MEDS: Acetaminophen/Codeine 30-300mg Tablet PO PRN (23:09)
[2019-11-02 06:53] LABS: #Monocytes 0.3 thou/uL (0.11-0.59); #Neutrophils 2.5 thou/uL (1.40-6.50); %Eosinophils 0.5 % (0.0-10.0); %Lymphocytes 25.9 % (21.0-51.0); %Monocytes 6.9 % (0.0-10.0); %Neutrophils 65.6 % (42.0-75.0); Hemoglobin 8.6 g/dL (14.0-18.0); Mean Corpuscular HGB CONC 33.2 g/dL (32.0-36.0); Mean Corpuscular Hemoglobin 29.4 pg (27.0-31.0); Mean Corpuscular Volume 88.5 fL (78.0-98.0); Mean Platelet Volume 10.6 fL (7.4-10.4); Platelet Count 122 thou/uL (130-400); RBC Distribution Width 17.4 % (11.5-14.5); Red Blood Cell (RBC) Count 2.92 mill/uL (4.70-6.10); White Blood Cell (WBC) Count 3.9 thou/uL (4.8-10.8)
[2019-11-02 06:59] LABS: INR-International Normal Ratio 1.9; Prothrombin Time 21.7 sec (12.0-14.7)
[2019-11-02 07:12] LABS: Anion Gap 7 mmol/L (10-20); BUN (Urea Nitrogen) 11 mg/dL (8.4-25.7); Calc. Creatinine Clearance 181 mL/min (70-130); Calcium 8.1 mg/dL (7.8-10.44); Carbon Dioxide 26 mmol/L (23-31); Chloride 108 mmol/L (98-107); Estimated GFR-MDRD Greater than 90; Glucose 103 mg/dL (83-110); Potassium 3.5 mmol/L (3.5-5.1); Sodium 137 mmol/L (136-145)
[2019-11-02] MEDS: Hydrocortisone Sod Succ/PF 100 mg/2 ml Vial IVP SCH (07:15)
[2019-11-02] MEDS: Acetaminophen 325 MG TAB PO SCH ×3 (07:16→18:14)
--- NOTE | 2019-11-02 07:23 | PDOC.HOSPP ---
- Subjective Encounter Date: 11/02/19 Encounter Time: 10:00 Subjective: Patient with some abdominal soreness. No other complaints. - Objective Vital Signs & Weight: Vital Signs (12 hours) Temp Pulse Resp BP BP Pulse Ox 11/02/19 04:00 97.6 F 67 18 142/73 H 97 11/01/19 23:42 97.5 F L 62 14 141/74 H 99 11/01/19 21:15 99 11/01/19 21:11 97.5 F L 62 18 135/78 99 Weight Admit Weight 217 lb Weight 225 lb 3.2 oz Most Recent Monitor Data Heart Rate from ECG 65 NIBP 105/66 NIBP BP-Mean 79 Respiration from ECG 20 SpO2 95 I&O: 11/01/19 11/02/19 11/03/19 06:59 06:59 06:59 Intake Total 790 1718 Output Total 100 95 Balance 690 1623 Result Diagrams: 11/02/19 06:40 11/02/19 06:40 Additional Labs: Accuchecks 11/01/19 11/01/19 11/01/19 22:58 16:50 10:48 POC Glucose 122 H 119 H 131 H Hospitalist ROS - Review of Systems Constitutional: denies: fever, chills Respiratory: denies: cough, shortness of breath Cardiovascular: denies: chest pain, palpitations Gastrointestinal: reports: abdominal pain. denies: nausea, vomiting, diarrhea, constipation - Medication Medications: Active Medications Generic Name Dose Route Start Last Admin Trade Name Freq PRN Reason Stop Dose Admin Acetaminophen 325 mg 11/01/19 12:00 11/02/19 07:16 Tylenol PO 325 mg Q6HR TRISTAN Administration Acetaminophen/Codeine Phosphate 1 tab 10/29/19 08:59 11/01/19 23:09 Tylenol #3 PO 1 tab Q4H PRN Administration Mild Pain (1-3) Acetaminophen/Codeine Phosphate 2 tab 10/29/19 08:59 10/31/19 10:13 Tylenol #3 PO 2 tab Q4H PRN Administration Moderate Pain (4-6) Atorvastatin Calcium 40 mg 10/28/19 21:00 11/01/19 22:36 Lipitor PO 40 mg HS TRISTAN Administration Carvedilol 3.125 mg 11/01/19 09:00 11/01/19 22:36 Coreg PO 3.125 mg BID TRISTAN Administration Furosemide 20 mg 10/28/19 09:00 11/01/19 09:18 Lasix PO 20 mg DAILY TRISTAN Administration Hydrocortisone Sodium Succinate 25 mg 10/30/19 06:00 11/02/19 07:15 Solu-Cortef IVP 25 mg Q8HR TRISTAN Administration Ibuprofen 400 mg 10/30/19 17:09 10/31/19 12:33 Motrin PO 400 mg Q8H PRN Administration Pain Losartan Potassium 25 mg 10/28/19 09:00 11/01/19 09:18 Cozaar PO 25 mg DAILY TRISTAN Administration Metronidazole 500 mg 11/01/19 15:00 11/01/19 22:36 Flagyl PO 11/06/19 15:01 500 mg TID TRISTAN Administration Ondansetron HCl 4 mg 10/22/19 20:09 10/31/19 06:44 Zofran IVP 4 mg Q6H PRN Administration Nausea/Vomiting Pantoprazole Sodium 40 mg 10/29/19 21:00 11/01/19 22:37 Protonix IVP 40 mg Q12HR TRISTAN Administration Sodium Chloride 10 ml 10/23/19 21:00 11/01/19 22:39 Flush - Normal Saline IVF 10 ml Q12HR TRISTAN Administration Sodium Chloride 10 ml 10/31/19 11:05 11/01/19 09:18 Flush - Normal Saline IVF 10 ml PRN PRN Administration Saline Flush - Exam General Appearance: NAD, awake alert ENT: moist mucosa Heart: RRR, no murmur, no gallops, no rubs Respiratory: CTAB, no wheezes, no rales, no ronchi Gastrointestinal: soft, non-distended, normal bowel sounds Gastrointestinal - other findings: incisions healing well, mild postop tenderness to palpation Musculoskeletal: normal tone, normal strength Psychiatric: normal affect, normal behavior Hosp A/P (1) Bacteremia due to Klebsiella pneumoniae Code(s): R78.81 - BACTEREMIA; B96.1 - KLEBSIELLA PNEUMONIAE THE CAUSE OF DISEASES CLASSD ELSWHR Status: Acute (2) Ascending cholangitis Code(s): K83.09 - OTHER CHOLANGITIS Status: Acute (3) Choledocholithiasis with acute cholecystitis Code(s): K80.42 - CALCULUS OF BILE DUCT W ACUTE CHOLECYSTITIS W/O OBSTRUCTION Status: Acute (4) Combined systolic and diastolic heart failure Code(s): I50.40 - UNSP COMBINED SYSTOLIC AND DIASTOLIC (CONGESTIVE) HRT FAIL Status: Acute (5) Severe aortic stenosis Code(s): I35.0 - NONRHEUMATIC AORTIC (VALVE) STENOSIS Status: Chronic (6) CAD (coronary artery disease) Code(s): I25.10 - ATHSCL HEART DISEASE OF [place] CORONARY ARTERY W/O ANG PCTRS Status: Acute (7) Acute pulmonary embolus Code(s): I26.99 - OTHER PULMONARY EMBOLISM WITHOUT ACUTE COR PULMONALE Status : Chronic (8) Dysphagia Code(s): R13.10 - DYSPHAGIA, UNSPECIFIED Status: Acute Qualifiers: Dysphagia type: unspecified Qualified Code(s): R13.10 - Dysphagia, unspecified (9) Gout Code(s): M10.9 - GOUT, UNSPECIFIED Status: Chronic Qualifiers: Gout site: unspecified site Gout etiology: unspecified cause Chronicity: chronic Presence of tophus: without tophus Qualified Code(s): M1A.9XX0 - Chronic gout, unspecified, without tophus (tophi) (10) HTN (hypertension) Code(s): I10 - ESSENTIAL (PRIMARY) HYPERTENSION Status: Chronic Qualifiers: Hypertension type: essential hypertension Qualified Code(s): I10 - Essential (primary) hypertension (11) Hyperlipidemia Code(s): E78.5 - HYPERLIPIDEMIA, UNSPECIFIED Status: Chronic (12) UTI (urinary tract infection) Status: Acute (13) Anemia due to acute blood loss Code(s): D62 - ACUTE POSTHEMORRHAGIC ANEMIA Status: Acute (14) GI bleeding Code(s): K92.2 - GASTROINTESTINAL HEMORRHAGE, UNSPECIFIED Status: Acute - Plan is on cipro, flagyl, coreg, cozaar, iv fluids serial H/H, transfused 1 u prbc 2 days ago and H/H stable since then. EGD ok and tagged RBC scan negative for bleeding off eliquis due to hematemesis or hemoptysis/ melena s/p lap cholecystectomy 10/30/2019 Was started on Hydrocortisone perioperatively to prevent hypotension. 3 days now with good BP, will d/c had ercp with extraction of cbd sludge and sphinterotomy on 10/23/19 had cath on 10/28/2019, shows cad with severe mobilize as tolerated, has deconditioning will need placement eventually
[2019-11-02] MEDS ORDERED: Potassium Chloride 20 MEQ TAB PO SCH (08:00)
--- NOTE | 2019-11-02 08:05 | PRG ---
DATE OF SERVICE: 11/01/2019 SUBJECTIVE: Mr. Jacob has no current complaints. His recent GI bleed scan was negative. He underwent cholecystectomy over the weekend successfully without any issues or problems. OBJECTIVE: VITAL SIGNS: Blood pressure 142/73, pulse 67, temperature 97.6. LUNGS: Clear to auscultation. HEART: Regular rate and rhythm. ABDOMEN: Soft, nontender, nondistended. EXTREMITIES: No edema. PERTINENT LABORATORY DATA: Hemoglobin 8.6. Creatinine 0.54. IMPRESSION: 1. Severe aortic stenosis. 2. Severe multivessel disease. 3. Previous history of coronary artery disease. 4. Anemia. 5. Recent deep venous thrombosis. RECOMMENDATIONS: This patient will likely need continued anticoagulation therapy. We will discuss with GI. I felt to withhold anticoagulation therapy due to anemia. Would consider IVC filter. From a CV standpoint, the patient appears stable. He has no current symptoms suggesting angina or congestive heart failure. We would like to stabilize prior to proceeding with stent implantation. Would plan as an outpatient. Otherwise, I have no further recommendations. We will follow up as an outpatient. Job ID: [id number]
[2019-11-02] MEDS: Carvedilol 3.125 MG TAB PO SCH ×2 (09:44→20:35)
[2019-11-02] MEDS: Losartan 25 MG TAB PO SCH (09:44)
[2019-11-02] MEDS: Saccharomyces boulardii 250 MG CAP PO SCH (09:44)
[2019-11-02] MEDS: metroNIDAZOLE 500 MG TAB PO SCH ×3 (09:44→20:35)
[2019-11-02] MEDS: Furosemide 20 MG TAB PO SCH (09:45)
--- NOTE | 2019-11-02 14:53 | PRG ---
DATE OF SERVICE: 11/02/2019 SUBJECTIVE: The patient feels fine without complaint. He has some soreness in the abdomen. There is no nausea or vomiting. No signs of overt bleeding such as melenic stool. PHYSICAL EXAMINATION: VITAL SIGNS: Temperature is 97.4, blood pressure 151/81, pulse of 61. GENERAL: He is alert. No distress. HEENT: Anicteric sclerae. Oropharynx shows poor dentition, but moist. CV: Normal S1, S2. Regular rate and rhythm. CHEST: Breath sounds. ABDOMEN: Soft, mildly tender right upper quadrant. No tympany. No distention. He has active bowel sounds. EXTREMITIES: No edema. LABORATORY DATA: WBCs 3.9, hemoglobin 8.6 (8.3 yesterday), platelet count of 122. Electrolytes within normal range. Creatinine 0.54, BUN of 11. ASSESSMENT: 1. History of melanic stool. EGD yesterday did not show any active bleeding. There was a small 3 mm area of submucosal hemorrhage in the distal stomach that was argon plasma cauterized. 2. [id number] anemia, stable. 3. Status post cholecystectomy. 4. Severe aortic stenosis. 5. Severe coronary artery disease, multivessel. 6. Recent DVT. RECOMMENDATIONS: 1. Anticoagulation can be resumed from GI standpoint as his EGD was fairly unremarkable and the patient has no signs of ongoing GI bleeding. 2. Continue pantoprazole 40 mg daily for his reflux and hiatal hernia. 3. No other GI recommendation, please recall GI service if needed. Job ID: [id number]
--- NOTE | 2019-11-02 15:52 | PRG ---
DATE OF SERVICE: 11/02/2019 SUBJECTIVE: Mr. Jacob is a 69-year-old man, who is postoperative day #3, status post laparoscopic cholecystectomy. The patient denies any dyspnea, chest pain, nausea or vomiting. He reports adequate pain control. OBJECTIVE: VITAL SIGNS: This morning includes blood pressure 141/64, pulse 67, respiratory rate is 20, temperature is 97.3 degrees Fahrenheit, oxygen saturation is 98% on 2 L by nasal cannula oxygen. ABDOMEN: Soft. Incisions are all intact with minimum incisional tenderness to palpation. He clearly has no peritoneal signs on examination. NEUROLOGIC: Reveals no focal deficits present. LABORATORY FINDINGS: Today includes a CBC with 3900 white blood cells, hemoglobin and hematocrit 8.6 and 25.8 respectively. Platelet count is 122,000. Metabolic profile; sodium 137, potassium 3.5, chloride is 108, bicarb is 26, BUN is 11, creatinine 0.54, glucose 103. IMPRESSIONS: Postoperative day #3, status post laparoscopic cholecystectomy. PLAN: Advance diet as tolerated. Above findings and plan discussed with the patient. General Surgery will sign off. The patient may be discharged at the discretion of his Primary Service. He is to follow up with me in the Surgery Clinic in 2 weeks. Job ID: [id number]
[2019-11-02] MEDS: Atorvastatin Calcium 40 MG TAB PO SCH (20:35)
[2019-11-03] MEDS: Acetaminophen 325 MG TAB PO SCH ×4 (00:16→17:48)
[2019-11-03 07:19] LABS: Anion Gap 14 mmol/L (10-20); BUN (Urea Nitrogen) 7 mg/dL (8.4-25.7); Calc. Creatinine Clearance 156 mL/min (70-130); Calcium 8.2 mg/dL (7.8-10.44); Carbon Dioxide 21 mmol/L (23-31); Chloride 107 mmol/L (98-107); Estimated GFR-MDRD Greater than 90; Glucose 91 mg/dL (83-110); Magnesium 1.6 mg/dL (1.6-2.6); Potassium 3.8 mmol/L (3.5-5.1); Sodium 138 mmol/L (136-145)
--- NOTE | 2019-11-03 07:28 | PDOC.HOSPP ---
- Subjective Encounter Date: 11/03/19 Encounter Time: 09:50 Subjective: Patient with mild abdominal soreness. No other complaints. Had an asymptomatic run of Vtach this AM for 2 minutes. - Objective Vital Signs & Weight: Vital Signs (12 hours) Temp Pulse Resp BP Pulse Ox 11/03/19 03:14 97.3 F L 61 20 124/59 L 97 11/02/19 23:32 97.4 F L 58 L 20 150/71 H 97 11/02/19 20:00 99 Weight Admit Weight 217 lb Weight 225 lb 8 oz Most Recent Monitor Data Heart Rate from ECG 65 NIBP 105/66 NIBP BP-Mean 79 Respiration from ECG 20 SpO2 95 I&O: 11/02/19 11/03/19 11/04/19 06:59 06:59 06:59 Intake Total 1838 1160 Output Total 95 Balance 1743 1160 Result Diagrams: 11/02/19 06:40 11/03/19 06:46 Additional Labs: Accuchecks 11/02/19 11/02/19 16:47 10:37 POC Glucose 128 H 135 H Hospitalist ROS - Review of Systems Constitutional: denies: fever, chills Respiratory: denies: cough, shortness of breath Cardiovascular: denies: chest pain, palpitations Gastrointestinal: denies: nausea, vomiting - Medication Medications: Active Medications Generic Name Dose Route Start Last Admin Trade Name Freq PRN Reason Stop Dose Admin Acetaminophen 325 mg 11/01/19 12:00 11/03/19 05:45 Tylenol PO Not Given Q6HR [facility] Acetaminophen/Codeine Phosphate 1 tab 10/29/19 08:59 11/01/19 23:09 Tylenol #3 PO 1 tab Q4H PRN Administration Mild Pain (1-3) Acetaminophen/Codeine Phosphate 2 tab 10/29/19 08:59 10/31/19 10:13 Tylenol #3 PO 2 tab Q4H PRN Administration Moderate Pain (4-6) Atorvastatin Calcium 40 mg 10/28/19 21:00 11/02/19 20:35 Lipitor PO 40 mg HS TRISTAN Administration Carvedilol 3.125 mg 11/01/19 09:00 11/02/19 20:35 Coreg PO 3.125 mg BID TRISTAN Administration Furosemide 20 mg 10/28/19 09:00 11/02/19 09:45 Lasix PO 20 mg DAILY TRISTAN Administration Ibuprofen 400 mg 10/30/19 17:09 10/31/19 12:33 Motrin PO 400 mg Q8H PRN Administration Pain Losartan Potassium 25 mg 10/28/19 09:00 11/02/19 09:44 Cozaar PO 25 mg DAILY TRISTAN Administration Metronidazole 500 mg 11/01/19 15:00 11/02/19 20:35 Flagyl PO 11/06/19 15:01 500 mg TID TRISTAN Administration Ondansetron HCl 4 mg 10/22/19 20:09 10/31/19 06:44 Zofran IVP 4 mg Q6H PRN Administration Nausea/Vomiting Saccharomyces Boulardii 250 mg 11/02/19 09:00 11/02/19 09:44 Florastor PO 250 mg DAILY TRISTAN Administration Sodium Chloride 10 ml 10/23/19 21:00 11/02/19 20:36 Flush - Normal Saline IVF 10 ml Q12HR TRISTAN Administration - Exam General Appearance: NAD, awake alert ENT: moist mucosa Heart: RRR, no murmur, no gallops, no rubs Respiratory: CTAB, no wheezes, no rales, no ronchi Gastrointestinal: soft, non-distended, normal bowel sounds Gastrointestinal - other findings: mild TTP Psychiatric: normal affect, normal behavior Hosp A/P (1) Bacteremia due to Klebsiella pneumoniae Code(s): R78.81 - BACTEREMIA; B96.1 - KLEBSIELLA PNEUMONIAE THE CAUSE OF DISEASES CLASSD ELSWHR Status: Resolved (2) Ascending cholangitis Code(s): K83.09 - OTHER CHOLANGITIS Status: Resolved (3) Choledocholithiasis with acute cholecystitis Code(s): K80.42 - CALCULUS OF BILE DUCT W ACUTE CHOLECYSTITIS W/O OBSTRUCTION Status: Resolved (4) Combined systolic and diastolic heart failure Code(s): I50.40 - UNSP COMBINED SYSTOLIC AND DIASTOLIC (CONGESTIVE) HRT FAIL Status: Acute (5) Severe aortic stenosis Code(s): I35.0 - NONRHEUMATIC AORTIC (VALVE) STENOSIS Status: Chronic (6) CAD (coronary artery disease) Code(s): I25.10 - ATHSCL HEART DISEASE OF [place] CORONARY ARTERY W/O ANG PCTRS Status: Acute (7) Acute pulmonary embolus Code(s): I26.99 - OTHER PULMONARY EMBOLISM WITHOUT ACUTE COR PULMONALE Status : Chronic (8) Dysphagia Code(s): R13.10 - DYSPHAGIA, UNSPECIFIED Status: Acute Qualifiers: Dysphagia type: unspecified Qualified Code(s): R13.10 - Dysphagia, unspecified (9) Gout Code(s): M10.9 - GOUT, UNSPECIFIED Status: Chronic Qualifiers: Gout site: unspecified site Gout etiology: unspecified cause Chronicity: chronic Presence of tophus: without tophus Qualified Code(s): M1A.9XX0 - Chronic gout, unspecified, without tophus (tophi) (10) HTN (hypertension) Code(s): I10 - ESSENTIAL (PRIMARY) HYPERTENSION Status: Chronic Qualifiers: Hypertension type: essential hypertension Qualified Code(s): I10 - Essential (primary) hypertension (11) Hyperlipidemia Code(s): E78.5 - HYPERLIPIDEMIA, UNSPECIFIED Status: Chronic (12) UTI (urinary tract infection) Status: Acute (13) Anemia due to acute blood loss Code(s): D62 - ACUTE POSTHEMORRHAGIC ANEMIA Status: Acute (14) GI bleeding Code(s): K92.2 - GASTROINTESTINAL HEMORRHAGE, UNSPECIFIED Status: Acute (15) V-tach Code(s): I47.2 - VENTRICULAR TACHYCARDIA Status: Resolved - Plan patient finished all antibiotics negative bleeding scan, EGD ok, and H/H stable so GI ok'd restarting Eliquis s/p lap cholecystectomy 10/30/2019 hydrocortisone d/c'd with good blood pressure had ercp with extraction of cbd sludge and sphinterotomy on 10/23/19 had cath on 10/28/2019, shows cad with severe mobilize as tolerated, has deconditioning Holding discharge due to Vtach. Dr. Hawk concerned about possible ischemia. Mag given and will watch till tomorrow. Eliquis on hold in case need to cath. when stable will d/c to [facility] with Life Vest in place F/u surgery and cardiology in 2 weeks
[2019-11-03] MEDS ORDERED: Magnesium 2 GM/50 ML 2 GM in Premix Bag 1 BAG IVPB SCH ×2 (07:30→12:15)
[2019-11-03] MEDS ORDERED: Apixaban 5 MG TAB PO SCH (09:00)
[2019-11-03] MEDS: Losartan 25 MG TAB PO SCH (11:24)
[2019-11-03] MEDS: Carvedilol 3.125 MG TAB PO SCH ×2 (11:25→20:37)
[2019-11-03] MEDS: Furosemide 20 MG TAB PO SCH (11:25)
[2019-11-03] MEDS: metroNIDAZOLE 500 MG TAB PO SCH ×3 (11:25→20:37)
[2019-11-03] MEDS: Saccharomyces boulardii 250 MG CAP PO SCH (11:25)
--- NOTE | 2019-11-03 14:13 | PRG ---
DATE OF SERVICE: 11/03/2019 SUBJECTIVE: Mr. Jacob currently has no complaints. He did have an episode of 1 minute of ventricular tachycardia, asymptomatic. This occurred earlier this morning. He denied complaining of chest pain, pressure, shortness of breath, or other associated symptoms. He states he is not able to take p.o. intake. OBJECTIVE: VITAL SIGNS: Blood pressure 145/70, pulse 62, temperature 98.4. LUNGS: Clear to auscultation. HEART: Regular rate and rhythm. ABDOMEN: Soft, nontender, nondistended. EXTREMITIES: No edema. PERTINENT LABORATORY DATA: Hemoglobin 8.6. IMPRESSION: 1. Ventricular tachycardia, new onset. 2. Ischemic cardiomyopathy. 3. Severe aortic stenosis. RECOMMENDATIONS: Episode of ventricular tachycardia may be due to multiple reasons. His magnesium level was 1.6 and felt to be on the lower limit of normal. He has been supplemented. This may also be due to aortic stenosis in addition to coronary ischemia. He did get a dose of Eliquis this morning after having a DVT and diagnosed recently. At this point, I agree with supplementation of magnesium. We will continue to monitor over the next 24 hours. We would have to wait to revascularize his right coronary artery until Friday due to recent dose of Eliquis. Of course, this would not help with his aortic stenosis if the etiology was from . This could also be multifactorial. He does have a LifeVest in place. At this point, we would repeat his magnesium level. If it is stable and he is asymptomatic over the next 24 hours, may consider close observation. We will also add amiodarone p.o. If he has continued VT, may need to consider revascularizing the right coronary artery. The LAD appears to be moderately narrowed. If stable overnight, [facility] Job ID: [id number]
[2019-11-03] MEDS: Atorvastatin Calcium 40 MG TAB PO SCH (20:36)
[2019-11-04] MEDS: Acetaminophen 325 MG TAB PO SCH ×4 (01:12→17:21)
--- NOTE | 2019-11-04 07:16 | PDOC.HOSPP ---
- Subjective Encounter Date: 11/04/19 Encounter Time: 09:10 Subjective: No complaints this morning. Stomach not hurting. Had 7 beats V-tach this AM but no symptoms. - Objective Vital Signs & Weight: Vital Signs (12 hours) Temp Pulse Resp BP Pulse Ox 11/04/19 03:19 98 F 69 20 135/65 94 L 11/04/19 00:06 97.6 F 66 20 135/66 95 11/03/19 20:00 97 11/03/19 19:44 98.1 F 66 12 133/70 97 Weight Admit Weight 217 lb Weight 225 lb 6.4 oz Most Recent Monitor Data Heart Rate from ECG 65 NIBP 105/66 NIBP BP-Mean 79 Respiration from ECG 20 SpO2 95 I&O: 11/03/19 11/04/19 11/05/19 06:59 06:59 06:59 Intake Total 1160 1170 Balance 1160 1170 Result Diagrams: 11/04/19 09:35 11/04/19 09:35 EKG Reviewed by me: Yes (7 beat Vtach this AM, asymptomatic) Hospitalist ROS - Review of Systems Constitutional: denies: fever, chills Respiratory: denies: cough, shortness of breath Cardiovascular: denies: chest pain, palpitations Gastrointestinal: denies: nausea, vomiting, abdominal pain - Medication Medications: Active Medications Generic Name Dose Route Start Last Admin Trade Name Freq PRN Reason Stop Dose Admin Acetaminophen 325 mg 11/01/19 12:00 11/04/19 05:51 Tylenol PO 325 mg Q6HR TRISTAN Administration Acetaminophen/Codeine Phosphate 1 tab 10/29/19 08:59 11/01/19 23:09 Tylenol #3 PO 1 tab Q4H PRN Administration Mild Pain (1-3) Acetaminophen/Codeine Phosphate 2 tab 10/29/19 08:59 10/31/19 10:13 Tylenol #3 PO 2 tab Q4H PRN Administration Moderate Pain (4-6) Atorvastatin Calcium 40 mg 10/28/19 21:00 11/03/19 20:36 Lipitor PO 40 mg HS TRISTAN Administration Carvedilol 3.125 mg 11/01/19 09:00 11/03/19 20:37 Coreg PO 3.125 mg BID TRISTAN Administration Furosemide 20 mg 10/28/19 09:00 11/03/19 11:25 Lasix PO 20 mg DAILY TRISTAN Administration Ibuprofen 400 mg 10/30/19 17:09 10/31/19 12:33 Motrin PO 400 mg Q8H PRN Administration Pain Losartan Potassium 25 mg 10/28/19 09:00 11/03/19 11:24 Cozaar PO 25 mg DAILY TRISTAN Administration Metronidazole 500 mg 11/01/19 15:00 11/03/19 20:37 Flagyl PO 11/06/19 15:01 500 mg TID TRISTAN Administration Ondansetron HCl 4 mg 10/22/19 20:09 10/31/19 06:44 Zofran IVP 4 mg Q6H PRN Administration Nausea/Vomiting Pantoprazole Sodium 40 mg 11/03/19 09:00 11/03/19 11:25 Protonix PO 40 mg DAILY TRISTAN Administration Saccharomyces Boulardii 250 mg 11/02/19 09:00 11/03/19 11:25 Florastor PO 250 mg DAILY TRISTAN Administration Sodium Chloride 10 ml 10/23/19 21:00 11/03/19 20:37 Flush - Normal Saline IVF 10 ml Q12HR TRISTAN Administration - Exam General Appearance: NAD, awake alert ENT: moist mucosa Heart: RRR, no murmur, no gallops, no rubs Respiratory: CTAB, no wheezes, no rales, no ronchi Gastrointestinal: soft, non-tender, non-distended, normal bowel sounds Psychiatric: normal affect, normal behavior Hosp A/P (1) Bacteremia due to Klebsiella pneumoniae Code(s): R78.81 - BACTEREMIA; B96.1 - KLEBSIELLA PNEUMONIAE THE CAUSE OF DISEASES CLASSD ELSWHR Status: Resolved (2) Ascending cholangitis Code(s): K83.09 - OTHER CHOLANGITIS Status: Resolved (3) Choledocholithiasis with acute cholecystitis Code(s): K80.42 - CALCULUS OF BILE DUCT W ACUTE CHOLECYSTITIS W/O OBSTRUCTION Status: Resolved (4) Combined systolic and diastolic heart failure Code(s): I50.40 - UNSP COMBINED SYSTOLIC AND DIASTOLIC (CONGESTIVE) HRT FAIL Status: Acute (5) Severe aortic stenosis Code(s): I35.0 - NONRHEUMATIC AORTIC (VALVE) STENOSIS Status: Chronic (6) CAD (coronary artery disease) Code(s): I25.10 - ATHSCL HEART DISEASE OF [place] CORONARY ARTERY W/O ANG PCTRS Status: Acute (7) Acute pulmonary embolus Code(s): I26.99 - OTHER PULMONARY EMBOLISM WITHOUT ACUTE COR PULMONALE Status : Chronic (8) Dysphagia Code(s): R13.10 - DYSPHAGIA, UNSPECIFIED Status: Acute Qualifiers: Dysphagia type: unspecified Qualified Code(s): R13.10 - Dysphagia, unspecified (9) Gout Code(s): M10.9 - GOUT, UNSPECIFIED Status: Chronic Qualifiers: Gout site: unspecified site Gout etiology: unspecified cause Chronicity: chronic Presence of tophus: without tophus Qualified Code(s): M1A.9XX0 - Chronic gout, unspecified, without tophus (tophi) (10) HTN (hypertension) Code(s): I10 - ESSENTIAL (PRIMARY) HYPERTENSION Status: Chronic Qualifiers: Hypertension type: essential hypertension Qualified Code(s): I10 - Essential (primary) hypertension (11) Hyperlipidemia Code(s): E78.5 - HYPERLIPIDEMIA, UNSPECIFIED Status: Chronic (12) UTI (urinary tract infection) Status: Acute (13) Anemia due to acute blood loss Code(s): D62 - ACUTE POSTHEMORRHAGIC ANEMIA Status: Acute (14) GI bleeding Code(s): K92.2 - GASTROINTESTINAL HEMORRHAGE, UNSPECIFIED Status: Acute (15) V-tach Code(s): I47.2 - VENTRICULAR TACHYCARDIA Status: Resolved - Plan patient finished all antibiotics negative bleeding scan, EGD ok, and H/H stable so GI ok'd restarting Eliquis s/p lap cholecystectomy 10/30/2019 hydrocortisone d/c'd with good blood pressure had ercp with extraction of cbd sludge and sphinterotomy on 10/23/19 had cath on 10/28/2019, shows cad with severe , RCA needs revascularization mobilize as tolerated, has deconditioning Holding discharge due to Vtach. Dr. Hawk concerned about possible ischemia. Mag given observed overnight. Eliquis on hold in case need to cath. Had few more beats Vtach this AM. when stable will d/c to SNF with [facility] in place F/u surgery and cardiology in 2 weeks
[2019-11-04 09:45] LABS: #Basophils 0.1 thou/uL (0.0-0.2); #Eosinphils 0.1 thou/uL (0.0-0.7); #Lymphocytes 1.2 thou/uL (1.20-3.40); #Monocytes 0.3 thou/uL (0.11-0.59); #Neutrophils 2.5 thou/uL (1.40-6.50); %Basophils 1.3 % (0.0-1.0); %Eosinophils 1.9 % (0.0-10.0); %Lymphocytes 29.1 % (21.0-51.0); %Monocytes 7.4 % (0.0-10.0); %Neutrophils 60.4 % (42.0-75.0); Hemoglobin 9.8 g/dL (14.0-18.0); Mean Corpuscular HGB CONC 31.6 g/dL (32.0-36.0); Mean Corpuscular Hemoglobin 28.3 pg (27.0-31.0); Mean Corpuscular Volume 89.7 fL (78.0-98.0); Mean Platelet Volume 9.8 fL (7.4-10.4); Platelet Count 172 thou/uL (130-400); RBC Distribution Width 17.9 % (11.5-14.5); Red Blood Cell (RBC) Count 3.47 mill/uL (4.70-6.10); White Blood Cell (WBC) Count 4.2 thou/uL (4.8-10.8)
[2019-11-04] MEDS: Carvedilol 3.125 MG TAB PO SCH ×2 (10:05→20:17)
[2019-11-04] MEDS: Saccharomyces boulardii 250 MG CAP PO SCH (10:05)
[2019-11-04] MEDS: Amiodarone 200 MG TAB PO SCH ×2 (10:05→20:17)
[2019-11-04] MEDS: Furosemide 20 MG TAB PO SCH (10:05)
[2019-11-04] MEDS: Losartan 25 MG TAB PO SCH (10:05)
[2019-11-04] MEDS: metroNIDAZOLE 500 MG TAB PO SCH ×3 (10:06→20:18)
[2019-11-04 10:11] LABS: Anion Gap 9 mmol/L (10-20); BUN (Urea Nitrogen) 5 mg/dL (8.4-25.7); Calc. Creatinine Clearance 175 mL/min (70-130); Calcium 7.8 mg/dL (7.8-10.44); Carbon Dioxide 28 mmol/L (23-31); Chloride 101 mmol/L (98-107); Estimated GFR-MDRD Greater than 90; Glucose 94 mg/dL (83-110); Potassium 3.2 mmol/L (3.5-5.1); Sodium 135 mmol/L (136-145)
[2019-11-04] MEDS ORDERED: Potassium Chloride 20 MEQ TAB PO SCH ×2 (11:00→23:30)
--- NOTE | 2019-11-04 16:16 | PRG ---
DATE OF SERVICE: 11/04/2019 SUBJECTIVE: Mr. Jacob had another short run of VT. No current symptoms. His hemoglobin appears stable today. OBJECTIVE: VITAL SIGNS: Blood pressure 125/64, pulse 60, temperature 97.9. LUNGS: Clear to auscultation. HEART: Regular rate and rhythm. ABDOMEN: Soft, nontender, nondistended. EXTREMITIES: No edema. PERTINENT LABORATORY DATA: Hemoglobin 9.8, up from 8.6. IMPRESSION: 1. Recurrent ventricular tachycardia. 2. Severe aortic stenosis. 3. Moderate to severe multivessel disease. 4. Anemia. 5. Recent cholecystectomy. RECOMMENDATIONS: Mr. Jacob continues to have ventricular tachycardia. This may be due to aortic stenosis versus CAD. At this point, we would recommend proceeding with intervention to the right coronary artery and possibly to the LAD. I discussed procedure in full detail with Mr. Jacob. Risks included but not limited to the following: , stroke, [place], need for emergency surgery, loss of limb, bleeding, and infection, as well as a reaction to the dye causing kidney failure and needing long-term dialysis. I also discussed the risks of PCI to include all of the above including coronary dissection and perforation in addition to acute stent thrombosis and restenosis. All questions about the procedure were answered. Given the above, the patient agreed to proceed with coronary angiography and possible PCI. All questions were answered. We would proceed with a drug coated stent if needed. Further recommendation pending the above. Job ID: [id number]
[2019-11-04] MEDS ORDERED: Communication Order-Pharmacy FS SCH (17:45)
[2019-11-04] MEDS: Atorvastatin Calcium 40 MG TAB PO SCH (20:17)
[2019-11-04 22:53] LABS: Anion Gap 13 mmol/L (10-20); BUN (Urea Nitrogen) 4 mg/dL (8.4-25.7); Calc. Creatinine Clearance 175 mL/min (70-130); Calcium 8.2 mg/dL (7.8-10.44); Carbon Dioxide 24 mmol/L (23-31); Chloride 101 mmol/L (98-107); Estimated GFR-MDRD Greater than 90; Glucose 95 mg/dL (83-110); Magnesium 1.6 mg/dL (1.6-2.6); Potassium 3.3 mmol/L (3.5-5.1); Sodium 135 mmol/L (136-145)
[2019-11-04 23:17] LABS: CKMB 0.6 ng/mL (0-6.6)
[2019-11-04] MEDS ORDERED: Magnesium 2 GM/50 ML 2 GM in Premix Bag 1 BAG IVPB SCH (23:30)
[2019-11-04] MEDS: Ondansetron PF 4 MG/2 ML Vial IVP PRN (23:34)
[2019-11-04 23:36] LABS: ALT (SGPT) 11 U/L (8-55); AST (SGOT) 19 U/L (5-34); Albumin 2.8 g/dL (3.4-4.8); Alkaline Phosphatase 90 U/L (40-110); Bilirubin, Direct 0.4 mg/dL (0.1-0.3); Bilirubin, Total 0.5 mg/dL (0.2-1.2); Protein, Total 6.1 g/dL (5.8-8.1)
[2019-11-04] MEDS: Amiodarone 450 MG, Admixture Fee 1 EACH in Dextrose 5% in Water 250 ML IVPB SCH (23:50)
[2019-11-05] MEDS: Acetaminophen 325 MG TAB PO SCH ×4 (02:10→17:11)
[2019-11-05] MEDS ORDERED: Potassium Chloride 20 MEQ TAB PO SCH ×2 (06:30→10:30)
[2019-11-05] MEDS ORDERED: Magnesium 2 GM/50 ML 2 GM in Premix Bag 1 BAG IVPB SCH (06:30)
[2019-11-05] MEDS ORDERED: Heparin 10,000 UNITS/1 ML VIAL ONE (06:37)
[2019-11-05] MEDS ORDERED: Adenosine 6 MG/2 ML VIAL ONE (07:10)
[2019-11-05] MEDS ORDERED: Nitroglycerin 100MG/250ML BOT 250 ML ONE (07:10)
[2019-11-05] MEDS ORDERED: Verapamil 5 MG/2 ML VIAL ONE (07:10)
--- NOTE | 2019-11-05 07:26 | CON ---
DATE OF CONSULTATION: SUBJECTIVE: Mr. Jacob last night had 1 hour worth of VT. His magnesium level was 1.6. He was placed on IV amiodarone with improvement in his rhythm. RECOMMENDATION: I had a long discussion with his this morning about Mr. Jacob. He has multiple reasons for having continued ventricular tachycardia including low magnesium level, aortic stenosis in addition to ischemia. I discussed all treatment options including TAVR, which is unlikely in this situation in addition to stent placement to the right coronary artery, which patient is felt to be high risk in addition supplementation of magnesium. The patient's is not interested in him being transferred to [facility] at this point. After discussing risks and benefits of all the options, she would like to proceed with stent implantation in the right coronary artery. I did state this was high risk due to heavy calcification and chance for dissection in addition to perforation as well as closure. She understands and would like to proceed. I did state that his DNR would have to be rescinded. She understands and is okay with presenting as a DNR temporarily during the procedure. We will continue to supplement with magnesium in addition to p.o. amio and IV amio. The patient has had issues with lucidity and was felt to be fairly lucid yesterday when I discussed this with Mr. Jacob. He also agreed to proceed. Risks of the procedure include, but not limited to the following: . Again all questions answered with Ms. Jacob. We will proceed. Job ID: [id number]
--- NOTE | 2019-11-05 07:35 | PDOC.HOSPP ---
- Subjective Encounter Date: 11/05/19 Encounter Time: 16:00 Subjective: Patient had cath this morning. Doing well afterward. Had run of [place] last night for one hour. - Objective Vital Signs & Weight: Vital Signs (12 hours) Temp Pulse Resp BP BP Pulse Ox 11/05/19 04:34 97.9 F 60 16 100/56 L 95 11/04/19 23:02 98.4 F 144 H 15 109/74 92 L 11/04/19 20:00 93 L Weight Admit Weight 217 lb Weight 223 lb 9.6 oz Most Recent Monitor Data Heart Rate from ECG 65 NIBP 105/66 NIBP BP-Mean 79 Respiration from ECG 20 SpO2 95 I&O: 11/04/19 11/05/19 11/06/19 06:59 06:59 06:59 Intake Total 1170 750 Balance 1170 750 Result Diagrams: 11/04/19 09:35 11/04/19 22:25 Hospitalist ROS - Review of Systems Constitutional: denies: fever, chills Respiratory: denies: cough, shortness of breath Cardiovascular: denies: chest pain, palpitations Gastrointestinal: denies: nausea, vomiting, abdominal pain, diarrhea, constipation - Medication Medications: Active Medications Generic Name Dose Route Start Last Admin Trade Name Freq PRN Reason Stop Dose Admin Acetaminophen 325 mg 11/01/19 12:00 11/05/19 05:32 Tylenol PO Not Given Q6HR [facility] Acetaminophen/Codeine Phosphate 1 tab 10/29/19 08:59 11/01/19 23:09 Tylenol #3 PO 1 tab Q4H PRN Administration Mild Pain (1-3) Acetaminophen/Codeine Phosphate 2 tab 10/29/19 08:59 10/31/19 10:13 Tylenol #3 PO 2 tab Q4H PRN Administration Moderate Pain (4-6) Amiodarone HCl 400 mg 11/04/19 09:00 11/04/19 20:17 Cordarone PO 400 mg BID TRISTAN Administration Atorvastatin Calcium 40 mg 10/28/19 21:00 11/04/19 20:17 Lipitor PO 40 mg HS TRISTAN Administration Carvedilol 3.125 mg 11/01/19 09:00 11/04/19 20:17 Coreg PO 3.125 mg BID TRISTAN Administration Furosemide 20 mg 10/28/19 09:00 11/04/19 10:05 Lasix PO 20 mg DAILY TRISTAN Administration Amiodarone HCl 450 mg/ 259 mls @ 0 mls/hr 11/04/19 23:30 11/04/19 23:50 Miscellaneous Medication 1 IVPB 259 mls each/ Dextrose/Water INF TRISTAN Administration Protocol As Directed Magnesium Sulfate 2 gm/ Device 50 mls @ 100 mls/hr 11/05/19 06:30 11/05/19 06 :29 IVPB 11/05/19 10:00 50 mls NOW TRISTAN Administration Ibuprofen 400 mg 10/30/19 17:09 10/31/19 12:33 Motrin PO 400 mg Q8H PRN Administration Pain Losartan Potassium 25 mg 10/28/19 09:00 11/04/19 10:05 Cozaar PO 25 mg DAILY TRISTAN Administration Metronidazole 500 mg 11/01/19 15:00 11/04/19 20:18 Flagyl PO 11/06/19 15:01 500 mg TID TRISTAN Administration Ondansetron HCl 4 mg 10/22/19 20:09 11/04/19 23:34 Zofran IVP 4 mg Q6H PRN Administration Nausea/Vomiting Pantoprazole Sodium 40 mg 11/03/19 09:00 11/04/19 10:05 Protonix PO 40 mg DAILY TRISTAN Administration Saccharomyces Boulardii 250 mg 11/02/19 09:00 11/04/19 10:05 Florastor PO 250 mg DAILY TRISTAN Administration Sodium Chloride 10 ml 10/23/19 21:00 11/04/19 20:18 Flush - Normal Saline IVF 10 ml Q12HR TRISTAN Administration - Exam General Appearance: NAD, awake alert ENT: moist mucosa Heart: RRR, no murmur, no gallops, no rubs Respiratory: CTAB, no wheezes, no rales, no ronchi Gastrointestinal: soft, non-tender, non-distended, normal bowel sounds Psychiatric: normal affect, normal behavior Hosp A/P (1) V-tach Code(s): I47.2 - VENTRICULAR TACHYCARDIA Status: Acute (2) Bacteremia due to Klebsiella pneumoniae Code(s): R78.81 - BACTEREMIA; B96.1 - KLEBSIELLA PNEUMONIAE THE CAUSE OF DISEASES CLASSD ELSWHR Status: Resolved (3) Ascending cholangitis Code(s): K83.09 - OTHER CHOLANGITIS Status: Resolved (4) Choledocholithiasis with acute cholecystitis Code(s): K80.42 - CALCULUS OF BILE DUCT W ACUTE CHOLECYSTITIS W/O OBSTRUCTION Status: Resolved (5) Combined systolic and diastolic heart failure Code(s): I50.40 - UNSP COMBINED SYSTOLIC AND DIASTOLIC (CONGESTIVE) HRT FAIL Status: Acute (6) Severe aortic stenosis Code(s): I35.0 - NONRHEUMATIC AORTIC (VALVE) STENOSIS Status: Chronic (7) CAD (coronary artery disease) Code(s): I25.10 - ATHSCL HEART DISEASE OF [place] CORONARY ARTERY W/O ANG PCTRS Status: Acute (8) Acute pulmonary embolus Code(s): I26.99 - OTHER PULMONARY EMBOLISM WITHOUT ACUTE COR PULMONALE Status : Chronic (9) Dysphagia Code(s): R13.10 - DYSPHAGIA, UNSPECIFIED Status: Acute Qualifiers: Dysphagia type: unspecified Qualified Code(s): R13.10 - Dysphagia, unspecified (10) Gout Code(s): M10.9 - GOUT, UNSPECIFIED Status: Chronic Qualifiers: Gout site: unspecified site Gout etiology: unspecified cause Chronicity: chronic Presence of tophus: without tophus Qualified Code(s): M1A.9XX0 - Chronic gout, unspecified, without tophus (tophi) (11) HTN (hypertension) Code(s): I10 - ESSENTIAL (PRIMARY) HYPERTENSION Status: Chronic Qualifiers: Hypertension type: essential hypertension Qualified Code(s): I10 - Essential (primary) hypertension (12) Hyperlipidemia Code(s): E78.5 - HYPERLIPIDEMIA, UNSPECIFIED Status: Chronic (13) UTI (urinary tract infection) Status: Acute (14) Anemia due to acute blood loss Code(s): D62 - ACUTE POSTHEMORRHAGIC ANEMIA Status: Acute (15) GI bleeding Code(s): K92.2 - GASTROINTESTINAL HEMORRHAGE, UNSPECIFIED Status: Acute - Plan patient finished all antibiotics negative bleeding scan, EGD ok, and H/H stable so GI ok'd restarting Eliquis s/p lap cholecystectomy 10/30/2019 had ercp with extraction of cbd sludge and sphinterotomy on 10/23/19 had cath on 10/28/2019, shows cad with severe , RCA needs revascularization mobilize as tolerated, has deconditioning Holding discharge due to Vtach. Had one hour of Vtach last night. Cath today with successful RCA balloon and stent. No transfer for TAVR at this point. Plan is to d/c to SNF with Life V[facility] in place on Friday if does well over the weekend. F/u surgery and cardiology in 2 weeks after discharge
[2019-11-05] MEDS ORDERED: Aspirin Chewable 81 MG TAB ONE (08:19)
[2019-11-05] MEDS ORDERED: Clopidogrel Bisulfate 300 MG TAB ONE (08:19)
[2019-11-05 09:50] VITALS: BMI 34.0
[2019-11-05] MEDS: metroNIDAZOLE 500 MG TAB PO SCH ×3 (10:25→20:57)
[2019-11-05] MEDS: Amiodarone 200 MG TAB PO SCH ×2 (11:27→20:57)
[2019-11-05] MEDS: Carvedilol 3.125 MG TAB PO SCH ×2 (11:27→20:57)
[2019-11-05] MEDS ORDERED: Iopamidol 370 76% 100 ML VIAL ONE (11:49)
[2019-11-05] MEDS ORDERED: Iopamidol 370 76% 50 ML VIAL FS ONE (11:49)
--- NOTE | 2019-11-05 14:12 | PRG ---
DATE OF SERVICE: 11/05/2019 Mr. Jacob recently underwent successful stent placement to the right coronary artery with two stents noted in tandem. They were a 3.5 x 20 mm 4.0 balloon catheter. There was excellent angiographic result. Also visualized the mid to distal LAD. This is not felt to be significant. He also underwent central line placement for IV access. We will restart Eliquis this afternoon. Continue Plavix and aspirin at least in the short term. We will continue IV amiodarone overnight and discontinue tomorrow. We will watch over the weekend for any further dysrhythmias. If stable, will be okay for discharge to rehab on Friday. Job ID: [id number]
[2019-11-05] MEDS: Saccharomyces boulardii 250 MG CAP PO SCH (15:40)
[2019-11-05] MEDS: Aspirin Chewable 81 MG TAB PO SCH (16:01)
[2019-11-05] MEDS: Clopidogrel Bisulfate 75 MG TAB PO SCH (16:02)
[2019-11-05] MEDS: Furosemide 20 MG TAB PO SCH (16:02)
[2019-11-05] MEDS: Losartan 25 MG TAB PO SCH (16:02)
[2019-11-05] MEDS: Acetaminophen/Codeine 30-300mg Tablet PO PRN (18:53)
[2019-11-05] MEDS: Apixaban 5 MG TAB PO SCH (20:57)
[2019-11-05] MEDS: Atorvastatin Calcium 40 MG TAB PO SCH (20:57)
--- NOTE | 2019-11-06 00:22 | EKG ---
Test Reason : STAT Blood Pressure : / mmHG Vent. Rate : 148 BPM Atrial Rate : 148 BPM P-R Int : 000 ms QRS Dur : 154 ms QT Int : 364 ms P-R-T Axes : 000 -55 139 degrees QTc Int : 571 ms Wide QRS tachycardia Left axis deviation Left bundle branch block Abnormal ECG When compared with ECG of 22-OCT-2019 17:45, (Unconfirmed) Wide QRS tachycardia has replaced Sinus rhythm Confirmed by Greer ESQUIVEL ([id number]) on 11/06/2019 12:22:02 AM Referred By: BRANDO CARRENO Confirmed By:Greer ESQUIVEL
--- NOTE | 2019-11-06 00:25 | EKG ---
Test Reason : POST STENT Blood Pressure : / mmHG Vent. Rate : 056 BPM Atrial Rate : 056 BPM P-R Int : 210 ms QRS Dur : 162 ms QT Int : 516 ms P-R-T Axes : 046 -62 109 degrees QTc Int : 497 ms Sinus bradycardia with 1st degree A-V block Left axis deviation Left bundle branch block Abnormal ECG When compared with ECG of 04-NOV-2019 22:25, (Unconfirmed) Sinus rhythm has replaced Wide QRS tachycardia Vent. rate has decreased BY 92 BPM Confirmed by Greer ESQUIVEL ([id number]) on 11/06/2019 12:25:17 AM Referred By: LESLYE Confirmed By:Greer ESQUIVEL
[2019-11-06] MEDS: Acetaminophen 325 MG TAB PO SCH ×5 (00:51→23:13)
[2019-11-06] MEDS: Amiodarone 450 MG, Admixture Fee 1 EACH in Dextrose 5% in Water 250 ML IVPB SCH (01:05)
[2019-11-06 05:09] LABS: #Eosinphils 0.1 thou/uL (0.0-0.7); #Monocytes 0.4 thou/uL (0.11-0.59); #Neutrophils 1.5 thou/uL (1.40-6.50); %Basophils 1.2 % (0.0-1.0); %Eosinophils 4.9 % (0.0-10.0); %Monocytes 11.9 % (0.0-10.0); Hemoglobin 8.8 g/dL (14.0-18.0); Mean Corpuscular HGB CONC 32.1 g/dL (32.0-36.0); Mean Corpuscular Hemoglobin 28.3 pg (27.0-31.0); Mean Corpuscular Volume 88.2 fL (78.0-98.0); Mean Platelet Volume 10.1 fL (7.4-10.4); Platelet Count 185 thou/uL (130-400); RBC Distribution Width 17.9 % (11.5-14.5); Red Blood Cell (RBC) Count 3.11 mill/uL (4.70-6.10)
[2019-11-06 05:29] LABS: ALT (SGPT) 8 U/L (8-55); AST (SGOT) 15 U/L (5-34); Albumin 2.7 g/dL (3.4-4.8); Alkaline Phosphatase 76 U/L (40-110); Anion Gap 10 mmol/L (10-20); BUN (Urea Nitrogen) Less than 4 mg/dL (8.4-25.7); Bilirubin, Total 0.5 mg/dL (0.2-1.2); Calc. Creatinine Clearance 168 mL/min (70-130); Carbon Dioxide 28 mmol/L (23-31); Chloride 101 mmol/L (98-107); Estimated GFR-MDRD Greater than 90; Glucose 95 mg/dL (83-110); Potassium 3.7 mmol/L (3.5-5.1); Protein, Total 5.7 g/dL (5.8-8.1); Sodium 135 mmol/L (136-145)
--- NOTE | 2019-11-06 07:34 | PDOC.HOSPP ---
- Subjective Encounter Date: 11/06/19 Encounter Time: 09:30 Subjective: Patient without complaint this morning. Refused his AM medications again today. No more palpitations/chest discomfort. - Objective Vital Signs & Weight: Vital Signs (12 hours) Temp Pulse Resp BP Pulse Ox 11/06/19 03:02 97.3 F L 58 L 20 96/53 L 96 11/05/19 23:45 97.5 F L 55 L 20 110/60 96 11/05/19 20:58 98 Weight Admit Weight 217 lb Weight 223 lb 12.8 oz Most Recent Monitor Data Heart Rate from ECG 65 NIBP 105/66 NIBP BP-Mean 79 Respiration from ECG 20 SpO2 95 I&O: 11/05/19 11/06/19 11/07/19 06:59 06:59 06:59 Intake Total 750 575 Balance 750 575 Result Diagrams: 11/06/19 04:43 11/06/19 04:43 Hospitalist ROS - Review of Systems Constitutional: denies: fever, chills Respiratory: denies: cough, shortness of breath Cardiovascular: denies: chest pain, palpitations Gastrointestinal: denies: nausea, vomiting, abdominal pain - Medication Medications: Active Medications Generic Name Dose Route Start Last Admin Trade Name Freq PRN Reason Stop Dose Admin Acetaminophen 325 mg 11/01/19 12:00 11/06/19 05:47 Tylenol PO 325 mg Q6HR TRISTAN Administration Acetaminophen/Codeine Phosphate 1 tab 10/29/19 08:59 11/05/19 18:53 Tylenol #3 PO 1 tab Q4H PRN Administration Mild Pain (1-3) Acetaminophen/Codeine Phosphate 2 tab 10/29/19 08:59 10/31/19 10:13 Tylenol #3 PO 2 tab Q4H PRN Administration Moderate Pain (4-6) Amiodarone HCl 400 mg 11/04/19 09:00 11/05/19 20:57 Cordarone PO 400 mg BID TRISTAN Administration Apixaban 5 mg 11/05/19 21:00 11/05/19 20:57 Eliquis PO 5 mg BID TRISTAN Administration Aspirin 81 mg 11/05/19 09:00 11/05/19 16:01 Aspirin Chewable PO Not Given DAILY TRISTAN Atorvastatin Calcium 40 mg 10/28/19 21:00 11/05/19 20:57 Lipitor PO 40 mg HS TRISTAN Administration Carvedilol 3.125 mg 11/01/19 09:00 11/05/19 20:57 Coreg PO 3.125 mg BID TRISTAN Administration Clopidogrel Bisulfate 75 mg 11/05/19 09:00 11/05/19 16:02 Plavix PO Not Given DAILY TRISTAN Furosemide 20 mg 10/28/19 09:00 11/05/19 16:02 Lasix PO Not Given DAILY [facility] Amiodarone HCl 450 mg/ 259 mls @ 0 mls/hr 11/04/19 23:30 11/06/19 01:05 Miscellaneous Medication 1 IVPB 259 mls each/ Dextrose/Water INF TRISTAN Administration Protocol As Directed Ibuprofen 400 mg 10/30/19 17:09 10/31/19 12:33 Motrin PO 400 mg Q8H PRN Administration Pain Losartan Potassium 25 mg 10/28/19 09:00 11/05/19 16:02 Cozaar PO Not Given DAILY [facility] Metronidazole 500 mg 11/01/19 15:00 11/05/19 20:57 Flagyl PO 11/06/19 15:01 500 mg TID TRISTAN Administration Ondansetron HCl 4 mg 10/22/19 20:09 11/04/19 23:34 Zofran IVP 4 mg Q6H PRN Administration Nausea/Vomiting Pantoprazole Sodium 40 mg 11/03/19 09:00 11/05/19 15:40 Protonix PO Not Given DAILY [facility] Saccharomyces Boulardii 250 mg 11/02/19 09:00 11/05/19 15:40 Florastor PO Not Given DAILY [facility] Sodium Chloride 10 ml 10/23/19 21:00 11/05/19 20:58 Flush - Normal Saline IVF 10 ml Q12HR TRISTAN Administration - Exam General Appearance: NAD, awake alert ENT: moist mucosa Heart: RRR, no murmur, no gallops, no rubs Respiratory: CTAB, no wheezes, no rales, no ronchi Gastrointestinal: soft, non-tender, non-distended, normal bowel sounds Psychiatric: normal affect, normal behavior Hosp A/P (1) V-tach Code(s): I47.2 - VENTRICULAR TACHYCARDIA Status: Acute (2) Bacteremia due to Klebsiella pneumoniae Code(s): R78.81 - BACTEREMIA; B96.1 - KLEBSIELLA PNEUMONIAE THE CAUSE OF DISEASES CLASSD ELSWHR Status: Resolved (3) Ascending cholangitis Code(s): K83.09 - OTHER CHOLANGITIS Status: Resolved (4) Choledocholithiasis with acute cholecystitis Code(s): K80.42 - CALCULUS OF BILE DUCT W ACUTE CHOLECYSTITIS W/O OBSTRUCTION Status: Resolved (5) Combined systolic and diastolic heart failure Code(s): I50.40 - UNSP COMBINED SYSTOLIC AND DIASTOLIC (CONGESTIVE) HRT FAIL Status: Acute (6) Severe aortic stenosis Code(s): I35.0 - NONRHEUMATIC AORTIC (VALVE) STENOSIS Status: Chronic (7) CAD (coronary artery disease) Code(s): I25.10 - ATHSCL HEART DISEASE OF [place] CORONARY ARTERY W/O ANG PCTRS Status: Acute (8) Acute pulmonary embolus Code(s): I26.99 - OTHER PULMONARY EMBOLISM WITHOUT ACUTE COR PULMONALE Status : Chronic (9) Dysphagia Code(s): R13.10 - DYSPHAGIA, UNSPECIFIED Status: Acute Qualifiers: Dysphagia type: unspecified Qualified Code(s): R13.10 - Dysphagia, unspecified (10) Gout Code(s): M10.9 - GOUT, UNSPECIFIED Status: Chronic Qualifiers: Gout site: unspecified site Gout etiology: unspecified cause Chronicity: chronic Presence of tophus: without tophus Qualified Code(s): M1A.9XX0 - Chronic gout, unspecified, without tophus (tophi) (11) HTN (hypertension) Code(s): I10 - ESSENTIAL (PRIMARY) HYPERTENSION Status: Chronic Qualifiers: Hypertension type: essential hypertension Qualified Code(s): I10 - Essential (primary) hypertension (12) Hyperlipidemia Code(s): E78.5 - HYPERLIPIDEMIA, UNSPECIFIED Status: Chronic (13) UTI (urinary tract infection) Status: Acute (14) Anemia due to acute blood loss Code(s): D62 - ACUTE POSTHEMORRHAGIC ANEMIA Status: Acute (15) GI bleeding Code(s): K92.2 - GASTROINTESTINAL HEMORRHAGE, UNSPECIFIED Status: Acute - Plan patient finished all antibiotics negative bleeding scan, EGD ok, and H/H stable so GI ok'd restarting Eliquis s/p lap cholecystectomy 10/30/2019 had ercp with extraction of cbd sludge and sphinterotomy on 10/23/19 had cath on 10/28/2019, shows cad with severe , RCA needs revascularization mobilize as tolerated, has deconditioning Holding discharge due to Vtach. Had one hour of Vtach 11/04/2019. Cath 11/05/2019 with successful RCA balloon and stent. No transfer for TAVR at this point. Plan is to d/c to SNF with Life V[facility] in place on Friday if does well over the weekend. F/u surgery and cardiology in 2 weeks after discharge
[2019-11-06] MEDS: Amiodarone 200 MG TAB PO SCH ×2 (08:34→21:30)
[2019-11-06] MEDS: Clopidogrel Bisulfate 75 MG TAB PO SCH (08:37)
[2019-11-06] MEDS: Aspirin Chewable 81 MG TAB PO SCH (08:39)
[2019-11-06] MEDS: Apixaban 5 MG TAB PO SCH ×2 (08:40→21:30)
[2019-11-06] MEDS: Furosemide 20 MG TAB PO SCH (08:41)
[2019-11-06] MEDS: Losartan 25 MG TAB PO SCH (08:42)
[2019-11-06] MEDS: metroNIDAZOLE 500 MG TAB PO SCH ×2 (08:43→16:29)
[2019-11-06] MEDS: Carvedilol 3.125 MG TAB PO SCH ×2 (08:44→21:31)
[2019-11-06] MEDS: Saccharomyces boulardii 250 MG CAP PO SCH (08:45)
[2019-11-06] MEDS ORDERED: Magnesium 2 GM/50 ML 2 GM in Premix Bag 1 BAG IVPB SCH (10:30)
[2019-11-06] MEDS ORDERED: Electrolyte Replacement Protocol FS PRN (10:30)
[2019-11-06] MEDS: Atorvastatin Calcium 40 MG TAB PO SCH (21:30)
[2019-11-07] MEDS: Acetaminophen 325 MG TAB PO SCH ×5 (06:16→19:13)
[2019-11-07] MEDS: Ondansetron PF 4 MG/2 ML Vial IVP PRN ×2 (08:30→21:31)
[2019-11-07] MEDS: Losartan 25 MG TAB PO SCH (08:30)
[2019-11-07] MEDS: Aspirin Chewable 81 MG TAB PO SCH (08:30)
[2019-11-07] MEDS: Apixaban 5 MG TAB PO SCH ×2 (08:30→21:31)
[2019-11-07] MEDS: Carvedilol 3.125 MG TAB PO SCH ×2 (08:31→21:31)
[2019-11-07] MEDS: Furosemide 20 MG TAB PO SCH (08:31)
[2019-11-07] MEDS: Amiodarone 200 MG TAB PO SCH ×2 (08:31→21:31)
[2019-11-07] MEDS: Clopidogrel Bisulfate 75 MG TAB PO SCH (08:31)
[2019-11-07] MEDS: Saccharomyces boulardii 250 MG CAP PO SCH (08:31)
--- NOTE | 2019-11-07 09:40 | PDOC.HOSPP ---
- Subjective Encounter Date: 11/07/19 Encounter Time: 09:38 Subjective: mild sob, some nausea - Objective Vital Signs & Weight: Vital Signs (12 hours) Temp Pulse Resp BP BP Pulse Ox 11/07/19 07:54 98 F 58 L 20 137/65 96 11/07/19 03:20 98.1 F 61 20 126/66 97 11/06/19 23:14 97.7 F 56 L 20 124/58 L 96 Weight Admit Weight 217 lb Weight 224 lb 3.2 oz Most Recent Monitor Data Heart Rate from ECG 65 NIBP 105/66 NIBP BP-Mean 79 Respiration from ECG 20 SpO2 95 I&O: 11/06/19 11/07/19 11/08/19 06:59 06:59 06:59 Intake Total 575 775 Output Total 975 Balance 575 -200 Result Diagrams: 11/06/19 04:43 11/06/19 04:43 Hospitalist ROS - Medication Medications: Active Medications Generic Name Dose Route Start Last Admin Trade Name Freq PRN Reason Stop Dose Admin Acetaminophen 325 mg 11/01/19 12:00 11/07/19 06:16 Tylenol PO Not Given Q6HR [facility] Acetaminophen/Codeine Phosphate 1 tab 10/29/19 08:59 11/05/19 18:53 Tylenol #3 PO 1 tab Q4H PRN Administration Mild Pain (1-3) Acetaminophen/Codeine Phosphate 2 tab 10/29/19 08:59 10/31/19 10:13 Tylenol #3 PO 2 tab Q4H PRN Administration Moderate Pain (4-6) Amiodarone HCl 400 mg 11/04/19 09:00 11/07/19 08:31 Cordarone PO 400 mg BID TRISTAN Administration Apixaban 5 mg 11/05/19 21:00 11/07/19 08:30 Eliquis PO 5 mg BID TRISTAN Administration Aspirin 81 mg 11/05/19 09:00 11/07/19 08:30 Aspirin Chewable PO 81 mg DAILY TRISTAN Administration Atorvastatin Calcium 40 mg 10/28/19 21:00 11/06/19 21:30 Lipitor PO 40 mg HS TRISTAN Administration Carvedilol 3.125 mg 11/01/19 09:00 11/07/19 08:31 Coreg PO 3.125 mg BID TRISTAN Administration Clopidogrel Bisulfate 75 mg 11/05/19 09:00 11/07/19 08:31 Plavix PO 75 mg DAILY TRISTAN Administration Furosemide 20 mg 10/28/19 09:00 11/07/19 08:31 Lasix PO 20 mg DAILY TRISTAN Administration Ibuprofen 400 mg 10/30/19 17:09 10/31/19 12:33 Motrin PO 400 mg Q8H PRN Administration Pain Losartan Potassium 25 mg 10/28/19 09:00 11/07/19 08:30 Cozaar PO 25 mg DAILY TRISTAN Administration Ondansetron HCl 4 mg 10/22/19 20:09 11/07/19 08:30 Zofran IVP 4 mg Q6H PRN Administration Nausea/Vomiting Pantoprazole Sodium 40 mg 11/03/19 09:00 11/07/19 08:30 Protonix PO 40 mg DAILY TRISTAN Administration Saccharomyces Boulardii 250 mg 11/02/19 09:00 11/07/19 08:31 Florastor PO 250 mg DAILY TRISTAN Administration Sodium Chloride 10 ml 10/23/19 21:00 11/07/19 08:32 Flush - Normal Saline IVF 10 ml Q12HR TRISTAN Administration - Exam General Appearance: awake alert Neck: no JVD Heart: RRR, III/IV Heart - other findings: harsh , sys murmur Gastrointestinal: soft, non-tender, normal bowel sounds Extremities: no edema Hosp A/P (1) Septic shock Code(s): A41.9 - SEPSIS, UNSPECIFIED ORGANISM; R65.21 - SEVERE SEPSIS WITH SEPTIC SHOCK Status: Acute (2) Acute pulmonary embolus Code(s): I26.99 - OTHER PULMONARY EMBOLISM WITHOUT ACUTE COR PULMONALE Status : Chronic Qualifiers: Pulmonary embolism type: unspecified Acute cor pulmonale presence: without acute cor pulmonale Qualified Code(s): I26.99 - Other pulmonary embolism without acute cor pulmonale (3) Cardiomyopathy Code(s): I42.9 - CARDIOMYOPATHY, UNSPECIFIED Status: Chronic Qualifiers: Cardiomyopathy type: unspecified Qualified Code(s): I42.9 - Cardiomyopathy , unspecified (4) Severe aortic stenosis Code(s): I35.0 - NONRHEUMATIC AORTIC (VALVE) STENOSIS Status: Chronic (5) Ascending cholangitis Code(s): K83.09 - OTHER CHOLANGITIS Status: Resolved (6) Bacteremia due to Klebsiella pneumoniae Code(s): R78.81 - BACTEREMIA; B96.1 - KLEBSIELLA PNEUMONIAE THE CAUSE OF DISEASES CLASSD ELSWHR Status: Resolved (7) Choledocholithiasis with acute cholecystitis Code(s): K80.42 - CALCULUS OF BILE DUCT W ACUTE CHOLECYSTITIS W/O OBSTRUCTION Status: Resolved (8) Acute metabolic encephalopathy Code(s): G93.41 - METABOLIC ENCEPHALOPATHY Status: Acute (9) HTN (hypertension) Code(s): I10 - ESSENTIAL (PRIMARY) HYPERTENSION Status: Chronic Qualifiers: Hypertension type: essential hypertension Qualified Code(s): I10 - Essential (primary) hypertension (10) Hyperlipidemia Code(s): E78.5 - HYPERLIPIDEMIA, UNSPECIFIED Status: Chronic - Plan life vest cont amiodarone, coreg, ARB, statin, etcfor chf/cad cont eliquis for PE discuss with cardiology
[2019-11-07] MEDS: Atorvastatin Calcium 40 MG TAB PO SCH (21:31)
[2019-11-08] MEDS: Acetaminophen 325 MG TAB PO SCH ×3 (01:31→14:52)
[2019-11-08] MEDS: Ondansetron PF 4 MG/2 ML Vial IVP PRN (09:03)
[2019-11-08] MEDS: Amiodarone 200 MG TAB PO SCH (09:03)
[2019-11-08] MEDS: Losartan 25 MG TAB PO SCH (09:04)
[2019-11-08] MEDS: Clopidogrel Bisulfate 75 MG TAB PO SCH (09:04)
[2019-11-08] MEDS: Saccharomyces boulardii 250 MG CAP PO SCH (09:04)
[2019-11-08] MEDS: Apixaban 5 MG TAB PO SCH (09:04)
[2019-11-08] MEDS: Furosemide 20 MG TAB PO SCH (09:04)
[2019-11-08] MEDS: Aspirin Chewable 81 MG TAB PO SCH (09:05)
[2019-11-08] MEDS: Carvedilol 3.125 MG TAB PO SCH (09:05)
[2019-11-08] MEDS ORDERED: Magnesium 2 GM/50 ML 2 GM in Premix Bag 1 BAG IVPB SCH (09:45)
--- NOTE | 2019-11-08 10:13 | DIS ---
DATE OF ADMISSION: 10/22/2019 DATE OF DISCHARGE: 11/08/2019 PRIMARY CARE PROVIDER: FINAL DIAGNOSES: 1. Ventricular tachycardia. 2. Pneumonia. 3. Klebsiella bacteremia. 4. Ascending cholangitis. 5. Aortic stenosis. 6. Coronary artery disease, post PCI. 7. Acute post hemorrhagic anemia. 8. Cardiomyopathy. 9. Combined systolic and diastolic heart failure. 10. Choledocholithiasis. 11. Hypertension. 12. Dyslipidemia. 13. Acute pancreatitis. 14. GI bleeding. DISCHARGE MEDICATIONS: 1. Tylenol No. 3 one or two tabs p.o. every 4 hours p.r.n. 2. Eliquis 5 mg p.o. b.i.d. 3. Aspirin 81 mg a day. 4. Lipitor 40 mg a day. 5. Coreg 3.125 mg twice a day. 6. Lasix 20 mg a day. 7. Cozaar 25 mg p.o. daily. 8. Protonix 40 mg a day. 9. Florastor 250 mg a day. 10. Flagyl 500 mg t.i.d. 11. Folic acid 1 mg daily. 12. Allopurinol 300 mg a day. ALLERGIES: CEPHALEXIN. CODE STATUS: DNAR. DIET: Heart healthy with 1500 mL a day fluid restriction. CONSULTATIONS DURING HIS HOSPITAL STAY: 1. Dr. Nuno Mac, Gastroenterology. 2. Dr. Gareth Marino, General Surgery. 3. Dr. Reji Marie, Pulmonology. 4. Dr. Brando Hill, Cardiology. PROCEDURES DONE DURING HIS HOSPITAL STAY: Cardiac cath: 20% stenosis, left mid circumflex; 60% mid LAD on 10/23/2019. On 10/23/2019, ERCP, Dr. Nuno Mac. On 10/30/2019, Dr. Gareth Marino, laparoscopic cholecystectomy. On 11/01/2019, Dr. Felipe Henderson, EGD with control of hemorrhage. Stent placement in the right coronary artery, Dr. Osmin Hawk. HOSPITAL COURSE: The patient was admitted to the hospitalist service through [facility]. The patient was brought to the emergency room unresponsive, was found to be in septic shock with evidence of pneumonia, hypotensive. The patient was placed on Levophed. Meropenem and vancomycin were started. CT suggestive of pulmonary embolism. The patient had elevation of bilirubin in liver function test. Surgery was consulted along with Gastroenterology. ERCP was done. A decision was made that he needed a cholecystectomy, but would need to be awaited until his status improved on 10/24/2019. He was still encephalopathic requiring low-dose pressors. White count was in normal limits. Hemoglobin 9.6. Diagnosis of cholangitis. He was growing Klebsiella out of his blood. His Klebsiella was pansensitive. He also grew Enterococcus out of his urine, which was resistant to cefoxitin, levofloxacin, nitrofurantoin. He was continued on support on 10/27/2019. He still had right upper quadrant pain. Diagnoses at that time were pancreatitis, pulmonary embolus, septic shock, Klebsiella bacteremia, combined systolic and diastolic heart failure, and history of Hodgkin disease. He was continued on antibiotics. He was off Levophed. He was continued on the heparin drip at that time, placed on LifeVest for his reduced EF on echocardiogram. On 10/29, he was taken to the OR, a laparoscopic cholecystectomy was done. On 10/31, he was improved. Continued on IV antibiotics for Klebsiella pneumonia bacteremia. His laboratory at that time; white count 4.5, hemoglobin 8.3, platelet count 112,000. His creatinine was 0.54, BUN 16. Electrolytes balanced. Blood sugar controlled. On 10/31, he had an EGD for melenic stools and anemia. No specific bleeding site noted. A GI bleeding scan was ordered. There was no evidence of active bleeding. On 11/04, he was seen by Dr. Osmin Hawk for his nonsustained ventricular tachycardia, placed on IV amiodarone. He underwent a successful stent placement to the right coronary artery by Dr. Hawk. If he had no further problems, he could be discharged to rehab on Friday. Today is 11/08/2019. The patient's vital signs are stable. Cardiorespiratory exam is unremarkable. Abdominal exam is unremarkable. He is being discharged to the swing bed in [facility] for continuing care. He is currently stable. He is reluctant to leave the hospital. He states he feels safer here. I have discussed the situation with him and that he will be in the hospital, where he can receive any care he needs and be transferred back here if necessary. He is exceedingly complicated patient, doing well. 40 minutes spent on this discharge. Job ID: [id number]
--- NOTE | 2019-11-08 12:28 | PRG ---
DATE OF SERVICE: 11/08/2019 SUBJECTIVE: Mr. Jacob is doing better. He has had no dysrhythmias after recent stent implantation on Friday. No further episodes of ventricular tachycardia. His magnesium level this morning was 1.6. OBJECTIVE: VITAL SIGNS: Blood pressure 139/63, pulse 70, and temperature 97.9. LUNGS: Clear to auscultation. HEART: Regular rate and rhythm. ABDOMEN: Soft, nontender, and nondistended. EXTREMITIES: No edema. IMPRESSION: 1. Severe coronary artery disease, status post stent placement. 2. Severe aortic stenosis. 3. Magnesium at lower limits of normal. 4. Cardiomyopathy. RECOMMENDATIONS: further dysrhythmias. We would recommend supplementing with p.o. magnesium to keep his levels elevated. Otherwise, I would continue carvedilol and atorvastatin. Eliquis has been resumed for DVT and recommend keeping Eliquis noted for the next 3 to 6 months. If the patient from a clinical standpoint continues to improve, may consider TAVR, but at this point, would recommend to continue medical therapy. Job ID: [id number]
[2019-11-08 16:06] VITALS: BP 132/61; TEMP 98.3
--- NOTE | 2019-11-08 22:34 | EKG ---
Test Reason : Blood Pressure : / mmHG Vent. Rate : 056 BPM Atrial Rate : 056 BPM P-R Int : 214 ms QRS Dur : 166 ms QT Int : 546 ms P-R-T Axes : 041 -48 125 degrees QTc Int : 526 ms Sinus bradycardia with 1st degree A-V block Left axis deviation Left bundle branch block Abnormal ECG When compared with ECG of 05-NOV-2019 10:11, No significant change was found Confirmed by Greer ESQUIVEL ([id number]) on 11/08/2019 10:34:06 PM Referred By: LESLYE Confirmed By:Greer ESQUIVEL
[2019-11-09] MEDS ORDERED: Prevnar 13-Val Conj/PF 0.5 ML SYRINGE IM ONE (15:45)
== END 2019-11-08 16:15 | disposition swing bed (61) | DRG 853 ==
LOC: ERS 17:37 → CCU 18:44 → 2SE 10-25 18:17 → 2NO 11-02 14:53 → 2SE 11-02 15:07
PROVIDERS: ADMIT Internal Medicine; ATTEND Internal Medicine
PROC: 06HY33Z Insertion of Infusion Device into Lower Vein, Percutaneous Approach (ICD-10-PCS; 2019-10-22)
PROC: 3E033XZ Introduction of Vasopressor into Peripheral Vein, Percutaneous Approach (ICD-10-PCS; 2019-10-22)
PROC: 0FC98ZZ Extirpation of Matter from Common Bile Duct, Via Natural or Artificial Opening Endoscopic (ICD-10-PCS; 2019-10-23)
PROC: BF131ZZ Fluoroscopy of Gallbladder and Bile Ducts using Low Osmolar Contrast (ICD-10-PCS; 2019-10-23)
PROC: 4A023N8 Measurement of Cardiac Sampling and Pressure, Bilateral, Percutaneous Approach (ICD-10-PCS; principal; 2019-10-29)
PROC: B2151ZZ Fluoroscopy of Left Heart using Low Osmolar Contrast (ICD-10-PCS; 2019-10-29)
PROC: B2111ZZ Fluoroscopy of Multiple Coronary Arteries using Low Osmolar Contrast (ICD-10-PCS; 2019-10-29)
PROC: 30233N1 Transfusion of Nonautologous Red Blood Cells into Peripheral Vein, Percutaneous Approach (ICD-10-PCS; 2019-10-29)
PROC: 30233L1 Transfusion of Nonautologous Fresh Plasma into Peripheral Vein, Percutaneous Approach (ICD-10-PCS; 2019-10-30)
PROC: 30233K1 Transfusion of Nonautologous Frozen Plasma into Peripheral Vein, Percutaneous Approach (ICD-10-PCS; 2019-10-30)
PROC: 0FT44ZZ Resection of Gallbladder, Percutaneous Endoscopic Approach (ICD-10-PCS; 2019-10-30)
PROC: 0W3P8ZZ Control Bleeding in Gastrointestinal Tract, Via Natural or Artificial Opening Endoscopic (ICD-10-PCS; 2019-11-01)
PROC: 02703EZ Dilation of Coronary Artery, One Artery with Two Intraluminal Devices, Percutaneous Approach (ICD-10-PCS; 2019-11-02)
PROC: 4A023N7 Measurement of Cardiac Sampling and Pressure, Left Heart, Percutaneous Approach (ICD-10-PCS; 2019-11-02)
PROC: B2111ZZ Fluoroscopy of Multiple Coronary Arteries using Low Osmolar Contrast (ICD-10-PCS; 2019-11-02)
DX: A41.59 Other Gram-negative sepsis (principal); J18.9 Pneumonia, unspecified organism; R65.21 Severe sepsis with septic shock; I26.99 Other pulmonary embolism without acute cor pulmonale; I21.A1 Myocardial infarction type 2; G93.41 Metabolic encephalopathy; K85.10 Biliary acute pancreatitis without necrosis or infection; J96.01 Acute respiratory failure with hypoxia; I50.43 Acute on chronic combined systolic (congestive) and diastolic (congestive) heart failure; I47.2 Ventricular tachycardia; D62 Acute posthemorrhagic anemia; Z16.24 Resistance to multiple antibiotics; C81.90 Hodgkin lymphoma, unspecified, unspecified site; I82.412 Acute embolism and thrombosis of left femoral vein; K22.10 Ulcer of esophagus without bleeding; K80.42 Calculus of bile duct with acute cholecystitis without obstruction; K92.2 Gastrointestinal hemorrhage, unspecified; D61.818 Other pancytopenia; Z20.828 Contact with and (suspected) exposure to other viral communicable diseases; Z66 Do not resuscitate; I35.0 Nonrheumatic aortic (valve) stenosis; I25.10 Atherosclerotic heart disease of native coronary artery without angina pectoris; I11.0 Hypertensive heart disease with heart failure; E78.5 Hyperlipidemia, unspecified; M10.9 Gout, unspecified; F17.220 Nicotine dependence, chewing tobacco, uncomplicated; Z96.643 Presence of artificial hip joint, bilateral; F03.90 Unspecified dementia, unspecified severity, without behavioral disturbance, psychotic disturbance, mood disturbance, and anxiety; K74.60 Unspecified cirrhosis of liver; I44.7 Left bundle-branch block, unspecified; I25.5 Ischemic cardiomyopathy; K44.9 Diaphragmatic hernia without obstruction or gangrene; R00.1 Bradycardia, unspecified; E87.6 Hypokalemia; E83.42 Hypomagnesemia; Z79.899 Other long term (current) drug therapy; Z86.73 Personal history of transient ischemic attack (TIA), and cerebral infarction without residual deficits
CPT/HCPCS: 36415; 36416; 36430; 36556; 51702; 70450; 71045; 71275; 74176; 74330; 76705; 76942; 78278; 80048; 80053; 80076; 80202; 80307; 81003; 81015; 82533; 82553; 83605; 83690; 83735; 83880; 84100; 84145; 84443; 84484; 85007; 85014; 85018; 85025; 85027; 85049; 85347; 85610; 85730; 86850; 86900; 86901; 87040; 87077; 87086; 87149; 87186; 88304; 92928; 93005; 93010; 93306; 93454; 93970; 96365; 96366; 96368; 96375; 97139; 99292; A9604; C1876; C9113; J0153; J0171; J0282; J0456; J0696; J0744; J1100; J1200; J1610; J1642; J1644; J1650; J1720; J1885; J1940; J2185; J2250; J2370; J2405; J2720; J3010; J3370; J3475; J3480; J3490; J7050; J7070; P9016; P9045; P9047; P9059; Q9966; Q9967; S0020; S0028; U0002

== ENCOUNTER 2019-11-10 16:21 | Inpatient (IN) | payer MEDICARE ==
[~2019-11-10 16:21] MED LIST changes: -Heparin 1,000 UNITS/ML VIAL ONE
[2019-11-10 17:08] LABS: #Lymphocytes 1.3 thou/uL (1.20-3.40); #Monocytes 0.5 thou/uL (0.11-0.59); #Neutrophils 3.6 thou/uL (1.40-6.50); %Basophils 0.7 % (0.0-1.0); %Eosinophils 0.8 % (0.0-10.0); %Lymphocytes 23.8 % (21.0-51.0); %Monocytes 9.1 % (0.0-10.0); %Neutrophils 65.6 % (42.0-75.0); Hemoglobin 9.4 g/dL (14.0-18.0); Mean Corpuscular HGB CONC 31.9 g/dL (32.0-36.0); Mean Corpuscular Hemoglobin 28.2 pg (27.0-31.0); Mean Corpuscular Volume 88.6 fL (78.0-98.0); Mean Platelet Volume 9.9 fL (7.4-10.4); Platelet Count 193 thou/uL (130-400); RBC Distribution Width 18.1 % (11.5-14.5); Red Blood Cell (RBC) Count 3.32 mill/uL (4.70-6.10); White Blood Cell (WBC) Count 5.5 thou/uL (4.8-10.8)
[2019-11-10 17:13] LABS: INR-International Normal Ratio 1.8; PTT 38.2 sec (22.9-36.1); Prothrombin Time 20.6 sec (12.0-14.7)
--- NOTE | 2019-11-10 17:28 | RAD ---
EXAM: CHEST ONE VIEW HISTORY: Altered mental status COMPARISON: 11/10/2019 obtained from [facility]. FINDINGS: Cardiac silhouette is magnified by projection and shallow depth inspiration but does appear mildly en larged. There is increased perihilar interstitial opacities and pulmonary vascular congestion. Linear densities are seen in the left midlung zone and at the left lung base. Calcified granuloma is present at the right lung base. Right hemidiaphragm is mildly elevated. Severe bilateral glenohumeral osteoarthropathy is noted. Metallic device overlying the chest on prior study is no long er seen. No other interval change. IMPRESSION: Bilateral perihilar interstitial opacities which may be represent pulmonary edema or infectious proce ss.
[2019-11-10 17:34] LABS: ALT (SGPT) 7 U/L (8-55); AST (SGOT) 13 U/L (5-34); Albumin 2.9 g/dL (3.4-4.8); Alkaline Phosphatase 72 U/L (40-110); Anion Gap 11 mmol/L (10-20); BUN (Urea Nitrogen) 8 mg/dL (8.4-25.7); Bilirubin, Total 0.6 mg/dL (0.2-1.2); CK (CPK) 28 U/L (30-200); Calc. Creatinine Clearance 0 mL/min (70-130); Calcium 8.2 mg/dL (7.8-10.44); Carbon Dioxide 26 mmol/L (23-31); Chloride 97 mmol/L (98-107); Estimated GFR-MDRD Greater than 90; Globulin 3.6 g/dL (2.4-3.5); Glucose 105 mg/dL (83-110); Potassium 4.4 mmol/L (3.5-5.1); Protein, Total 6.5 g/dL (5.8-8.1); Sodium 130 mmol/L (136-145)
[2019-11-10 17:49] LABS: CKMB 0.3 ng/mL (0-6.6)
--- NOTE | 2019-11-10 18:23 | CT ---
CT ABDOMEN AND PELVIS WITH IV CONTRAST: 11/10/19 PROVIDED CLINICAL HISTORY: Abdominal pain. FINDINGS: Comparison is made with the CT examination dated 10/22/19 and 09/11/19. There is interval development of bilateral pleural fluid, right greater than left. Multiple calcifica tions are again seen along the pleural aspects of the right lung base. Interval changes of cholecystectomy with pneumobilia presumably on the basis of sphincterotomy. There is no evidence for a fluid collection within the gallbladder fossa. The spleen appears stable with s everal nonspecific fluid density foci at the caudal aspects of the spleen laterally. The pancreas, ki dneys and adrenal glands demonstrate no acute abnormality. Simple appearing cysts are again seen invo lving the kidneys. There is no concerning intraperitoneal fat stranding. There is no evidence of free intraperitoneal fl uid or free intraperitoneal air. Evaluation is limited due to beam hardening artifact from bilateral hip arthroplasties which obscures portions of the pelvis. There is stable left periacetabular density likely reflecting particle disease. There is evidence for asymmetric liner wear involving both hips. There is no evidence for hardware loosening or migration. Vascular calcifications are seen. The osseous structures demonstrate no concerning lytic or blastic lesions. IMPRESSION: 1. Interval changes of cholecystectomy without evidence for complication. 2. Development of bilateral pleural fluid, right greater than left. 3. Other chronic findings as above. POS: ALICIA
[2019-11-10 19:29] LABS: Bilirubin Negative (Negative); Blood, Urine Negative (Negative); Clarity Clear (Clear); Glucose, Urine (Dipstick) Normal (Negative); Ketone, Urine Negative (Negative); Leukocyte Negative Leu/uL (Negative); Nitrite Negative (Negative); Protein, Urine (Dipstick) 20 mg/dL (Neg-Trace); Urobilinogen Normal mg/dL (Less than 2); pH, Urine 7.5 (5.0-9.0)
[2019-11-10 21:59] LABS: Troponin I 0.061 ng/mL (< 0.028)
[2019-11-10 22:37] LABS: SARS-CoV-2 NAA Rapid Test Not Detected (NotDetected)
[2019-11-11] MEDS ORDERED: hydrALAZINE 20 MG/ML VIAL SLOW IVP PRN (00:41)
[2019-11-11] MEDS ORDERED: Polyethylene Glycol 3350 17 GM Packet PO PRN (00:41)
[2019-11-11] MEDS ORDERED: Bisacodyl 10 MG SUPP PR PRN (00:41)
[2019-11-11] MEDS ORDERED: Ondansetron PF 4 MG/2 ML Vial IVP PRN (00:41)
[2019-11-11] MEDS ORDERED: Ondansetron ODT 4 MG TAB PO PRN (00:41)
[2019-11-11] MEDS ORDERED: Acetaminophen 500 MG TAB PO PRN (00:41)
[2019-11-11 00:46] VITALS: BMI 33.9
[2019-11-11 01:06] LABS: Troponin I 0.058 ng/mL (< 0.028)
--- NOTE | 2019-11-11 01:18 | HP ---
PRIMARY CARE PROVIDER: DEEPAK [facility]. CHIEF COMPLAINT: Altered mental status. HISTORY OF PRESENT ILLNESS: This is a 69-year-old male who presents to [facility] Emergency Department after apparently a Code Green was called to room 101 at [facility] where patient is currently admitted. The patient was noted with altered mental status and confusion as well as lethargy. Initially, patient was evaluated and was noted with questionable right-sided weakness. The patient was apparently talking with staff during his morning breakfast, but less responsive than his normal baseline. The patient's history is significant for recent 17 day hospital stay eat [facility] from 10/22/2019 through 11/08/2019 for sepsis, Klebsiella bacteremia, ventricular tachycardia status post cardiac catheterization as well as LifeVest application and cholecystectomy due to choledocholithiasis. The patient was transferred to [facility] for convalescence and physical therapy where he has been participating. The patient was noted febrile with a temperature of 100.9 degrees Fahrenheit and underwent multiple testing including CT imaging of the brain as well as CT angiogram of the head and neck, all with negative results. Screening metabolic survey was essentially unremarkable and patient received IV fluids with lactated Ringer's in addition to Levaquin and vancomycin. The patient also received Toradol IV push and was referred to [facility] for further evaluation. The patient currently states he feels fine, but has minimal recollection of the events earlier in the day when he has this fever. The patient has no localizing complaints currently and states he would like to eat. PAST MEDICAL HISTORY: 1. Metabolic encephalopathy. 2. Choledocholithiasis status post cholecystectomy. 3. Hodgkin's lymphoma in . 4. History of avascular necrosis. 5. Gout. 6. Hyperlipidemia. 7. Hypertension. 8. Hyponatremia. 9. Dysphagia. 10. History of falls. 11. Coronary artery disease. 12. Ventricular tachycardia with current LifeVest application. 13. Recent Klebsiella pneumonia with bacteremia. 14. GI bleed. 15. Aortic stenosis. 16. Combined systolic-diastolic congestive heart failure. PAST SURGICAL HISTORY: 1. Status post cardiac stent placement x2. 2. Status post bilateral total hip arthroplasty. 3. Status post laparoscopic cholecystectomy. 4. Status post EGD with ERCP due to GI bleed. CURRENT MEDICATIONS: Based on recent discharge 11/08/2019: 1. Tylenol No. 3 one to two tablets p.o. q.4 hours p.r.n. 2. Eliquis 5 mg p.o. b.i.d. 3. Aspirin 81 mg p.o. daily. 4. Lipitor 40 mg p.o. daily. 5. Coreg 3.125 mg p.o. b.i.d. 6. Lasix 20 mg p.o. daily. 7. Cozaar 25 mg p.o. daily. 8. Protonix 40 mg p.o. daily. 9. Florastor 250 mg p.o. daily. 10. Flagyl 500 mg p.o. t.i.d. 11. Folic acid 1 mg p.o. daily. 12. Allopurinol 300 mg p.o. daily. ALLERGIES: TO KEFLEX. FAMILY HISTORY: Positive for coronary artery disease and hypertension. SOCIAL HISTORY: Resides at [facility]. Smokeless tobacco abuse. No alcohol or illicit drug use. Minimally ambulatory, needing maximal assistance for activities of daily living. REVIEW OF SYSTEMS: CONSTITUTIONAL: Negative for weight loss or gain, ability to conduct usual activities. SKIN: Negative for rash, itching. EYES: Negative for double vision, pain. ENT/MOUTH: Negative for nose bleeding, neck stiffness, pain, tenderness. CARDIOVASCULAR: Negative for palpitations, dyspnea on exertion, orthopnea. RESPIRATORY: Negative for shortness of breath, wheezing, cough, hemoptysis, fever or night sweats. GASTROINTESTINAL: Negative for poor appetite, abdominal pain, heartburn, nausea , vomiting, constipation, or diarrhea. GENITOURINARY: Negative for urgency, frequency, dysuria, nocturia. MUSCULOSKELETAL: Negative for pain, swelling. NEUROLOGIC/PSYCHIATRIC: Negative for anxiety, depression. ALLERGY/IMMUNOLOGIC: Negative for skin rash, bleeding tendency. Otherwise negative except as stated per HPI. PHYSICAL EXAMINATION: VITAL SIGNS: On admission, blood pressure 104/62, pulse 75, respiratory rate 18 , temperature 99.1 degrees Fahrenheit, O2 saturation 97% on room air. GENERAL APPEARANCE: This is a 69-year-old male, alert and oriented x3, pleasant , responsive, in no acute distress. HEENT: Pupils are equal, round, reactive to light and accommodation. Extraocular muscles are intact. No scleral icterus. No conjunctival injection. Nares patent. OP is clear oral mucosa dry. NECK: Supple. No cervical adenopathy. No thyromegaly. No carotid bruits. No JVD appreciated. Cervical spine with full active and passive range of motion. No meningeal signs noted. CHEST: Diminished breath sounds in the bases bilaterally, otherwise clear. CARDIOVASCULAR EXAM: S1-S2 with 2/6 systolic ejection murmur in the right upper sternal border. ABDOMEN: Rounded, soft with postsurgical changes consistent with recent laparoscopic cholecystectomy. Port sites intact without drainage. Bowel sounds are positive in all 4 quadrants. No palpable mass. No rebound or guarding. EXTREMITIES: Warm and dry with fair turgor. No clubbing, cyanosis, or asymmetric edema appreciated. Pulses palpable distally at the dorsalis pedis, posterior tibial, and popliteal arteries bilaterally. Capillary refill less than 2 seconds. NEUROLOGIC: Cranial nerves 2 through 12 are grossly intact. Moves all extremities on command. Symmetric strength bilaterally at 4/5 in the upper and lower extremities. Not observed ambulatory during this exam. PERTINENT LABORATORY AND X-RAY FINDINGS: Sodium 130, potassium 4.4, chloride 97 , CO2 of 26, BUN 8, creatinine 0.77, estimated GFR greater than 90. Lactic acid level 1.7, calcium 8.2. Troponin I ranging between 0.061 to 0.083. BNP 122 previously noted 222 on 10/22/2019. TSH 3.05. CBC showed a white blood cell count of 5.5, hemoglobin 9.4, hematocrit 29.4, platelet count 193 with normal differential. PT 20.6, INR 1.8, PTT 38.2. Urinalysis with specific gravity of 1.050, otherwise negative. IMAGING: CT of the brain without contrast dated 11/10/2019, showed no acute intracranial process. Chronic ischemic white matter changes noted. CT angiogram of the [place] dated 11/10/2019, showed no focal stenosis. Portable chest x-ray dated 11/10/2019, showed bilateral perihilar opacities. CT of the abdomen and pelvis dated 11/10/2019, showed no acute intraabdominal process. Interval changes consistent with prior cholecystectomy without complication. EKG dated 11/10/2019, by my interpretation shows bundle branch block pattern with heart rates in the 70s. No acute ST-T wave changes appreciated. ASSESSMENT/PLAN: 1. Acute metabolic encephalopathy. The patient will be admitted to the telemetry unit. Suspect multifactorial with recent fever and prolonged hospital course. No focal findings on clinical exam currently. We will continue general supportive management. Monitor for recurrence. 2. Hyponatremia, appears chronic after review of the electronic medical record. Hold IV fluid supplementation. Resume a regular heart healthy diet. Repeat sodium level in the a.m. 3. Elevated troponin I. Suspect demand ischemia and recent cardiac catheterization showing multivessel coronary disease. No current evidence to suggest acute coronary syndrome. . Continue medical management. 4. Cardiomyopathy with ejection fraction of 20% to 25%. Appears compensated clinically. Continue general medical management. 5. Chronic normocytic anemia. Stable currently. No evidence of active GI blood loss. Continue serial H and serial H and H monitoring. 6. Chronic anticoagulation. Continue Eliquis 5 mg b.i.d. Serial H and H monitoring. 7. Prophylaxis. Sequential compression devices while in bed. Pepcid 20 mg p.o. b.i.d. PT evaluation for functional assessment. CODE STATUS: Do not attempt resuscitation confirmed with the patient. Job ID: [id number] [facility]
[2019-11-11] MEDS: Lactated Ringer's 1,000 ML IV SCH ×2 (01:24→09:06)
[2019-11-11 04:20] LABS: #Basophils 0.1 thou/uL (0.0-0.2); #Eosinphils 0.1 thou/uL (0.0-0.7); #Lymphocytes 1.4 thou/uL (1.20-3.40); #Monocytes 0.6 thou/uL (0.11-0.59); #Neutrophils 2.4 thou/uL (1.40-6.50); %Basophils 1.3 % (0.0-1.0); %Eosinophils 1.8 % (0.0-10.0); %Lymphocytes 30.5 % (21.0-51.0); %Monocytes 12.6 % (0.0-10.0); %Neutrophils 53.8 % (42.0-75.0); Mean Corpuscular HGB CONC 32.6 g/dL (32.0-36.0); Mean Corpuscular Hemoglobin 29.1 pg (27.0-31.0); Mean Corpuscular Volume 89.2 fL (78.0-98.0); Platelet Count 169 thou/uL (130-400); RBC Distribution Width 17.9 % (11.5-14.5); Red Blood Cell (RBC) Count 3.08 mill/uL (4.70-6.10); White Blood Cell (WBC) Count 4.5 thou/uL (4.8-10.8)
[2019-11-11 04:41] LABS: Anion Gap 11 mmol/L (10-20); BUN (Urea Nitrogen) 9 mg/dL (8.4-25.7); Calc. Creatinine Clearance 147 mL/min (70-130); Calcium 8.5 mg/dL (7.8-10.44); Carbon Dioxide 25 mmol/L (23-31); Chloride 97 mmol/L (98-107); Estimated GFR-MDRD Greater than 90; Glucose 95 mg/dL (83-110); Potassium 4.2 mmol/L (3.5-5.1); Sodium 129 mmol/L (136-145)
[2019-11-11] MEDS: Apixaban 5 MG TAB PO SCH ×2 (09:00→21:10)
[2019-11-11] MEDS: Allopurinol 300 MG TAB PO SCH (09:00)
[2019-11-11] MEDS: Folic Acid 1 MG TAB PO SCH (09:00)
[2019-11-11] MEDS: Losartan 25 MG TAB PO SCH (09:00)
[2019-11-11] MEDS: Carvedilol 3.125 MG TAB PO SCH ×2 (09:00→21:10)
[2019-11-11] MEDS: Famotidine 20 MG TAB PO SCH ×2 (09:00→21:10)
[2019-11-11] MEDS: Saccharomyces boulardii 250 MG CAP PO SCH (09:01)
[2019-11-11] MEDS ORDERED: Acetaminophen/Codeine 30-300mg Tablet PO PRN (13:22)
[2019-11-11] MEDS ORDERED: Sodium Chloride 0.9% 1,000 ML IV SCH (13:30)
--- NOTE | 2019-11-11 16:57 | PDOC.HOSPP ---
- Subjective Encounter Date: 11/11/19 Encounter Time: 09:00 Subjective: no overnight events. this morning, feels more energetic, doesn't know why he's in the hospital. Denies chills, night sweats, reduced oral intake, chest pain, palpitations, hematochezia, melena, focal weakness - Objective Vital Signs & Weight: Vital Signs (12 hours) Temp Pulse Pulse Resp BP BP BP 11/11/19 15:37 98.8 F 69 17 115/59 L 11/11/19 14:53 64 112/58 L 115/59 L 11/11/19 12:16 98.6 F 63 17 128/61 11/11/19 07:42 98.6 F 67 18 158/76 H Pulse Ox 11/11/19 15:37 93 L 11/11/19 14:53 11/11/19 12:16 92 L 11/11/19 07:42 94 L Weight Weight 223 lb I&O: 11/10/19 11/11/19 11/12/19 06:59 06:59 06:59 Output Total 300 Balance -300 Result Diagrams: 11/11/19 03:49 11/11/19 03:49 Hospitalist ROS - Review of Systems Constitutional: denies: chills, sweats Respiratory: denies: cough, dry, shortness of breath Cardiovascular: denies: chest pain, palpitations, orthopnea Gastrointestinal: denies: nausea, vomiting, abdominal pain, diarrhea, melena, hematochezia Genitourinary: denies: dysuria, frequency, hematuria - Medication Medications: Active Medications Generic Name Dose Route Start Last Admin Trade Name Hany PRN Reason Stop Dose Admin Allopurinol 300 mg 11/11/19 09:00 11/11/19 09:00 Zyloprim PO 300 mg DAILY TRISTAN Administration Apixaban 5 mg 11/11/19 09:00 11/11/19 09:00 Eliquis PO 5 mg BID TRISTAN Administration Carvedilol 3.125 mg 11/11/19 09:00 11/11/19 09:00 Coreg PO 3.125 mg BID TRISTAN Administration Famotidine 20 mg 11/11/19 09:00 11/11/19 09:00 Pepcid PO 20 mg BID TRISTAN Administration Folic Acid 1 mg 11/11/19 09:00 11/11/19 09:00 Folvite PO 1 mg DAILY TRISTAN Administration Losartan Potassium 25 mg 11/11/19 09:00 11/11/19 09:00 Cozaar PO 25 mg DAILY TRISTAN Administration Saccharomyces Boulardii 250 mg 11/11/19 09:00 11/11/19 09:01 Florastor PO 250 mg DAILY TRISTAN Administration Sodium Chloride 10 ml 11/11/19 09:00 11/11/19 09:01 Flush - Normal Saline IVF 10 ml Q12HR TRISTAN Administration - Exam General Appearance: NAD, awake alert Neck: no JVD Heart: RRR, no murmur, no gallops, no rubs Respiratory: CTAB, no wheezes, no rales, no ronchi Gastrointestinal: soft, non-tender, non-distended, normal bowel sounds Extremities: 1+ LE edema Extremities - other findings: b/l pitting equal to knee level Psychiatric: normal affect, normal behavior, A&O x 3 Hosp A/P - Plan #drowsiness -improved -presented with drowsiness, reported fever -cardiac, infectious workup negative so far; HgB at baseline; hyponatremia chronic and unlikely etiology at >120 -on presentation, concentrated urine with mild contraction based on labs -may be worsening of HF/valvulopathy, infectious, dehydration -echocardiography -hold lasix; gentle IVF; on discharge change to PRN -procalcitonin DNAR ELOS: 1 night
[2019-11-11] MEDS: Sodium Chloride 0.9% 1,000 ML IV SCH (17:58)
[2019-11-11 18:37] LABS: Legionella Urinary Ag Negative (Negative); Strep pneumo Urine Ag NEGATIVE (NEGATIVE)
[2019-11-11] MEDS: Atorvastatin Calcium 40 MG TAB PO SCH (21:10)
[2019-11-11] MEDS: Senokot S 8.6-50 MG TAB PO SCH (21:10)
[2019-11-12] MEDS: Sodium Chloride 0.9% 1,000 ML IV SCH ×2 (04:30→20:15)
[2019-11-12 06:24] LABS: #Eosinphils 0.1 thou/uL (0.0-0.7); #Monocytes 0.4 thou/uL (0.11-0.59); %Eosinophils 3.4 % (0.0-10.0); %Lymphocytes 27.9 % (21.0-51.0); %Monocytes 10.5 % (0.0-10.0); %Neutrophils 57.2 % (42.0-75.0); Hemoglobin 8.6 g/dL (14.0-18.0); Mean Corpuscular HGB CONC 31.4 g/dL (32.0-36.0); Mean Corpuscular Volume 89.2 fL (78.0-98.0); Mean Platelet Volume 9.6 fL (7.4-10.4); Platelet Count 166 thou/uL (130-400); RBC Distribution Width 17.8 % (11.5-14.5); Red Blood Cell (RBC) Count 3.07 mill/uL (4.70-6.10); White Blood Cell (WBC) Count 3.5 thou/uL (4.8-10.8)
[2019-11-12 06:53] LABS: Anion Gap 10 mmol/L (10-20); BUN (Urea Nitrogen) 5 mg/dL (8.4-25.7); Calc. Creatinine Clearance 135 mL/min (70-130); Calcium 8.1 mg/dL (7.8-10.44); Carbon Dioxide 25 mmol/L (23-31); Chloride 100 mmol/L (98-107); Estimated GFR-MDRD Greater than 90; Glucose 92 mg/dL (83-110); Iron 30 ug/dL (65-175); Iron Binding Capacity, Total 145 mcg/dL (261-462); Magnesium 1.4 mg/dL (1.6-2.6); Sodium 131 mmol/L (136-145); Transferrin, Serum 116 mg/dL (163-344)
[2019-11-12] MEDS ORDERED: Furosemide 20 MG TAB PO SCH (09:00)
[2019-11-12] MEDS: Folic Acid 1 MG TAB PO SCH (09:34)
[2019-11-12] MEDS: Senokot S 8.6-50 MG TAB PO SCH ×2 (09:34→20:15)
[2019-11-12] MEDS: Losartan 25 MG TAB PO SCH (09:34)
[2019-11-12] MEDS: Famotidine 20 MG TAB PO SCH ×2 (09:34→20:15)
[2019-11-12] MEDS: Saccharomyces boulardii 250 MG CAP PO SCH (09:34)
[2019-11-12] MEDS: Allopurinol 300 MG TAB PO SCH (09:34)
[2019-11-12] MEDS: Carvedilol 3.125 MG TAB PO SCH ×2 (09:34→20:15)
[2019-11-12] MEDS: Apixaban 5 MG TAB PO SCH ×2 (09:34→20:14)
--- NOTE | 2019-11-12 10:20 | PDOC.HOSPP ---
- Subjective Encounter Date: 11/12/19 Encounter Time: 08:00 Subjective: no overnight events. this morning, more oriented and alert. Infectious and cardiac workup negative so far, pending echo. May have been viral syndrome or worsening symptomatic aortic stenosis in conjunction with dehydration. Candidate for discharge tomorrow - Objective Vital Signs & Weight: Vital Signs (12 hours) Temp Pulse Resp BP Pulse Ox 11/12/19 07:40 98.6 F 66 16 123/64 96 11/12/19 04:30 98.3 F 68 20 108/55 L 93 L Weight Weight 214 lb I&O: 11/11/19 11/12/19 11/13/19 06:59 06:59 06:59 Intake Total 1712 Output Total 300 1152 Balance -300 560 Result Diagrams: 11/12/19 06:13 11/12/19 06:13 Hospitalist ROS - Review of Systems Constitutional: denies: chills, sweats Respiratory: denies: cough, dry, shortness of breath, SOB with excertion, pleuritic pain Cardiovascular: denies: chest pain, palpitations, orthopnea, paroxysmal noc. dyspnea Gastrointestinal: denies: nausea, vomiting, abdominal pain Genitourinary: denies: dysuria, frequency, hematuria - Medication Medications: Active Medications Generic Name Dose Route Start Last Admin Trade Name Freq PRN Reason Stop Dose Admin Acetaminophen 1,000 mg 11/11/19 00:41 11/12/19 09:34 Tylenol PO 1,000 mg Q6H PRN Administration Mild Pain (1-3) Allopurinol 300 mg 11/11/19 09:00 11/12/19 09:34 Zyloprim PO 300 mg DAILY TRISTAN Administration Apixaban 5 mg 11/11/19 09:00 11/12/19 09:34 Eliquis PO 5 mg BID TRISTAN Administration Atorvastatin Calcium 40 mg 11/11/19 21:00 11/11/19 21:10 Lipitor PO 40 mg HS TRISTAN Administration Carvedilol 3.125 mg 11/11/19 09:00 11/12/19 09:34 Coreg PO 3.125 mg BID TRISTAN Administration Famotidine 20 mg 11/11/19 09:00 11/12/19 09:34 Pepcid PO 20 mg BID TRISTAN Administration Folic Acid 1 mg 11/11/19 09:00 11/12/19 09:34 Folvite PO 1 mg DAILY TRISTAN Administration Sodium Chloride 1,000 mls @ 70 mls/hr 11/11/19 17:30 11/12/19 04:30 Normal Saline 0.9% IV 1,000 mls .[id number] TRISTAN Administration Losartan Potassium 25 mg 11/11/19 09:00 11/12/19 09:34 Cozaar PO 25 mg DAILY TRISTAN Administration Ondansetron HCl 4 mg 11/11/19 00:41 11/11/19 21:10 Zofran IVP 4 mg Q6H PRN Administration Nausea/Vomiting Pantoprazole Sodium 40 mg 11/12/19 09:00 11/12/19 09:34 Protonix PO 40 mg DAILY TRISTAN Administration Saccharomyces Boulardii 250 mg 11/11/19 09:00 11/12/19 09:34 Florastor PO 250 mg DAILY TRISTAN Administration Senna/Docusate Sodium 1 tab 11/11/19 21:00 11/12/19 09:34 Senokot S PO 1 tab BID TRISTAN Administration Sodium Chloride 10 ml 11/11/19 09:00 11/12/19 09:35 Flush - Normal Saline IVF 10 ml Q12HR TRISTAN Administration - Exam General Appearance: NAD, awake alert Neck: no JVD Heart: RRR, no murmur, no gallops Respiratory: CTAB, no wheezes, no rales, no ronchi Gastrointestinal: soft, non-tender, non-distended, normal bowel sounds Extremities: 1+ LE edema Psychiatric: normal affect, normal behavior, A&O x 3 Hosp A/P - Plan #drowsiness -back to baseline -presented with drowsiness, reported fever -cardiac, infectious workup negative so far; HgB downtrended but FOBT negative, iron panel anemia of inflammation; hyponatremia chronic and unlikely etiology at >120 -on presentation, concentrated urine with mild contraction based on labs -may be worsening of HF/valvulopathy worsened by dehydration, viral syndrome; has been afebrile since admission, back to baseline -echocardiography results pending -gentle IVF; on discharge change lasix to PRN -procalcitonin DNAR ELOS: 1 night
[2019-11-12] MEDS ORDERED: Electrolyte Replacement Protocol FS SCH (19:45)
[2019-11-12] MEDS: Atorvastatin Calcium 40 MG TAB PO SCH (20:10)
[2019-11-12 23:48] LABS: Anion Gap 12 mmol/L (10-20); BUN (Urea Nitrogen) 6 mg/dL (8.4-25.7); Calc. Creatinine Clearance 137 mL/min (70-130); Carbon Dioxide 22 mmol/L (23-31); Chloride 102 mmol/L (98-107); Estimated GFR-MDRD Greater than 90; Glucose 108 mg/dL (83-110); Magnesium 1.4 mg/dL (1.6-2.6); Potassium 3.8 mmol/L (3.5-5.1); Sodium 132 mmol/L (136-145)
[2019-11-13] MEDS ORDERED: Magnesium Sulfate 4 GM in Sodium Chloride 0.9% 250 ML 250 ML IVPB SCH (01:30)
[2019-11-13] MEDS: Apixaban 5 MG TAB PO SCH ×2 (08:53→20:15)
[2019-11-13] MEDS: Saccharomyces boulardii 250 MG CAP PO SCH (08:53)
[2019-11-13] MEDS: Losartan 25 MG TAB PO SCH (08:53)
[2019-11-13] MEDS: Folic Acid 1 MG TAB PO SCH (08:53)
[2019-11-13] MEDS: Carvedilol 3.125 MG TAB PO SCH ×2 (08:53→20:15)
[2019-11-13] MEDS: Famotidine 20 MG TAB PO SCH ×2 (08:53→20:15)
[2019-11-13] MEDS: Senokot S 8.6-50 MG TAB PO SCH ×2 (08:53→20:16)
[2019-11-13] MEDS: Allopurinol 300 MG TAB PO SCH (08:53)
[2019-11-13 12:15] LABS: Anion Gap 14 mmol/L (10-20); BUN (Urea Nitrogen) 5 mg/dL (8.4-25.7); Calc. Creatinine Clearance 146 mL/min (70-130); Calcium 8.2 mg/dL (7.8-10.44); Carbon Dioxide 19 mmol/L (23-31); Chloride 102 mmol/L (98-107); Estimated GFR-MDRD Greater than 90; Glucose 106 mg/dL (83-110); Magnesium 2.2 mg/dL (1.6-2.6); Potassium 4.3 mmol/L (3.5-5.1); Sodium 131 mmol/L (136-145)
[2019-11-13] MEDS: Sodium Chloride 0.9% 1,000 ML IV SCH (12:29)
[2019-11-13 12:37] LABS: Anisocytosis SLIGHT = 6-15 cells (100X) (0-5/hpf); Band 8 % (5-11); Eosinophils 1 % (0-10); Hemoglobin 10.3 g/dL (14.0-18.0); Lymphocytes 23 % (21-51); MDiff Complete? YES; Mean Corpuscular HGB CONC 32.2 g/dL (32.0-36.0); Mean Corpuscular Volume 89.9 fL (78.0-98.0); Mean Platelet Volume 10.1 fL (7.4-10.4); Monocytes 6 % (0-10); Neutrophil 56 % (42-75); Ovalocytes SLIGHT = 2-5 cells (100X) (0-1/hpf); Platelet Count 133 thou/uL (130-400); Platelet Morphology Comment Appears Adequate; Polychromasia SLIGHT = 2-3 cells (100X) (0-2/hpf); Reactive Lymphocytes 2 % (0-10); Red Blood Cell (RBC) Count 3.55 mill/uL (4.70-6.10); White Blood Cell (WBC) Count 3.4 thou/uL (4.8-10.8)
[2019-11-13 13:44] LABS: Burr Cells SLIGHT = 2-5 cells (100X) (0-1/hpf); Schistocytes SLIGHT = 2-5 cells (100X) (0-1/hpf)
--- NOTE | 2019-11-13 16:31 | PDOC.HOSPP ---
- Subjective Encounter Date: 11/13/19 Encounter Time: 08:30 Subjective: Pt seen for followup re: acute metabolic encephalopathy. Feels better today. - Objective Vital Signs & Weight: Vital Signs (12 hours) Temp Pulse Resp BP Pulse Ox 11/13/19 11:13 97.9 F 65 15 110/59 L 94 L 11/13/19 08:50 98.4 F 67 16 106/55 L 95 Weight Weight 215 lb 1.6 oz I&O: 11/12/19 11/13/19 11/14/19 06:59 06:59 06:59 Intake Total 1712 2927 Output Total 1152 600 Balance 560 2327 Result Diagrams: 11/13/19 11:55 11/13/19 11:55 Additional Labs: Labs and MARs reviewed by nc Hospitalist ROS - Review of Systems Cardiovascular: denies: chest pain, palpitations, orthopnea, paroxysmal noc. dyspnea, edema, light headedness Gastrointestinal: denies: nausea, vomiting, abdominal pain, diarrhea, constipation, melena, hematochezia - Medication Medications: Active Medications Generic Name Dose Route Start Last Admin Trade Name Freq PRN Reason Stop Dose Admin Acetaminophen 1,000 mg 11/11/19 00:41 11/12/19 09:34 Tylenol PO 1,000 mg Q6H PRN Administration Mild Pain (1-3) Acetaminophen/Codeine Phosphate 1 tab 11/11/19 13:22 11/12/19 20:10 Tylenol #3 PO 1 tab Q4H PRN Administration Mild Pain (1-3) Allopurinol 300 mg 11/11/19 09:00 11/13/19 08:53 Zyloprim PO 300 mg DAILY TRISTAN Administration Apixaban 5 mg 11/11/19 09:00 11/13/19 08:53 Eliquis PO 5 mg BID TRISTAN Administration Atorvastatin Calcium 40 mg 11/11/19 21:00 11/12/19 20:10 Lipitor PO 40 mg HS TRISTAN Administration Carvedilol 3.125 mg 11/11/19 09:00 11/13/19 08:53 Coreg PO 3.125 mg BID TRISTAN Administration Famotidine 20 mg 11/11/19 09:00 11/13/19 08:53 Pepcid PO 20 mg BID TRISTAN Administration Folic Acid 1 mg 11/11/19 09:00 11/13/19 08:53 Folvite PO 1 mg DAILY TRISTAN Administration Sodium Chloride 1,000 mls @ 70 mls/hr 11/11/19 17:30 11/13/19 12:29 Normal Saline 0.9% IV 1,000 mls .[id number] TRISTAN Administration Losartan Potassium 25 mg 11/11/19 09:00 11/13/19 08:53 Cozaar PO 25 mg DAILY TRISTAN Administration Ondansetron HCl 4 mg 11/11/19 00:41 11/12/19 20:10 Zofran Odt PO 4 mg Q6H PRN Administration Nausea/Vomiting Ondansetron HCl 4 mg 11/11/19 00:41 11/11/19 21:10 Zofran IVP 4 mg Q6H PRN Administration Nausea/Vomiting Pantoprazole Sodium 40 mg 11/12/19 09:00 11/13/19 08:53 Protonix PO 40 mg DAILY TRISTAN Administration Saccharomyces Boulardii 250 mg 11/11/19 09:00 11/13/19 08:53 Florastor PO 250 mg DAILY TRISTAN Administration Senna/Docusate Sodium 1 tab 11/11/19 21:00 11/13/19 08:53 Senokot S PO 1 tab BID TRISTAN Administration Sodium Chloride 10 ml 11/11/19 09:00 11/13/19 08:54 Flush - Normal Saline IVF Not Given Q12HR TRISTAN - Exam General - other findings: Obese Eye: anicteric sclera ENT: no oropharyngeal lesions Neck: supple, symmetric Heart: RRR Respiratory: CTAB Gastrointestinal: soft, non-tender Skin: no lesions Psychiatric: normal affect, normal behavior Hosp A/P - Plan PT/OT - Plan #acute metabolic encephalopathy -Improved #hyponatremia -stable #cardiomyopathy -2D echo result pending Awaiting Swing bed
[2019-11-13] MEDS: Atorvastatin Calcium 40 MG TAB PO SCH (20:15)
[2019-11-14] MEDS: Sodium Chloride 0.9% 1,000 ML IV SCH (03:02)
[2019-11-14] MEDS: Senokot S 8.6-50 MG TAB PO SCH (09:15)
[2019-11-14] MEDS: Folic Acid 1 MG TAB PO SCH (09:15)
[2019-11-14] MEDS: Famotidine 20 MG TAB PO SCH (09:15)
[2019-11-14] MEDS: Allopurinol 300 MG TAB PO SCH (09:15)
[2019-11-14] MEDS: Losartan 25 MG TAB PO SCH (09:16)
[2019-11-14] MEDS: Saccharomyces boulardii 250 MG CAP PO SCH (09:16)
[2019-11-14] MEDS: Carvedilol 3.125 MG TAB PO SCH (09:16)
[2019-11-14] MEDS: Apixaban 5 MG TAB PO SCH (09:16)
[2019-11-14 11:32] VITALS: BP 127/79; TEMP 98.9
--- NOTE | 2019-11-14 14:23 | DIS ---
DATE OF ADMISSION: 11/10/2019 DATE OF DISCHARGE: 11/14/2019 PRIMARY CARE PROVIDER: Gillian Bowers, OVEN UNLOADER-Aleida DISCHARGE DIAGNOSES: 1. Acute metabolic encephalopathy, most likely secondary to viral illness. 2. Hyponatremia. 3. Hypomagnesemia. 4. Iron deficiency. CONDITION OF PATIENT ON THE DAY OF DISCHARGE: Stable. I assessed Mr. Jacob on the day of discharge. He denies any chest pain or shortness of breath. Vital signs are stable. S1 and S2 are heard, regular. Lungs are clear to auscultation bilaterally. DISCHARGE MEDICATIONS: He has been started on ferrous sulfate 325 mg daily. Otherwise, no change was made to his pre-admission home medications. HOSPITAL COURSE: Mr. Jacob is a pleasant 69-year-old gentleman who was admitted to [facility] on November 10, 2019, for fever and acute metabolic encephalopathy. COVID test was negative. He received intravenous fluids for dehydration. He improved clinically. His diet has been changed from low-sodium to regular, heart healthy diet. He is being discharged back to [facility] bed for further management. He was found to have iron deficiency, with iron level of 30. TIBC was low as well at 145. Magnesium was low at 1.4, but normalized after replacement. On November 12, he had sodium of 131, potassium of 4.3, creatinine 0.64, and magnesium 2.2. White count 3400, hemoglobin 10.3, and platelet count of 133,000. DISCHARGE MEDICATIONS: 1. Allopurinol 300 mg daily. 2. Folic acid 1 mg daily. 3. Apixaban 5 mg two times a day. 4. Lipitor 40 mg at bedtime. 5. Coreg 3.125 mg 2 times a day. 6. Ferrous sulfate 325 mg daily, started during this hospitalization. 7. Furosemide 20 mg daily. 8. Cozaar 25 mg daily. 9. Protonix 40 mg daily. 10. Florastor 250 mg daily. 11. Robitussin p.r.n. 12. Maalox p.r.n. 13. Clonidine p.r.n. 14. Dulcolax p.r.n. 15. Nystatin topical powder p.r.n. 16. MiraLAX p.r.n. 17. Nitroglycerin p.r.n. 18. Tylenol 650 mg every 6 hours as needed. 19. Tylenol No. 3 one tablet every 4 hours as needed. 20. Zofran p.r.n. POST-ACUTE CARE FOLLOWUP: With primary care provider in 1 week. DIET: Heart healthy diet. ACTIVITY: As tolerated. DISCHARGE DESTINATION: [facility] from where the patient was admitted to the hospital. TIME SPENT: Total amount of time spent coordinating this discharge: 32 minutes. Job ID: [id number]
[2019-11-15] MEDS ORDERED: Ferrous Sulfate 325 MG TAB PO SCH (08:00)
--- NOTE | 2019-11-16 00:01 | PQF ---
Dear : Usama Palomino Date : 11/15 Please exercise your independent, professional judgment in responding to the clarification form. Clinical indicators are provided on the bottom of this form for your review Can you please further clarify if Sepsis is ruled in or ruled out? Sepsis [ ] Ruled in diagnosis [ ] Continue to treat [ ] Resolved [ x ] Ruled out diagnosis [ ] Improving [ ] Cannot rule out diagnosis [ ] Other diagnosis [ ] Unable to determine Physician Signature: Date/Time: For continuity of documentation, please document condition throughout progress notes and discharge summary. Thank You. To be completed by CDI/Coding staff for physician review: Present Clinical Indicators - Signs / Symptoms / Labs Results and Location in Medical Record [ x ] VS: BP 114/60, Pulse 67, RR 19, Temp 98.8 ED Provide pg.1 [ x ] Pneumonia, Sepsis ED Provide pg.4 [ x ] Bilateral perihilar interstitial opacities which may be represent pulmonary edema or infectious process Chest X ray 11/09 [ x ] Altered mental status H and P pg.1 [ x ] Recent klebsiella pna with bacteremia H and P pg.2 [ x ] WBC 5.5, 4.5.L, 3.5L, 3.4L Laboratory [ x ] Blood culture- no growth in 5 days Microbiology 11/09 [ x ] Metabolic encephalopathy, most likely 2/2 viral illness DS pg.1 [ x ] Lactic Acid: 1.7 Labs 11/09 [ x ] Procalcitonin: 0.10 Labs 11/11 Present Risk Factors Results and Location in Medical Record [ x ] 69 years old H and P pg.1 [ x ] lymphoma H and P pg.1 [ x ] Hx of avascular necrosis H and P pg.1 [ x ] Smoker ED Notes 11/09 Present Treatments Results and Location in Medical Record [ x ] Chest X ray 11/09Chest X ray 11/09 Chest X ray 11/09 folder [ x ] IV Fluids MAR [ x ] Abdomen / Pelvis CT Abdomen / Pelvis CT 11/09 [ x ] Blood culture Microbiology CDS/Technology Project Manager Signature: Isauro Hart Phone #: [phone] Date: 11/16/19 This is a permanent part of the Medical Record [facility]
== END 2019-11-14 15:30 | disposition swing bed (61) | DRG 865 ==
LOC: ERS 16:21 → 2NO 21:04
PROVIDERS: ADMIT Internal Medicine; ATTEND Internal Medicine
DX: B34.9 Viral infection, unspecified (principal); G93.41 Metabolic encephalopathy; E87.1 Hypo-osmolality and hyponatremia; C81.90 Hodgkin lymphoma, unspecified, unspecified site; I50.42 Chronic combined systolic (congestive) and diastolic (congestive) heart failure; I42.9 Cardiomyopathy, unspecified; I24.8 Other forms of acute ischemic heart disease; Z66 Do not resuscitate; Z20.828 Contact with and (suspected) exposure to other viral communicable diseases; E83.42 Hypomagnesemia; I35.0 Nonrheumatic aortic (valve) stenosis; D50.9 Iron deficiency anemia, unspecified; E86.0 Dehydration; E78.5 Hyperlipidemia, unspecified; R13.10 Dysphagia, unspecified; F17.210 Nicotine dependence, cigarettes, uncomplicated; M10.9 Gout, unspecified; I25.10 Atherosclerotic heart disease of native coronary artery without angina pectoris; I11.0 Hypertensive heart disease with heart failure; Z96.643 Presence of artificial hip joint, bilateral; Z79.899 Other long term (current) drug therapy; Z90.49 Acquired absence of other specified parts of digestive tract; Z95.5 Presence of coronary angioplasty implant and graft; Z79.01 Long term (current) use of anticoagulants; Z79.82 Long term (current) use of aspirin
CPT/HCPCS: 36415; 51701; 71045; 74177; 80048; 81003; 82274; 82553; 82728; 83010; 83540; 83550; 83605; 83615; 83735; 83880; 84145; 84443; 84466; 84484; 85025; 85060; 85610; 85730; 87086; 87449; 87899; 93005; 93306; J2405; J3475; J7050; Q0162; Q9967; U0002

== ENCOUNTER 2020-01-25 12:24 | Inpatient (IN) | payer MEDICARE, OTHER ==
[~2020-01-25 12:24] MED LIST changes: +Amiodarone 150 MG/3 ML VIAL ONE; -Iopamidol-370 76% 500 ML 1 ML ONE
[2020-01-25] MEDS ORDERED: Magnesium 2 GM/50 ML BAG (IN WATER) ONE (12:43)
--- NOTE | 2020-01-25 12:54 | RAD ---
Chest one view HISTORY: Chest pain. COMPARISON: 11/10/2019. FINDINGS: Cardiac silhouette is magnified by projection. Shallow inspiration accentuates pulmonary ma rkings. Mediastinum is midline. Calcified granulomata are consistent with healed granulomatous disease. No lobar consolidation or zabrina dence of pneumothorax. Defibrillator patch overlies the right chest. Degenerative changes of each shoulder. Old healed left clavicle fracture. IMPRESSION : No active cardiopulmonary abnormalities are demonstrated.
[2020-01-25 12:55] LABS: Hemoglobin 11.1 g/dL (14.0-18.0); Mean Corpuscular HGB CONC 32.6 g/dL (32.0-36.0); Mean Corpuscular Hemoglobin 28.4 pg (27.0-31.0); Mean Corpuscular Volume 87.1 fL (78.0-98.0); Mean Platelet Volume 10.9 fL (7.4-10.4); Platelet Count 171 thou/uL (130-400); Red Blood Cell (RBC) Count 3.92 mill/uL (4.70-6.10); White Blood Cell (WBC) Count 3.9 thou/uL (4.8-10.8)
[2020-01-25 13:15] LABS: Band 35 % (5-11); Eosinophils 4 % (0-10); Lymphocytes 12 % (21-51); MDiff Complete? YES; Metamyelocyte 2 % (0-0); Myelocyte 1 % (0-0); Neutrophil 46 % (42-75); Platelet Morphology Comment Appears Adequate; Polychromasia SLIGHT = 2-3 cells (100X) (0-2/hpf)
[2020-01-25 13:18] LABS: ALT (SGPT) 9 U/L (8-55); AST (SGOT) 19 U/L (5-34); Albumin 3.6 g/dL (3.4-4.8); Alkaline Phosphatase 86 U/L (40-110); Anion Gap 17 mmol/L (10-20); BUN (Urea Nitrogen) 15 mg/dL (8.4-25.7); CK (CPK) 20 U/L (30-200); Calc. Creatinine Clearance 0 mL/min (70-130); Calcium 9.4 mg/dL (7.8-10.44); Carbon Dioxide 24 mmol/L (23-31); Chloride 96 mmol/L (98-107); Estimated GFR-MDRD 68; Globulin 4.2 g/dL (2.4-3.5); Glucose 160 mg/dL (83-110); Potassium 3.9 mmol/L (3.5-5.1); Protein, Total 7.8 g/dL (5.8-8.1); Sodium 133 mmol/L (136-145)
[2020-01-25] MEDS ORDERED: Ondansetron PF 4 MG/2 ML Vial IVP PRN (14:37)
[2020-01-25] MEDS ORDERED: Acetaminophen 325 MG TAB PO PRN (14:37)
[2020-01-25] MEDS ORDERED: Amiodarone 450 MG in Dextrose 5% in Water 250 ML IVPB SCH (14:45)
[2020-01-25 15:46] LABS: Troponin I 0.014 ng/mL (< 0.028)
[2020-01-25 18:30] VITALS: BMI 28.8
--- NOTE | 2020-01-25 20:48 | HP ---
CHIEF COMPLAINT: Shocked by his LifeVest. HISTORY OF PRESENT ILLNESS: The patient is a 69-year-old male with past medical history of coronary artery disease, heart failure with reduced ejection fraction, ventricular tachycardia, status post LifeVest, hypertension, hyperlipidemia, aortic valve stenosis, and gout, who was sent from their group home residence after his LifeVest discharged. The patient stated that he was feeling well and had no complaints prior to the discharge of the LifeVest. He denies chest pain, palpitations, shortness of breath, or dizziness. In the ER, the patient was found to be in sinus rhythm with left bundle-branch block, which is chronic for him. No evidence of ventricular tachycardia was noted. Per ED report, his LifeVest seemed to be malfunctioning. His sausage mixer was contacted and he recommended admission for further evaluation. The patient was started on amiodarone bolus and drip in the ER and is currently in stable condition. REVIEW OF SYSTEMS: Negative except as noted in HPI. PAST MEDICAL HISTORY: As noted above. PAST SURGICAL HISTORY: 1. Cardiac stent x2. 2. Bilateral hip surgery. SOCIAL HISTORY: The patient is a former smoker. Denies alcohol or illicit drug use. ALLERGIES: THE PATIENT IS ALLERGIC TO KEFLEX. FAMILY HISTORY: Noncontributory for current presentation. PHYSICAL EXAMINATION: GENERAL: The patient is alert and oriented x3. HEENT: Head is normocephalic and atraumatic. Extraocular muscles are intact. NECK: Supple. CHEST: Auscultation is clear bilaterally. CARDIOVASCULAR: Normal S1, S2 with regular rate and rhythm. ABDOMEN: Soft, nontender, nondistended. NEUROLOGICAL: Unremarkable. EXTREMITIES: No evidence of peripheral edema on his extremities. PERTINENT DATA: His troponin and BNP were both unremarkable, and his chemistry was only positive for mild hyponatremia and hypochloremia. Chest x-ray revealed no active cardiopulmonary disease. ASSESSMENT: 1. Status post LifeVest discharge. 2. Suspected ventricular tachycardia. 3. Compensated heart failure with reduced ejection fraction. 4. Hypertension. 5. Hyperlipidemia. 6. Gout. PLAN: The patient will be admitted to the hospital for further monitoring. He has been given amiodarone bolus and is currently on a drip. He does not have any new complaints. We will continue his home cardiac medications including carvedilol, losartan, Lasix, and Eliquis. Cardiology and Electrophysiology services were consulted by ER. Job ID: [id number]
[2020-01-25] MEDS ORDERED: Apixaban 5 MG TAB PO SCH (21:00)
[2020-01-25] MEDS: Atorvastatin Calcium 40 MG TAB PO SCH (21:29)
[2020-01-25] MEDS: Carvedilol 3.125 MG TAB PO SCH (21:30)
--- NOTE | 2020-01-25 23:24 | CON ---
DATE OF CONSULTATION: HISTORY: Patient is a 69-year-old gentleman who presented after his AICD fired on three occasions. The patient has a history of an ischemic cardiomyopathy. He also has a history of severe aortic stenosis. The patient recently was admitted with septic shock. He underwent a cardiac catheterization and had subsequently underwent PTCA and stent placement. The patient had placement of a LifeVest. The patient was in his usual state of health when the LifeVest fired on 3 occasion. The patient denied having any chest discomfort or dyspnea. PAST MEDICAL HISTORY: 1. Cardiomyopathy. 2. Severe aortic stenosis. 3. Hypertension. 4. History of a DVT. 5. Cirrhosis. 6. Hypertension. PAST SURGICAL HISTORY: Hip surgery. ALLERGIES: KEFLEX. MEDICATIONS: See nursing list. PHYSICAL EXAMINATION: GENERAL: Well-developed gentleman, in no acute distress. VITAL SIGNS: Blood pressure 113/56. NECK: No jugular venous distention. LUNGS: Clear to auscultation. HEART: Regular rate and rhythm. Normal S1, S2. 2/6 systolic murmur. ABDOMEN: Nondistended. EXTREMITIES: Showed trace edema. LABORATORY DATA: Sodium 133, potassium 3.9, chloride 96, bicarbonate 24, BUN 15, creatinine 1.07, glucose 106. White blood cell count 3.9, hemoglobin 11.1, hematocrit 34.2, platelets 171. EKG normal sinus rhythm with a left bundle-branch block. Interrogation of the LifeVest revealed inappropriate firing and sensing of the left bundle-branch block. IMPRESSION: 1. Status post LifeVest firing on 3 occasions. 2. History of severe cardiomyopathy. 3. History of PTCA and stent placed. 4. Aortic stenosis. 5. History of deep venous thrombosis. 6. History of cirrhosis. This gentleman had the LifeVest fired inappropriately. I would discontinue his amiodaroneand would recheck the patient's echocardiogram. If his left ventricular function has not improved, he may need a permanent defibrillator. We will follow this patient with you through his hospitalization. Job ID: [id number] [facility]
[2020-01-26 04:39] LABS: Anion Gap 15 mmol/L (10-20); BUN (Urea Nitrogen) 13 mg/dL (8.4-25.7); Calc. Creatinine Clearance 116 mL/min (70-130); Calcium 8.8 mg/dL (7.8-10.44); Carbon Dioxide 24 mmol/L (23-31); Chloride 97 mmol/L (98-107); Estimated GFR-MDRD Greater than 90; Glucose 104 mg/dL (83-110); Potassium 3.5 mmol/L (3.5-5.1); Sodium 132 mmol/L (136-145)
[2020-01-26 05:09] LABS: Band 12 % (5-11); Eosinophils 2 % (0-10); Hemoglobin 9.2 g/dL (14.0-18.0); Lymphocytes 18 % (21-51); MDiff Complete? YES; Mean Corpuscular HGB CONC 33.7 g/dL (32.0-36.0); Mean Corpuscular Hemoglobin 28.8 pg (27.0-31.0); Mean Corpuscular Volume 85.4 fL (78.0-98.0); Mean Platelet Volume 10.3 fL (7.4-10.4); Monocytes 8 % (0-10); Neutrophil 60 % (42-75); Platelet Count 151 thou/uL (130-400); Platelet Morphology Comment Appears Adequate; RBC Distribution Width 17.9 % (11.5-14.5)
--- NOTE | 2020-01-26 08:26 | PRG ---
DATE OF SERVICE: 01/26/2020 SUBJECTIVE: Mr. Jacob is doing better. No current complaints. He appears more lucid than I last saw him 2-1/2 months ago. He was last seen in the office on 01/13/2020 by Marilynn Curtis. His main complaint has been weakness and dyspnea on exertion. His echo recently did suggest LVEF around 40%. It did show improvement. His anteroseptal wall appears dyskinetic from underlying left bundle-branch block. He continues to have severe aortic stenosis. OBJECTIVE: VITAL SIGNS: Blood pressure 93/50, pulse 60, temperature 98.3. LUNGS: Clear to auscultation. HEART: Regular rate and rhythm with 2/6 systolic ejection murmur. ABDOMEN: Soft, nontender, nondistended. EXTREMITIES: No edema. LABORATORY DATA: Hemoglobin 9.2, hematocrit 27.4. IMPRESSION: 1. Severe aortic stenosis. 2. Inappropriate discharge of [employer] LifeVest. 3. Cardiomyopathy. 4. Coronary artery disease, status post stent placement. RECOMMENDATIONS: Mr. Jacob appears to be much more lucid than my last visit within 2 months ago in the hospital. The patient at that time had sepsis. He does have severe aortic stenosis. His LVEF does appear improved. His BNP is within normal limits. I have consulted with Dr. Shawn Moise to assess for transcatheter aortic valve replacement on Mr. Jacob. He was not felt to be an appropriate candidate due to multiple comorbidities including sepsis during his last admission, but appears to be a better candidate now. The patient no longer needs LifeVest given improvement in LVEF. Job ID: [id number]
[2020-01-26] MEDS ORDERED: FLU VACC QS2020-21(65YR UP)/PF 240 MCG/0.7 ML SYRINGE IM ONE (09:00)
[2020-01-26] MEDS ORDERED: Furosemide 20 MG TAB PO SCH ×2 (09:00→21:00)
[2020-01-26] MEDS: Losartan 25 MG TAB PO SCH (10:41)
[2020-01-26] MEDS: Allopurinol 300 MG TAB PO SCH (10:42)
[2020-01-26] MEDS: Carvedilol 3.125 MG TAB PO SCH ×2 (10:43→21:25)
[2020-01-26] MEDS ORDERED: Bisacodyl 10 MG SUPP PR PRN (10:47)
[2020-01-26] MEDS ORDERED: Polyethylene Glycol 3350 17 GM Packet PO PRN (10:47)
[2020-01-26 11:56] LABS: SARS-CoV-2 MS2 Positive; SARS-CoV-2 N Gene Negative; SARS-CoV-2 S Gene Negative; SARS-CoV-2 by NAA Not Detected (NotDetected); SARS-CoV-2 orf1ab Negative
--- NOTE | 2020-01-26 14:00 | CON ---
DATE OF CONSULTATION: 01/26/2020 REASON FOR CONSULTATION: Evaluate the patient for TAVR. CONSULTING PHYSICIAN: Dr. Osmin Hawk. HISTORY OF PRESENT ILLNESS: Mr. Jacob is a 69-year-old gentleman, who had presented in October with congestive failure. His ejection fraction was 15% to 20% at that point. He is fitted with a LifeVest. He also underwent cardiac catheterization intervention to his LAD and right coronary artery with good results. He has had a LifeVest that has been malfunctioning and was admitted to the hospital. Repeat echocardiogram has shown his ejection fraction is improved to approximately 40%. In regard to his aortic stenosis, his current peak velocity is 277, peak to peak gradient is 31 with a mean gradient of 17, aortic valve area is 0.88. Ejection fraction is 40%. His EKG shows narrow complex QRS. He had a CT scan of his chest performed in October, which shows really no calcification to speak of in his aortic root or LVOT. Currently, the patient is living at the [facility] for rehab. He is able to walk with a walker, but does not really do any exercise to speak of. Since his ejection fraction has improved, his congestive heart failure symptoms have improved. He has had no syncope. He does not have chest pain. He has had no rhythm issues. PAST MEDICAL HISTORY: 1. Aortic stenosis - severe. 2. Coronary artery disease, status post intervention. 3. History of severely depressed left ventricular ejection fraction, currently improved to 40% on most recent echocardiogram. 4. History of ventricular tachycardia in the distant past. 5. Hypertension. 6. Dyslipidemia. 7. Severe debilitation. 8. Gout. PAST SURGICAL HISTORY: Bilateral hip replacements. SOCIAL HISTORY: He does not use tobacco, alcohol, or other drugs. He is currently living at the [facility]. He is . ALLERGIES: KEFLEX. CURRENT MEDICATIONS: 1. Metoprolol 50 mg daily. 2. Imdur ER one daily. 3. Allopurinol 300 mg daily. 4. Lisinopril 5 mg daily. 5. Aspirin 81 mg daily. 6. Lipitor 20 mg daily. 7. Protonix 40 mg daily. 8. Lasix 20 mg daily. REVIEW OF SYSTEMS: A 10-point review of systems has been performed and is negative except as above. PHYSICAL EXAMINATION: GENERAL: This is a very pleasant gentleman, who is much more conversant than when I met him in October. Apparently after having his gallbladder removed and resolving his infection and improving his heart failure, he has significantly improved. VITAL SIGNS: Temperature is 98.8, pulse is 70 and regular, and blood pressure is 100/52. HEENT: Sclerae are nonicteric. Pupils are equal and round bilaterally. NECK: Supple. He has no carotid bruits. CHEST: Clear bilaterally. HEART: Rhythm is regular. He has a systolic ejection murmur heard throughout the precordium. ABDOMEN: Soft and nontender. EXTREMITIES: There is mild edema. VASCULAR: Palpable radial and femoral pulses bilaterally. Dorsalis pedis is dopplerable bilaterally. LABORATORY DATA: Of note; hemoglobin is 9.2, platelet count 151,000. Potassium is 3.5, creatinine is 0.71. ASSESSMENT AND PLAN: A 69-year-old gentleman with severe aortic stenosis by echocardiogram with congestive heart failure symptoms and depressed left ventricular function. I think he is an appropriate patient to enroll in [facility]ve [facility] and complete his TAVR workup. His cardiac catheterization was performed in October and shows no significant residual coronary artery disease after right coronary intervention. He also has an LAD stent. Echocardiogram shows severe aortic stenosis with a valve area of 0.88 and gradients appropriate for severe stenosis. His CT of his chest, which was done to rule out pulmonary embolism and it is not a valve specific CT, shows no significant calcification in the LVOT. His access vessels have not been completely evaluated. We will contact him to get him set up in the [facility] in the near future to complete his workup. Job ID: [id number]
[2020-01-26] MEDS ORDERED: Non-Formulary Item 1 EACH (Atorvastatin Calcium [Atorvastatin Calcium] 80 MG Tablet) PO SCH (21:00)
[2020-01-26] MEDS: Atorvastatin Calcium 40 MG TAB PO SCH (21:39)
[2020-01-27 06:31] LABS: Hemoglobin 9.5 g/dL (14.0-18.0); Platelet Count 147 thou/uL (130-400)
[2020-01-27 06:31] LABS: Calc. Creatinine Clearance 113 mL/min (70-130); Estimated GFR-MDRD Greater than 90
--- NOTE | 2020-01-27 08:42 | PRG ---
DATE OF SERVICE: 01/27/2020 SUBJECTIVE: Mr. Jacob is doing well, no current complaints. He continues to be somewhat lethargic. Blood pressure is marginal at 92/51. OBJECTIVE: VITAL SIGNS: Pulse 74, blood pressure 92/51. LUNGS: Clear to auscultation. HEART: Regular rate and rhythm. ABDOMEN: Soft, nontender, nondistended. EXTREMITIES: No edema. LABORATORY DATA: Echo Doppler shows LVEF 40% with wall motion abnormality noted in the anteroseptal region, likely related to left bundle-branch block. IMPRESSION: 1. Cardiomyopathy. 2. Coronary artery disease. 3. Nonsustained ventricular tachycardia. 4. Severe aortic stenosis. RECOMMENDATIONS: Mr. Jacob from a CV standpoint is stable. We would recommend stopping carvedilol and Lasix due to hypotension. His LVEF is greater than 35%. At this point, no longer requires LifeVest. Plan is outpatient TAVR. Job ID: [id number]
[2020-01-27] MEDS: Allopurinol 300 MG TAB PO SCH (08:46)
[2020-01-27] MEDS: Losartan 25 MG TAB PO SCH (08:47)
[2020-01-27] MEDS: Folic Acid 1 MG TAB PO SCH (08:47)
[2020-01-27] MEDS ORDERED: Sodium Chloride 0.9% 500 ML IV SCH ×2 (11:30→14:00)
[2020-01-27 14:28] LABS: Mean Corpuscular HGB CONC 33.2 g/dL (32.0-36.0); Mean Corpuscular Hemoglobin 28.7 pg (27.0-31.0); Mean Corpuscular Volume 86.5 fL (78.0-98.0); Mean Platelet Volume 10.5 fL (7.4-10.4); Platelet Count 150 thou/uL (130-400); RBC Distribution Width 17.9 % (11.5-14.5); Red Blood Cell (RBC) Count 3.14 mill/uL (4.70-6.10); White Blood Cell (WBC) Count 3.5 thou/uL (4.8-10.8)
[2020-01-27 14:42] LABS: ALT (SGPT) 7 U/L (8-55); AST (SGOT) 16 U/L (5-34); Albumin 3.1 g/dL (3.4-4.8); Alkaline Phosphatase 68 U/L (40-110); Anion Gap 11 mmol/L (10-20); BUN (Urea Nitrogen) 14 mg/dL (8.4-25.7); Bilirubin, Total 0.7 mg/dL (0.2-1.2); Calc. Creatinine Clearance 110 mL/min (70-130); Calcium 8.5 mg/dL (7.8-10.44); Carbon Dioxide 26 mmol/L (23-31); Chloride 99 mmol/L (98-107); Estimated GFR-MDRD Greater than 90; Glucose 97 mg/dL (83-110); Potassium 3.4 mmol/L (3.5-5.1); Protein, Total 7.1 g/dL (5.8-8.1); Sodium 133 mmol/L (136-145)
[2020-01-27 14:49] LABS: Anisocytosis SLIGHT = 6-15 cells (100X) (0-5/hpf); Band 52 % (5-11); Eosinophils 3 % (0-10); Lymphocytes 19 % (21-51); MDiff Complete? YES; Monocytes 2 % (0-10); Neutrophil 15 % (42-75); Platelet Morphology Comment Appears Adequate; Polychromasia SLIGHT = 2-3 cells (100X) (0-2/hpf); Reactive Lymphocytes 9 % (0-10)
--- NOTE | 2020-01-27 16:43 | RAD ---
PORTABLE CHEST: Date: 01/27/2020 HISTORY: Hypertension. COMPARISON: 01/25/2020. FINDINGS: Some peripheral nodular opacities in the right lunge are stable. Interstitial prominence appears norm al. No consolidation or focal infiltrate. No vascular congestion. Heart size upper normal and stable. IMPRESSION: Chronic lung parenchymal changes appear stable. No acute process. POS: AGW
[2020-01-27] MEDS ORDERED: Electrolyte Replacement Protocol FS SCH (17:45)
--- NOTE | 2020-01-27 17:52 | PDOC.HOSPP ---
- Subjective Encounter Date: 01/26/20 Encounter Time: 10:30 Subjective: Patient up in bed denies any complaints. - Objective Vital Signs & Weight: Vital Signs (12 hours) Temp Pulse Pulse Resp BP BP Pulse Ox 01/27/20 15:30 98.6 F 70 20 98/57 L 95 01/27/20 11:23 98.0 F 77 14 89/54 L 96 01/27/20 09:12 71 112/67 01/27/20 07:05 97.7 F 74 15 92/51 L 96 Weight Admit Weight 190 lb 0.615 oz Weight 190 lb Most Recent Monitor Data Heart Rate from ECG 69 NIBP 94/48 NIBP BP-Mean 71 Respiration from ECG 19 SpO2 94 I&O: 01/26/20 01/27/20 01/28/20 06:59 06:59 06:59 Intake Total 100 480 Output Total 250 Balance -150 480 Result Diagrams: 01/27/20 14:05 01/27/20 14:05 Hospitalist ROS - Review of Systems Cardiovascular: denies: chest pain, palpitations, orthopnea, paroxysmal noc. dyspnea, edema, light headedness, other Gastrointestinal: denies: nausea, vomiting, abdominal pain, diarrhea, constipation, melena, hematochezia, other Genitourinary: denies: dysuria, frequency, incontinence, hematuria, retention, other - Medication Medications: Active Medications Generic Name Dose Route Start Last Admin Trade Name Freq PRN Reason Stop Dose Admin Allopurinol 300 mg 01/26/20 09:00 01/27/20 08:46 Allopurinol 300 Mg Tab PO 300 mg DAILY TRISTAN Administration Folic Acid 1 mg 01/27/20 09:00 01/27/20 08:47 Folic Acid 1 Mg Tab PO 1 mg DAILY TRISTAN Administration Pantoprazole Sodium 40 mg 01/26/20 09:00 01/27/20 08:46 Pantoprazole 40 Mg Tab PO 40 mg DAILY TRISTAN Administration - Exam Neck: negative: supple, symmetric, no JVD, no thyromegaly, no lymphadenopathy, no carotid bruit, JVD Heart: negative: RRR, no murmur, no gallops, no rubs, normal peripheral pulses, irregular, diminshed peripheral pulses, murmur present, II/IV, III/IV Respiratory: negative: CTAB, no wheezes, no rales, no ronchi, normal chest expansion, no tachypnea, normal percussion, rales, rhonchi, tachypneic, wheezes Gastrointestinal: negative: soft, non-tender, non-distended, normal bowel sounds, no palpable masses, no hepatomegaly, no splenomegaly, no bruit, no guarding, no rigidity, tender to palpation, distended, diminished bowl sounds, voluntary guarding Hosp A/P (1) Aortic stenosis, severe Code(s): I35.0 - NONRHEUMATIC AORTIC (VALVE) STENOSIS Status: Acute (2) Inappropriate shocks from ICD (implantable cardioverter-defibrillator) Code(s): T82.198A - [facility] COMPL OF OTHER CARDIAC ELECTRONIC DEVICE, INIT ENCNTR Status: Acute (3) CAD (coronary artery disease) Code(s): I25.10 - ATHSCL HEART DISEASE OF [place] CORONARY ARTERY W/O ANG PCTRS Status: Acute (4) Physical deconditioning Code(s): R53.81 - OTHER [place] Status: Acute (5) HTN (hypertension) Code(s): I10 - ESSENTIAL (PRIMARY) HYPERTENSION Status: Chronic Qualifiers: - Plan Patient received an inappropriate shock from ICD. Echo ordered. Patient has severe stenosis will stop Coreg and Lasix for now. CV surgery to evaluate. Patient has bandemia however no fever we will continue to monitor.
--- NOTE | 2020-01-27 17:55 | PDOC.HOSPP ---
- Subjective Encounter Date: 01/27/20 Encounter Time: 11:15 Subjective: Patient up in bed denies any complaint - Objective Vital Signs & Weight: Vital Signs (12 hours) Temp Pulse Pulse Resp BP BP Pulse Ox 01/27/20 15:30 98.6 F 70 20 98/57 L 95 01/27/20 11:23 98.0 F 77 14 89/54 L 96 01/27/20 09:12 71 112/67 01/27/20 07:05 97.7 F 74 15 92/51 L 96 Weight Admit Weight 190 lb 0.615 oz Weight 190 lb Most Recent Monitor Data Heart Rate from ECG 69 NIBP 94/48 NIBP BP-Mean 71 Respiration from ECG 19 SpO2 94 I&O: 01/26/20 01/27/20 01/28/20 06:59 06:59 06:59 Intake Total 100 480 Output Total 250 Balance -150 480 Result Diagrams: 01/27/20 14:05 01/27/20 14:05 Hospitalist ROS - Review of Systems Cardiovascular: denies: chest pain, palpitations, orthopnea, paroxysmal noc. dyspnea, edema, light headedness, other Gastrointestinal: denies: nausea, vomiting, abdominal pain, diarrhea, constipation, melena, hematochezia, other Genitourinary: denies: dysuria, frequency, incontinence, hematuria, retention, other - Medication Medications: Active Medications Generic Name Dose Route Start Last Admin Trade Name Freq PRN Reason Stop Dose Admin Allopurinol 300 mg 01/26/20 09:00 01/27/20 08:46 Allopurinol 300 Mg Tab PO 300 mg DAILY TRISTAN Administration Folic Acid 1 mg 01/27/20 09:00 01/27/20 08:47 Folic Acid 1 Mg Tab PO 1 mg DAILY TRISTAN Administration Pantoprazole Sodium 40 mg 01/26/20 09:00 01/27/20 08:46 Pantoprazole 40 Mg Tab PO 40 mg DAILY TRISTAN Administration - Exam Neck: negative: supple, symmetric, no JVD, no thyromegaly, no lymphadenopathy, no carotid bruit, JVD Heart: negative: RRR, no murmur, no gallops, no rubs, normal peripheral pulses, irregular, diminshed peripheral pulses, murmur present, II/IV, III/IV Respiratory: negative: CTAB, no wheezes, no rales, no ronchi, normal chest expansion, no tachypnea, normal percussion, rales, rhonchi, tachypneic, wheezes Gastrointestinal: negative: soft, non-tender, non-distended, normal bowel sounds, no palpable masses, no hepatomegaly, no splenomegaly, no bruit, no guarding, no rigidity, tender to palpation, distended, diminished bowl sounds, voluntary guarding Hosp A/P (1) Aortic stenosis, severe Code(s): I35.0 - NONRHEUMATIC AORTIC (VALVE) STENOSIS Status: Acute (2) Inappropriate shocks from ICD (implantable cardioverter-defibrillator) Code(s): T82.198A [facility] COMPL OF OTHER CARDIAC ELECTRONIC DEVICE, INIT ENCNTR Status: Acute (3) CAD (coronary artery disease) Code(s): I25.10 - ATHSCL HEART DISEASE OF [place] CORONARY ARTERY W/O ANG PCTRS Status: Acute (4) Physical deconditioning Code(s): R53.81 - OTHER [place] Status: Acute (5) HTN (hypertension) Code(s): I10 - ESSENTIAL (PRIMARY) HYPERTENSION Status: Chronic Qualifiers: (6) Hypotension Status: Acute - Plan Patient received an inappropriate shock from ICD. Echo ordered. Patient has severe stenosis will stop Coreg and Lasix for now. CV surgery to evaluate. Patient has bandemia however no fever we will continue to monitor. 01/26 patient was found to be hypotensive. We will give him some IV fluids and continue to monitor him. He is asymptomatic. We will stop his GABBY inhibitor given the low blood pressure. EF indicates 35 to 40%. He will be patient has a history of lymphoma we will do a CT chest abdomen pelvis his last one was done in 2018. Evaluated with CV surgery as outpatient. Patient continues to have bandemia he has no fever will check a UA blood culture.
[2020-01-27] MEDS ORDERED: Potassium Chloride 20 MEQ TAB PO SCH (18:00)
[2020-01-27] MEDS: Apixaban 5 MG TAB PO SCH (20:06)
[2020-01-27] MEDS ORDERED: Atorvastatin Calcium 40 MG TAB PO SCH (21:00)
[2020-01-28] MEDS ORDERED: Levothyroxine Sodium 50 MCG TAB PO SCH (06:00)
[2020-01-28] MEDS ORDERED: Potassium Chloride 20 MEQ TAB PO SCH ×2 (07:15→17:00)
[2020-01-28] MEDS ORDERED: Ferrous Sulfate 325 MG TAB PO SCH (09:00)
--- NOTE | 2020-01-28 09:14 | PRG ---
DATE OF SERVICE: 01/28/2020 SUBJECTIVE: Mr. Jacob has no current symptoms. No chest pain or pressure. No shortness of breath. His blood pressure did improve after stopping Coreg in addition to Lasix and ARB. He also received a fluid bolus. Blood pressure now is in the 100 systolic. He again remained asymptomatic. CT scan of the abdomen and pelvis is pending. The patient has a previous history of lymphoma. OBJECTIVE: VITAL SIGNS: Blood pressure 104/70, pulse 80, respirations 20, T-max 100.4. LUNGS: Clear to auscultation. HEART: Regular rate and rhythm with 2/6 systolic ejection murmur. ABDOMEN: Soft, nontender, nondistended. EXTREMITIES: No edema. IMPRESSION: 1. Hypotension. 2. Severe aortic stenosis. 3. Calculated left ventricular ejection fraction 40%. RECOMMENDATIONS: 1. CT scan of abdomen pending. 2. Blood pressure has improved. 3. Continue to evaluate for hypotension. Certainly, recurrent sepsis may be an issue. UA is pending. Job ID: [id number]
[2020-01-28] MEDS: Allopurinol 300 MG TAB PO SCH (11:10)
[2020-01-28] MEDS: Folic Acid 1 MG TAB PO SCH (11:10)
[2020-01-28] MEDS: Apixaban 5 MG TAB PO SCH (11:10)
--- NOTE | 2020-01-28 11:30 | CT ---
Exam: Chest CT with contrast Abdomen CT with contrast Pelvic CT with contrast HISTORY: Bandemia. Hypotension. Correlation: None. COMPARISON: 11/10/2019. FINDINGS: Chest CT: Mediastinum: Enlarged mediastinal lymph nodes. Enlarged right paratracheal lymph node measures 1.6 x 1.3 cm. Enlarged AP window lymph nodes measure 1.9 x 1.6 and 1.3 x 1.2 cm. Enlarged subcarinal lymph node measures 1.4 x 1.2 cm. Aorta: Normal caliber. No periaortic fat stranding. Heart: Normal heart size. There are extensive coronary artery calcifications. Trachea and central bronchi: Patent. Pleural spaces: No pleural effusion. Right lung: Presumed chronic changes of the right lung. Calcified granulomas are noted. No suspicious masses or consolidation. Left lung:Presumed chronic changes of the left lung. Calcified granuloma in the lingula is noted. No suspicious masses or consolidations. Pneumothorax: None Abdomen CT: Gallbladder: Surgically absent. Stable air in the left intrahepatic biliary system. Portal vein: Patent. Liver: Diffuse hypoattenuation suggesting hepatic steatosis.. Spleen: Appropriate enhancement. Pancreas: Appropriate enhancement. Adrenal glands: Appropriate enhancement. Lymphadenopathy: No gastrohepatic, retrocrural or periportal lymphadenopathy. Kidneys: Symmetric enhancement. Stable exophytic cyst emanating from the right kidney measuring 4.6 x 5.7 cm. Mesentery: There is stranding of the abdominal mesentery with evidence of lymphadenopathy. Findings a re similar to the previous examination. Alimentary canal: Gastric mucosa, duodenum and multiple normal caliber small bowel loops are identifi ed. There is evidence of at least two separate diverticula involving the second portion of the duodenum. One of the diverticula do fill with contrast while the other diverticulum appears to be pre dominantly air-filled. No evidence of inflammation. Normal ileocecal junction. Appendix is surgically absent. Contrast and fecal material in a nondistended, nondilated colon. Redemonstration of a large left periaortic lymph node, measuring 0.9 x [address]: Limited evaluation due to beam attenuation artifact from bilateral hip prostheses. No pelvic mass, ly mphadenopathy, free air or free fluid. Osseous structures: Redemonstration of bilateral hip prostheses. There is worsening cystic change involving the left acet abulum. Screws associated with the left hip arthroplasty extend beyond the osseous margins of the acetabulum. No obvious fractures. IMPRESSION: 1. Extensive mediastinal lymphadenopathy. 2. Stranding of the abdominal mesentery with lymphadenopathy suggesting mesenteric lymphadenitis. 3. Additional findings as detailed above. Transcribed Date/Time: 01/28/2020 11:43 AM
[2020-01-28 13:13] LABS: #Eosinphils 0.1 thou/uL (0.0-0.7); #Lymphocytes 0.8 thou/uL (1.20-3.40); #Monocytes 0.2 thou/uL (0.11-0.59); #Neutrophils 2.1 thou/uL (1.40-6.50); %Basophils 0.6 % (0.0-1.0); %Lymphocytes 23.7 % (21.0-51.0); %Monocytes 6.9 % (0.0-10.0); %Neutrophils 64.8 % (42.0-75.0); Hemoglobin 9.1 g/dL (14.0-18.0); Mean Corpuscular Hemoglobin 28.6 pg (27.0-31.0); Mean Corpuscular Volume 86.6 fL (78.0-98.0); Mean Platelet Volume 9.9 fL (7.4-10.4); Platelet Count 131 thou/uL (130-400); RBC Distribution Width 18.1 % (11.5-14.5); Red Blood Cell (RBC) Count 3.17 mill/uL (4.70-6.10); White Blood Cell (WBC) Count 3.3 thou/uL (4.8-10.8)
[2020-01-28 17:15] VITALS: BP 128/64; TEMP 98.2
--- NOTE | 2020-01-28 22:18 | CON ---
DATE OF CONSULTATION: REASON FOR CONSULTATION: Lymphoma. HISTORY OF PRESENT ILLNESS: Mr. Jacob is a 69-year-old gentleman with past medical history of congestive heart failure with low ejection fraction and a LifeVest, severe aortic valve stenosis and lymphoma, who presented to the emergency room after he was shocked by his LifeVest. He is a resident of the retirement. Echocardiogram showed an EF of 40% on this admission. He was seen by Dr. Moise and has severe aortic stenosis and needs a TAVR. He had bandemia on his CBC, so a chest, abdomen, and pelvis CT was done. This showed extensive mediastinal lymphadenopathy. There was stranding in the abdominal mesentery with lymphadenopathy, had a fatty liver and kidney cysts. The patient has a history of unknown lymphoma. He is unable to provide a history. Review of records in [facility] show an annual CT scan by Dr. Juanpablo Bee from [facility], which was initiated in 2011 and completed in 2018. I have no other medical records regarding his lymphoma. He did have a CT angio of the chest in October when he was here for congestive heart failure and ventricular tachycardia, that showed increased number of enlarged mediastinal lymph nodes, largest measuring 1.5 cm. The patient was seen at bedside. He only answers the occasional question. He will not answer my questions regarding orientation. He does say no to pain and night sweats. PAST MEDICAL HISTORY: 1. Lymphoma, unknown details. 2. Coronary artery disease. 3. Cardiomyopathy. 4. Hypertension. 5. Dyslipidemia. 6. History of GI bleed. 7. Aortic valve stenosis. PAST SURGICAL HISTORY: Coronary stent placement and ERCP. FAMILY HISTORY: Unknown. SOCIAL HISTORY: Former smoker. He lives in a retirement. Apparently walks with a walker. REVIEW OF SYSTEMS: Unable to obtain, the patient is alert, but not answering questions. PHYSICAL EXAMINATION: GENERAL: This is a chronically ill-appearing male, in no acute distress. HEENT: Normocephalic and atraumatic. NECK: Supple. No mass. CV: Regular rate and rhythm. LUNGS: Clear anterior. ABDOMEN: Soft and nontender. Bowel sounds are positive. No hepatosplenomegaly. EXTREMITIES: No clubbing or cyanosis. SKIN: No rash. HEMATOLOGICAL: No petechiae or purpura. NEUROLOGICAL: Nonfocal. PERTINENT LABORATORY DATA AND X-RAYS: Current WBCs are 3.3, hemoglobin 9.1, hematocrit 27.4, platelet count is 131,000, 65% neutrophils, and 23% lymphs. Sodium 133, potassium 3.4, chloride 99, CO2 is 26, BUN is 14, creatinine 0.75, and calcium 8.5. Bilirubin 0.7, AST 16, ALT 7, and alk phos is 68. Serum total protein 7.1, albumin 3.1, and globulin 4.0. Radiology: Per HPI. ASSESSMENT: 1. 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 2. Severe aortic stenosis, currently been worked up for transcatheter aortic valve replacement. 3. Congestive heart failure with reduced ejection fraction. 4. Deconditioning. DISCUSSION: The patient has extensive mediastinal lymphadenopathy, which is consistent with recurrent lymphoma. It appears he has been treated by [facility] in [place] in the past. He had CT scans performed from 2011 to 2018. I have no medical records. We will get a flow cytometry of peripheral blood to evaluate his lymphoma. He has severe aortic stenosis, which would need to be treated prior to any type of chemotherapy. It is possible they have received Adriamycin in the past, which might be responsible for his cardiomyopathy. He is a poor candidate for chemotherapy at this time, but should he improve after his TAVR, the treatment options. Complicating matter is that the patient lives in a retirement, which is unlikely to provide chemotherapy assistance to the patient. Case has been discussed with Dr. Canales and Dr. Tapia. Thank you for the consult. Job ID: [id number]
--- NOTE | 2020-01-29 01:55 | DIS ---
DATE OF ADMISSION: 01/25/2020 DATE OF DISCHARGE: 01/28/2020 DISCHARGE DIAGNOSES: 1. Aortic stenosis, severe. 2. Inappropriate shocks from ICD. 3. Coronary artery disease. 4. Physical deconditioning. 5. Possible return of lymphoma. HOSPITAL COURSE: The patient is a very pleasant 69-year-old male, who initially presented to the hospital after being shocked by a LifeVest. Per the ER report, his LifeVest was interrogated, it seemed to have malfunctioned. The patient at this time was seen by Cardiology and also by Electrophysiology. The patient had an echocardiogram, which indicated an EF of 40% with severe aortic stenosis. Last time when he was in the hospital, he had sepsis and could not be evaluated by CV Surgery; however, at this time, he was evaluated by CV Surgery, who recommended for the patient to be evaluated as an outpatient. However, while he was in the hospital, he was noted to have elevated bandemia. He has a history of lymphoma in the past and has been followed with Oncology, which resides in [place] I believe. I did consult Oncology, and we did a CT chest, abdomen, and pelvis with contrast, which did indicate extensive mediastinal lymphadenopathy, stranding in the abdominal mesentery with lymphadenopathy suggesting of mesenteric lymphadenitis. At this time, after speaking with Oncology, we ordered a flow cytometry and discharged the patient. I did call and left a message for the number that was provided, Vanan Jacob, and made her aware that the patient will need eventually followup for his lymphoma once his cardiac status has been stable. PHYSICAL EXAMINATION: VITAL SIGNS: On discharge, temperature of 98.2, pulse 88, respiratory rate 18, 92% on room air, blood pressure 128/54. GENERAL: He is awake, alert, and oriented x3. Does not appear in distress. CV: S1, S2 present. No murmurs, rubs, or gallops. MEDICATIONS: He is going to be on: 1. Allopurinol 300 mg daily. 2. Folic acid 1 p.o. daily. 3. Apixaban 5 mg b.i.d. 4. Atorvastatin 40 mg daily. 5. Losartan 25 mg daily, hold if systolic blood pressure less than 100. 6. Iron 325 p.o. daily. 7. Levothyroxine 50 mcg daily. 8. Omeprazole 20 mg daily. Again, the patient will be discharged back to the [facility]. Job ID: [id number]
== END 2020-01-28 18:00 | DRG 315 ==
LOC: ERS 12:24 → CCU 13:56 → 2NO 19:39
PROVIDERS: ADMIT Internal Medicine; ATTEND Internal Medicine
DX: T82.198A Other mechanical complication of other cardiac electronic device, initial encounter (principal); E87.1 Hypo-osmolality and hyponatremia; I42.9 Cardiomyopathy, unspecified; I47.2 Ventricular tachycardia; I50.22 Chronic systolic (congestive) heart failure; C85.90 Non-Hodgkin lymphoma, unspecified, unspecified site; I35.0 Nonrheumatic aortic (valve) stenosis; Y83.9 Surgical procedure, unspecified as the cause of abnormal reaction of the patient, or of later complication, without mention of misadventure at the time of the procedure; Z96.643 Presence of artificial hip joint, bilateral; R53.1 Weakness; K74.60 Unspecified cirrhosis of liver; M10.9 Gout, unspecified; I25.5 Ischemic cardiomyopathy; R53.81 Other malaise; I95.9 Hypotension, unspecified; I25.10 Atherosclerotic heart disease of native coronary artery without angina pectoris; R59.1 Generalized enlarged lymph nodes; E78.5 Hyperlipidemia, unspecified; D50.9 Iron deficiency anemia, unspecified; I11.0 Hypertensive heart disease with heart failure; E87.8 Other disorders of electrolyte and fluid balance, not elsewhere classified; Z88.1 Allergy status to other antibiotic agents; Z79.899 Other long term (current) drug therapy; Z79.01 Long term (current) use of anticoagulants; Z95.5 Presence of coronary angioplasty implant and graft; Z87.891 Personal history of nicotine dependence; Z20.828 Contact with and (suspected) exposure to other viral communicable diseases
CPT/HCPCS: 36415; 71045; 71260; 74177; 80048; 80053; 82550; 82565; 83880; 84484; 85014; 85018; 85025; 85049; 87040; 87635; 88184; 90471; 90662; 93005; 93306; 93798; 94760; 96361; 96365; 96366; G0008; J0282; J3475; U0003